=== PATIENT | female | born 1970 | race Caucasian/White ===

== ENCOUNTER 2021-01-07 03:21 | Emergency (ER) | payer SELFPAY ==
[2021-01-07 03:22] VITALS: BP 131/61; PULSE 97; RESP 18; TEMP 36.6; O2SAT 100; BMI 30.5
[2021-01-07 03:24] VITALS: BP 131/61; PULSE 97; RESP 18; TEMP 36.6; O2SAT 100
--- NOTE | 2021-01-07 03:44 | ED.VIS.DENTA ---
HPI History of Present Illness Chief Complaint: Dental Narrative Narrative: Patient presenting secondary to dental pain and facial swelling. Patient states for multiple months she has been dealing with pain in her right lower molars. She states that it mainly causes her pain when she is chewing or when she is leaning forward. Patient states however the course the last couple of days she has been having increasing pain and she woke up tonight she noted that she had right-sided facial swelling. She denies any fevers. Pain is moderate it was refractory to NSAIDs at home. Patient denies any difficulty swallowing or difficulty with phonation. She is not immunosuppressed. View of systems otherwise negative. PFSH PFSH Home Medications hydrocodone-acetaminophen 1 tab PO Q6H PRN PRN 2 Days #8 tablet 01/07/21 [Rx Last Taken Unknown] naproxen 500 mg PO BID PRN #20 tab 01/07/21 [Rx Last Taken Unknown] penicillin V potassium 500 mg PO 4X/DAY #40 tab 01/07/21 [Rx Last Taken Unknown] Allergy/AdvReac Type Severity Reaction Status Date / Time No Known Allergies Allergy Verified 03/04/17 07:24 Social History Smoking Status: Never smoker ROS ROS ED Constitutional Constitutional ED: Denies fever(s) ENT ENT ED: Reports other Details: Dental pain Respiratory/Chest Respiratory/Chest: Denies dyspnea Gastrointestinal Gastrointestinal: Denies nausea or vomiting Musculoskeletal Musculoskeletal: Denies myalgias Integumentary Denies abscess or rash Hematologic/Lymphatic Hematologic/Lymphatic: Denies easy bleeding or easy bruising EXAM Physical Exam Const Vital Signs: 01/07/21 03:22 01/07/21 03:24 Temperature 97.8 F 97.8 F Temperature Source Temporal Temporal Pulse Rate 97 97 Respiratory Rate 18 18 Blood Pressure 131/61 H 131/61 H Blood Pressure Mean 84 84 Pulse Ox 100 100 Oxygen Delivery Method Room Air Room Air Positive well nourished and well developed General Appearance ED: well developed HEENT HEENT Narrative: Facial and oral exam shows the patient to have some swelling of her right lower jaw that is visible externally. Oral exam shows very poor dentition, was not able to localize a focal abscess there is no trismus oropharynx is clear and patent. Sublingual space is soft. Normal phonation. Destruction of gums is noted over the patient's midline mandible but this is not the location of the patient's pain or swelling currently. Eyes EOMs intact bilaterally Neck no lymphadenopathy and supple Resp normal respiratory effort Cardio regular rate Extremity normal to inspection Neuro oriented x3 Sensorium / Orientation: alert Psych mental status grossly normal Skin no rashes or lesions noted MDM MDM MDM Narrative Medical decision making narrative: Patient presented secondary to dental pain. She does not have evidence of sublingual edema or Joshua angina, no evidence of airway compromise. Likewise there is no evidence of focal abscess that could be drained. Patient be treated with a course of penicillin, Naprosyn, and a short course of Freeman. Patient's prescription reporting record was clean. Patient was recommended to follow-up with a dentist as soon as possible. Patient was given first doses in the ED. Discharge Plan Triage Chief Complaint: Dental ED Provider: Michael Andres Dx/Rx/DC Orders Clinical Impression: Dental infection Instructions: ED Dental Abscess Prescriptions: New penicillin V potassium 500 mg tablet 500 mg PO 4X/DAY Qty: 40 RF: 0 naproxen 500 mg tablet 500 mg PO BID PRN Qty: 20 RF: 0 hydrocodone-acetaminophen 5-325 mg tablet 1 tab PO Q6H PRN PRN (Reason: Pain) 2 Days Qty: 8 RF: 0 Primary Care Provider: Care Physician,No Primary Referrals: Care Physician,No Primary [Primary Care Provider] - Activity Restrictions/Additional Instructions: Follow-up with a dentist as soon as possible Disposition Disposition: Home, Self Care
[2021-01-07] MEDS: HYDROcodone Bitartrate/Apap 5/325 Tablet PO (03:57)
[2021-01-07] MEDS: Penicillin Vk 250 MG Tablet 500 MG PO (03:57)
== END 2021-01-07 04:01 | disposition home or self-care (01) ==
PROVIDERS: Emergency Provider Emergency Medicine
DX: K04.7 Periapical abscess without sinus (principal)
CPT/HCPCS: 99282

== ENCOUNTER 2021-07-02 17:58 | Emergency (ER) | payer SELFPAY ==
[2021-07-02 17:59] VITALS: BP 117/68; PULSE 99; RESP 16; TEMP 36.4; O2SAT 97; BMI 29.5
--- NOTE | 2021-07-02 18:15 | EDS_ITS ---
HPI History of Present Illness Chief Complaint: Upper Extremity Injury Informant: patient Narrative Narrative: [id number] female presents valuation paresthesias bilateral hands right greater than left. States started 2 years ago and more frequent since she started a new job a month ago working both hands and lifting. Would wake up with middle finger being numb and slight weakness to the right hand. States his pain up her arm. No trauma. Has not had this evaluated. States with extension symptoms seem to help. Denies history of gastric ulcers or kidney failure. Prior similar symptoms: Yes PFSH PFSH Home Medications hydrocodone-acetaminophen 1 tab PO Q6H PRN PRN 2 Days #8 tablet 01/07/21 [Rx Last Taken Unknown] naproxen 500 mg PO BID PRN #20 tab 01/07/21 [Rx Last Taken Unknown] penicillin V potassium 500 mg PO 4X/DAY #40 tab 01/07/21 [Rx Last Taken Unknown] ibuprofen 600 mg PO 4X/DAY PRN #20 tab 07/02/21 [Rx Last Taken Unknown] Allergy/AdvReac Type Severity Reaction Status Date / Time No Known Allergies Allergy Verified 07/02/21 17:59 Social History Smoking Status: Never smoker ROS ROS ED Constitutional Constitutional ED: Denies chills, fever(s) or sweats Eyes Eyes: Denies change in vision ENT ENT ED: Denies dysphagia or sore throat Cardiovascular Cardiovascular: Denies chest pain, leg edema, palpitations or racing heartbeat Respiratory/Chest Respiratory/Chest: Denies cough, dyspnea or dyspnea on exertion Gastrointestinal Gastrointestinal: Denies abdominal pain, diarrhea, nausea or vomiting Genitourinary Genitourinary ED: Denies dysuria, hematuria or urinary frequency Musculoskeletal Musculoskeletal: Denies back pain, extremity pain or neck pain Integumentary Denies rash or wounds Neurologic Neurologic: Reports paresthesias; Denies headache(s) or weakness EXAM Physical Exam Const Vital Signs: 07/02/21 17:59 Temperature 97.5 F L Temperature Source Temporal Pulse Rate 99 Respiratory Rate 16 Blood Pressure 117/68 Blood Pressure Mean 84 Pulse Ox 97 Oxygen Delivery Method Room Air Positive well nourished and well developed General Appearance ED: well developed and NAD HEENT Reports moist mucous membranes normocephalic and atraumatic Eyes PERRL, EOMs intact bilaterally and conjunctivae normal General Eye ED: Yes normal appearance of both eyes Neck no lymphadenopathy and supple General: Negative for tenderness Chest Wall Chest: Negative for tenderness Resp normal respiratory effort and normal air movement Effort and Inspection: symmetric chest movement; Negative for respiratory distress Cardio regular rate, regular rhythm and no murmurs Peripheral Pulses: pulses 2+ throughout GI normal to inspection, nondistended, normoactive bowel sounds and non-tender Palpation: Negative for guarding or rebound tenderness present Back/Spine no CVA tenderness and no thoracic nor lumbar tenderness Extremity normal to inspection Extremity Narrative: Positive Phalen's test bilaterally right greater than left, 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 Positive Tinel's of the right wrist. General Extremety ED: Negative for edema or tenderness General Extremity: Negative for edema Neuro oriented x3 and no sensory deficits noted Sensorium / Orientation: awake and alert Skin no rashes or lesions noted and no wounds MDM MDM MDM Narrative Medical decision making narrative: Patient history exam consistent with carpal tunnel syndrome. Bilateral wrist splints provided. She started on NSAIDs. She is given follow-up with orthopedics as an outpatient. Discharge Plan Triage Chief Complaint: Upper Extremity Injury ED Provider: Ashish Addison Dx/Rx/DC Orders Clinical Impression: Bilateral carpal tunnel syndrome Instructions: Carpal Tunnel Syndrome, Carpal Tunnel Syndrome Prevent Prescriptions: New ibuprofen 600 MG tablet 600 mg PO 4X/DAY PRN (Reason: Pain Or Fever) Qty: 20 RF: 0 No Action penicillin V potassium 500 mg tablet 500 mg PO 4X/DAY Qty: 40 RF: 0 naproxen 500 mg tablet 500 mg PO BID PRN Qty: 20 RF: 0 hydrocodone-acetaminophen 5-325 mg tablet 1 tab PO Q6H PRN PRN (Reason: Pain) 2 Days Qty: 8 RF: 0 Primary Care Provider: Care Physician,No Primary Referrals: Michael Liu DO [STAFF PHYSICIAN] - 1-2 Weeks Care Physician,No Primary [Primary Care Provider] - Disposition Disposition: Home, Self Care
[2021-07-02] MEDS: Ibuprofen 600 MG Tablet PO (18:28)
== END 2021-07-02 18:31 | disposition home or self-care (01) ==
PROVIDERS: Emergency Provider Emergency Medicine; Visit Provider Emergency Medicine
DX: G56.03 Carpal tunnel syndrome, bilateral upper limbs (principal)
CPT/HCPCS: 99283

== ENCOUNTER 2021-08-30 21:17 | Emergency (ER) | payer SELFPAY ==
[2021-08-30 21:18] VITALS: BP 135/70; PULSE 86; RESP 15; TEMP 37.3; O2SAT 99; BMI 28.3
--- NOTE | 2021-08-30 23:09 | EX.ED.DYSGE1 ---
HPI History of Present Illness Chief Complaint: Complaint Informant: patient Narrative Narrative: 51-year-old female arriving to the emergency department with chief complaint of bladder prolapse. Patient states that several days ago when she got home from work she did get in the shower and she noticed something seem to be protruding from her vagina. She took a photo of it. She states she has been very anxious about what this may be is afraid that she is dying. 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 She notes frequent urination which is not abnormal for her. PFSH PFS Medical History Kidney stones Home Medications hydrocodone-acetaminophen 1 tab PO Q6H PRN PRN 2 Days #8 tablet 01/07/21 [Rx Last Taken Unknown] naproxen 500 mg PO BID PRN #20 tab 01/07/21 [Rx Last Taken Unknown] penicillin V potassium 500 mg PO 4X/DAY #40 tab 01/07/21 [Rx Last Taken Unknown] ibuprofen 600 mg PO 4X/DAY PRN #20 tab 07/02/21 [Rx Last Taken Unknown] Allergy/AdvReac Type Severity Reaction Status Date / Time No Known Allergies Allergy Verified 08/30/21 21:20 Surgical History History of arthroplasty of right knee History of tubal ligation Social History Smoking Status: Never smoker ROS ROS ED Constitutional Constitutional ED: Denies chills or weight loss Eyes Eyes: Denies change in vision or diplopia ENT ENT ED: Denies ear pain, rhinorrhea or sore throat Cardiovascular Cardiovascular: Denies chest pain, orthopnea, palpitations or racing heartbeat Respiratory/Chest Respiratory/Chest: Denies cough, dyspnea or orthopnea Gastrointestinal Gastrointestinal: Denies abdominal pain, diarrhea, nausea or vomiting Genitourinary Genitourinary ED: Reports urinary frequency; Denies dysuria or hematuria Musculoskeletal Musculoskeletal: Denies arthralgias or myalgias Integumentary Denies abscess or rash Neurologic Neurologic: Denies headache(s) or weakness Psychiatric Psychiatric: Denies anxiety, depression, suicidal ideation or suicidal thoughts Endocrine Endocrinology: Denies polydipsia, polyphagia or polyuria Allergic/Immunologic Allergic/Immunologic ED: Denies mouth swelling, tongue swelling or urticaria EXAM Physical Exam Narrative Exam Narrative: Pelvic exam was performed in the presence of female nursing Const Vital Signs: 08/30/21 21:18 Temperature 99.1 F Temperature Source Temporal Pulse Rate 86 Respiratory Rate 15 Blood Pressure 135/70 H Blood Pressure Mean 91 Pulse Ox 99 Oxygen Delivery Method Room Air Positive well nourished and well developed General Appearance ED: well developed HEENT Reports normocephalic, head/scalp atraumatic, TM's clear and moist mucous membranes Negative for trauma Tympanic Membrane ED: Yes TM's clear Eyes PERRL and EOMs intact bilaterally Neck no lymphadenopathy, supple and no JVD Resp normal respiratory effort and clear to auscultation bilaterally Cardio regular rate, regular rhythm and no murmurs GI normal to inspection, nondistended, normoactive bowel sounds and non-tender Palpation: soft Narrative: I am not seeing or palpating any obvious bladder prolapse. I do not see any uterine prolapse. Back/Spine no CVA tenderness and normal ROM Extremity normal to inspection General Extremety ED: Negative for edema General Extremity: Negative for edema Neuro oriented x3 and CN's II-XII intact bilaterally Sensorium / Orientation: alert Motor Exam: strength 5/5 throughout Psych mental status grossly normal Mood & Affect: Negative for depressed or tearful Skin no rashes or lesions noted and no wounds MDM MDM MDM Narrative Medical decision making narrative: Based on the picture the patient shows me this looks more like a incomplete uterine prolapse but I do not see evidence of it on physical exam at this time. I am advising her to follow-up with [facility]. Discharge Plan Triage Chief Complaint: Complaint ED Provider: Quoc Martínez Dx/Rx/DC Orders Clinical Impression: Anxiety about health, Incomplete uterine prolapse Instructions: Pelvic Organ Prolapse Prescriptions: No Action penicillin V potassium 500 mg tablet 500 mg PO 4X/DAY Qty: 40 RF: 0 naproxen 500 mg tablet 500 mg PO BID PRN Qty: 20 RF: 0 hydrocodone-acetaminophen 5-325 mg tablet 1 tab PO Q6H PRN PRN (Reason: Pain) 2 Days Qty: 8 RF: 0 ibuprofen 600 MG tablet 600 mg PO 4X/DAY PRN (Reason: Pain Or Fever) Qty: 20 RF: 0 Primary Care Provider: Care Physician,No Primary Referrals: Maddi Brasher MD [STAFF PHYSICIAN] - As soon as possible Care Physician,No Primary [Primary Care Provider] - Disposition Disposition: Home, Self Care
[2021-08-30 23:24] VITALS: PULSE 84; RESP 15; O2SAT 99
== END 2021-08-30 23:25 | disposition home or self-care (01) ==
PROVIDERS: Emergency Provider Emergency Medicine; Visit Provider Emergency Medicine
DX: N81.2 Incomplete uterovaginal prolapse (principal); R35.0 Frequency of micturition; Z79.1 Long term (current) use of non-steroidal anti-inflammatories (NSAID); Z79.899 Other long term (current) drug therapy
CPT/HCPCS: 99282

== ENCOUNTER 2021-10-11 00:37 | Emergency (ER) | payer SELFPAY ==
[2021-10-11 00:39] VITALS: BP 139/87; PULSE 123; RESP 20; TEMP 37.6; O2SAT 98; BMI 29.5
[2021-10-11 00:43] VITALS: BP 139/87; PULSE 119; RESP 20; TEMP 37.6; O2SAT 100
--- NOTE | 2021-10-11 01:10 | EDS_ITS ---
HPI History of Present Illness Chief Complaint: General Illness Informant: patient Narrative Narrative: Only started yesterday. Reported work noted sore throat with mild illness. States with home became fatigued, waking in the evening with a fever and myalgias. Took ibuprofen last evening. Today noted headache mild cough. No vomiting or diarrhea. No urinary symptoms. Persistent fevers last ibuprofen 5 PM. There were people sick at work however there is no close contact with her. No flu or COVID vaccination. No COVID in the past. Denies any loss of taste or smell. Reported had a temp of 101 prior to arrival. Denies any dyspnea. [facility] Medical History Kidney stones Home Medications naproxen 500 mg PO BID PRN #20 tab 01/07/21 [Rx Last Taken Unknown] ibuprofen 600 mg PO 4X/DAY PRN #20 tab 07/02/21 [Rx Last Taken Unknown] Allergy/AdvReac Type Severity Reaction Status Date / Time No Known Allergies Allergy Verified 08/30/21 21:20 Surgical History History of arthroplasty of right knee History of tubal ligation Social History Smoking Status: Never smoker ROS ROS ED Constitutional Constitutional ED: Reports fever(s); Denies chills or sweats Eyes Eyes: Denies change in vision ENT ENT ED: Denies dysphagia or sore throat Cardiovascular Cardiovascular: Denies chest pain, leg edema, palpitations or racing heartbeat Respiratory/Chest Respiratory/Chest: Reports cough; Denies dyspnea or dyspnea on exertion Gastrointestinal Gastrointestinal: Denies abdominal pain, diarrhea, nausea or vomiting Genitourinary Genitourinary ED: Denies dysuria, hematuria or urinary frequency Musculoskeletal Musculoskeletal: Reports myalgias; Denies back pain, extremity pain or neck pain Integumentary Denies rash or wounds Neurologic Neurologic: Reports headache(s); Denies paresthesias or weakness EXAM Physical Exam Const Vital Signs: 10/11/21 00:39 10/11/21 00:43 Temperature 99.7 F H 99.7 F H Temperature Source Oral Oral Pulse Rate 123 H 119 H Respiratory Rate 20 H 20 H Blood Pressure 139/87 H 139/87 H Blood Pressure Mean 104 104 Pulse Ox 98 100 Oxygen Delivery Method Room Air Room Air Positive well nourished and well developed Constitutional Narrative: Nontoxic General Appearance ED: well developed and NAD HEENT Reports dry mucous membranes HEENT Narrative: Mild dry mucosal membranes. normocephalic and atraumatic Mouth ED: Yes dry mucous membranes Mouth: dry mucous membranes Eyes PERRL, EOMs intact bilaterally and conjunctivae normal General Eye ED: Yes normal appearance of both eyes Neck no lymphadenopathy and supple Neck Narrative: No meningismus. General: Negative for tenderness Chest Wall Chest: Negative for tenderness Resp normal respiratory effort and normal air movement Effort and Inspection: symmetric chest movement; Negative for respiratory distress Cardio regular rhythm and no murmurs Rate: tachycardic Peripheral Pulses: pulses 2+ throughout GI normal to inspection, nondistended, normoactive bowel sounds and non-tender Palpation: Negative for guarding or rebound tenderness present Back/Spine no CVA tenderness and no thoracic nor lumbar tenderness Extremity normal to inspection General Extremety ED: Negative for edema or tenderness General Extremity: Negative for edema Neuro oriented x3, CN's II-XII intact bilaterally and no sensory deficits noted Sensorium / Orientation: awake and alert Skin no rashes or lesions noted and no wounds MDM MDM MDM Narrative Medical decision making narrative: Patient tachycardic on arrival elevated temperature. Dry mucosal membranes. IV established fluids given. Chest x-ray 1 view reviewed by myself and read by radiology shows no acute process. Labs White count 16 creatinine 0.83. She has no urine symptoms. With fluids heart rate down in the 100s. COVID and influenza was negative. Discussed possibility of false negatives especially with her headaches and myalgias. She is not hypoxic. She has no dyspnea or lower suspicion for PE concerns. Discussed viral process with the patient. Discussed adjunct therapies and continue fluid hydration at home. Return precautions. Otherwise follow-up given as an outpatient. Work note given. All questions were answered. Lab Data Attestation: I reviewed the patient's lab results. Labs: Laboratory Results - last 24 hr 10/11/21 10/11/21 01:25 01:25 WBC 16.4 H RBC 4.31 Hgb 11.4 L Hct 36.4 L MCV 84.5 MCH 26.5 L MCHC 31.3 L RDW Std Deviation 48.7 H RDW Coeff of Julian 15.7 H Plt Count 182 MPV 10.8 Immature Gran % (Auto) 0.500 Neut % (Auto) 86.1 H Lymph % (Auto) 7.6 L [place] % (Auto) 5.1 Eos % (Auto) 0.5 Baso % (Auto) 0.2 Absolute Neuts (auto) 14.1 H Absolute Lymphs (auto) 1.25 Nucleated RBC % 0 Sodium 136 Potassium 3.9 Chloride 107 Carbon Dioxide 27.0 Anion Gap 2 L BUN 14 Creatinine 0.83 Estim Creat Clear Calc 64.85 Est GFR (MDRD) Af Amer 94 Est GFR (MDRD) Non-Af 78 BUN/Creatinine Ratio 16.9 Glucose 115 H Calcium 10.5 H Radiography Chest X-Ray - ED: 1 View, Read by ED Physician and Read by Radiologist Diagnostic Testing: Clinical Impression(s) from Imaging Studies Chest X-Ray 10/11/21 01:40 IMPRESSION: No radiographic evidence of acute cardiopulmonary disease. Electronically Signed: Debra Husain MD at 2:39 EDT , Discharge Plan Triage Chief Complaint: General Illness ED Provider: Ashish Addison Dx/Rx/DC Orders Clinical Impression: Viral upper respiratory illness, Cough, Headache, Myalgia Instructions: ED Myalgias, ED URI, Viral, No Abx (Adult) Prescriptions: No Action naproxen 500 mg tablet 500 mg PO BID PRN Qty: 20 RF: 0 ibuprofen 600 MG tablet 600 mg PO 4X/DAY PRN (Reason: Pain Or Fever) Qty: 20 RF: 0 Primary Care Provider: Care Physician,No Primary Referrals: Kayli Tavares [NON-STAFF] - 1 Week if not improving Care Physician,No Primary [Primary Care Provider] - Activity Restrictions/Additional Instructions: Chest x-ray is negative. Flu and COVID-negative. Continue oral fluids for hydration. Tylenol Motrin as needed for fevers. Disposition Disposition: Home, Self Care
[2021-10-11] MEDS: 0.9% Normal Saline 1,000 ML 1000 ML IV (01:24)
[2021-10-11] MEDS: Acetaminophen 500 MG Tablet 1000 MG PO (01:24)
[2021-10-11 01:35] LABS: Absolute Lymphocyte Count 1.25 X10^3/uL (0.83-4.51); Absolute Neutrophil Count 14.1 X10^3/uL (2.0-7.7); Basophil# 0.03 X10^3/uL; Basophil% 0.2 % (0-1); Eosinophil# 0.08 X10^3/uL; Eosinophils% 0.5 % (0-5); Hematocrit 36.4 % (37-47); Hemoglobin 11.4 g/dL (12.0-15.0); Lymphocyte # 1.25 X10^3/ul (0.83-4.51); Lymphocyte % 7.6 % (19-41); Mean Corp Hgb Conc 31.3 g/dL (32-36); Mean Corpuscular Hgb 26.5 pg (27.0-32.0); Mean Corpuscular Volume 84.5 fL (81-99); Mean Platelet Vol. 10.8 fl (6.2-12.0); Monocyte# 0.84 X10^3/uL; Monocyte% 5.1 % (0-10); NRBC Flagged by Analyzer 0 % (0-5); Neutrophil # 14.08 X10^3/uL (2.7-7.7); Neutrophil % 86.1 % (47-70); Platelet Count 182 K/mm3 (150-450); RBC Distribution Width CV 15.7 % (11.6-14.6); RBC Distribution Width SD 48.7 fl (35.1-43.9); Red Blood Count 4.31 M/mm3 (4.2-5.4); White Blood Count 16.4 K/mm3 (4.4-11.0)
--- NOTE | 2021-10-11 01:40 | RAD_ITS ---
EXAM: XR CHEST, 1 VIEW CLINICAL INDICATION: cough TECHNIQUE: Frontal view of the chest. This report was created using [employer] report generation technology. COMPARISON: None. FINDINGS: LUNGS AND PLEURAL SPACES: Unremarkable. No consolidation or edema. No pneumothorax. No effusion. HEART: Unremarkable. Cardiac silhouette not enlarged. MEDIASTINUM: Central airways and mediastinal contour are unremarkable. BONES/JOINTS: Unremarkable. SOFT TISSUES: Unremarkable. RAD/Chest 1 View (Portable) IMPRESSION: No radiographic evidence of acute cardiopulmonary disease. Electronically Signed: Debra Husain MD at 2:39 EDT ,
[2021-10-11 01:48] LABS: Anion Gap 2 (5-15); BUN 14 mg/dL (7-18); BUN/Creat Ratio 16.9 RATIO (10-20); Calcium,Total 10.5 mg/dL (8.5-10.1); Chloride 107 mmol/L (98-107); Creatinine, Serum 0.83 mg/dL (0.55-1.02); EST Glomerular Filtration Rate 78 mL/min (>60); Est Glom Filt Rate - Afr Amer 94 mL/min (>60); Estimated Creatinine Clearance 64.85 ml/min; Glucose 115 mg/dL (74-106); Potassium 3.9 mmol/L (3.5-5.1); Sodium Level 136 mmol/L (136-145)
[2021-10-11 02:58] VITALS: BP 133/73; PULSE 107; RESP 15; TEMP 36.9; O2SAT 97
== END 2021-10-11 03:02 | disposition home or self-care (01) ==
PROVIDERS: Emergency Provider Emergency Medicine; Visit Provider Emergency Medicine
DX: J06.9 Acute upper respiratory infection, unspecified (principal); Z20.822 Contact with and (suspected) exposure to COVID-19; M79.10 Myalgia, unspecified site; Z79.1 Long term (current) use of non-steroidal anti-inflammatories (NSAID)
CPT/HCPCS: 71045; 80048; 85025; 87428; 96360; 99284; J7030; A4216

== ENCOUNTER 2021-12-17 22:20 | Emergency (ER) | payer SELFPAY ==
[2021-12-17 22:21] VITALS: BP 169/81; PULSE 114; RESP 15; TEMP 37.4; O2SAT 98; BMI 27.4
--- NOTE | 2021-12-17 22:40 | ED.VIS.BACK ---
HPI History of Present Illness Chief Complaint: Flank Pain Narrative Narrative: 51-year-old female presenting with lower back pain. She states its mostly on the left lumbar paraspinal region. Its achy. At times it radiates to the right side. She states that when she wakes up in the morning she has trouble standing initially but when she stretches out she is able to get up and ambulate around. She states when she works she is able to [employer] and move without too much difficulty. She states that she does have a distant history of kidney stones associated with UTI and had to have procedures done to remove the kidney stones. She believes the urologist was Dr. Neville. She states that since she has been having symptoms the last 3 weeks she has not seen Dr. Neville. She states that there is been a couple episodes where she had a susan colored urine but has not had sara hematuria and she is not having any dysuria. He does not have any abdominal pain. None of the pain radiates into the anterior abdomen. It does not feel like her previous acute kidney stones. She has not had any nausea or difficulty finding position of comfort [facility] Medical History Kidney stones Non-smoker Home Medications naproxen 500 mg tablet 500 mg PO BID PRN #20 tabs 01/07/21 [Rx Last Taken Unknown] ibuprofen 600 mg tablet 600 mg PO 4X/DAY PRN Pain Or Fever #20 tabs 07/02/21 [Rx Last Taken Unknown] ciprofloxacin HCl 500 mg tablet (Cipro) 500 mg PO BID #14 tabs 12/18/21 [Rx Last Taken Unknown] hydrocodone-acetaminophen 5-325mg 5mg-325mg 1 tab PO Q6H PRN pain 3 days #12 tabs 12/18/21 [Rx Last Taken Unknown] ondansetron 4 mg disintegrating tablet 4 mg PO Q8H PRN nausea and vomiting #14 tabs 12/18/21 [Rx Last Taken Unknown] Allergy/AdvReac Type Severity Reaction Status Date / Time No Known Allergies Allergy Verified 12/17/21 22:21 Surgical History History of arthroplasty of right knee History of tubal ligation Social History Smoking Status: Never smoker ROS ROS ED Constitutional Constitutional ED: Denies chills or fever(s) Eyes Eyes: Denies change in vision or diplopia ENT ENT ED: Denies rhinorrhea or sore throat Cardiovascular Cardiovascular: Denies chest pain or palpitations Respiratory/Chest Respiratory/Chest: Denies dyspnea or dyspnea on exertion Gastrointestinal Gastrointestinal: Denies abdominal pain, nausea or vomiting Genitourinary Genitourinary ED: Reports hematuria; Denies urinary frequency Musculoskeletal Musculoskeletal: Reports back pain; Denies arthralgias Integumentary Denies abscess or Abrasions Neurologic Neurologic: Denies headache(s) Psychiatric Psychiatric: Denies anxiety or depression EXAM Physical Exam Const Vital Signs: 12/17/21 22:21 Temperature 99.3 F H Temperature Source Temporal Pulse Rate 114 H Respiratory Rate 15 Blood Pressure 169/81 H Blood Pressure Mean 110 Pulse Ox 98 Oxygen Delivery Method Room Air Positive well nourished General Appearance ED: NAD; Negative for pallor HEENT Reports moist mucous membranes Eyes PERRL and EOMs intact bilaterally Resp normal respiratory effort Auscultation: Negative for rales, rhonchi or wheezes Cardio regular rate Rate: bradycardia GI normal to inspection, nondistended, normoactive bowel sounds Back/Spine Negative for normal to inspection Back/Spine Narrative: Left lumbar paraspinal musculature tenderness adjacent to L4-L5. No midline spinal deformity or tenderness. No CVA tenderness noted. Extremity normal to inspection General Extremety ED: Negative for edema General Extremity: Negative for edema Neuro oriented x3 Sensorium / Orientation: alert Motor Exam: strength 5/5 throughout Psych mental status grossly normal Skin General Skin Exam: Negative for jaundice or pallor MDM MDM MDM Narrative Medical decision making narrative: Patient presenting with history of kidney stones in the past. She is having some back pain which really sounds kind of musculoskeletal. She is having it from the left side rating to the right. She states it is worse when she wakes up in the morning gets better throughout the day. She does not really have any CVA tenderness and she is tender to palpation in the left lumbar paraspinal musculature. Because of her history I checked a urinalysis and there is 250 occult blood, 500 leukocyte esterase, 25-50 RBCs, greater than 100 white blood cells with 4+ bacteria. There is some contamination however with the patient's symptoms and history I did obtain blood work. Her CBC shows no leukocytosis. Hemoglobin hematocrit are stable. Creatinine slightly bumped to 1.30 from October of this year. Electrolytes within normal limits. CT of the abdomen pelvis does show a more proximal right-sided obstructing ureteral stone in the distal left ureteral stone. There are both 8 mm. There is bilateral hydronephrosis and hydroureter which was monitor show air as interpreted by the radiologist. Patient did not require any analgesia here. She is not nauseous. After I discussed her findings with her she states that earlier today she did experience some sharper pain and felt rundown for a while but now feels okay. I discussed the case with Dr. Neville and specifically discussed her history of septic kidney stones as well as needing lithotripsy distantly. He did not feel the patient needed to be admitted at this point. He recommended outpatient follow-up and have her call the office and we will try to get her in. Patient to be started on Cipro, Zofran, [place]. I did certified alcohol counselor her at length if she has any worsening symptoms or develops a fever she should return to the ER for repeat evaluation. She acknowledged understanding of this. She request a work note for yesterday and today because she had to leave work yesterday. Impression: 1. Bilateral hydronephrosis 2. Bilateral hydroureter 3. Pyelonephritis 4. Right 8 mm obstructing ureteral stone 5. Left 8 mm obstructing ureteral stone Lab Data Attestation: I reviewed the patient's lab results. Labs: Laboratory Results - last 24 hr 12/17/21 12/17/21 12/17/21 22:45 23:19 23:19 WBC 9.6 RBC 3.92 L Hgb 10.7 L Hct 33.6 L MCV 85.7 MCH 27.3 MCHC 31.8 L RDW Std Deviation 49.2 H RDW Coeff of Julian 15.6 H Plt Count 230 MPV 10.6 Immature Gran % (Auto) 1.700 H Neut % (Auto) 67.3 Lymph % (Auto) 18.7 L Hinds % (Auto) 7.3 Eos % (Auto) 4.7 Baso % (Auto) 0.3 Absolute Neuts (auto) 6.4 Absolute Lymphs (auto) 1.79 Nucleated RBC % 0 Sodium 141 Potassium 3.8 Chloride 109 H Carbon Dioxide 26.0 Anion Gap 6 BUN 19 H Creatinine 1.30 H Estim Creat Clear Calc 41.40 Est GFR (MDRD) Af Amer 56 L Est GFR (MDRD) Non-Af 46 L BUN/Creatinine Ratio 14.6 Glucose 106 Calcium 10.9 H Urine Color Yellow Urine Clarity Sl. Cloudy Urine pH 6.0 Ur Specific [place] 1.015 Urine Protein 30 H Urine Glucose (UA) Normal Urine Ketones Negative Urine Occult Blood 250 H Urine Nitrite Negative Urine Bilirubin Negative Urine Urobilinogen Normal Ur Leukocyte Esterase 500 H Urine RBC 25-50 SEEN Urine WBC >100 SEEN Ur Squamous Epith Cells 10-25 SEEN Urine Bacteria 4+ Urine Mucus 0 SEEN Urine Test Negative Radiography Diagnostic Testing: Clinical Impression(s) from Imaging Studies Abdomen/Pelvis CT 12/17/21 23:11 IMPRESSION: Moderate to severe bilateral hydronephrosis and hydroureter with stones in the ureters as details above. Additional right-sided nephrolithiasis. Remainder is unremarkable Electronically Signed: Reji Mansfield DO at 23:49 EDT Reading Location ID and State: [facility] / [place] Tel , Service support , Discharge Plan Triage Chief Complaint: Flank Pain ED Provider: Jean Marie Remy Dx/Rx/DC Orders Instructions: ED Pyelonephritis, Female (Adult), ED Kidney Stone w/ Colic Prescriptions: New ciprofloxacin HCl [Cipro] 500 mg tablet 500 mg PO BID Qty: 14 0RF hydrocodone-acetaminophen 5-325 mg tablet 1 tab PO Q6H PRN (Reason: pain) 3 Days Qty: 12 0RF ondansetron 4 mg tablet,disintegrating 4 mg PO Q8H PRN (Reason: nausea and vomiting) Qty: 14 0RF No Action naproxen 500 mg tablet 500 mg PO BID PRN Qty: 20 0RF ibuprofen 600 MG tablet 600 mg PO 4X/DAY PRN (Reason: Pain Or Fever) Qty: 20 0RF Stand Alone Forms: ED Work / School Excuse Primary Care Provider: Care Physician,No Primary Referrals: Peng Neville MD [Med Staff - Active Staff] - 1 Day Care Physician,No Primary [Primary Care Provider] - Disposition Disposition: Home, Self Care
[2021-12-17 22:49] LABS: Mucous, Urine 0 SEEN /hpf (<or=2+)
[2021-12-17 22:53] LABS: Color, Urine Yellow (Yellow); Glucose, Dipstick Normal (Normal); Ketone-Dipstick Negative (Negative); Leukocyte Esterase-Dipstick 500 /ul (Negative); Nitrite-Dipstick Negative (Negative); Occult Blood-Urine 250 /ul (Negative); Protein-Dipstick 30 mg/dl (Negative); Specific Gravity, Urine 1.015 (1.002-1.030); Urine Bilirubin Dipstick Negative (Negative); Urine Clarity Sl. Cloudy (Clear); Urine Urobilinogen Normal (Normal)
[2021-12-17 23:10] LABS: Bacteria 4+ /hpf (None Seen); Red Blood Cells-Urine 25-50 SEEN /hpf (0-5); Squamous Epithelial Cells - UA 10-25 SEEN /hpf (5-10); White Blood Cells >100 SEEN /hpf (0-5)
--- NOTE | 2021-12-17 23:11 | CT_ITS ---
STUDY: CT ABDOMEN AND PELVIS WITHOUT CONTRAST REASON FOR EXAM: Female, 51 years old. flank pain RADIATION DOSAGE (If Supplied By Facility): CTDIvol = ( 9.03 ) mGy, DLP = ( 417.54 ) mGycm TECHNIQUE: Transaxial images were obtained from the dome of the diaphragm to the symphysis pubis without oral contrast, and without intravenous contrast. Sagittal and coronal images were reconstructed. Individualized dose optimization techniques were used for this CT. COMPARISON: None. FINDINGS: The visualized lung bases are unremarkable. The visualized portions of the heart are within normal limits. Normal liver. Normal gallbladder and extrahepatic biliary system. Normal spleen. Normal pancreas. Normal bilateral adrenal glands. Moderate to severe bilateral hydronephrosis and hydroureter. There is a 8 mm stone in the mid right ureter as well as a 8 mm stone in the distal left ureter. Additional right-sided nephroliths. No additional left-sided nephrolithiasis. Normal visualized stomach. Normal small intestine. Normal colon. The appendix is visualized and appears normal. Normal abdominal aorta. Normal inferior vena cava. Normal retroperitoneum. Normal urinary bladder. Normal visualized uterus. Normal abdominal wall. Normal osseous structures. CT/Abdomen/Pelvis without Cont IMPRESSION: Moderate to severe bilateral hydronephrosis and hydroureter with stones in the ureters as details above. Additional right-sided nephrolithiasis. Remainder is unremarkable Electronically Signed: Reji Mansfield DO at 23:49 EDT ,
[2021-12-17 23:12] LABS: Internal QC Validated? YES +Cl - CLEAR BKGD; Pregnancy, Urine Negative Negative
[2021-12-17 23:33] LABS: Absolute Lymphocyte Count 1.79 X10^3/uL (0.83-4.51); Absolute Neutrophil Count 6.4 X10^3/uL (2.0-7.7); Basophil# 0.03 X10^3/uL; Basophil% 0.3 % (0-1); Eosinophil# 0.45 X10^3/uL; Eosinophils% 4.7 % (0-5); Hematocrit 33.6 % (37-47); Hemoglobin 10.7 g/dL (12.0-15.0); Lymphocyte # 1.79 X10^3/ul (0.83-4.51); Lymphocyte % 18.7 % (19-41); Mean Corp Hgb Conc 31.8 g/dL (32-36); Mean Corpuscular Hgb 27.3 pg (27.0-32.0); Mean Corpuscular Volume 85.7 fL (81-99); Mean Platelet Vol. 10.6 fl (6.2-12.0); Monocyte% 7.3 % (0-10); NRBC Flagged by Analyzer 0 % (0-5); Neutrophil # 6.44 X10^3/uL (2.7-7.7); Neutrophil % 67.3 % (47-70); Platelet Count 230 K/mm3 (150-450); RBC Distribution Width CV 15.6 % (11.6-14.6); RBC Distribution Width SD 49.2 fl (35.1-43.9); Red Blood Count 3.92 M/mm3 (4.2-5.4); White Blood Count 9.6 K/mm3 (4.4-11.0)
[2021-12-17 23:38] LABS: Anion Gap 6 (5-15); BUN 19 mg/dL (7-18); BUN/Creat Ratio 14.6 RATIO (10-20); Calcium,Total 10.9 mg/dL (8.5-10.1); Chloride 109 mmol/L (98-107); EST Glomerular Filtration Rate 46 mL/min (>60); Est Glom Filt Rate - Afr Amer 56 mL/min (>60); Glucose 106 mg/dL (74-106); Potassium 3.8 mmol/L (3.5-5.1); Sodium Level 141 mmol/L (136-145)
[2021-12-18] MEDS: Ciprofloxacin 500 MG Tablet PO (00:18)
[2021-12-18 00:27] VITALS: BP 144/89; PULSE 98; RESP 16; RESP 18; O2SAT 98
== END 2021-12-18 00:28 | disposition home or self-care (01) ==
PROVIDERS: Emergency Provider Student in an Organized Health Care Education/Training Program; Visit Provider Student in an Organized Health Care Education/Training Program
DX: N13.6 Pyonephrosis (principal); R31.9 Hematuria, unspecified; Z79.1 Long term (current) use of non-steroidal anti-inflammatories (NSAID); Z79.899 Other long term (current) drug therapy; Z87.442 Personal history of urinary calculi
CPT/HCPCS: 74176; 80048; 81001; 81025; 85025; 87086; 87088; 99283; A4216

== ENCOUNTER 2024-10-15 22:20 | Observation (INO) | payer MEDICAID, SELFPAY ==
--- NOTE | 2024-10-15 00:10 | CT_ITS ---
PROCEDURE: ABDOMEN/PELVIS WITHOUT CONT 10/16/2024 REASON FOR EXAM: PAIN TECHNIQUE: ABDOMEN/PELVIS WITHOUT CONT Noncontrast technique limits evaluation of the abdominal and pelvic viscera. Coronal and Sagittal reconstruction series were provided. One or more dose reduction techniques were used (e.g., Automated exposure control, adjustment of the mA and/or kV according to patient size, use of iterative reconstruction technique). ORAL CONTRAST TYPE: None. AMOUNT: mL COMPARISON: 12-17-2021 FINDINGS: Few about three right lower ureteric calculi, the largest 11 mm with consequent marked proximal right hydroureteronephrosis. Left lower ureteric 10 mm calculus with adjacent 1 mm calculus inducing moderate to marked proximal right hydroureteronephrosis. Right renal lower calyceal 13 mm non obstructing calculus with lower calyceal dependent/layering faintly dense small calculi. Small sized left kidney showing undulant outline. Average sized right kidney showing smooth outline with preserved parenchymal thickness. Average sized liver showing homogenous parenchymal attenuation. No dilated intra or extra-hepatic biliary tracts. Gall bladder showing no radiodense calculi. No abnormal mural thickening. Clear surrounding fat planes with no sizeable collections. Normal unenhanced appearance of the pancreas with clear surrounding fat planes. The unenhanced spleen, adrenal glands, aorta and IVC are unremarkable. Distension of the urinary bladder showing minimal uniform mural thickening with no obvious masses. Bulky anteverted uterus. Advise sonography correlation. Metallic clips of tubal ligation are noted. The appendix appears unremarkable. No right iliac inflammatory changes. Colonic fecal loading. The small bowel loops are unremarkable. The stomach is unremarkable. No ascites or free air. No obvious pathologically enlarged lymph nodes. Scanned osseous structures show no osseous destruction. Thoracolumbar spondylosis. Scanned lung bases show basal atelectatic changes. CT/Abdomen/Pelvis without Cont IMPRESSION: Few about three right lower ureteric calculi, the largest 11 mm with consequent marked proximal right hydroureteronephrosis. Left lower ureteric 10 mm calculus with adjacent 1 mm calculus inducing moderat e to marked proximal right hydroureteronephrosis. Right renal lower calyceal 13 mm non obstructing calculus with lower calyceal d ependent/layering faintly dense small calculi. Reading Location: [place] [id number]
[2024-10-15 22:21] VITALS: BP 145/78; PULSE 104; RESP 22; TEMP 36.5; O2SAT 98; BMI 27.8
[2024-10-15 22:23] VITALS: BP 145/74; PULSE 104; RESP 22; TEMP 36.5; O2SAT 100
--- OUTSIDE RECORDS SUMMARY | 2024-10-15 23:00 | XMS RPT_ITS | CCD ---
Author Organization [facility] Inform ion Partnership [facility] Care Team Providers Care Director Statistical Programming Name Role Phone Care Physician, No Primary Primary Care Provider Unavailable Care Physician, No Primary Referring Provider Un available RANDA Garza Attending Provider [phone] Medications Current Medications Medication Drug Class(es) Dates Sig (Normalized) Sig (Original) acetaminophen 325 mg / HYDROcodone bitartrate 5 mg oral tablet (2 sources) Opioid Agonist Start: 12-18-2021 take 1 tablet by mouth every six hours Hydrocodone-Aceta minophen Active 1 TABLET PO EVERY 6 HOURS 12 December 18, 2021 Start: 01-07-2021 take 1 tablet by basim th every six hours as needed Hydrocodone-Acetaminophen Active 1 TABLE T PO EVERY 6 HOURS NEEDED 8 January 07, 2021 3:45am ciprofloxacin 500 mg oral tablet (1 source) Quinolone Antimicrobial Start: 12-18-2021 take 1 tablet by mouth twice daily Ciprofloxacin Hcl (Cipro) 500 mg tablet Active 500 MG PO TWICE A DAY December 18, 2021 12:00am ibuprofen 600 mg oral tablet (3 sources) Nonsteroidal Anti-inflammatory Drug Start: 07-02-2021 take 600 mg by mouth four times daily Ibuprofen Active 600 MG PO 4 TIMES DAILY July 02, 2021 7:13pm naproxen 500 mg oral tablet (3 sources) Nonsteroidal Anti-inflammatory Drug Start: 01-07-2021 take 500 mg by mouth twice daily as needed Naproxen Active 500 MG PO TWICE DAILY NEEDED January 07, 2021 3:45am ondansetron 4 mg disintegrating oral tablet (1 source) Serotonin-3 Receptor Antagonist Start: 12-18-2021 take 4 mg by mouth every eight hours Ondansetron Active 4 MG PO Q8H December 18, 2021 12:00am penicillin v potassium 500 mg oral tablet (1 source) Start: 01-07-2021 take 500 mg by mouth four times daily Penicillin V Potassium Active 500 MG PO 4 TIMES DAILY 40 January 07, 2021 3:45am Problems Problem Classification Problem Date Documented Da te Episodic/Chronic Anxiety disorders (3 sources) Anxiety about body function or health; Translations: [Other specified anxiety disorders] Chronic Calculus of urinary tract (2 sources) Renal colic; Translations: [Unspecified renal colic] Episodic Disorders of teeth and jaw (3 sources) Infection of tooth; Translations: [Periapical abscess without sinus] Episodic Headache; including migraine (2 sources) Headache; Translations: [Headache] Episodic Other connective tissue disease (2 sources) Muscle pain; Translations: [Myalgia, unspecified site] Episodic Other lower respiratory disease (2 sources) Cough; Translations: [Cough] Episodic Other nervous system disorders (3 sources) Carpal tunnel syndrome; Translations: [Carpal tunnel syndrome, bilateral upper limbs] Chronic Other upper respiratory infections (2 sources) Viral upper respiratory tract infection; Translations: [Acute upper respiratory infection, unspecified] Episodic Prolapse of female genital organs (3 sources) Incomplete uterine prolapse; Translations: [Incomplete uterovaginal prolapse] Chronic Results Test Name Value Interpretation Reference Range Facility Urine Cultureon 12-19-2021 URC Below infection level. Mixed Gram Pos Gram Neg Org [place] Count 1000-10,000 [facility] Mixed contaminants. Submit a new specimen if indicated. Normal [facility] Comment on above: Performed By: #### M 100.2200 #### [facility] [address] [place], [place], [address] Abdomen/Pelvis without Conto n 12-18-2021 Abdomen/Pelvis without Cont [facility] Imaging Services [address] [place] [address] Abdomen/Pelvis without Cont MR#: [id number] Acct: [id number] Name: YOHANNES LANDRY Rep #: [id number] : 1970 F 51 From: Reji Mansfield DO PCP: Care Physician,No Primary Status: REG ER Study: Abdomen/Pelvis without Cont Date of Exam: 12/01 11/21 Exam# [id number] Ordering Dr: Jean Marie Remy DO STUDY: CT ABDOMEN AND PELVIS WITHOUT CONTRAST REASON FOR EXAM: Female, 51 years old. flank pain RADIATION DOSAGE (If Supplied By Facility): CTDIvol = ( 9.03 ) mGy, DLP = ( 417.54 ) mGycm TECHNIQUE: Transaxial images were obtained from the dome of the diaphragm to the symphysis pubis without oral contrast, and without intravenous contrast. Sagittal and coronal images were reconstructed. Individualized dose optimization techniques were used for this CT. COMPARISON: None. FINDINGS: The visualized lung bases are unremarkable. The visualized portions of the heart are within normal limits. Normal liver. Normal gallbladder and extrahepatic biliary system. Normal spleen. Normal pancreas. Normal bilateral adrenal glands. Moderate to severe bilateral hydronephrosis and hydroureter. There is a 8 mm stone in the mid right ureter as well as a 8 mm stone in the distal left ureter. Additional right-sided nephroliths. No additional left-sided nephrolithiasis. Normal visualized stomach. Normal small intestine. Normal colon. The appendix is visualized and appears normal. Normal abdominal aorta. Normal inferior vena cava. Normal retroperitoneum. Normal urinary bladder. Normal visualized uterus. Normal abdominal wall. Normal osseous structures. CT/Abdomen/Pelvis without Cont IMPRESSION: Moderate to severe bilateral hydronephrosis and hydroureter with stones in the ureters as details above. Additional right-sided nephrolithiasis. Remainder is unremarkable Electronically Signed: Reji Mansfield DO at 23:49 EDT , CC: Dr. Jean Marie Remy DO; No Primary Care Physician Bullion Weigher: Signed Normal [facility] Basic Metabolic Profile (BMP )on 12-18-2021 BUN/CRE 14.6 RATIO Normal 10-20 [facility] Comment on above: Performed By: #### L 500.2500, L100.0100 ####[facility] [address] [place], [address] CA,Total 10.9 mg/dL High 8.5-10.1 [facility] Comment on above: Performed By: #### L 500.2500, L100.0100 ####[facility] [address] [place], [address] Chloride [Moles/Vol] 109 mmol/L High 98-107 [facility] Comment on above: Performed By: #### L 500.2500, L100.0100 ####[facility] [address] [place], [address] CO2 [Moles/Vol] 26.0 mmol/L Normal 21.0-32.0 [facility] Comment on above: Performed By: #### L 500.2500, L100.0100 ####[facility] [address] [place], [address] Creatinine [Mass/Vol] 1.30 mg/dL High 0.55-1.02 [facility] Comment on above: Result Comment: The validity of the calculated GFR GFRAA in patients over 70 years has not been determined. Clinical correlation is essential. Performed By: #### L 500.2500, L100.0100 ####[facility] [address] [place], [address] ECRCL 41.40 ml/min Normal [facility] Comment on above: Performed By: #### L 500.2500, L100.0100 ####[facility] [address] [place], [address] EST GFR - AA 56 mL/min Low >60 [facility] Comment on above: Result Comment: Afri can Qatari GFR Calc Performed By: #### L 500.2500, L100.0100 ####[facility] [address] [place], [address] GAP 6 Normal 5-15 [facility] Comment on above: Performed By: #### L 500.2500, L100.0100 ####[facility] [address] [place], [address] GFR/1.73 sq M.predicted among non-blacks MDRD (S/P/Bld) [Vol rate/Area] 46 mL/min/{1.73_m2} Low >60 [facility] Comment on above: Result Comment: Non- GFR Calc Performed By: #### L 500.2500, L100.0100 ####[facility] [address] [place], [address] Glucose [Mass/Vol] 106 mg/dL Normal 74-106 [facility] Comment on above: Result Comment: Fast ing Glucose result from 100 to 125 mg/dL suggests IMPAIRED HOMEOSTASIS per A.D.A. criteria. Performed By: #### L 500.2500, L100.0100 ####[facility] [address] [place], [address] Potassium [Moles/Vol] 3.8 mmol/L Normal 3.5-5.1 [facility] Comment on above: Performed By: #### L 500.2500, L100.0100 ####[facility] [address] [place], [address] Sodium [Moles/Vol] 141 mmol/L Normal 136-145 [facility] Comment on above: Performed By: #### L 500.2500, L100.0100 ####[facility] [address] [place], [address] Urea nitrogen [Mass/Vol] 19 mg/dL High 7-18 [facility] Comment on above: Performed By: #### L 500.2500, L100.0100 ####[facility] [address] [place], [address] CBC W/Diff, Automatedon 12-01 Absolute Lymph 1.79 X10 3/uL Normal 0.83-4.51 [facility] Comment on above: Performed By: #### L 500.2500, L100.0100 ####[facility] [address] [place], [address] Absolute Neut 6.4 X10 3/uL Normal 2.0-7.7 [facility] Comment on above: Performed By: #### L 500.2500, L100.0100 ####[facility] [address] [place], [address] Basophils/100 WBC (Bld) 0.3 % Normal 0-1 [facility] Comment on above: Performed By: #### L 500.2500, L100.0100 ####[facility] [address] [place], [address] Eosinophils/100 WBC (Bld) 4.7 % Normal 0-5 [facility] Comment on above: Performed By: #### L 500.2500, L100.0100 ####[facility] [address] [place], [address] Erythrocyte distribution width (RBC) [Ratio] 15.6 % High 11.6-14.6 [facility] Comment on above: Performed By: #### L 500.2500, L100.0100 ####[facility] [address] [place], [address] Hematocrit (Bld) [Volume fraction] 33.6 % Low 37-47 [facility] Comment on above: Performed By: #### L 500.2500, L100.0100 ####[facility] [address] [place], [address] Hemoglobin (Bld) [Mass/Vol] 10.7 g/dL Low 12.0-15.0 [facility] Comment on above: Performed By: #### L 500.2500, L100.0100 ####[facility] [address] [place], [address] IG% 1.700 High 0.0-0.9 [facility] Comment on above: Result Comment: IG% - Immature Granulocytes (promyelocytes, myelocytes and metamyelocytes) > 1% indicates that a LEFT SHIFT is Present. Performed By: #### L 500.2500, L100.0100 ####[facility] [address] [place], [address] Lymphocytes/100 WBC (Bld) 18.7 % Low 19-41 [facility] Comment on above: Performed By: #### L 500.2500, L100.0100 ####[facility] [address] [place], [address] MCH (RBC) [Entitic mass] 27.3 pg Normal 27.0-32.0 [facility] Comment on above: Performed By: #### L 500.2500, L100.0100 ####[facility] [address] [place], [address] MCHC (RBC) [Mass/Vol] 31.8 g/dL Low 32-36 [facility] Comment on above: Performed By: #### L 500.2500, L100.0100 ####[facility] [address] [place], [address] MCV (RBC) [Entitic vol] 85.7 fL Normal 81-99 [facility] Comment on above: Performed By: #### L 500.2500, L100.0100 ####[facility] [address] [place], [address] Monocytes/100 WBC (Bld) 7.3 % Normal 0-10 [facility] Comment on above: Performed By: #### L 500.2500, L100.0100 ####[facility] [address] [place], [address] Neutrophils/100 WBC (Bld) 67.3 % Normal 47-70 [facility] Comment on above: Performed By: #### L 500.2500, L100.0100 ####[facility] [address] [place], [address] Nucleated RBC (Bld) [#/Vol] 0 10*3/uL Normal 0-5 [facility] Comment on above: Performed By: #### L 500.2500, L100.0100 ####[facility] [address] [place], [address] Platelet mean volume (Bld) [Entitic vol] 10.6 fL Normal 6.2-12.0 [facility] Comment on above: Performed By: #### L 500.2500, L100.0100 ####[facility] [address] [place], [address] Platelets (Bld) [#/Vol] 230 10*3/uL Normal 150-450 [facility] Comment on above: Performed By: #### L 500.2500, L100.0100 ####[facility] [address] [place], [address] RBC (Bld) [#/Vol] 3.92 10*6/uL Low 4.2-5.4 [facility] Comment on above: Performed By: #### L 500.2500, L100.0100 ####[facility] [address] [place], [address] RDW SD 49.2 fl High 35.1-43.9 [facility] Comment on above: Performed By: #### L 500.2500, L100.0100 ####[facility] [address] [place], [address] WBC (Bld) [#/Vol] 9.6 10*3/uL Normal 4.4-11.0 [facility] Comment on above: Performed By: #### L 500.2500, L100.0100 ####[facility] [address] [place], [address] Emergency Department Summary on 12-18-2021 Emergency Department Summary [facility] Medical Records Department [address] [place] [address] Emergency Department Summary 12/17/21 MR#: [id number] Acct: [id number] Name: YOHANNES LANDRY Rep #: [id number] : 1970 51 From: Jean Marie Remy DO PCP: Care Physician,No Primary Status:REG ER Location: ED HPI History of Present Illness Chief Complaint: Flank Pain Narrative Narrative: 51-year-old female presenting with lower back pain. She states its mostly on the left lumbar paraspinal region. Its achy. At times it radiates to the right side. She states that when she wakes up in the morning she has trouble standing initially but when she stretches out she is able to get up and ambulate around. 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 She states that she does have a distant history of kidney stones associated with UTI and had to have procedures done to remove the kidney stones. She believes the urologist was Dr. Neville. She states that since she has been having symptoms the last 3 weeks she has not seen Dr. Neville. She states that there is been a couple episodes where she had a susan colored urine but has not had sara hematuria and she is not having any dysuria. He does not have any abdominal pain. None of the pain radiates into the anterior abdomen. It does not feel like her previous acute kidney stones. She has not had any nausea or difficulty finding position of comfort [facility] Medical History Kidney stones Non-smoker Home Medications naproxen 500 mg tablet 500 mg PO BID PRN #20 tabs 01/07/21 [Rx Last Taken Unknown] ibuprofen 600 mg tablet 600 mg PO 4X/DAY PRN Pain Or Fever #20 tabs 07/02/21 [Rx Last Taken Unknown] ciprofloxacin HCl 500 mg tablet (Cipro) 500 mg PO BID #14 tabs 12/18/21 [Rx Last Taken Unknown] hydrocodone-acetamino phen 5-325mg 5mg-325mg 1 tab PO Q6H PRN pain 3 days #12 tabs 12/18/21 [Rx Last Taken Unknown] ondansetron 4 mg disintegrating tablet 4 mg PO Q8H PRN nausea and vomiting #14 tabs 12/18/21 [Rx Last Taken Unknown] Allergy/AdvReac Type Severity Reaction Status Date / Time No Known Allergies Allergy Verified 12/17/21 22:21 Surgical History History of arthroplasty of right knee History of tubal ligation Social History Smoking Status: Never smoker ROS ROS ED Constitutional Constitutional ED: Denies chills or fever(s) Eyes Eyes: Denies change in vision or diplopia ENT ENT ED: Denies rhinorrhea or sore throat Cardiovascular Cardiovascular: Denies chest pain or palpitations Respiratory/Chest Respiratory/Chest: Denies dyspnea or dyspnea on exertion Gastrointestinal Gastrointestinal: Denies abdominal pain, nausea or vomiting Genitourinary Genitourinary ED: Reports hematuria; Denies urinary frequency Musculoskeletal Musculoskeletal: Reports back pain; Denies arthralgias Integumentary Denies abscess or Abrasions Neurologic Neurologic: Denies headache(s) Psychiatric Psychiatric: Denies anxiety or depression EXAM Physical Exam Const Vital Signs: 12/17/21 22:21 Temperature 99.3 F H Temperature Source Temporal Pulse Rate 114 H Respiratory Rate 15 Blood Pressure 169/81 H Blood Pressure Mean 110 Pulse Ox 98 Oxygen Delivery Method Room Air Positive well nourished General Appearance ED: NAD; Negative for pallor HEENT Reports moist mucous membranes Eyes PERRL and EOMs intact bilaterally Resp normal respiratory effort Auscultation: Negative for rales, rhonchi or wheezes Cardio regular rate Rate: bradycardia GI normal to inspection, nondistended, normoactive bowel sounds Back/Spine Negative for normal to inspection Back/Spine Narrative: Left lumbar paraspinal musculature tenderness adjacent to L4-L5. No midline spinal deformity or tenderness. No CVA tenderness noted. Extremity normal to inspection General Extremety ED: Negative for edema General Extremity: Negative for edema Neuro oriented x3 Sensorium / Orientation: alert Motor Exam: strength 5/5 throughout Psych mental status grossly normal Skin General Skin Exam: Negative for jaundice or pallor MDM MDM MDM Narrative Medical decision making narrative: Patient presenting with history of kidney stones in the past. She is having some back pain which really sounds kind of musculoskeletal. She is having it from the left side rating to the right. She states it is worse when she wakes up in the morning gets better throughout the day. She does not really have any CVA tenderness and she is tender to palpation in the left lumbar paraspinal musculature. Because of her history I checked a urinalysis and there is 250 occult blood, 500 leukocyte esterase, 25 (more content not included)... Normal [facility] ,Urineon 12-18-2021 Beta HCG ( test) Ql (U) Negative Normal [facility] Comment on above: Order Comment: 810 CLEAN CATCH Result Comment: Very dilute urine specimens, as indicated by a low specific gravity, may not contain electronics parts sales representative levels of hCG. If is still suspected, a first morning urine specimen should be collected 48 hours later and tested. Performed By: #### L 400.7600, L400.0001 #### [facility] [address] [place], [address] Urinalysis, Completeon 12-18 BACTERIA 4+ /hpf Normal None Seen [facility] Comment on above: Order Comment: 810 CLEAN CATCH Performed By: #### L 400.7600, L400.0001 #### [facility] [address] [place], [address] EPI,SQUAMOUS 10-25 SEEN Normal 5-10 [facility] Comment on above: Order Comment: 810 CLEAN CATCH Performed By: #### L 400.7600, L400.0001 #### [facility] [address] [place], [address] RBC 25-50 SEEN Normal 0-5 [facility] Comment on above: Order Comment: 810 CLEAN CATCH Performed By: #### L 400.7600, L400.0001 #### [facility] [address] [place], [address] WBC >100 SEEN Normal 0-5 [facility] Comment on above: Order Comment: 810 CLEAN CATCH Performed By: #### L 400.7600, L400.0001 #### [facility] [address] [place], [address] Mucus Ql (Urine sed) 0 SEEN Normal [facility] Comment on above: Order Comment: 810 CLEAN CATCH Performed By: #### L 400.7600, L400.0001 #### [facility] [address] [place], [address] Absolute lymphocyte counton 12-17-2021 Lymphocytes Auto (Unsp spec) [#/Vol] 1.79 10*3/uL 0.83-4.51 [facility] Work Phone: Basophil percentageon 2021 Basophils/100 WBC (Bld) 0.3 % 0-1 [facility] Work Phone: Chloride [Moles/Vol] 109 mmol/L 98-107 [facility] Work Phone: Eosinophils/100 WBC (Bld) 4.7 % 0-5 [facility] Work Phone: Glucose [Mass/Vol] 106 mg/dL 74-106 [facility] Work Phone: Comment on above: Fasting Glucose resu lt from 100 to 125 mg/dL suggests IMPAIRED HOMEOSTASIS per A.D.A. criteria. Neutrophils (Bld) [#/Vol] 6.4 10*3/uL 2.0-7.7 [facility] Work Phone: Neutrophils/100 WBC (Bld) 67.3 % 47-70 [facility] Work Phone: Potassium [Moles/Vol] 3.8 mmol/L 3.5-5.1 [facility] Work Phone: Sodium [Moles/Vol] 141 mmol/L 136-145 [facility] Work Phone: WBC (Bld) [#/Vol] 9.6 10*3/uL 4.4-11.0 [facility] Work Phone: Basophil percentage >100 SEEN /hpf 0-5 [facility] Work Phone: Bilirubin Test strip Ql (U)o n 12-17-2021 Bilirubin Ql (U) Negative Negative [facility] Work Phone: Blood erythrocytes count (nu mber/volume)on 12-17-2021 RBC (Bld) [#/Vol] 3.92 10*6/uL 4.2-5.4 [facility] Work Phone: Blood hemoglobin measurement (mass/volume)on 12-17-2021 Hemoglobin (Bld) [Mass/Vol] 10.7 g/dL 12.0-15.0 [facility] Work Phone: Blood lymphocytes/100 leukoc yteson 12-17-2021 Lymphocytes/100 WBC (Bld) 18.7 % 19-41 [facility] Work Phone: Blood monocytes/100 leukocyt eson 12-17-2021 Monocytes/100 WBC (Bld) 7.3 % 0-10 [facility] Work Phone: Blood platelet mean volumeon 12-17-2021 Platelet mean volume (Bld) [Entitic vol] 10.6 fL 6.2-12.0 [facility] Work Phone: Determination of erythrocyte mean corpuscular volume (MCV)on 12-17-2021 MCV (RBC) [Entitic vol] 85.7 fL 81-99 [facility] Work Phone: Hematocrit Auto (Bld) [Volum e fraction]on 12-17-2021 Hematocrit (Bld) [Volume fraction] 33.6 % 37-47 [facility] Work Phone: Ketones Test strip Ql (U)on 12-17-2021 Ketones Ql (U) Negative Negative [facility] Work Phone: Laboratory - Chemistry and C hemistry - challengeon 12-17-2021 CO2 [Moles/Vol] 26.0 mmol/L 21.0-32.0 [facility] Work Phone: Urea nitrogen/Creatinine [Mass ratio] 14.6 mg/mg 10-20 [facility] Work Phone: HCG ( test) Ql (U) Negative [facility] Work Phone: Comment on above: Very dilute urine sp ecimens, as indicated by a low specificgravity, may not contain electronics parts sales representative levels of hCG. If is still suspected, a first morning urinespecimen should be collected 48 hours later and tested. Laboratory - Hematology and Cell countson 12-17-2021 Erythrocyte distribution width (RBC) [Entitic vol] 49.2 fL 35.1-43.9 [facility] Work Phone: Erythrocyte distribution width (RBC) [Ratio] 15.6 % 11.6-14.6 [facility] Work Phone: Immature granulocytes/100 WBC (Bld) 1.700 % 0.0-0.9 [facility] Work Phone: Comment on above: IG% - Immature Granu locytes (promyelocytes, myelocytes and metamyelocytes) > 1% indicates that a LEFT SHIFT is Present. MCH (RBC) [Entitic mass] 27.3 pg 27.0-32.0 [facility] Work Phone: Nucleated RBC/100 WBC (Bld) [Ratio] 0 % 0-5 [facility] Work Phone: MCHC Auto (RBC) [Mass/Vol]on 12-17-2021 MCHC (RBC) [Mass/Vol] 31.8 g/dL 32-36 [facility] Work Phone: Mucus LM Ql (Urine sed)on Mucus Ql (Urine sed) 0 SEEN /hpf [facility] Work Phone: Nitrite Test strip Ql (U)on 12-17-2021 Nitrite Ql (U) Negative Negative [facility] Work Phone: No Panel Informationon 12-17 Estimated Creatinine Clearance Calc 41.40 ml/min [facility] Work Phone: Estimated GFR (MDRD) Amer 56 mL/min >60 [facility] Work Phone: Comment on above: GFR Calc Estimated GFR (MDRD) Non-Af Amer 46 mL/min >60 [facility] Work Phone: Comment on above: Non- GFR Calc Platelets bldon 12-17-2021 Platelets (Bld) [#/Vol] 230 10*3/uL 150-450 [facility] [facility] Work Phone: Protein Test strip Ql (U)on 12-17-2021 Protein Ql (U) 30 mg/dl Negative [facility] Work Phone: Serum or plasma calcium brennan urement (mass/volume)on 12-17-2021 Calcium [Mass/Vol] 10.9 mg/dL 8.5-10.1 [facility] Work Phone: Serum or plasma creatinine m easurement (mass/volume)on 12-17-2021 Creatinine [Mass/Vol] 1.30 mg/dL 0.55-1.02 [facility] Work Phone: Comment on above: The validity of the calculated GFR & GFRAA in patients over 70 years has not been determined. Clinical correlation is essential. Serum or plasma urea nitroge n measurement (mass/volume)on 12-17-2021 Urea nitrogen [Mass/Vol] 19 mg/dL 7-18 [facility] Work Phone: Squamous epithelial cells de tection in urine sediment by light microscopyon 12-17-2021 Epithelial cells.squamous LM Ql (Urine sed) 10-25 SEEN /hpf 5-10 [facility] Work Phone: Thin prep Papanicolaou smear with manual screeningon 12-17-2021 Thin prep Papanicolaou smear with manual screening 6 5-15 [facility] Work Phone: Urine blood detectionon 12-01 RBC Ql (U) 250 /ul Negative [facility] Work Phone: RBC Ql (U) 25-50 SEEN /hpf 0-5 [facility] Work Phone: Urine clarityon 12-17-2021 Clarity (U) Sl. Cloudy Clear [facility] Work Phone: Urine color determinationon 12-17-2021 Color (U) Yellow Yellow [facility] Work Phone: Urine glucose detectionon Glucose Ql (U) Normal mg/dl Normal [facility] Work Phone: Urine leukocyte esterase det ection by dipstickon 12-17-2021 Leukocyte esterase Test strip Ql (U) 500 /ul Negative [facility] Work Phone: Urine pHon 12-17-2021 pH (U) 6.0 [pH] 5.0 - 8.0 [facility] Work Phone: Urine sediment bacteria coun t by microscopy (number/high power field)on 12-17-2021 Bacteria LM.HPF (Urine sed) [#/Area] 4 /[HPF] None Seen [facility] Work Phone: Urine specific gravity measu rementon 12-17-2021 Specific gravity (U) [Rel density] 1.015 1.002-1.030 [facility] Work Phone: Urobilinogen Auto test strip Ql (U)on 12-17-2021 Urobilinogen Ql (U) Normal mg/dl Normal [facility] Work Phone: Absolute lymphocyte counton 10-11-2021 Lymphocytes Auto (Unsp spec) [#/Vol] 1.25 10*3/uL 0.83-4.51 [facility] Work Phone: Basic Metabolic Profile (BMP )on 10-11-2021 BUN/CRE 16.9 RATIO Normal 10-20 [facility] Comment on above: Performed By: #### L 100.0100, L500.2500 #### [facility] [place], [address] CA,Total 10.5 mg/dL High 8.5-10.1 [facility] Comment on above: Performed By: #### L 100.0100, L500.2500 #### [facility] [address] [place], [address] Chloride [Moles/Vol] 107 mmol/L Normal 98-107 [facility] Comment on above: Performed By: #### L 100.0100, L500.2500 #### [facility] [address] [place], [address] CO2 [Moles/Vol] 27.0 mmol/L Normal 21.0-32.0 [facility] Comment on above: Performed By: #### L 100.0100, L500.2500 #### [facility] [address] [place], [address] Creatinine [Mass/Vol] 0.83 mg/dL Normal 0.55-1.02 [facility] Comment on above: Result Comment: The validity of the calculated GFR GFRAA in patients over 70 years has not been determined. Clinical correlation is essential. Performed By: #### L 100.0100, L500.2500 #### [facility] [address] [place], [address] ECRCL 64.85 ml/min Normal [facility] Comment on above: Performed By: #### L 100.0100, L500.2500 #### [facility] [address] [place], [address] EST GFR - AA 94 mL/min Normal >60 [facility] Comment on above: Result Comment: Afri can Qatari GFR Calc Performed By: #### L 100.0100, L500.2500 #### [facility] [address] [place], [address] GAP 2 Low 5-15 [facility] Comment on above: Performed By: #### L 100.0100, L500.2500 #### [facility] [address] [place], [address] GFR/1.73 sq M.predicted among non-blacks MDRD (S/P/Bld) [Vol rate/Area] 78 mL/min/{1.73_m2} Normal >60 [facility] Comment on above: Result Comment: Non- GFR Calc Performed By: #### L 100.0100, L500.2500 #### [facility] [address] [place], [address] Glucose [Mass/Vol] 115 mg/dL High 74-106 [facility] Comment on above: Result Comment: Fast ing Glucose result from 100 to 125 mg/dL suggests IMPAIRED HOMEOSTASIS per A.D.A. criteria. Performed By: #### L 100.0100, L500.2500 #### [facility] [address] [place], [address] Potassium [Moles/Vol] 3.9 mmol/L Normal 3.5-5.1 [facility] Comment on above: Performed By: #### L 100.0100, L500.2500 #### [facility] [address] [place], [address] Sodium [Moles/Vol] 136 mmol/L Normal 136-145 [facility] Comment on above: Performed By: #### L 100.0100, L500.2500 #### [facility] [address] [place], [address] Urea nitrogen [Mass/Vol] 14 mg/dL Normal 7-18 [facility] Comment on above: Performed By: #### L 100.0100, L500.2500 #### [facility] [address] [place], [address] Basophil percentageon 2021 Basophils/100 WBC (Bld) 0.2 % 0-1 [facility] Work Phone: Chloride [Moles/Vol] 107 mmol/L 98-107 [facility] Work Phone: Eosinophils/100 WBC (Bld) 0.5 % 0-5 [facility] Work Phone: Glucose [Mass/Vol] 115 mg/dL 74-106 [facility] Work Phone: Comment on above: Fasting Glucose resu lt from 100 to 125 mg/dL suggests IMPAIRED HOMEOSTASIS per A.D.A. criteria. Neutrophils (Bld) [#/Vol] 14.1 10*3/uL 2.0-7.7 [facility] Work Phone: Neutrophils/100 WBC (Bld) 86.1 % 47-70 [facility] Work Phone: Potassium [Moles/Vol] 3.9 mmol/L 3.5-5.1 [facility] Work Phone: Sodium [Moles/Vol] 136 mmol/L 136-145 [facility] Work Phone: WBC (Bld) [#/Vol] 16.4 10*3/uL 4.4-11.0 [facility] Work Phone: Blood erythrocytes count (nu mber/volume)on 10-11-2021 RBC (Bld) [#/Vol] 4.31 10*6/uL 4.2-5.4 [facility] Work Phone: Blood hemoglobin measurement (mass/volume)on 10-11-2021 Hemoglobin (Bld) [Mass/Vol] 11.4 g/dL 12.0-15.0 [facility] Work Phone: Blood lymphocytes/100 leukoc yteson 10-11-2021 Lymphocytes/100 WBC (Bld) 7.6 % 19-41 [facility] Work Phone: Blood monocytes/100 leukocyt eson 10-11-2021 Monocytes/100 WBC (Bld) 5.1 % 0-10 [facility] Work Phone: Blood platelet mean volumeon 10-11-2021 Platelet mean volume (Bld) [Entitic vol] 10.8 fL 6.2-12.0 [facility] Work Phone: CBC W/Diff, Automatedon 06- Absolute Lymph 1.25 X10 3/uL Normal 0.83-4.51 [facility] Comment on above: Performed By: #### L 100.0100, L500.2500 #### [facility] [address] [place], [address] Absolute Neut 14.1 X10 3/uL High 2.0-7.7 [facility] Comment on above: Performed By: #### L 100.0100, L500.2500 #### [facility] [address] [place], [address] Basophils/100 WBC (Bld) 0.2 % Normal 0-1 [facility] Comment on above: Performed By: #### L 100.0100, L500.2500 #### [facility] [address] [place], [address] Eosinophils/100 WBC (Bld) 0.5 % Normal 0-5 [facility] Comment on above: Performed By: #### L 100.0100, L500.2500 #### [facility] [address] [place], [address] Erythrocyte distribution width (RBC) [Ratio] 15.7 % High 11.6-14.6 [facility] Comment on above: Performed By: #### L 100.0100, L500.2500 #### [facility] [address] [place], [address] Hematocrit (Bld) [Volume fraction] 36.4 % Low 37-47 [facility] Comment on above: Performed By: #### L 100.0100, L500.2500 #### [facility] [address] [place], [address] Hemoglobin (Bld) [Mass/Vol] 11.4 g/dL Low 12.0-15.0 [facility] Comment on above: Performed By: #### L 100.0100, L500.2500 #### [facility] [address] [place], [address] IG% 0.500 Normal 0.0-0.9 [facility] Comment on above: Result Comment: IG% - Immature Granulocytes (promyelocytes, myelocytes and metamyelocytes) > 1% indicates that a LEFT SHIFT is Present. Performed By: #### L 100.0100, L500.2500 #### [facility] [address] [place], [address] Lymphocytes/100 WBC (Bld) 7.6 % Low 19-41 [facility] Comment on above: Performed By: #### L 100.0100, L500.2500 #### [facility] [address] [place], [address] MCH (RBC) [Entitic mass] 26.5 pg Low 27.0-32.0 [facility] Comment on above: Performed By: #### L 100.0100, L500.2500 #### [facility] [address] [place], [address] MCHC (RBC) [Mass/Vol] 31.3 g/dL Low 32-36 [facility] Comment on above: Performed By: #### L 100.0100, L500.2500 #### [facility] [address] [place], [address] MCV (RBC) [Entitic vol] 84.5 fL Normal 81-99 [facility] Comment on above: Performed By: #### L 100.0100, L500.2500 #### [facility] [address] [place], [address] Monocytes/100 WBC (Bld) 5.1 % Normal 0-10 [facility] Comment on above: Performed By: #### L 100.0100, L500.2500 #### [facility] [address] [place], [address] Neutrophils/100 WBC (Bld) 86.1 % High 47-70 [facility] Comment on above: Performed By: #### L 100.0100, L500.2500 #### [facility] [address] [place], [address] Nucleated RBC (Bld) [#/Vol] 0 10*3/uL Normal 0-5 [facility] Comment on above: Performed By: #### L 100.0100, L500.2500 #### [facility] [address] [place], [address] Platelet mean volume (Bld) [Entitic vol] 10.8 fL Normal 6.2-12.0 [facility] Comment on above: Performed By: #### L 100.0100, L500.2500 #### [facility] [address] [place], [address] Platelets (Bld) [#/Vol] 182 10*3/uL Normal 150-450 [facility] Comment on above: Performed By: #### L 100.0100, L500.2500 #### [facility] [address] [place], [address] RBC (Bld) [#/Vol] 4.31 10*6/uL Normal 4.2-5.4 [facility] Comment on above: Performed By: #### L 100.0100, L500.2500 #### [facility] [address] [place], [address] RDW SD 48.7 fl High 35.1-43.9 [facility] Comment on above: Performed By: #### L 100.0100, L500.2500 #### [facility] [address] [place], [address] WBC (Bld) [#/Vol] 16.4 10*3/uL High 4.4-11.0 [facility] Comment on above: Performed By: #### L 100.0100, L500.2500 #### [facility] [address] [place], [address] Chest 1 View (Portable)on Chest 1 View (Portable) [facility] Imaging Services [address] [place] [address] Chest 1 View (Portable) MR#: [id number] Acct: [id number] Name: YOHANNES LANDRY Rep #: [id number] : 1970 F 51 From: Debra Husain MD PCP: Care Physician,No Primary Status: [facility] ER Study: Chest 1 View (Portable) Date of Exam: 10/11/21 Exam# [id number] Ordering Dr: Ashish Addison DO EXAM: XR CHEST, 1 VIEW CLINICAL INDICATION: cough TECHNIQUE: Frontal view of the chest. This report was created using [employer] report generation technology. COMPARISON: None. FINDINGS: LUNGS AND PLEURAL SPACES: Unremarkable. No consolidation or edema. No pneumothorax. No effusion. HEART: Unremarkable. Cardiac silhouette not enlarged. MEDIASTINUM: Central airways and mediastinal contour are unremarkable. BONES/JOINTS: Unremarkable. SOFT TISSUES: Unremarkable. RAD/Chest 1 View (Portable) IMPRESSION: No radiographic evidence of acute cardiopulmonary disease. Electronically Signed: Debra Husain MD at 2:39 EDT , CC: Dr. Ashish Addison DO; No Primary Care Physician Bullion Weigher: Signed Normal [facility] Determination of erythrocyte mean corpuscular volume (MCV)on 10-11-2021 MCV (RBC) [Entitic vol] 84.5 fL 81-99 [facility] Work Phone: Emergency Department Summary on 10-11-2021 Emergency Department Summary [facility] Medical Records Department [address] [place] [address] Emergency Department Summary 10/11/21 MR#: [id number] Acct: [id number] Name: YOHANNES LANDRY Rep #: [id number] : 1970 51 From: Ashish Harvey PCP: Care Physician,No Primary Status:DEP ER Location: ED HPI History of Present Illness Chief Complaint: General Illness Informant: patient Narrative Narrative: Only started yesterday. Reported work noted sore throat with mild illness. States with home became fatigued, waking in the evening with a fever and myalgias. Took ibuprofen last evening. Today noted headache mild cough. No vomiting or diarrhea. No urinary symptoms. Persistent fevers last ibuprofen 5 PM. There were people sick at work however there is no close contact with her. No flu or COVID vaccination. No COVID in the past. Denies any loss of taste or smell. Reported had a temp of 101 prior to arrival. Denies any dyspnea. PFSH PFS Medical History Kidney stones Home Medications naproxen 500 mg PO BID PRN #20 tab 01/07/21 [Rx Last Taken Unknown] ibuprofen 600 mg PO 4X/DAY PRN #20 tab 07/02/21 [Rx Last Taken Unknown] Allergy/AdvReac Type Severity Reaction Status Date / Time No Known Allergies Allergy Verified 08/30/21 21:20 Surgical History History of arthroplasty of right knee History of tubal ligation Social History Smoking Status: Never smoker ROS ROS ED Constitutional Constitutional ED: Reports fever(s); Denies chills or sweats Eyes Eyes: Denies change in vision ENT ENT ED: Denies dysphagia or sore throat Cardiovascular Cardiovascular: Denies chest pain, leg edema, palpitations or racing heartbeat Respiratory/Chest Respiratory/Chest: Reports cough; Denies dyspnea or dyspnea on exertion Gastrointestinal Gastrointestinal: Denies abdominal pain, diarrhea, nausea or vomiting Genitourinary Genitourinary ED: Denies dysuria, hematuria or urinary frequency Musculoskeletal Musculoskeletal: Reports myalgias; Denies back pain, extremity pain or neck pain Integumentary Denies rash or wounds Neurologic Neurologic: Reports headache(s); Denies paresthesias or weakness EXAM Physical Exam Const Vital Signs: 10/11/21 00:39 10/11/21 00:43 Temperature 99.7 F H 99.7 F H Temperature Source Oral Oral Pulse Rate 123 H 119 H Respiratory Rate 20 H 20 H Blood Pressure 139/87 H 139/87 H Blood Pressure Mean 104 104 Pulse Ox 98 100 Oxygen Delivery Method Room Air Room Air Positive well nourished and well developed Constitutional Narrative: Nontoxic General Appearance ED: well developed and NAD HEENT Reports dry mucous membranes HEENT Narrative: Mild dry mucosal membranes. normocephalic and atraumatic Mouth ED: Yes dry mucous membranes Mouth: dry mucous membranes Eyes PERRL, EOMs intact bilaterally and conjunctivae normal General Eye ED: Yes normal appearance of both eyes Neck no lymphadenopathy and supple Neck Narrative: No meningismus. General: Negative for tenderness Chest Wall Chest: Negative for tenderness Resp normal respiratory effort and normal air movement Effort and Inspection: symmetric chest movement; Negative for respiratory distress Cardio regular rhythm and no murmurs Rate: tachycardic Peripheral Pulses: pulses 2+ throughout GI normal to inspection, nondistended, normoactive bowel sounds and non-tender Palpation: Negative for guarding or rebound tenderness present Back/Spine no CVA tenderness and no thoracic nor lumbar tenderness Extremity normal to inspection General Extremety ED: Negative for edema or tenderness General Extremity: Negative for edema Neuro oriented x3, CN's II-XII intact bilaterally and no sensory deficits noted Sensorium / Orientation: awake and alert Skin no rashes or lesions noted and no wounds MDM MDM MDM Narrative Medical decision making narrative: Patient tachycardic on arrival elevated temperature. Dry mucosal membranes. IV established fluids given. Chest x-ray 1 view reviewed by myself and read by radiology shows no acute process. Labs White count 16 creatinine 0.83. She has no urine symptoms. With fluids heart rate down in the 100s. COVID and influenza was negative. Discussed possibility of false negatives especially with her headaches and myalgias. She is not hypoxic. She has no dyspnea or lower suspicion for PE concerns. Discussed viral process with the patient. Discussed adjunct therapies and continue fluid hydration at home. Return precautions. Otherwise follow-up given as an outpatient. Work note given. All questions were answered. Lab Data Attestation: I reviewed the patient's lab results. Labs: Laboratory Resu (more content not included)... Normal [facility] Hematocrit Auto (Bld) [Volum e fraction]on 10-11-2021 Hematocrit (Bld) [Volume fraction] 36.4 % 37-47 [facility] Work Phone: Laboratory - Chemistry and C hemistry - challengeon 10-11-2021 CO2 [Moles/Vol] 27.0 mmol/L 21.0-32.0 [facility] Work Phone: Urea nitrogen/Creatinine [Mass ratio] 16.9 mg/mg 10-20 [facility] Work Phone: Laboratory - Hematology and Cell countson 10-11-2021 Erythrocyte distribution width (RBC) [Entitic vol] 48.7 fL 35.1-43.9 [facility] Work Phone: Erythrocyte distribution width (RBC) [Ratio] 15.7 % 11.6-14.6 [facility] Work Phone: Immature granulocytes/100 WBC (Bld) 0.500 % 0.0-0.9 [facility] Work Phone: Comment on above: IG% - Immature Granu locytes (promyelocytes, myelocytes and metamyelocytes) > 1% indicates that a LEFT SHIFT is Present. MCH (RBC) [Entitic mass] 26.5 pg 27.0-32.0 [facility] Work Phone: Nucleated RBC/100 WBC (Bld) [Ratio] 0 % 0-5 [facility] Work Phone: [id number] 10-11-2021 M101.0111 *Negative results from patients with symptom onset beyond five days should be treated as presumptive and confirmed by a molecular assay if clinically necessary. Negative results should not be used as the sole basis for treatment or for patient management. FLUABV+SARS-CoV2 Ag Pnl Up resp IA.rapid *Positive results do not differentiate between SARS-CoV and SARS-CoV-2. FLUABV+SARS-CoV2 Ag Pnl Up resp IA.rapid Negative Influenza results should be confirmed with FLU PANEL MOLECULAR if indicated. FLUABV+SARS-CoV2 Ag Pnl Up resp IA.rapid * This test has not been FDA cleared or approved; the test has been authorized by FDA under an Emergency Use Authorization (EAU) for use by laboratories certified under CLIA that meet the requirements to perform moderate, high, or waived complexity tests. FLUABV+SARS-CoV2 Ag Pnl Up resp IA.rapid Normal Reference Range: Negative [place], [place] method SARS-CoV-2 (COVID 19) Negative Influenza Ag, Direct Presumptive NEGATIVE for Influenza A/B Antigen (See Note) Normal [facility] Comment on above: Performed By: #### M 101.0111 #### [facility] [address] [place], [place], [id number] MCHC Auto (RBC) [Mass/Vol]on 10-11-2021 MCHC (RBC) [Mass/Vol] 31.3 g/dL 32-36 [facility] Work Phone: No Panel Informationon 10-11 Estimated Creatinine Clearance Calc 64.85 ml/min [facility] Work Phone: Estimated GFR (MDRD) Amer 94 mL/min >60 [facility] Work Phone: Comment on above: GFR Calc Estimated GFR (MDRD) Non-Af Amer 78 mL/min >60 [facility] Work Phone: Comment on above: Non- GFR Calc SARS-CoV-2 & FLU Antigen (Rapid) [facility] Work Phone: Platelets bldon 10-11-2021 Platelets (Bld) [#/Vol] 182 10*3/uL 150-450 [facility] Work Phone: Serum or plasma calcium brennan urement (mass/volume)on 10-11-2021 Calcium [Mass/Vol] 10.5 mg/dL 8.5-10.1 [facility] Work Phone: Serum or plasma creatinine m easurement (mass/volume)on 10-11-2021 Creatinine [Mass/Vol] 0.83 mg/dL 0.55-1.02 [facility] Work Phone: Comment on above: The validity of the calculated GFR & GFRAA in patients over 70 years has not been determined. Clinical correlation is essential. Serum or plasma urea nitroge n measurement (mass/volume)on 10-11-2021 Urea nitrogen [Mass/Vol] 14 mg/dL 7-18 [facility] Work Phone: Thin prep Papanicolaou smear with manual screeningon 10-11-2021 Thin prep Papanicolaou smear with manual screening 2 5-15 [facility] Work Phone: Emergency Department Summary on 08-31-[address] [facility] Medical Records Department [address] [place] [address] Emergency Department Summary 08/30/21 MR#: [id number] Acct: [id number] Name: YOHANNES LANDRY Rep #: [id number] : 1970 51 From: Quoc Martínez DO PCP: Care Physician,No Primary Status:DEP ER Location: ED HPI History of Present Illness Chief Complaint: Complaint Informant: patient Narrative Narrative: 51-year-old female arriving to the emergency department with chief complaint of bladder prolapse. Patient states that several days ago when she got home from work she did get in the shower and she noticed something seem to be protruding from her vagina. She took a photo of it. She states she has been very anxious about what this may be is afraid that she is dying. She does not have a waistband setter lockstitch. She notes frequent urination which is not abnormal for her. [facility] Medical History Kidney stones Home Medications hydrocodone-acetamino phen 1 tab PO Q6H PRN PRN 2 Days #8 tablet 01/07/21 [Rx Last Taken Unknown] naproxen 500 mg PO BID PRN #20 tab 01/07/21 [Rx Last Taken Unknown] penicillin V potassium 500 mg PO 4X/DAY #40 tab 01/07/21 [Rx Last Taken Unknown] ibuprofen 600 mg PO 4X/DAY PRN #20 tab 07/02/21 [Rx Last Taken Unknown] Allergy/AdvReac Type Severity Reaction Status Date / Time No Known Allergies Allergy Verified 08/30/21 21:20 Surgical History History of arthroplasty of right knee History of tubal ligation Social History Smoking Status: Never smoker ROS ROS ED Constitutional Constitutional ED: Denies chills or weight loss Eyes Eyes: Denies change in vision or diplopia ENT ENT ED: Denies ear pain, rhinorrhea or sore throat Cardiovascular Cardiovascular: Denies chest pain, orthopnea, palpitations or racing heartbeat Respiratory/Chest Respiratory/Chest: Denies cough, dyspnea or orthopnea Gastrointestinal Gastrointestinal: Denies abdominal pain, diarrhea, nausea or vomiting Genitourinary Genitourinary ED: Reports urinary frequency; Denies dysuria or hematuria Musculoskeletal Musculoskeletal: Denies arthralgias or myalgias Integumentary Denies abscess or rash Neurologic Neurologic: Denies headache(s) or weakness Psychiatric Psychiatric: Denies anxiety, depression, suicidal ideation or suicidal thoughts Endocrine Endocrinology: Denies polydipsia, polyphagia or polyuria Allergic/Immunologic Allergic/Immunologic ED: Denies mouth swelling, tongue swelling or urticaria EXAM Physical Exam Narrative Exam Narrative: Pelvic exam was performed in the presence of female nursing Const Vital Signs: 08/30/21 21:18 Temperature 99.1 F Temperature Source Temporal Pulse Rate 86 Respiratory Rate 15 Blood Pressure 135/70 H Blood Pressure Mean 91 Pulse Ox 99 Oxygen Delivery Method Room Air Positive well nourished and well developed General Appearance ED: well developed HEENT Reports normocephalic, head/scalp atraumatic, TM's clear and moist mucous membranes Negative for trauma Tympanic Membrane ED: Yes TM's clear Eyes PERRL and EOMs intact bilaterally Neck no lymphadenopathy, supple and no JVD Resp normal respiratory effort and clear to auscultation bilaterally Cardio regular rate, regular rhythm and no murmurs GI normal to inspection, nondistended, normoactive bowel sounds and non-tender Palpation: soft Narrative: I am not seeing or palpating any obvious bladder prolapse. I do not see any uterine prolapse. Back/Spine no CVA tenderness and normal ROM Extremity normal to inspection General Extremety ED: Negative for edema General Extremity: Negative for edema Neuro oriented x3 and CN's II-XII intact bilaterally Sensorium / Orientation: alert Motor Exam: strength 5/5 throughout Psych mental status grossly normal Mood Affect: Negative for depressed or tearful Skin no rashes or lesions noted and no wounds MDM MDM MDM Narrative Medical decision making narrative: Based on the picture the patient shows me this looks more like a incomplete uterine prolapse but I do not see evidence of it on physical exam at this time. I am advising her to follow-up with [facility] [employer]. Discharge Plan Triage Chief Complaint: Complaint ED Provider: Quoc Martínez Dx/Rx/DC Orders Clinical Impression: Anxiety about health, Incomplete uterine prolapse Instructions: Pelvic Organ Prolapse Prescriptions: No Action penicillin V potassium 500 mg tablet 500 mg PO 4X/DAY Qty: 40 RF: 0 naproxen 500 mg tablet 500 mg PO BID PRN Qty: 20 RF: 0 hydrocodone-acetamino phen 5-325 mg tablet 1 tab PO Q6H PRN PRN (Reason: Pain) 2 Days Qty: 8 RF: 0 (more content not included)... Normal [facility] Emergency Department Summary on 07-02-[address] [facility] Medical Records Department [address] [place] [address] Emergency Department Summary 07/02/21 MR#: [id number] Acct: [id number] Name: YOHANNES LANDRY Rep #: [id number] : 1970 50 From: Ashish Harvey PCP: Care Physician,No Primary Status:DEP ER Location: ED HPI History of Present Illness Chief Complaint: Upper Extremity Injury Informant: patient Narrative Narrative: Ildak-zlpa-xxrewowj female presents valuation paresthesias bilateral hands right greater than left. States started 2 years ago and more frequent since she started a new job a month ago working both hands and lifting. Would wake up with middle finger being numb and slight weakness to the right hand. States his pain up her arm. No trauma. Has not had this evaluated. States with extension symptoms seem to help. Denies history of gastric ulcers or kidney failure. Prior similar symptoms: Yes PFSH PFSH Home Medications hydrocodone-acetamino phen 1 tab PO Q6H PRN PRN 2 Days #8 tablet 01/07/21 [Rx Last Taken Unknown] naproxen 500 mg PO BID PRN #20 tab 01/07/21 [Rx Last Taken Unknown] penicillin V potassium 500 mg PO 4X/DAY #40 tab 01/07/21 [Rx Last Taken Unknown] ibuprofen 600 mg PO 4X/DAY PRN #20 tab 07/02/21 [Rx Last Taken Unknown] Allergy/AdvReac Type Severity Reaction Status Date / Time No Known Allergies Allergy Verified 07/02/21 17:59 Social History Smoking Status: Never smoker ROS ROS ED Constitutional Constitutional ED: Denies chills, fever(s) or sweats Eyes Eyes: Denies change in vision ENT ENT ED: Denies dysphagia or sore throat Cardiovascular Cardiovascular: Denies chest pain, leg edema, palpitations or racing heartbeat Respiratory/Chest Respiratory/Chest: Denies cough, dyspnea or dyspnea on exertion Gastrointestinal Gastrointestinal: Denies abdominal pain, diarrhea, nausea or vomiting Genitourinary Genitourinary ED: Denies dysuria, hematuria or urinary frequency Musculoskeletal Musculoskeletal: Denies back pain, extremity pain or neck pain Integumentary Denies rash or wounds Neurologic Neurologic: Reports paresthesias; Denies headache(s) or weakness EXAM Physical Exam Const Vital Signs: 07/02/21 17:59 Temperature 97.5 F L Temperature Source Temporal Pulse Rate 99 Respiratory Rate 16 Blood Pressure 117/68 Blood Pressure Mean 84 Pulse Ox 97 Oxygen Delivery Method Room Air Positive well nourished and well developed General Appearance ED: well developed and NAD HEENT Reports moist mucous membranes normocephalic and atraumatic Eyes PERRL, EOMs intact bilaterally and conjunctivae normal General Eye ED: Yes normal appearance of both eyes Neck no lymphadenopathy and supple General: Negative for tenderness Chest Wall Chest: Negative for tenderness Resp normal respiratory effort and normal air movement Effort and Inspection: symmetric chest movement; Negative for respiratory distress Cardio regular rate, regular rhythm and no murmurs Peripheral Pulses: pulses 2+ throughout GI normal to inspection, nondistended, normoactive bowel sounds and non-tender Palpation: Negative for guarding or rebound tenderness present Back/Spine no CVA tenderness and no thoracic nor lumbar tenderness Extremity normal to inspection Extremity Narrative: Positive Phalen's test bilaterally right greater than left, 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 Positive Tinel's of the right wrist. General Extremety ED: Negative for edema or tenderness General Extremity: Negative for edema Neuro oriented x3 and no sensory deficits noted Sensorium / Orientation: awake and alert Skin no rashes or lesions noted and no wounds MDM MDM MDM Narrative Medical decision making narrative: Patient history exam consistent with carpal tunnel syndrome. Bilateral wrist splints provided. She started on NSAIDs. She is given follow-up with orthopedics as an outpatient. Discharge Plan Triage Chief Complaint: Upper Extremity Injury ED Provider: Ashish Addison Dx/Rx/DC Orders Clinical Impression: Bilateral carpal tunnel syndrome Instructions: Carpal Tunnel Syndrome, Carpal Tunnel Syndrome Prevent Prescriptions: New ibuprofen 600 MG tablet 600 mg PO 4X/DAY PRN (Reason: Pain Or Fever) Qty: 20 RF: 0 No Action penicillin V potassium 500 mg tablet 500 mg PO 4X/DAY Qty: 40 RF: 0 naproxen 500 mg tablet 500 mg PO BID PRN Qty: 20 RF: 0 hydrocodone-acetamino phen 5-325 mg tablet 1 tab PO Q6H PRN PRN (Reason: Pain) 2 Days Qty: 8 RF: 0 Primary Care Provider: Care Physician,No Primary Referrals: Michael Liu DO [STAFF PHYSICIAN] - 1-2 Weeks Care Physician,No Primary [Primary Care Provider] - Disposition Disposition: Home, Self Care What to do if you h (more content not included)... Normal [facility] Emergency Department Summary on 01-07-[address] [facility] Medical Records Department [address] [place] [address] Emergency Department Summary 01/07/21 MR#: [id number] Acct: [id number] Name: YOHANNES LANDRY Rep #: [id number] : 1970 50 From: Michael Andres MD PCP: Care Physician,No Primary Status:REG ER Location: ED HPI History of Present Illness Chief Complaint: Dental Narrative Narrative: Patient presenting secondary to dental pain and facial swelling. Patient states for multiple months she has been dealing with pain in her right lower molars. She states that it mainly causes her pain when she is chewing or when she is leaning forward. Patient states however the course the last couple of days she has been having increasing pain and she woke up tonight she noted that she had right-sided facial swelling. She denies any fevers. Pain is moderate it was refractory to NSAIDs at home. Patient denies any difficulty swallowing or difficulty with phonation. She is not immunosuppressed. View of systems otherwise negative. PFSH PFSH Home Medications hydrocodone-acetamino phen 1 tab PO Q6H PRN PRN 2 Days #8 tablet 01/07/21 [Rx Last Taken Unknown] naproxen 500 mg PO BID PRN #20 tab 01/07/21 [Rx Last Taken Unknown] penicillin V potassium 500 mg PO 4X/DAY #40 tab 01/07/21 [Rx Last Taken Unknown] Allergy/AdvReac Type Severity Reaction Status Date / Time No Known Allergies Allergy Verified 03/04/17 07:24 Social History Smoking Status: Never smoker ROS ROS ED Constitutional Constitutional ED: Denies fever(s) ENT ENT ED: Reports other Details: Dental pain Respiratory/Chest Respiratory/Chest: Denies dyspnea Gastrointestinal Gastrointestinal: Denies nausea or vomiting Musculoskeletal Musculoskeletal: Denies myalgias Integumentary Denies abscess or rash Hematologic/Lymphatic Hematologic/Lymphatic : Denies easy bleeding or easy bruising EXAM Physical Exam Const Vital Signs: 01/07/21 03:22 01/07/21 03:24 Temperature 97.8 F 97.8 F Temperature Source Temporal Temporal Pulse Rate 97 97 Respiratory Rate 18 18 Blood Pressure 131/61 H 131/61 H Blood Pressure Mean 84 84 Pulse Ox 100 100 Oxygen Delivery Method Room Air Room Air Positive well nourished and well developed General Appearance ED: well developed HEENT HEENT Narrative: Facial and oral exam shows the patient to have some swelling of her right lower jaw that is visible externally. Oral exam shows very poor dentition, was not able to localize a focal abscess there is no trismus oropharynx is clear and patent. Sublingual space is soft. Normal phonation. Destruction of gums is noted over the patient's midline mandible but this is not the location of the patient's pain or swelling currently. Eyes EOMs intact bilaterally Neck no lymphadenopathy and supple Resp normal respiratory effort Cardio regular rate Extremity normal to inspection Neuro oriented x3 Sensorium / Orientation: alert Psych mental status grossly normal Skin no rashes or lesions noted MDM MDM MDM Narrative Medical decision making narrative: Patient presented secondary to dental pain. She does not have evidence of sublingual edema or Joshua angina, no evidence of airway compromise. Likewise there is no evidence of focal abscess that could be drained. Patient be treated with a course of penicillin, Naprosyn, and a short course of [place]. Patient's prescription reporting record was clean. Patient was recommended to follow-up with a dentist as soon as possible. Patient was given first doses in the ED. Discharge Plan Triage Chief Complaint: Dental ED Provider: Michael Andres Dx/Rx/DC Orders Clinical Impression: Dental infection Instructions: ED Dental Abscess Prescriptions: New penicillin V potassium 500 mg tablet 500 mg PO 4X/DAY Qty: 40 RF: 0 naproxen 500 mg tablet 500 mg PO BID PRN Qty: 20 RF: 0 hydrocodone-acetamino phen 5-325 mg tablet 1 tab PO Q6H PRN PRN (Reason: Pain) 2 Days Qty: 8 RF: 0 Primary Care Provider: Care Physician,No Primary Referrals: Care Physician,No Primary [Primary Care Provider] - Activity Restrictions/Addition al Instructions: Follow-up with a dentist as soon as possible Disposition Disposition: Home, Self Care What to do if you have Problems For any increased pain, shortness of breath, bleeding, nausea or vomiting, chest pain, or any unexpected problems, contact your Primary Care Provider. Call [facility] ([phone]) or report to the closest Emergency Room. Call 911 if necessary. 01/07/21 0352 Cosigner Signature (if applicable): CC: No Primary Care Physician Signed Normal [facility] CNOVon 08-23-2019 CNOV Office Visit ([facility] ) YOHANNES LANDRY ([id number]) 1970 F Date Time Provider Department 08/23/19 5:30 PM MISSY CABRAL (CEMENT CONTRACTOR) [facility] During your visit today, we recorded the following information about you: Temperature Pulse Respiration Blood pressure 98 degrees 97/minute 16/minute 116/72 Weight 72.6 kg Missy Cabral MAINTENANCE MECHANIC.CEMENT CONTRACTOR 08/23/2019 5:56 PM Signed Subjective HPI Nontoxic appearing female presents urgent care with a chief complaint of rash. Duration of symptoms 2 days. Associated symptoms rash on face. Patient states history over the years of having a similar rash. Patient states last occurrence of rash was in April of last year. Associated symptoms today's chief complaint redness and scabbing of face. Patient states use of givi-fwk-euikqlu itch medication and cream with slight symptom management. Patient states she is highly sensitive skin and has been wearing a surgical mass recently and this may have caused her recent outbreak. Patient denies any pain currently. Patient states there is slight itching. Patient denies any fevers, recent medication changes, recent antibiotic to use, travel, pain, or change in bowel or bladder habits. patient denies past medical history prescription medication use or drug abuse. No chance . .Patient presents with: Rash: on face x 2 days PAST MEDICAL HISTORY Diagnosis Date - Ocasio's palsy PAST SURGICAL HISTORY Procedure Laterality Date - LIGATE FALLOPIAN TUBE Tubal ligation ALLERGIES Patient has no known allergies. MEDICATIONS triamcinolone acetonide (KENALOG) 0.1 % cream Apply 1 application to affected area three times daily. Apply sparingly to area for rash/itching. cetirizine (ZYRTEC) 10 mg tablet Take 1 tablet by mouth once daily. acetaminophen-codeine (TYLENOL-CODEINE #3) 300-30 mg ORAL Tab Take one(1) tablet every four(4) to six(6) hours as needed for pain. NAPROSYN 500 MG TAB Take one(1) tablet two(2) times daily. FAMILY HISTORY Problem Relation Age of Onset - Cancer Maternal Grandmother LUNG - Cancer Maternal Aunt lung - Prostate Cancer Paternal Uncle Social History Tobacco Use - Smoking status: Never Smoker - Smokeless tobacco: Never Used Substance Use Topics - Alcohol use: Yes Comment: occasional - Drug use: No BP 116/72 Pulse 97 Temp 36.7 ?C (98 ?F) (Left Tympanic) Resp 16 Wt 72.6 kg (160 lb) LMP 09/26/2006 Review of Systems Constitutional: Negative for chills, fever and malaise/fatigue. HENT: Negative for congestion, ear discharge, ear pain, sinus pain and sore throat. Eyes: Negative for blurred vision and double vision. Respiratory: Negative for cough, sputum production, shortness of breath and wheezing. Cardiovascular: Negative for chest pain. Gastrointestinal: Negative for abdominal pain, nausea and vomiting. Musculoskeletal: Negative for myalgias. Skin: Positive for itching and rash. Neurological: Negative for dizziness and headaches. Objective Physical Exam Constitutional: She is oriented to person, place, and time and well-developed, well-nourished, and in no distress. No distress. HENT: Head: Normocephalic and atraumatic. Right Ear: Hearing, external ear and ear canal normal. No drainage, swelling or tenderness. Tympanic membrane is not perforated, not erythematous and not bulging. No decreased hearing is noted. Left Ear: Hearing, tympanic membrane, external ear and ear canal normal. No drainage, swelling or tenderness. Tympanic membrane is not perforated, not erythematous and not bulging. No decreased hearing is noted. Mouth/Throat: Uvula is midline. No trismus in the jaw. No uvula swelling. No oropharyngeal exudate, posterior oropharyngeal edema, posterior oropharyngeal erythema or tonsillar abscesses. Eyes: Pupils are equal, round, and reactive to light. Conjunctivae are normal. Right eye exhibits no discharge. Left eye exhibits no discharge. Neck: Normal range of motion. Neck supple. Cardiovascular: Normal rate, regular rhythm and normal heart sounds. Pulmonary/Chest: Breath sounds normal. No accessory muscle usage. No tachypnea. No respiratory distress. She has no wheezes. She has no rales. She exhibits no tenderness. Abdominal: Soft. There is no abdominal tenderness. Musculoskeletal: Normal range of motion. General: No tenderness. Lymphadenopathy: Head (right side): No submental, no submandibular, no tonsillar, no preauricular, no posterior auricular and no occipital adenopathy present. Head (left side): No submental, no submandibular, no tonsillar, no preauricular, no posterior auricular and no occipital adenopathy present. She has no cervical adenopathy. Right cervical: No superficial cervical and no posterior cervical adenopathy present. Left cervical: No superficial cervical and no posterior cervical adenopathy present. Neurological: She is alert and oriented to person, place, and time. Skin: Skin is warm and dry. Lesion and rash noted. No ecchymosis and no petechiae noted. Rash is maculopapular and vesicular. She is not diaphoretic. There is erythema. Erythematous base lesion with with scattered macular papular vesicles noted. Some scabbing noted. No evidence of bacterial infection currently. Lesions were mainly present on patient's forehead and jaw line. Scarring noted on patient's arms and legs from previous exacerbations. Nursing note and vitals reviewed. ASSESSMENT/PLAN: 1. Rash - ICD9: 782.1, ICD10: R21 Mupirocin ointment prescribed. Keflex antibiotic prescribed. Patient will make follow-up appointment with dermatology. Patient was educated on supportive therapies. Patient will follow up with primary care provider as needed. Patient was instructed to immediately proceed to emergency room for any new, worsening, or symptoms lasting longer than anticipated. The patient's clinical presentation is otherwise unremarkable at this time. Based on exam and clinical finding, the patient is stable for discharge. Plan of care was discussed with patient. Patient verbalizes understanding and agrees to plan of care. This note was generated using [employer] software. It may contain errors in wording, punctuation, or spelling. Missy Cabral APRN.PRASANTH Cabral APRN.PRASANTH 08/23/2019 5:43 PM Signed [facility] [address] [place] [address] Emergency Department Diagnosis: Assessment CELLULITIS: Your exam shows you have an infection of the skin called cellulitis. This infection usually develops after an injury, cut, bite, or sting, but may occur without any known cause. Usually there is a localized area of redness, swelling, and pain which gets constantly bigger unless treatment is started. If cellulitis is severe or does not respond to initial treatment, hospital care with antibiotic injections may be needed. Treatment of cellulitis includes antibiotics along with resting and elevating the affected area until the infection improves. You should apply moist, warm compresses to the area for 30 minutes 4 times daily also. Please see your doctor if the pain and swelling from your infection are not better after two days of treatment. Call your doctor or go to the emergency department right away if you develop fever, chills, or other serious problems. You may require a tetanus booster if you are not current with your inmunizations. Referring Provider: SELF [[id number]] Allergies As of Date: 08/23/2019 (No Known Allergies) Date Reviewed: 08/23/2019 Reviewed by: Simi Hobson Ma - Fully Assessed Reason for Visit: Rash [1087] Cmt: on face x 2 days Primary Visit Diagnosis:Rash [R21] Order(s):mupirocin (BACTROBAN) 2 % ointmentApply to affected area twice daily for 5 days.Disp: 30 gRfl: 0 cephALEXin (KEFLEX) 500 mg capsuleTake 1 capsule by mouth three times daily for 7 days.Disp: 21 capsuleRfl: 0 Prescriptions as of 08/23/2019 Sig: MUPIROCIN 2 % TOPICAL OINTMENT Apply to affected area twice * CEPHALEXIN 500 MG CAPSULE Take 1 capsule by mouth three* TRIAMCINOLONE ACETONIDE 0.1 %* Apply 1 application to affect* Patient not taking: Reported on 08/23/2019 CETIRIZINE 10 MG TABLET Take 1 tablet by mouth once d* Patient not taking: Reported on 08/23/2019 TYLENOL-CODEINE #3 300 MG-30 * Take one(1) tablet every four* NAPROSYN 500 MG TABLET Take one(1) tablet two(2) trinh* Patient not taking: Problem List As Of Date 08/23/2019 Noted Resolved INT DERANGEMENT KNEE NOS [M23.90] 12/09/2005 Other instructions from your clinician: [facility] [address] [place] [address] Emergency Department Diagnosis: Assessment CELLULITIS: Your exam shows you have an infection of the skin called cellulitis. This infection usually develops after an injury, cut, bite, or sting, but may occur without any known cause. Usually there is a localized area of redness, swelling, and pain which gets constantly bigger unless treatment is started. If cellulitis is severe or does not respond to initial treatment, hospital care with antibiotic injections may be needed. Treatment of cellulitis includes antibiotics along with resting and elevating the affected area until the infection improves. You should apply moist, warm compresses to the area for 30 minutes 4 times daily also. Please see your doctor if the pain and swelling from your infection are not better after two days of treatment. Call your doctor or go to the emergency department right away if you develop fever, chills, or other serious problems. You may require a tetanus booster if you are not current with your inmunizations. Prescriptions ordered this encounter Disp Refills Start End MUPIROCIN 2 % TOPICAL OINTMENT 30 g 0 08/23/2019 08/28/2019 Route: TOPICAL Sig: Apply to affected area twice daily for 5 days. CEPHALEXIN 500 MG CAPSULE 21 c* 0 08/23/2019 08/30/2019 Route: ORAL Sig: Take 1 capsule by mouth three times daily for 7 days. Letter Text Encounter Status:Closed by MARIANNA ARNDT.MISSY RADER on 08/23/19 Normal [facility] PROGRESSon 08-23-2019 PROGRESS HNO ID: [id number] Author: Missy (Prasanth) Marianna Service: ? Author Type: Nurse Practitioner Type: Progress Notes Filed: 08/23/2019 5:56 PM Note Text: Subjective HPI Nontoxic appearing female presents urgent care with a chief complaint of rash. Duration of symptoms 2 days. Associated symptoms rash on face. Patient states history over the years of having a similar rash. Patient states last occurrence of rash was in April of last year. Associated symptoms today's chief complaint redness and scabbing of face. Patient states use of mzao-sew-ocfypab itch medication and cream with slight symptom management. Patient states she is highly sensitive skin and has been wearing a surgical mass recently and this may have caused her recent outbreak. Patient denies any pain currently. Patient states there is slight itching. Patient denies any fevers, recent medication changes, recent antibiotic to use, travel, pain, or change in bowel or bladder habits. patient denies past medical history prescription medication use or drug abuse. No chance . .Patient presents with: Rash: on face x 2 days PAST MEDICAL HISTORY Diagnosis Date - Ocasio's palsy PAST SURGICAL HISTORY Procedure Laterality Date - LIGATE FALLOPIAN TUBE Tubal ligation ALLERGIES Patient has no known allergies. MEDICATIONS triamcinolone acetonide (KENALOG) 0.1 % cream Apply 1 application to affected area three times daily. Apply sparingly to area for rash/itching. cetirizine (ZYRTEC) 10 mg tablet Take 1 tablet by mouth once daily. acetaminophen-codeine (TYLENOL-CODEINE #3) 300-30 mg ORAL Tab Take one(1) tablet every four(4) to six(6) hours as needed for pain. NAPROSYN 500 MG TAB Take one(1) tablet two(2) times daily. FAMILY HISTORY Problem Relation Age of Onset - Cancer Maternal Grandmother LUNG - Cancer Maternal Aunt lung - Prostate Cancer Paternal Uncle Social History Tobacco Use - Smoking status: Never Smoker - Smokeless tobacco: Never Used Substance Use Topics - Alcohol use: Yes Comment: occasional - Drug use: No BP 116/72 Pulse 97 Temp 36.7 ?C (98 ?F) (Left Tympanic) Resp 16 Wt 72.6 kg (160 lb) LMP 09/26/2006 Review of Systems Constitutional: Negative for chills, fever and malaise/fatigue. HENT: Negative for congestion, ear discharge, ear pain, sinus pain and sore throat. Eyes: Negative for blurred vision and double vision. Respiratory: Negative for cough, sputum production, shortness of breath and wheezing. Cardiovascular: Negative for chest pain. Gastrointestinal: Negative for abdominal pain, nausea and vomiting. Musculoskeletal: Negative for myalgias. Skin: Positive for itching and rash. Neurological: Negative for dizziness and headaches. Objective Physical Exam Constitutional: She is oriented to person, place, and time and well-developed, well-nourished, and in no distress. No distress. HENT: Head: Normocephalic and atraumatic. Right Ear: Hearing, external ear and ear canal normal. No drainage, swelling or tenderness. Tympanic membrane is not perforated, not erythematous and not bulging. No decreased hearing is noted. Left Ear: Hearing, tympanic membrane, external ear and ear canal normal. No drainage, swelling or tenderness. Tympanic membrane is not perforated, not erythematous and not bulging. No decreased hearing is noted. Mouth/Throat: Uvula is midline. No trismus in the jaw. No uvula swelling. No oropharyngeal exudate, posterior oropharyngeal edema, posterior oropharyngeal erythema or tonsillar abscesses. Eyes: Pupils are equal, round, and reactive to light. Conjunctivae are normal. Right eye exhibits no discharge. Left eye exhibits no discharge. Neck: Normal range of motion. Neck supple. Cardiovascular: Normal rate, regular rhythm and normal heart sounds. Pulmonary/Chest: Breath sounds normal. No accessory muscle usage. No tachypnea. No respiratory distress. She has no wheezes. She has no rales. She exhibits no tenderness. Abdominal: Soft. There is no abdominal tenderness. Musculoskeletal: Normal range of motion. General: No tenderness. Lymphadenopathy: Head (right side): No submental, no submandibular, no tonsillar, no preauricular, no posterior auricular and no occipital adenopathy present. Head (left side): No submental, no submandibular, no tonsillar, no preauricular, no posterior auricular and no occipital adenopathy present. She has no cervical adenopathy. Right cervical: No superficial cervical and no posterior cervical adenopathy present. Left cervical: No superficial cervical and no posterior cervical adenopathy present. Neurological: She is alert and oriented to person, place, and time. Skin: Skin is warm and dry. Lesion and rash noted. No ecchymosis and no petechiae noted. Rash is maculopapular and vesicular. She is not diaphoretic. There is erythema. Erythematous base lesion with with scattered macular papular vesicles noted. Some scabbing noted. No evidence of bacterial infection currently. Lesions were mainly present on patient's forehead and jaw line. Scarring noted on patient's arms and legs from previous exacerbations. Nursing note and vitals reviewed. ASSESSMENT/PLAN: 1. Rash - ICD9: 782.1, ICD10: R21 Mupirocin ointment prescribed. Keflex antibiotic prescribed. Patient will make follow-up appointment with dermatology. Patient was educated on supportive therapies. Patient will follow up with primary care provider as needed. Patient was instructed to immediately proceed to emergency room for any new, worsening, or symptoms lasting longer than anticipated. The patient's clinical presentation is otherwise unremarkable at this time. Based on exam and clinical finding, the patient is stable for discharge. Plan of care was discussed with patient. Patient verbalizes understanding and agrees to plan of care. This note was generated using [employer] software. It may contain errors in wording, punctuation, or spelling. Missy Cabral APRN.[facility] Normal [facility] CNOVon 02-28-2019 CNOV Office Visit (UCWSTR ) YOHANNES LANDRY ([id number]) 1970 F Date Time Provider Department 02/28/19 8:00 PM [facility] During your visit today, we recorded the following information about you: Temperature Pulse Respiration Blood pressure 97.5 degrees 86/minute 18/minute 128/80 Weight 83.5 kg Ashly Granda APRN.CNP 02/28/2019 8:08 PM Signed Subjective The history is provided by the patient. No language and literature division chair was used. HPI Yohannes Landry is a 48 year old female who presents today for CC of itchy rash that is on face, started as vesicles, she has itched them and now has multiple scabs. She has used multiple otc anti-itch creams and topical antibiotics with slight relief. She states she has high anxiety and stress and not sure if related. She denies any drug abuse. BP 128/80 Pulse 86 Temp 36.4 ?C (97.5 ?F) (Tympanic) Resp 18 Wt 83.5 kg (184 lb) Social History Socioeconomic History Marital status: Single Spouse name: Not on file Number of children: Not on file Years of education: Not on file Highest education level: Not on file Occupational History Not on file Social Needs Financial resource strain: Not on file Food insecurity: Worry: Not on file Inability: Not on file Transportation needs: Medical: Not on file Non-medical: Not on file Tobacco Use Smoking status: Never Smoker Smokeless tobacco: Never Used Substance and Sexual Activity Alcohol use: Yes Comment: occasional Drug use: No Sexual activity: Yes Partners: Male control/protection: Condom Lifestyle Physical activity: Days per week: Not on file Minutes per session: Not on file Stress: Not on file Relationships Social connections: Talks on phone: Not on file Gets together: Not on file Attends oriental orthodox service: Not on file Active member of club or organization: Not on file Attends meetings of clubs or organizations: Not on file Relationship status: Not on file Intimate partner violence: Fear of current or ex partner: Not on file Emotionally abused: Not on file Physically abused: Not on file Forced sexual activity: Not on file Other Topics Concerns: Not on file Social History Narrative Not on file PAST MEDICAL HISTORY Diagnosis Date - Ocasio's palsy I have confirmed and edited as necessary, the [facility] Review of Systems Constitutional: Negative for chills and fever. Musculoskeletal: Negative for myalgias. Skin: Positive for itching and rash. All other systems reviewed and are negative. Objective Physical Exam Constitutional: She is oriented to person, place, and time and well-developed, well-nourished, and in no distress. Pulmonary/Chest: Effort normal and breath sounds normal. Neurological: She is alert and oriented to person, place, and time. Skin: Skin is warm and dry. Lesion and rash noted. Rash is macular and maculopapular. There is erythema. Psychiatric: Affect normal. Nursing note and vitals reviewed. ASSESSMENT/PLAN: 1. Rash - ICD9: 782.1, ICD10: R21 Use triamcinolone cream as needed for itching, do not use on face Keflex 500 mg twice a day for 10 days Zyrtec 10 mg By mouth daily at bedtime daily for itching Follow up with PCP as needed for recheck, if no improvement need to see derm. Diagnosis and treatment plan were discussed and questions were answered to the patient's satisfaction. Pt acknowledged understanding of concepts and follow up plan. Specific signs and symptoms that would indicate the need for higher level of care were discussed in detail warranting prompt ER evaluation. Ashly Granda APRN.PRASANTH Granda APRN.PRASANTH 02/28/2019 8:07 PM Signed ASSESSMENT/PLAN: 1. Rash - ICD9: 782.1, ICD10: R21 Use triamcinolone cream as needed for itching, do not use on face Keflex 500 mg twice a day for 10 days Zyrtec 10 mg By mouth daily at bedtime daily for itching Follow up with PCP as needed for recheck, if no improvement need to see derm. Referring Provider: SELF [[id number]] Allergies As of Date: 02/28/2019 (No Known Allergies) Date Reviewed: 02/28/2019 Reviewed by: Ashly Granda - Fully Assessed Reason for Visit: Rash [1087] Cmt: x 2 weeks, face, arms and lower legs-startes as a blister Primary Visit Diagnosis:Rash [R21] Order(s):cephALEXin (KEFLEX) 500 mg capsuleTake 1 capsule by mouth twice daily for 10 days.Disp: 20 capsuleRfl: 0 triamcinolone acetonide (KENALOG) 0.1 % creamApply 1 application to affected area three times daily. Apply sparingly to area for rash/itching.Disp: 30 gRfl: 0 cetirizine (ZYRTEC) 10 mg tabletTake 1 tablet by mouth once daily.Disp: 30 tabletRfl: 0 Prescriptions as of 02/28/2019 Sig: CEPHALEXIN 500 MG CAPSULE Take 1 capsule by mouth twice* TRIAMCINOLONE ACETONIDE 0.1 %* Apply 1 application to affect* CETIRIZINE 10 MG TABLET Take 1 tablet by mouth once d* TYLENOL-CODEINE #3 300 MG-30 * Take one(1) tablet every four* NAPROSYN 500 MG TABLET Take one(1) tablet two(2) trinh* Patient not taking: Problem List As Of Date 02/28/2019 Noted Resolved INT DERANGEMENT KNEE NOS [M23.90] INVALID FOR* Other instructions from your clinician: ASSESSMENT/PLAN: 1. Rash - ICD9: 782.1, ICD10: R21 Use triamcinolone cream as needed for itching, do not use on face Keflex 500 mg twice a day for 10 days Zyrtec 10 mg By mouth daily at bedtime daily for itching Follow up with PCP as needed for recheck, if no improvement need to see derm. Prescriptions ordered this encounter Disp Refills Start End CEPHALEXIN 500 MG CAPSULE 20 c* 0 02/28/2019 03/10/2019 Route: ORAL Sig: Take 1 capsule by mouth twice daily for 10 days. TRIAMCINOLONE ACETONIDE 0.1 % TOPICA* 30 g 0 02/28/2019 Route: TOPICAL Sig: Apply 1 application to affected area three times daily. Apply sparingly to area for rash/itching. CETIRIZINE 10 MG TABLET 30 t* 0 02/28/2019 Route: ORAL Sig: Take 1 tablet by mouth once daily. Encounter Status:Closed by ASHLY GRANDA CNP on 02/28/19 [facility] PROGRESSon 02-28-2019 PROGRESS HNO ID: [id number] Author: Ashly Granda Service: ? Author Type: Nurse Practitioner Type: Progress Notes Filed: 02/28/2019 8:08 PM Note Text: Subjective The history is provided by the patient. No language and literature division chair was used. HPI Yohannes Landry is a 48 year old female who presents today for CC of itchy rash that is on face, started as vesicles, she has itched them and now has multiple scabs. She has used multiple otc anti-itch creams and topical antibiotics with slight relief. She states she has high anxiety and stress and not sure if related. She denies any drug abuse. BP 128/80 Pulse 86 Temp 36.4 ?C (97.5 ?F) (Tympanic) Resp 18 Wt 83.5 kg (184 lb) Social History Socioeconomic History Marital status: Single Spouse name: Not on file Number of children: Not on file Years of education: Not on file Highest education level: Not on file Occupational History Not on file Social Needs Financial resource strain: Not on file Food insecurity: Worry: Not on file Inability: Not on file Transportation needs: Medical: Not on file Non-medical: Not on file Tobacco Use Smoking status: Never Smoker Smokeless tobacco: Never Used Substance and Sexual Activity Alcohol use: Yes Comment: occasional Drug use: No Sexual activity: Yes Partners: Male control/protection: Condom Lifestyle Physical activity: Days per week: Not on file Minutes per session: Not on file Stress: Not on file Relationships Social connections: Talks on phone: Not on file Gets together: Not on file Attends oriental orthodox service: Not on file Active member of club or organization: Not on file Attends meetings of clubs or organizations: Not on file Relationship status: Not on file Intimate partner violence: Fear of current or ex partner: Not on file Emotionally abused: Not on file Physically abused: Not on file Forced sexual activity: Not on file Other Topics Concerns: Not on file Social History Narrative Not on file PAST MEDICAL HISTORY Diagnosis Date - Ocasio's palsy I have confirmed and edited as necessary, the [facility] Review of Systems Constitutional: Negative for chills and fever. Musculoskeletal: Negative for myalgias. Skin: Positive for itching and rash. All other systems reviewed and are negative. Objective Physical Exam Constitutional: She is oriented to person, place, and time and well-developed, well-nourished, and in no distress. Pulmonary/Chest: Effort normal and breath sounds normal. Neurological: She is alert and oriented to person, place, and time. Skin: Skin is warm and dry. Lesion and rash noted. Rash is macular and maculopapular. There is erythema. Psychiatric: Affect normal. Nursing note and vitals reviewed. ASSESSMENT/PLAN: 1. Rash - ICD9: 782.1, ICD10: R21 Use triamcinolone cream as needed for itching, do not use on face Keflex 500 mg twice a day for 10 days Zyrtec 10 mg By mouth daily at bedtime daily for itching Follow up with PCP as needed for recheck, if no improvement need to see derm. Diagnosis and treatment plan were discussed and questions were answered to the patient's satisfaction. Pt acknowledged understanding of concepts and follow up plan. Specific signs and symptoms that would indicate the need for higher level of care were discussed in detail warranting prompt ER evaluation. Ashly Granda APRN.[employer] Normal [facility] No Panel Information SARS-CoV-2 & FLU Antigen (Rapid) [facility] Work Phone: Vital Signs Date Time Vital Sign Value Performing Clinician Faci lity 12-18-2021 00:27-0400 Diastolic blood pressure 89 mm[Hg] [facility] Work Phone: 12-18-2021 00:27-0400 Heart rate 98 /min [facility] Work Phone: 12-18-2021 00:27-0400 Respiratory rate 16 /min [facility] Work Phone: 12-18-2021 00:27-0400 SaO2% (BldA) [Mass fraction] 98 % [facility] Work Phone: 12-18-2021 00:27-0400 Systolic blood pressure 144 mm[Hg] [facility] Work Phone: 12-17-2021 22:21-0400 Body height 157.48 cm [facility] Work Phone: 12-17-2021 22:21-0400 Body mass index (BMI) [Ratio] 27.4 kg/m2 [facility] Work Phone: 12-17-2021 22:21-0400 Body temperature 99.3 [degF] [facility] Work Phone: 12-17-2021 22:21-0400 Body weight 68.03 kg [facility] Work Phone: 10-11-2021 02:58-0400 Body temperature 98.4 [degF] No Primary Care Physician [facility] Work Phone: 10-11-2021 02:58-0400 Diastolic blood pressure 73 mm[Hg] No Primary Care Physician [facility] Work Phone: 10-11-2021 02:58-0400 Heart rate 107 /min No Primary Care Physician [facility] Work Phone: 10-11-2021 02:58-0400 Respiratory rate 15 /min No Primary Care Physician [facility] Work Phone: 10-11-2021 02:58-0400 SaO2% (BldA) [Mass fraction] 97 % No Primary Care Physician [facility] Work Phone: 10-11-2021 02:58-0400 Systolic blood pressure 133 mm[Hg] No Primary Care Physician [facility] Work Phone: 10-11-2021 00:39-0400 Body height 157.48 cm No Primary Care Physician [facility] Work Phone: 10-11-2021 00:39-0400 Body mass index (BMI) [Ratio] 29.5 kg/m2 No Primary Care Physician [facility] Work Phone: 10-11-2021 00:39-0400 Body weight 73.1 kg No Primary Care Physician [facility] Work Phone: 08-30-2021 23:24-0400 Heart rate 84 /min No Primary Care Physician [facility] Work Phone: 08-30-2021 23:24-0400 Respiratory rate 15 /min No Primary Care Physician [facility] Work Phone: 08-30-2021 23:24-0400 SaO2% (BldA) [Mass fraction] 99 % No Primary Care Physician [facility] Work Phone: 08-30-2021 21:18-0400 Body height 157.48 cm No Primary Care Physician [facility] Work Phone: 08-30-2021 21:18-0400 Body mass index (BMI) [Ratio] 28.3 kg/m2 No Primary Care Physician [facility] Work Phone: 08-30-2021 21:18-0400 Body temperature 99.1 [degF] No Primary Care Physician [facility] Work Phone: 08-30-2021 21:18-0400 Body weight 70.3 kg No Primary Care Physician [facility] Work Phone: 08-30-2021 21:18-0400 Diastolic blood pressure 70 mm[Hg] No Primary Care Physician [facility] Work Phone: 08-30-2021 21:18-0400 Systolic blood pressure 135 mm[Hg] No Primary Care Physician [facility] Work Phone: 07-02-2021 16:59-0500 Body mass index (BMI) [Ratio] 29.5 kg/m2 No Primary Care Physician [facility] Work Phone: 07-02-2021 16:59-0500 Body temperature 97.5 [degF] No Primary Care Physician [facility] Work Phone: 07-02-2021 16:59-0500 Body weight 73.1 kg No Primary Care Physician [facility] Work Phone: 07-02-2021 16:59-0500 Diastolic blood pressure 68 mm[Hg] No Primary Care Physician [facility] Work Phone: 07-02-2021 16:59-0500 Heart rate 99 /min No Primary Care Physician [facility] Work Phone: 07-02-2021 16:59-0500 Respiratory rate 16 /min No Primary Care Physician [facility] Work Phone: 07-02-2021 16:59-0500 SaO2% (BldA) [Mass fraction] 97 % No Primary Care Physician [facility] Work Phone: 07-02-2021 16:59-0500 Systolic blood pressure 117 mm[Hg] No Primary Care Physician [facility] Work Phone: Encounters Encounter Date Encounter Type Care Provider Facility Start: 12-17-2021 End: 12-18-[facility]21 [facility] Start: 10-11-2021 End: 10-11-2021 [facility] department [facility] Start: 08-30-2021 End: 08-30-2021 [facility] Start: 08-12-2021 End: 08-12-2021 Patient encounter procedure No Primary Care Physician [facility] Start: 07-02-2021 End: 07-02-2021 [facility] department [facility] Procedures Date Procedure Procedure Detail Performing Clinician Start: 12-17-2021 CT of abdomen and pe lvis without contrast Start: 10-11-2021 SARS-CoV-2 & FLU Ant igen (Rapid) No Primary Care Physician Start: 10-11-2021 Plain chest X-ray No Pr imary Care Physician SARS-CoV-2 & FLU Ant igen (Rapid) Plan of Treatment Date Care Activity Detail Author Start: 12-18-2021 [facility] Work Phone: Start: 10-11-2021 [facility] Work Phone: Bacteria identified in Urine by Culture Urine Culture [facility] Work Phone: Patient Education [facility] Work Phone: Patient referral [facility] Work Phone: Payers Date Payer Category Payer Policy ID Medicaid SELF PAY INSURANCE 0 [id number] Private Health Insurance SELF PAY INSURAN [id number] Self-pay SELF PAY INSURANCE [id number] Social History Date Type Detail Facility [facility] Work Phone: Start: 08-30-2021 End: 12-17-2021 Tobacco smoking status NHIS Unknown if ever smoked [facility] Work Phone: Start: 1970 Sex Assigned At Female [facility] Work Phone: Evaluation note Note Date & Type Note Facility Evaluation note No assessment information availa ble [facility] Work Phone: Summary Purpose Family History No Family History Records FoundNo Family History Records Found Advance Directives No Advanced Directives Records Found Advance Directive Response Recorded Date/ Time Advance Directives No August 12 12:19pm Living Will No August 30, 2021 9:36pm Power of Revenue Research Analyst No August 30 9:36pm Advance Directive Response Recorded Date/ Time Advance Directives No August 12 12:19pm Living Will No October 11, 2021 12:42am Power of Revenue Research Analyst No October 11 12:42am Advance Directive Response Recorded Date/ Time Advance Directives No August 12 12:19pm Living Will No December 17 10:33pm Power of Revenue Research Analyst No December 17 10:33pm Chief Complaint and Reason for Visit Chief Complaint upper extremity PE DRUG SCREEN/GOJO URINARY COMPLAINTS Chief Complaint upper extremity PE DRUG SCREEN/GOJO URINARY COMPLAINTS General illness Chief Complaint URINARY COMPLAINTS General illness FLANK PAIN Additional Source Comments INFORMATION SOURCE (unrecogn ized section and content) DATE CREATED AUTHOR 08/23/2019 [facility] DATE CREATED AUTHOR AUTHOR'S ORGANIZ ATION 12/24/2021 [facility] Goals (unrecognized section and content) Goals may be documented in a n alternate sectionGoals may be documented in an alternate sectionGoals may be documented in an alternate section FOR RECORDS PERTAINING TO PATIENTS WHO ARE OR HAVE BEEN ENROLLED IN A CHEMICAL DEPENDENCY/SUBSTANCEABUSE PROGRAM, SOME INFORMATION MAY BE OMITTED. This clinical summary was aggregated from multiple sources. Caution should be exercised in using it in the provision of clinical care. This summary normalizes information from multiple sources, and as a consequence, information in this document may materially change the coding, format and clinical context of patient data. In addition, data may be omitted in some cases. CLINICAL DECISIONS SHOULD BE BASED ON THE PRIMARY CLINICAL RECORDS. [facility] [employer] [facility]. provides no warranty or guarantee of the accuracy or completeness of information in this document.
--- NOTE | 2024-10-15 23:41 | EDS_ITS ---
HPI HPI - GI History of Present Illness Chief Complaint: Flank Pain Informant: patient Abdominal Pain/Flank Pain Onset: Days Context: Gradual Onset Timing: Continuous Location: Right Flank and Left Flank (3-day history of bilateral flank pain.) Current Severity: Moderate Maximum Severity: Moderate Worsened by: Nothing Relieved by: Nothing Nausea/Vomiting/Emesis GI Symptom: Positive for Nausea Severity: Mild Diarrhea/Melena/Hematochezia GI Symptom: Negative for Diarrhea, Melena or Hematochezia Associated Symptoms Associated Symptoms: Negative for Dysuria, Frequency, Hematuria or Urgency Narrative Narrative: 54-year-old female history of prior kidney stones where she needed surgery and stent. Prior tubal ligation. Complaining of bilateral flank pain for the last 3 days and started on Wednesday night. Associated nausea no vomiting or diarrhea. No fever. No dysuria. Nothing particular makes the pain better or worse. Prior similar symptoms: Yes Recent Illness/Hospitalization: No PFSH PFSH Medical History Non-smoker Kidney stones Home Medications ?Medication ?Instructions ?Recorded ?Last Taken ?Type naproxen 500 mg tablet 500 mg PO BID PRN #20 tabs 0 01/07/21 Unknown Rx ibuprofen 600 mg tablet 600 mg PO 4X/DAY PRN Pain Or Fever 07/02/21 Unknown Rx #20 tabs ciprofloxacin HCl 500 mg tablet 500 mg PO BID #14 tabs 12/18/21 Unknown Rx (Cipro) hydrocodone-acetaminophen 5-325mg 1 tab PO Q6H PRN raine n 3 days #12 12/18/21 Unknown Rx 5mg-325mg tabs ondansetron 4 mg disintegrating 4 mg PO Q8H PRN nausea and 12/18/21 Unknown Rx tablet vomiting #14 tabs Allergy/AdvReac Type Severity Reaction Status Date / Time No Known Allergies Allergy Verified 10/15/24 22:21 Surgical History History of arthroplasty of right knee History of tubal ligation Social History Smoking Status: Never smoker ROS ROS ED ROS Narrative Nausea. Bilateral flank pain. Constitutional Constitutional ED: Denies chills or fever(s) ENT ENT ED: Denies ear pain Cardiovascular Cardiovascular: Denies chest pain Respiratory/Chest Respiratory/Chest: Denies cough or dyspnea Gastrointestinal Gastrointestinal: Reports abdominal pain and nausea; Denies diarrhea or vomiting Genitourinary Genitourinary ED: Denies dysuria, hematuria or urinary frequency Musculoskeletal Musculoskeletal: Denies arthralgias Integumentary Denies abscess Neurologic Neurologic: Denies headache(s) Psychiatric Psychiatric: Denies anxiety Endocrine Endocrinology: Denies polydipsia Hematologic/Lymphatic Hematologic/Lymphatic: Denies easy bleeding Allergic/Immunologic Allergic/Immunologic ED: Denies mouth swelling, tongue swelling or urticaria EXAM Physical Exam Narrative Exam Narrative: 54-year-old female vital signs are stable and afebrile. Does not look septic toxic or in distress. H EENT exam pupils round react light. Dry mucous membranes. Neck nontender no JVD. Lungs clear to auscultation bilateral. Heart regular rhythm no murmur. Rate about 100. Abdomen soft, nontender, nondistended, normal bowel sounds without peritoneal signs. No reproducible pain. Right upper right lower quadrant unremarkable. No hernia or mass. No obstruction. Moving all 4 extremities. Nontender no edema. Back nontender. Neurologically she is awake alert. Answer questions following commands. Const Vital Signs: 10/15/24 22:21 10/15/24 22:23 10/16/24 00:00 Temperature 97.7 F L 97.7 F L 97.8 F Temperature Source Oral Oral Oral Pulse Rate 104 H 104 H 90 Respiratory Rate 22 H 22 H 14 Blood Pressure 145/78 H 145/74 H 125/83 H Blood Pressure Mean 100 97 97 Pulse Ox 98 100 100 Oxygen Delivery Method Room Air Room Air 10/16/24 01:00 10/16/24 02:03 Temperature 98.0 F 98.0 F Temperature Source Oral Oral Pulse Rate 86 86 Respiratory Rate 16 16 Blood Pressure 121/69 H 125/75 H Blood Pressure Mean 86 91 Pulse Ox 100 100 Oxygen Delivery Method Room Air Room Air Positive well nourished and well developed; Negative for cachectic, contractures or unkempt General Appearance ED: well developed and NAD; Negative for unkempt, cachectic, contractures or pallor Nutritional Appearance: Negative for cachectic HEENT Reports dry mucous membranes normocephalic and atraumatic Mouth ED: Yes dry mucous membranes Mouth: dry mucous membranes Eyes PERRL and EOMs intact bilaterally General Eye ED: Negative for pale conjunctiva or scleral icterus Neck no lymphadenopathy, supple and no JVD Resp normal respiratory effort and clear to auscultation bilaterally Cardio regular rate, regular rhythm, S1 normal heart sound, S2 normal heart sound and no murmurs GI non-tender, non-distended and no masses Auscultation: normoactive bowel sounds Palpation: soft; Negative for tender, guarding, mass, pulsatile mass or rebound tenderness present Back/Spine no CVA tenderness General Back: Negative for CVA tenderness Cervical Spine: Negative for cervical spine tenderness Thoracic Spine / Upper Back: Negative for thoracic spinal tenderness Lumbar Spine / Lower Back: Negative for lumbar spinal tenderness Extremity full ROM General Extremety ED: Negative for edema or tenderness General Extremity: Negative for edema Neuro CN's II-XII intact bilaterally and moves all extremities Sensorium / Orientation: alert, oriented to person, oriented to place and oriented to time; Negative for confused, lethargic or stuporous Motor Exam: strength 5/5 throughout Psych mental status grossly normal and thought process normal Appearance: Negative for unkempt Attitude: No agitated Mood & Affect: Negative for depressed, anxious or tearful Skin no wounds General Skin Exam: Negative for jaundice or pallor Lesions: no lesions Rashes: no rashes Trauma: Negative for abrasion Nails: Negative for discolored MDM MDM MDM Narrative Medical decision making narrative: 54-year-old female bilateral flank pain with a history of prior bilateral kidney stones. CAT scan of the labs will be obtained. She will be treated with morphine, Zofran and Toradol for pain. Repeat exam patient is resting more comfortably at 2:15 AM. We went over her test results including her CAT scans. Given the size of her stones and her discomfort I have the urologist on page Dr. Mesfin Neville. He cared for the patient around 2012 for similar presentation. I will start on IV Rocephin. Send a urine culture. History & Record Review Discussion w/independent historian: Patient and Family Additional record(s) reviewed:: Prior inpatient record, Prior outpatient record, Prior ED visit and Prior labs Lab Data Attestation: I reviewed the patient's lab results. Lab results narrative: CBC shows a white count 13.9. H&H 11.3 and 36. Platelets 270. Electrolytes show sodium 140. Gap 11. BUN and creatinine 21 and 1.63. Glucose 98. Serum test negative. UA shows no red cells. Greater than 100 white cells. 5 epithelial cells. 4+ bacteria. No nitrites. Labs: Laboratory Results - last 24 hr 10/15/24 22:38 WBC 13.9 H RBC 4.18 L Hgb 11.3 L Hct 36.4 L MCV 87.1 MCH 27.0 MCHC 31.0 L RDW Std Deviation 48.9 H RDW Coeff of Julian 15.4 H Plt Count 270 MPV 11.4 Immature Gran % (Auto) 0.600 Neut % (Auto) 73.5 H Lymph % (Auto) 17.2 L [place] % (Auto) 5.2 Eos % (Auto) 3.1 Baso % (Auto) 0.4 Absolute Neuts (auto) 10.2 H Absolute Lymphs (auto) 2.40 Nucleated RBC % 0 Sodium 140 Potassium 3.7 Chloride 103 Carbon Dioxide 26.4 Anion Gap 11 BUN 21 H Creatinine 1.63 H Estim Creat Clear Calc 36.72 L Est GFR (MDRD) Non-Af 38 L BUN/Creatinine Ratio 12.7 Glucose 98 Calcium 11.4 H Serum , Qual NEGATIVE Urine Color Yellow Urine Clarity Cloudy Urine pH 6.5 Ur Specific [place] 1.015 Urine Protein 100 H Urine Glucose (UA) Normal Urine Ketones Negative Urine Occult Blood 25 H Urine Nitrite Negative Urine Bilirubin Negative Urine Urobilinogen Normal Ur Leukocyte Esterase 500 H Urine RBC 0 SEEN Urine WBC >100 SEEN Ur Squamous Epith Cells 5-10 SEEN Urine Bacteria 4+ Urine Mucus 0 SEEN Radiography Diagnostic Testing: Clinical Impression(s) from Imaging Studies Abdomen/Pelvis CT 10/15/24 00:10 IMPRESSION: Few about three right lower ureteric calculi, the largest 11 mm with consequent marked proximal right hydroureteronephrosis. Left lower ureteric 10 mm calculus with adjacent 1 mm calculus inducing moderate to marked proximal right hydroureteronephrosis. Right renal lower calyceal 13 mm non obstructing calculus with lower calyceal dependent/layering faintly dense small calculi. Reading Location: [place] [id number] Discharge Plan Triage Chief Complaint: Flank Pain ED Provider: Ian Brown Dx/Rx/DC Orders Clinical Impression: Bilateral flank pain, Kidney stones, Hydronephrosis, UTI (urinary tract infection) Prescriptions: No Action naproxen 500 mg tablet 500 mg PO BID PRN Qty: 20 0RF ibuprofen 600 MG tablet 600 mg PO 4X/DAY PRN (Reason: Pain Or Fever) Qty: 20 0RF ciprofloxacin HCl [Cipro] 500 mg tablet 500 mg PO BID Qty: 14 0RF hydrocodone-acetaminophen 5-325 mg tablet 1 tab PO Q6H PRN (Reason: pain) 3 Days Qty: 12 0RF ondansetron 4 mg tablet,disintegrating 4 mg PO Q8H PRN (Reason: nausea and vomiting) Qty: 14 0RF Primary Care Provider: Care Physician,No Primary Referrals: Care Physician,No Primary [Primary Care Provider] - Print Language: Green[place]ic Disposition Disposition: Acute Care Hospital [facility]
[2024-10-15 23:54] LABS: Mucous, Urine 0 SEEN /hpf (<or=2+); Red Blood Cells-Urine 0 SEEN /hpf (0-5)
[2024-10-15 23:57] LABS: Color, Urine Yellow (Yellow); Glucose, Dipstick Normal (Normal); Ketone-Dipstick Negative (Negative); Leukocyte Esterase-Dipstick 500 /ul (Negative); Nitrite-Dipstick Negative (Negative); Occult Blood-Urine 25 /ul (Negative); Protein-Dipstick 100 mg/dl (Negative); Specific Gravity, Urine 1.015 (1.002-1.030); Urine Bilirubin Dipstick Negative (Negative); Urine Clarity Cloudy (Clear); Urine Urobilinogen Normal (Normal); Urine pH 6.5 (5.0 - 8.0)
[2024-10-15] MEDS: Ketorolac 30 MG/ML Syringe IV (23:57)
[2024-10-15] MEDS: 0.9% Normal Saline (1000mL) 1,000 ML 999 ML IV (23:57)
[2024-10-15] MEDS: Ondansetron 4 MG/2 ML Vial IV (23:58)
[2024-10-15] MEDS: Morphine 4 MG/ML Syringe IV (23:58)
[2024-10-16] VITALS (14 sets, daily range): BP systolic 121–148; BP diastolic 69–89; PULSE 78–104; RESP 14–17; TEMP 36.2–37.4; O2SAT 94–100; BMI 27.8
[2024-10-16 00:08] LABS: Internal QC Validated? YES +Cl - CLEAR BKGD; Pregnancy, Serum, hCG Quali. NEGATIVE Negative
[2024-10-16 00:12] LABS: Bacteria 4+ /hpf (None Seen); Squamous Epithelial Cells - UA 5-10 SEEN /hpf (5-10); White Blood Cells >100 SEEN /hpf (0-5)
[2024-10-16 00:15] LABS: Anion Gap 11 (5-15); BUN 21 mg/dL (4-19); BUN/Creat Ratio 12.7 RATIO (10-20); Calcium,Total 11.4 mg/dL (7.6-11.0); Carbon Dioxide 26.4 mmol/L (21.0-32.0); Chloride 103 mmol/L (98-108); Creatinine, Serum 1.63 mg/dL (0.70-1.20); EST Glomerular Filtration Rate 38 (>60); Estimated Creatinine Clearance 36.72 ml/min (50-250); Glucose 98 mg/dL (70-99); Potassium 3.7 mmol/L (3.3-5.1); Sodium Level 140 mmol/L (133-145)
[2024-10-16 00:18] LABS: Absolute Neutrophil Count 10.2 X10^3/uL (2.0-7.7); Basophil# 0.05 X10^3/uL; Basophil% 0.4 % (0-1); Eosinophil# 0.43 X10^3/uL; Eosinophils% 3.1 % (0-5); Hematocrit 36.4 % (37-47); Hemoglobin 11.3 g/dL (12.0-15.0); Lymphocyte % 17.2 % (19-41); Mean Corpuscular Volume 87.1 fL (81-99); Mean Platelet Vol. 11.4 fl (6.2-12.0); Monocyte# 0.72 X10^3/uL; Monocyte% 5.2 % (0-10); NRBC Flagged by Analyzer 0 % (0-5); Neutrophil # 10.24 X10^3/uL (2.7-7.7); Neutrophil % 73.5 % (47-70); Platelet Count 270 K/mm3 (150-450); RBC Distribution Width CV 15.4 % (11.6-14.6); RBC Distribution Width SD 48.9 fl (35.1-43.9); Red Blood Count 4.18 M/mm3 (4.2-5.4); White Blood Count 13.9 K/mm3 (4.4-11.0)
--- OUTSIDE RECORDS SUMMARY | 2024-10-16 02:40 | XMS RPT_ITS | CCD ---
Author Organization [facility] Inform ion Partnership [facility] Care Team Providers Care Quality Assurance Project Manager Name Role Phone Care Physician, No Primary Primary Care Provider Unavailable Care Physician, No Primary Referring Provider Un available RANDA Garza Attending Provider Medications Current Medications Medication Drug Class(es) Dates [...] level. Mixed Gram Pos Gram Neg Org [place] Count 1000-10,000 MIXC Mixed contaminants. Submit a new specimen if indicated. Normal [facility] Comment on above: Performed By: #### M 100.2200 #### [facility] [address] [place], [place], [address] Abdomen/Pelvis without Conto n 12-18-2021 Abdomen/Pelvis without Cont [facility] Imaging Services [address] [place] [address] Abdomen/Pelvis without Cont MR#: [id number] Acct: [id number] Name: YOHANNES LANDRY Rep #: [id number] : 1970 F 51 From: Reji Mansfield DO PCP: Care Physician,No Primary Status: REG ER Study: Abdomen/Pelvis without Cont Date of Exam: 12/01 11/21 Exam# [id number] Ordering Dr: Jean Marie Remy DO STUDY: [...] Marie Remy DO; No Primary Care Physician [employer]: Signed Normal [facility] Basic Metabolic Profile (BMP )on 12-18-2021 BUN/CRE 14.6 RATIO Normal 10-20 [facility] Comment on above: Performed By: #### L 500.2500, L100.0100 ####[facility] [address] [place], [address] CA,Total 10.9 mg/dL High 8.5-10.1 [facility] Comment on above: Performed By: #### L 500.2500, L100.0100 ####[facility] [address] [place], [address] Chloride [Moles/Vol] 109 mmol/L High 98-107 [facility] Comment on above: Performed By: #### L 500.2500, L100.0100 ####[facility] [address] [place], [address] CO2 [Moles/Vol] 26.0 mmol/L Normal 21.0-32.0 [facility] Comment on above: Performed By: #### L 500.2500, L100.0100 ####[facility] [address] [place], [address] Creatinine [Mass/Vol] 1.30 mg/dL High 0.55-1.02 [facility] Comment on above: Result Comment: The validity of the calculated GFR GFRAA in patients over 70 years has not been determined. Clinical correlation is essential. Performed By: #### L 500.2500, L100.0100 ####[facility] [address] [place], [address] ECRCL 41.40 ml/min Normal [facility] Comment on above: Performed By: #### L 500.2500, L100.0100 ####[facility] [address] [place], [address] EST GFR - AA 56 mL/min Low >60 [facility] Comment on above: Result Comment: Afri can [place] GFR Calc Performed By: #### L 500.2500, L100.0100 ####[facility] [address] [place], [address] GAP 6 Normal 5-15 [facility] Comment on above: Performed By: #### L 500.2500, L100.0100 ####[facility] [address] [place], [address] GFR/1.73 sq M.predicted among non-blacks MDRD (S/P/Bld) [Vol rate/Area] 46 mL/min/{1.73_m2} Low >60 [facility] Comment on above: Result Comment: Non- GFR Calc Performed By: #### L 500.2500, L100.0100 ####[facility] [address] [place], [address] Glucose [Mass/Vol] 106 mg/dL Normal 74-106 [facility] Comment on above: Result Comment: Fast ing Glucose result from 100 to 125 mg/dL suggests IMPAIRED HOMEOSTASIS per A.D.A. criteria. Performed By: #### L 500.2500, L100.0100 ####[facility] [address] [place], [address] Potassium [Moles/Vol] 3.8 mmol/L Normal 3.5-5.1 [facility] Comment on above: Performed By: #### L 500.2500, L100.0100 ####[facility] [address] [place], [address] Sodium [Moles/Vol] 141 mmol/L Normal 136-145 [facility] Comment on above: Performed By: #### L 500.2500, L100.0100 ####[facility] [address] [place], [address] Urea nitrogen [Mass/Vol] 19 mg/dL High 7-18 [facility] Comment on above: Performed By: #### L 500.2500, L100.0100 ####[facility] [address] [place], [address] CBC W/Diff, Automatedon 12-01 Absolute Lymph 1.79 X10 3/uL Normal 0.83-4.51 [facility] Comment on above: Performed By: #### L 500.2500, L100.0100 ####[facility] [address] [place], [address] Absolute Neut 6.4 X10 3/uL Normal 2.0-7.7 [facility] Comment on above: Performed By: #### L 500.2500, L100.0100 ####[facility] [address] [place], [address] Basophils/100 WBC (Bld) 0.3 % Normal 0-1 [facility] Comment on above: Performed By: #### L 500.2500, L100.0100 ####[facility] [address] [place], [address] Eosinophils/100 WBC (Bld) 4.7 % Normal 0-5 [facility] Comment on above: Performed By: #### L 500.2500, L100.0100 ####[facility] [address] [place], [address] Erythrocyte distribution width (RBC) [Ratio] 15.6 % High 11.6-14.6 [facility] Comment on above: Performed By: #### L 500.2500, L100.0100 ####[facility] [address] [place], [address] Hematocrit (Bld) [Volume fraction] 33.6 % Low 37-47 [facility] Comment on above: Performed By: #### L 500.2500, L100.0100 ####[facility] [address] [place], [address] Hemoglobin (Bld) [Mass/Vol] 10.7 g/dL Low 12.0-15.0 [facility] Comment on above: Performed By: #### L 500.2500, L100.0100 ####[facility] [address] [place], [address] IG% 1.700 High 0.0-0.9 [facility] Comment on above: Result Comment: IG% - Immature Granulocytes (promyelocytes, myelocytes and metamyelocytes) > 1% indicates that a LEFT SHIFT is Present. Performed By: #### L 500.2500, L100.0100 ####[facility] [address] [place], [address] Lymphocytes/100 WBC (Bld) 18.7 % Low 19-41 [facility] Comment on above: Performed By: #### L 500.2500, L100.0100 ####[facility] [address] [place], [address] MCH (RBC) [Entitic mass] 27.3 pg Normal 27.0-32.0 [facility] Comment on above: Performed By: #### L 500.2500, L100.0100 ####[facility] [address] [place], [address] MCHC (RBC) [Mass/Vol] 31.8 g/dL Low 32-36 [facility] Comment on above: Performed By: #### L 500.2500, L100.0100 ####[facility] [address] [place], [address] MCV (RBC) [Entitic vol] 85.7 fL Normal 81-99 [facility] Comment on above: Performed By: #### L 500.2500, L100.0100 ####[facility] [address] [place], [address] Monocytes/100 WBC (Bld) 7.3 % Normal 0-10 [facility] Comment on above: Performed By: #### L 500.2500, L100.0100 ####[facility] [address] [place], [address] Neutrophils/100 WBC (Bld) 67.3 % Normal 47-70 [facility] Comment on above: Performed By: #### L 500.2500, L100.0100 ####[facility] [address] [place], [address] Nucleated RBC (Bld) [#/Vol] 0 10*3/uL Normal 0-5 [facility] Comment on above: Performed By: #### L 500.2500, L100.0100 ####[facility] [address] [place], [address] Platelet mean volume (Bld) [Entitic vol] 10.6 fL Normal 6.2-12.0 [facility] Comment on above: Performed By: #### L 500.2500, L100.0100 ####[facility] [address] [place], [address] Platelets (Bld) [#/Vol] 230 10*3/uL Normal 150-450 [facility] Comment on above: Performed By: #### L 500.2500, L100.0100 ####[facility] [address] [place], [address] RBC (Bld) [#/Vol] 3.92 10*6/uL Low 4.2-5.4 [facility] Comment on above: Performed By: #### L 500.2500, L100.0100 ####[facility] [address] [place], [address] RDW SD 49.2 fl High 35.1-43.9 [facility] Comment on above: Performed By: #### L 500.2500, L100.0100 ####[facility] [address] [place], [address] WBC (Bld) [#/Vol] 9.6 10*3/uL Normal 4.4-11.0 [facility] Comment on above: Performed By: #### L 500.2500, L100.0100 ####[facility] [address] 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 Normal [facility] ,Urineon 12-18-2021 Beta HCG ( test) Ql (U) Negative Normal [facility] Comment on above: Order Comment: 810 CLEAN CATCH Result Comment: Very dilute urine specimens, as indicated by a low specific gravity, may not contain account executive sales representative levels of hCG. If is still suspected, a first morning urine specimen should be collected 48 hours later and tested. Performed By: #### L 400.7600, L400.0001 #### [facility] [address] [place], [address] Urinalysis, Completeon 12-18 BACTERIA 4+ /hpf Normal None Seen [facility] Comment on above: Order Comment: 810 CLEAN CATCH Performed By: #### L 400.7600, L400.0001 #### [facility] [address] [place], [address] EPI,SQUAMOUS 10-25 SEEN Normal 5-10 [facility] Comment on above: Order Comment: 810 CLEAN CATCH Performed By: #### L 400.7600, L400.0001 #### [facility] [address] [place], [address] RBC 25-50 SEEN Normal 0-5 [facility] Comment on above: Order Comment: 810 CLEAN CATCH Performed By: #### L 400.7600, L400.0001 #### [facility] [address] [place], [address] WBC >100 SEEN Normal 0-5 [facility] Comment on above: Order Comment: 810 CLEAN CATCH Performed By: #### L 400.7600, L400.0001 #### [facility] [address] [place], [address] Mucus Ql (Urine sed) 0 SEEN Normal [facility] Comment on above: Order Comment: 810 CLEAN CATCH Performed By: #### L 400.7600, L400.0001 #### [facility] [address] [place], [address] Absolute lymphocyte counton 12-17-2021 Lymphocytes Auto (Unsp spec) [#/Vol] 1.79 10*3/uL 0.83-4.51 [facility] Work Phone: Basophil percentageon 2021 Basophils/100 WBC (Bld) 0.3 % 0-1 [facility] Work Phone: Chloride [Moles/Vol] 109 mmol/L 98-107 [facility] Work Phone: Eosinophils/100 WBC (Bld) 4.7 % 0-5 [facility] Work Phone: Glucose [Mass/Vol] 106 mg/dL 74-106 [facility] Work Phone: Comment on above: Fasting Glucose resu lt from 100 to 125 mg/dL suggests IMPAIRED HOMEOSTASIS per A.D.A. criteria. Neutrophils (Bld) [#/Vol] 6.4 10*3/uL 2.0-7.7 [facility] Work Phone: Neutrophils/100 WBC (Bld) 67.3 % 47-70 [facility] Work Phone: Potassium [Moles/Vol] 3.8 mmol/L 3.5-5.1 [facility] Work Phone: Sodium [Moles/Vol] 141 mmol/L 136-145 [facility] Work Phone: WBC (Bld) [#/Vol] 9.6 10*3/uL 4.4-11.0 [facility] Work Phone: Basophil percentage >100 SEEN /hpf 0-5 [facility] Work Phone: Bilirubin Test strip Ql (U)o n 12-17-2021 Bilirubin Ql (U) Negative Negative [facility] Work Phone: Blood erythrocytes count (nu mber/volume)on 12-17-2021 RBC (Bld) [#/Vol] 3.92 10*6/uL 4.2-5.4 [facility] Work Phone: Blood hemoglobin measurement (mass/volume)on 12-17-2021 Hemoglobin (Bld) [Mass/Vol] 10.7 g/dL 12.0-15.0 [facility] Work Phone: Blood lymphocytes/100 leukoc yteson 12-17-2021 Lymphocytes/100 WBC (Bld) 18.7 % 19-41 [facility] Work Phone: Blood monocytes/100 leukocyt eson 12-17-2021 Monocytes/100 WBC (Bld) 7.3 % 0-10 [facility] Work Phone: Blood platelet mean volumeon 12-17-2021 Platelet mean volume (Bld) [Entitic vol] 10.6 fL 6.2-12.0 [facility] Work Phone: Determination of erythrocyte mean corpuscular volume (MCV)on 12-17-2021 MCV (RBC) [Entitic vol] 85.7 fL 81-99 [facility] Work Phone: Hematocrit Auto (Bld) [Volum e fraction]on 12-17-2021 Hematocrit (Bld) [Volume fraction] 33.6 % 37-47 [facility] Work Phone: Ketones Test strip Ql (U)on 12-17-2021 Ketones Ql (U) Negative Negative [facility] Work Phone: Laboratory - Chemistry and C hemistry - challengeon 12-17-2021 CO2 [Moles/Vol] 26.0 mmol/L 21.0-32.0 [facility] Work Phone: Urea nitrogen/Creatinine [Mass ratio] 14.6 mg/mg 10-20 [facility] Work Phone: HCG ( test) Ql (U) Negative [facility] Work Phone: Comment on above: Very dilute urine sp ecimens, as indicated by a low specificgravity, may not contain account executive sales representative levels of hCG. If is still suspected, a first morning urinespecimen should be collected 48 hours later and tested. Laboratory - Hematology and Cell countson 12-17-2021 Erythrocyte distribution width (RBC) [Entitic vol] 49.2 fL 35.1-43.9 [facility] Work Phone: Erythrocyte distribution width (RBC) [Ratio] 15.6 % 11.6-14.6 [facility] Work Phone: Immature granulocytes/100 WBC (Bld) 1.700 % 0.0-0.9 [facility] Work Phone: Comment on above: IG% - Immature Granu locytes (promyelocytes, myelocytes and metamyelocytes) > 1% indicates that a LEFT SHIFT is Present. MCH (RBC) [Entitic mass] 27.3 pg 27.0-32.0 [facility] Work Phone: Nucleated RBC/100 WBC (Bld) [Ratio] 0 % 0-5 [facility] Work Phone: MCHC Auto (RBC) [Mass/Vol]on 12-17-2021 MCHC (RBC) [Mass/Vol] 31.8 g/dL 32-36 [facility] Work Phone: Mucus LM Ql (Urine sed)on Mucus Ql (Urine sed) 0 SEEN /hpf [facility] Work Phone: Nitrite Test strip Ql (U)on 12-17-2021 Nitrite Ql (U) Negative Negative [facility] Work Phone: No Panel Informationon 12-17 Estimated Creatinine Clearance Calc 41.40 ml/min [facility] Work Phone: Estimated GFR (MDRD) Amer 56 mL/min >60 [facility] Work Phone: Comment on above: GFR Calc Estimated GFR (MDRD) Non-Af Amer 46 mL/min >60 [facility] Work Phone: Comment on above: Non- GFR Calc Platelets bldon 12-17-2021 Platelets (Bld) [#/Vol] 230 10*3/uL 150-450 [facility] Work Phone: Protein Test strip Ql (U)on 12-17-2021 Protein Ql (U) 30 mg/dl Negative [facility] Work Phone: Serum or plasma calcium brennan urement (mass/volume)on 12-17-2021 Calcium [Mass/Vol] 10.9 mg/dL 8.5-10.1 [facility] Work Phone: Serum or plasma creatinine m easurement (mass/volume)on 12-17-2021 Creatinine [Mass/Vol] 1.30 mg/dL 0.55-1.02 [facility] Work Phone: Comment on above: The validity of the calculated GFR & GFRAA in patients over 70 years has not been determined. Clinical correlation is essential. Serum or plasma urea nitroge n measurement (mass/volume)on 12-17-2021 Urea nitrogen [Mass/Vol] 19 mg/dL 7-18 [facility] Work Phone: Squamous epithelial cells de tection in urine sediment by light microscopyon 12-17-2021 Epithelial cells.squamous LM Ql (Urine sed) 10-25 SEEN /hpf 5-10 [facility] Work Phone: Thin prep Papanicolaou smear with manual screeningon 12-17-2021 Thin prep Papanicolaou smear with manual screening 6 5-15 [facility] Work Phone: Urine blood detectionon 12-01 RBC Ql (U) 250 /ul Negative [facility] Work Phone: RBC Ql (U) 25-50 SEEN /hpf 0-5 [facility] Work Phone: Urine clarityon 12-17-2021 Clarity (U) Sl. Cloudy Clear [facility] Work Phone: Urine color determinationon 12-17-2021 Color (U) Yellow Yellow [facility] Work Phone: Urine glucose detectionon Glucose Ql (U) Normal mg/dl Normal [facility] Work Phone: Urine leukocyte esterase det ection by dipstickon 12-17-2021 Leukocyte esterase Test strip Ql (U) 500 /ul Negative [facility] Work Phone: Urine pHon 12-17-2021 pH (U) 6.0 [pH] 5.0 - 8.0 [facility] Work Phone: Urine sediment bacteria coun t by microscopy (number/high power field)on 12-17-2021 Bacteria LM.HPF (Urine sed) [#/Area] 4 /[HPF] None Seen [facility] Work Phone: Urine specific gravity measu rementon 12-17-2021 Specific gravity (U) [Rel density] 1.015 1.002-1.030 [facility] Work Phone: Urobilinogen Auto test strip Ql (U)on 12-17-2021 Urobilinogen Ql (U) Normal mg/dl Normal [facility] Work Phone: Absolute lymphocyte counton 10-11-2021 Lymphocytes Auto (Unsp spec) [#/Vol] 1.25 10*3/uL 0.83-4.51 [facility] Work Phone: Basic Metabolic Profile (BMP )on 10-11-2021 BUN/CRE 16.9 RATIO Normal 10-20 [facility] Comment on above: Performed By: #### L 100.0100, L500.2500 #### [facility] [place], [address] CA,Total 10.5 mg/dL High 8.5-10.1 [facility] Comment on above: Performed By: #### L 100.0100, L500.2500 #### [facility] [address] [place], [address] Chloride [Moles/Vol] 107 mmol/L Normal 98-107 [facility] Comment on above: Performed By: #### L 100.0100, L500.2500 #### [facility] [address] [place], [address] CO2 [Moles/Vol] 27.0 mmol/L Normal 21.0-32.0 [facility] Comment on above: Performed By: #### L 100.0100, L500.2500 #### [facility] [address] [place], [address] Creatinine [Mass/Vol] 0.83 mg/dL Normal 0.55-1.02 [facility] Comment on above: Result Comment: The validity of the calculated GFR GFRAA in patients over 70 years has not been determined. Clinical correlation is essential. Performed By: #### L 100.0100, L500.2500 #### [facility] [address] [place], [address] ECRCL 64.85 ml/min Normal [facility] Comment on above: Performed By: #### L 100.0100, L500.2500 #### [facility] [address] [place], [address] EST GFR - AA 94 mL/min Normal >60 [facility] Comment on above: Result Comment: Afri can [place] GFR Calc Performed By: #### L 100.0100, L500.2500 #### [facility] [address] [place], [address] GAP 2 Low 5-15 [facility] Comment on above: Performed By: #### L 100.0100, L500.2500 #### [facility] [address] [place], [address] GFR/1.73 sq M.predicted among non-blacks MDRD (S/P/Bld) [Vol rate/Area] 78 mL/min/{1.73_m2} Normal >60 [facility] Comment on above: Result Comment: Non- GFR Calc Performed By: #### L 100.0100, L500.2500 #### [facility] [address] [place], [address] Glucose [Mass/Vol] 115 mg/dL High 74-106 [facility] Comment on above: Result Comment: Fast ing Glucose result from 100 to 125 mg/dL suggests IMPAIRED HOMEOSTASIS per A.D.A. criteria. Performed By: #### L 100.0100, L500.2500 #### [facility] [address] [place], [address] Potassium [Moles/Vol] 3.9 mmol/L Normal 3.5-5.1 [facility] Comment on above: Performed By: #### L 100.0100, L500.2500 #### [facility] [address] [place], [address] Sodium [Moles/Vol] 136 mmol/L Normal 136-145 [facility] Comment on above: Performed By: #### L 100.0100, L500.2500 #### [facility] [address] [place], [address] Urea nitrogen [Mass/Vol] 14 mg/dL Normal 7-18 [facility] Comment on above: Performed By: #### L 100.0100, L500.2500 #### [facility] [address] [place], [address] Basophil percentageon 2021 Basophils/100 WBC (Bld) 0.2 % 0-1 [facility] Work Phone: Chloride [Moles/Vol] 107 mmol/L 98-107 [facility] Work Phone: Eosinophils/100 WBC (Bld) 0.5 % 0-5 [facility] Work Phone: Glucose [Mass/Vol] 115 mg/dL 74-106 [facility] Work Phone: Comment on above: Fasting Glucose resu lt from 100 to 125 mg/dL suggests IMPAIRED HOMEOSTASIS per A.D.A. criteria. Neutrophils (Bld) [#/Vol] 14.1 10*3/uL 2.0-7.7 [facility] Work Phone: Neutrophils/100 WBC (Bld) 86.1 % 47-70 [facility] Work Phone: Potassium [Moles/Vol] 3.9 mmol/L 3.5-5.1 [facility] Work Phone: Sodium [Moles/Vol] 136 mmol/L 136-145 [facility] Work Phone: WBC (Bld) [#/Vol] 16.4 10*3/uL 4.4-11.0 [facility] Work Phone: Blood erythrocytes count (nu mber/volume)on 10-11-2021 RBC (Bld) [#/Vol] 4.31 10*6/uL 4.2-5.4 [facility] Work Phone: Blood hemoglobin measurement (mass/volume)on 10-11-2021 Hemoglobin (Bld) [Mass/Vol] 11.4 g/dL 12.0-15.0 [facility] Work Phone: Blood lymphocytes/100 leukoc yteson 10-11-2021 Lymphocytes/100 WBC (Bld) 7.6 % 19-41 [facility] Work Phone: Blood monocytes/100 leukocyt eson 10-11-2021 Monocytes/100 WBC (Bld) 5.1 % 0-10 [facility] Work Phone: Blood platelet mean volumeon 10-11-2021 Platelet mean volume (Bld) [Entitic vol] 10.8 fL 6.2-12.0 [facility] Work Phone: CBC W/Diff, Automatedon 06- Absolute Lymph 1.25 X10 3/uL Normal 0.83-4.51 [facility] Comment on above: Performed By: #### L 100.0100, L500.2500 #### [facility] [address] [place], [address] Absolute Neut 14.1 X10 3/uL High 2.0-7.7 [facility] Comment on above: Performed By: #### L 100.0100, L500.2500 #### [facility] [address] [place], [address] Basophils/100 WBC (Bld) 0.2 % Normal 0-1 [facility] Comment on above: Performed By: #### L 100.0100, L500.2500 #### [facility] [address] [place], [address] Eosinophils/100 WBC (Bld) 0.5 % Normal 0-5 [facility] Comment on above: Performed By: #### L 100.0100, L500.2500 #### [facility] [address] [place], [address] Erythrocyte distribution width (RBC) [Ratio] 15.7 % High 11.6-14.6 [facility] Comment on above: Performed By: #### L 100.0100, L500.2500 #### [facility] [address] [place], [address] Hematocrit (Bld) [Volume fraction] 36.4 % Low 37-47 [facility] Comment on above: Performed By: #### L 100.0100, L500.2500 #### [facility] [address] [place], [address] Hemoglobin (Bld) [Mass/Vol] 11.4 g/dL Low 12.0-15.0 [facility] Comment on above: Performed By: #### L 100.0100, L500.2500 #### [facility] [address] [place], [address] IG% 0.500 Normal 0.0-0.9 [facility] Comment on above: Result Comment: IG% - Immature Granulocytes (promyelocytes, myelocytes and metamyelocytes) > 1% indicates that a LEFT SHIFT is Present. Performed By: #### L 100.0100, L500.2500 #### [facility] [address] [place], [address] Lymphocytes/100 WBC (Bld) 7.6 % Low 19-41 [facility] Comment on above: Performed By: #### L 100.0100, L500.2500 #### [facility] [address] [place], [address] MCH (RBC) [Entitic mass] 26.5 pg Low 27.0-32.0 [facility] Comment on above: Performed By: #### L 100.0100, L500.2500 #### [facility] [address] [place] [place], [address] MCHC (RBC) [Mass/Vol] 31.3 g/dL Low 32-36 [facility] Comment on above: Performed By: #### L 100.0100, L500.2500 #### [facility] [address] [place], [address] MCV (RBC) [Entitic vol] 84.5 fL Normal 81-99 [facility] Comment on above: Performed By: #### L 100.0100, L500.2500 #### [facility] [address] [place], [address] Monocytes/100 WBC (Bld) 5.1 % Normal 0-10 [facility] Comment on above: Performed By: #### L 100.0100, L500.2500 #### [facility] [address] [place], [address] Neutrophils/100 WBC (Bld) 86.1 % High 47-70 [facility] Comment on above: Performed By: #### L 100.0100, L500.2500 #### [facility] [address] [place], [address] Nucleated RBC (Bld) [#/Vol] 0 10*3/uL Normal 0-5 [facility] Comment on above: Performed By: #### L 100.0100, L500.2500 #### [facility] [address] [place], [address] Platelet mean volume (Bld) [Entitic vol] 10.8 fL Normal 6.2-12.0 [facility] Comment on above: Performed By: #### L 100.0100, L500.2500 #### [facility] [address] [place], [address] Platelets (Bld) [#/Vol] 182 10*3/uL Normal 150-450 [facility] Comment on above: Performed By: #### L 100.0100, L500.2500 #### [facility] [address] [place], [address] RBC (Bld) [#/Vol] 4.31 10*6/uL Normal 4.2-5.4 [facility] Comment on above: Performed By: #### L 100.0100, L500.2500 #### [facility] [address] [place], [address] RDW SD 48.7 fl High 35.1-43.9 [facility] Comment on above: Performed By: #### L 100.0100, L500.2500 #### [facility] [address] [place], [address] WBC (Bld) [#/Vol] 16.4 10*3/uL High 4.4-11.0 [facility] Comment on above: Performed By: #### L 100.0100, L500.2500 #### [facility] [address] [place], [address] Chest 1 View (Portable)on Chest 1 View (Portable) [facility] Imaging Services [address] [place] [address] Chest 1 View (Portable) MR#: [id number] Acct: [id number] Name: YOHANNES LANDRY Rep #: [id number] : 1970 F 51 From: Debra Husain MD PCP: Care Physician,No Primary Status: [facility] ER Study: Chest 1 View (Portable) Date of Exam: 10/11/21 Exam# [id number] Ordering Dr: Ashish Addison DO EXAM: XR CHEST, 1 VIEW CLINICAL INDICATION: cough TECHNIQUE: Frontal view of the chest. This report was created using phorus report generation technology. COMPARISON: None. FINDINGS: LUNGS [...] Ashish Addison DO; No Primary Care Physician [employer]: Signed Normal [facility] Determination of erythrocyte mean corpuscular volume (MCV)on 10-11-2021 MCV (RBC) [Entitic vol] 84.5 fL 81-99 [facility] Work Phone: Emergency Department Summary on 10-11-2021 Emergency Department Summary [facility] Medical Records Department [address] [place] [address] Emergency Department Summary 10/11/21 MR#: [id number] Acct: [id number] Name: YOHANNES LANDRY Rep #: [id number] : 1970 51 From: Ashish Harvey PCP: [...] Laboratory Resu (more content not included)... Normal [facility] Hematocrit Auto (Bld) [Volum e fraction]on 10-11-2021 Hematocrit (Bld) [Volume fraction] 36.4 % 37-47 [facility] Work Phone: Laboratory - Chemistry and C hemistry - challengeon 10-11-2021 CO2 [Moles/Vol] 27.0 mmol/L 21.0-32.0 [facility] Work Phone: Urea nitrogen/Creatinine [Mass ratio] 16.9 mg/mg 10-20 [facility] Work Phone: Laboratory - Hematology and Cell countson 10-11-2021 Erythrocyte distribution width (RBC) [Entitic vol] 48.7 fL 35.1-43.9 [facility] Work Phone: Erythrocyte distribution width (RBC) [Ratio] 15.7 % 11.6-14.6 [facility] Work Phone: Immature granulocytes/100 WBC (Bld) 0.500 % 0.0-0.9 [facility] Work Phone: Comment on above: IG% - Immature Granu locytes (promyelocytes, myelocytes and metamyelocytes) > 1% indicates that a LEFT SHIFT is Present. MCH (RBC) [Entitic mass] 26.5 pg 27.0-32.0 [facility] Work Phone: Nucleated RBC/100 WBC (Bld) [Ratio] 0 % 0-5 [facility] Work Phone: M101.0111on 10-11-2021 M101.0111 *Negative [...] for Influenza A/B Antigen (See Note) Normal [facility] Comment on above: Performed By: #### M 101.0111 #### [facility] [address] [place], [place], [address] MCHC Auto (RBC) [Mass/Vol]on 10-11-2021 MCHC (RBC) [Mass/Vol] 31.3 g/dL 32-36 [facility] Work Phone: No Panel Informationon 10-11 Estimated Creatinine Clearance Calc 64.85 ml/min [facility] Work Phone: Estimated GFR (MDRD) Amer 94 mL/min >60 [facility] Work Phone: Comment on above: GFR Calc Estimated GFR (MDRD) Non-Af Amer 78 mL/min >60 [facility] Work Phone: Comment on above: Non- GFR Calc SARS-CoV-2 & FLU Antigen (Rapid) [facility] Work Phone: Platelets bldon 10-11-2021 Platelets (Bld) [#/Vol] 182 10*3/uL 150-450 [facility] Work Phone: Serum or plasma calcium brennan urement (mass/volume)on 10-11-2021 Calcium [Mass/Vol] 10.5 mg/dL 8.5-10.1 [facility] Work Phone: Serum or plasma creatinine m easurement (mass/volume)on 10-11-2021 Creatinine [Mass/Vol] 0.83 mg/dL 0.55-1.02 [facility] Work Phone: Comment on above: The validity of the calculated GFR & GFRAA in patients over 70 years has not been determined. Clinical correlation is essential. Serum or plasma urea nitroge n measurement (mass/volume)on 10-11-2021 Urea nitrogen [Mass/Vol] 14 mg/dL 7-18 [facility] Work Phone: Thin prep Papanicolaou smear with manual screeningon 10-11-2021 Thin prep Papanicolaou smear with manual screening 2 5-15 [facility] Work Phone: Emergency Department Summary on 08-31-2021 Emergency Department Summary [facility] Medical Records Department [address] [place] [address] Emergency Department Summary 08/30/21 MR#: [id number] Acct: [id number] Name: YOHANNES LANDRY Rep #: [id number] : 1970 51 From: Quoc Martínez DO [...] is dying. 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 She notes frequent urination which is not abnormal for her. [facility] Medical History Kidney stones Home Medications hydrocodone-acetamino [...] I am advising her to follow-up with [facility]. Discharge Plan Triage Chief Complaint: Complaint ED [...] RF: 0 (more content not included)... Normal [facility] Emergency Department Summary on 07-02-2021 Emergency Department Summary [facility] Medical Records Department [address] [place] [address] Emergency Department Summary 07/02/21 MR#: [id number] Acct: [id number] Name: YOHANNES LANDRY Rep #: [id number] : 1970 50 From: Ashish Harvey PCP: Care Physician,No Primary Status:DEP ER Location: ED HPI History of Present Illness Chief Complaint: Upper Extremity Injury Informant: patient Narrative Narrative: Pteiv-iawn-gbsmgisd female presents valuation paresthesias bilateral hands right [...] right greater than left, 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 Positive Tinel's [...] you h (more content not included)... Normal [facility] Emergency Department Summary on 01-07-2021 Emergency Department Summary [facility] Medical Records Department [address] [place] [address] Emergency Department Summary 01/07/21 MR#: [id number] Acct: [id number] Name: YOHANNES LANDRY Rep #: [id number] : 1970 50 From: Michael Andres MD [...] penicillin, Naprosyn, and a short course of Merrill. Patient's prescription reporting record was clean. Patient [...] your Primary Care Provider. Call [facility] ([phone]) or report to the closest Emergency Room. Call 911 if necessary. 01/07/21 0352 Cosigner Signature (if applicable): CC: No Primary Care Physician Signed Normal [facility] CNOVon 08-23-2019 CNOV Office Visit (UCWSTR ) YOHANNES LANDRY ([id number]) 1970 F Date Time Provider Department 08/23/19 5:30 PM MISSY CABRAL (WEIR FISHERMAN) WSTR During your visit today, we recorded the following information about you: Temperature Pulse Respiration Blood pressure 98 degrees 97/minute 16/minute 116/72 Weight 72.6 kg Missy Cabral ASSISTANT PRESS OPERATOR OFFSET.WEIR FISHERMAN 08/23/2019 5:56 PM Signed Subjective HPI Nontoxic [...] scabbing of face. Patient states use of obyb-lfn-eureiff itch medication and cream with slight symptom [...] of care. This note was generated using Tendril software. It may contain errors in wording, punctuation, or spelling. Missy Cabral APRN.PRASANTH Cabral APRN.PRASANTH 08/23/2019 5:43 PM Signed [facility] [address] [place] [address] Emergency Department Diagnosis: Assessment CELLULITIS: Your exam [...] 12/09/2005 Other instructions from your clinician: [facility] [address] [place] [address] Emergency Department Diagnosis: Assessment CELLULITIS: Your exam [...] by MARIANNA ARNDT.MISSY RADER on 08/23/19 Normal [facility] PROGRESSon 08-23-2019 PROGRESS HNO ID: [id number] Author: Missy (Prasanth) Marianna Service: ? Author [...] scabbing of face. Patient states use of exgy-rnw-ulzfnth itch medication and cream with slight symptom [...] of care. This note was generated using Tendril software. It may contain errors in wording, punctuation, or spelling. Missy Cabral APRN.[facility] Normal [facility] CNOVon 02-28-2019 CNOV Office Visit ([facility]WSTR ) YOHANNES LANDRY ([id number]) 1970 F Date Time Provider Department 02/28/19 8:00 PM [facility] During your visit today, we recorded the following information about you: Temperature Pulse Respiration Blood pressure 97.5 degrees 86/minute 18/minute 128/80 Weight 83.5 kg Ashly Granda APRN.CNP 02/28/2019 8:08 PM Signed Subjective The history is provided by the patient. No director speech language was used. HPI Yohannes Landry is a [...] file Gets together: Not on file Attends sikhism service: Not on file Active member of [...] have confirmed and edited as necessary, the [facility] Review of Systems Constitutional: Negative for chills [...] Status:Closed by ASHLY GRANDA CNP on 02/28/19 [facility] PROGRESSon 02-28-2019 PROGRESS HNO ID: [id number] Author: Ashly Granda Service: ? Author Type: Nurse Practitioner Type: Progress Notes Filed: 02/28/2019 8:08 PM Note Text: Subjective The history is provided by the patient. No director speech language was used. HPI Yohannes Landry is a [...] file Gets together: Not on file Attends sikhism service: Not on file Active member of [...] have confirmed and edited as necessary, the [facility] Review of Systems Constitutional: Negative for chills [...] detail warranting prompt ER evaluation. Ashly Granda APRN.WEIR FISHERMAN Normal [facility] No Panel Information SARS-CoV-2 & FLU Antigen (Rapid) [facility] Work Phone: Vital Signs Date Time Vital Sign Value Performing Clinician Faci lity 12-18-2021 00:27-0400 Diastolic blood pressure 89 mm[Hg] [facility] Work Phone: 12-18-2021 00:27-0400 Heart rate 98 /min [facility] Work Phone: 12-18-2021 00:27-0400 Respiratory rate 16 /min [facility] Work Phone: 12-18-2021 00:27-0400 SaO2% (BldA) [Mass fraction] 98 % [facility] Work Phone: 12-18-2021 00:27-0400 Systolic blood pressure 144 mm[Hg] [facility] Work Phone: 12-17-2021 22:21-0400 Body height 157.48 cm [facility] Work Phone: 12-17-2021 22:21-0400 Body mass index (BMI) [Ratio] 27.4 kg/m2 [facility] Work Phone: 12-17-2021 22:21-0400 Body temperature 99.3 [degF] [facility] Work Phone: 12-17-2021 22:21-0400 Body weight 68.03 kg [facility] Work Phone: 10-11-2021 02:58-0400 Body temperature 98.4 [degF] No Primary Care Physician [facility] Work Phone: 10-11-2021 02:58-0400 Diastolic blood pressure 73 mm[Hg] No Primary Care Physician [facility] Work Phone: 10-11-2021 02:58-0400 Heart rate 107 /min No Primary Care Physician [facility] Work Phone: 10-11-2021 02:58-0400 Respiratory rate 15 /min No Primary Care Physician [facility] Work Phone: 10-11-2021 02:58-0400 SaO2% (BldA) [Mass fraction] 97 % No Primary Care Physician [facility] Work Phone: 10-11-2021 02:58-0400 Systolic blood pressure 133 mm[Hg] No Primary Care Physician [facility] Work Phone: 10-11-2021 00:39-0400 Body height 157.48 cm No Primary Care Physician [facility] Work Phone: 10-11-2021 00:39-0400 Body mass index (BMI) [Ratio] 29.5 kg/m2 No Primary Care Physician [facility] Work Phone: 10-11-2021 00:39-0400 Body weight 73.1 kg No Primary Care Physician [facility] Work Phone: 08-30-2021 23:24-0400 Heart rate 84 /min No Primary Care Physician [facility] Work Phone: 08-30-2021 23:24-0400 Respiratory rate 15 /min No Primary Care Physician [facility] Work Phone: 08-30-2021 23:24-0400 SaO2% (BldA) [Mass fraction] 99 % No Primary Care Physician [facility] Work Phone: 08-30-2021 21:18-0400 Body height 157.48 cm No Primary Care Physician [facility] Work Phone: 08-30-2021 21:18-0400 Body mass index (BMI) [Ratio] 28.3 kg/m2 No Primary Care Physician [facility] Work Phone: 08-30-2021 21:18-0400 Body temperature 99.1 [degF] No Primary Care Physician [facility] Work Phone: 08-30-2021 21:18-0400 Body weight 70.3 kg No Primary Care Physician [facility] Work Phone: 08-30-2021 21:18-0400 Diastolic blood pressure 70 mm[Hg] No Primary Care Physician [facility] Work Phone: 08-30-2021 21:18-0400 Systolic blood pressure 135 mm[Hg] No Primary Care Physician [facility] Work Phone: 07-02-2021 16:59-0500 Body mass index (BMI) [Ratio] 29.5 kg/m2 No Primary Care Physician [facility] Work Phone: 07-02-2021 16:59-0500 Body temperature 97.5 [degF] No Primary Care Physician [facility] Work Phone: 07-02-2021 16:59-0500 Body weight 73.1 kg No Primary Care Physician [facility] Work Phone: 07-02-2021 16:59-0500 Diastolic blood pressure 68 mm[Hg] No Primary Care Physician [facility] Work Phone: 07-02-2021 16:59-0500 Heart rate 99 /min No Primary Care Physician [facility] Work Phone: 07-02-2021 16:59-0500 Respiratory rate 16 /min No Primary Care Physician [facility] Work Phone: 07-02-2021 16:59-0500 SaO2% (BldA) [Mass fraction] 97 % No Primary Care Physician [facility] Work Phone: 07-02-2021 16:59-0500 Systolic blood pressure 117 mm[Hg] No Primary Care Physician [facility] Work Phone: Encounters Encounter Date Encounter Type Care Provider Facility Start: 12-17-2021 End: 12-18-2021 [facility] Start: 10-11-2021 End: 10-11-2021 Emergency department [facility] Start: 08-30-2021 End: 08-30-2021 Emergency department [facility] Start: 08-12-2021 End: 08-12-2021 Patient encounter procedure No Primary Care Physician [facility] Start: 07-02-2021 End: 07-02-2021 Emergency department patient visit [facility] Procedures Date Procedure Procedure Detail Performing Clinician Start: 12-17-2021 CT of abdomen and pe lvis without contrast Start: 10-11-2021 SARS-CoV-2 & FLU Ant igen (Rapid) No Primary Care Physician Start: 10-11-2021 Plain chest X-ray No Pr imary Care Physician SARS-CoV-2 & FLU Ant igen (Rapid) Plan of Treatment Date Care Activity Detail Author Start: 12-18-[address] [facility] Work Phone: Start: 10-11-[address] [facility] Work Phone: Bacteria identified in Urine by Culture Urine Culture [facility] Work Phone: Patient Education [facility] Work Phone: Patient referral [facility] Work Phone: Payers Date Payer Category Payer Policy ID Medicaid SELF PAY INSURANCE 0 [id number] Private Health Insurance SELF PAY INSURAN [id number] Self-pay SELF PAY INSURANCE [id number] Social History Date Type Detail Facility [facility] Work Phone: Start: 08-30-2021 End: 12-17-2021 Tobacco smoking status NHIS Unknown if ever smoked [facility] Work Phone: Start: 1970 Sex Assigned At Female [facility] Work Phone: Evaluation note Note Date & Type Note Facility Evaluation note No assessment information availa ble [facility] Work Phone: Summary Purpose Family History No Family History Records FoundNo Family History Records Found Advance Directives No Advanced Directives Records Found Advance Directive Response Recorded Date/ Time Advance Directives No August 12 12:19pm Living Will No August 30, 2021 9:36pm Power of Reduction Furnace Operator No August 30 9:36pm Advance Directive Response Recorded Date/ Time Advance Directives No August 12 12:19pm Living Will No October 11, 2021 12:42am Power of Reduction Furnace Operator No October 11 12:42am Advance Directive Response Recorded Date/ Time Advance Directives No August 12 12:19pm Living Will No December 17 10:33pm Power of Reduction Furnace Operator No December 17 10:33pm Chief Complaint and Reason for Visit Chief Complaint upper extremity PE DRUG SCREEN/GOJO URINARY COMPLAINTS Chief Complaint upper extremity PE DRUG SCREEN/GOJO URINARY COMPLAINTS General illness Chief Complaint URINARY COMPLAINTS General illness FLANK PAIN Additional Source Comments INFORMATION SOURCE (unrecogn ized section and content) DATE CREATED AUTHOR 08/23/2019 [facility] DATE CREATED AUTHOR AUTHOR'S ORGANIZ ATION 12/24/2021 [facility] Goals (unrecognized section and content) Goals may [...] BE BASED ON THE PRIMARY CLINICAL RECORDS. [facility]. provides no warranty or guarantee of the accuracy or completeness of information in this document.
[2024-10-16] MEDS: Ceftriaxone 1 GM/50 ML BAG IV (02:44)
--- OUTSIDE RECORDS SUMMARY | 2024-10-16 04:54 | XMS RPT_ITS | CCD ---
Author Organization [facility] Care Team Providers Care Field Staff Manager Name Role Phone Care Physician, No Primary Primary Care Provider Unavailable Care Physician, No Primary Referring Provider Un available RANDA Garza Attending Provider [phone] Care Physician, No Primary Primary Care Provider Unavailable Kevin VITALE, Dr. Sosa Emergency Provider Kelin VITALE, Dr. Peng Tuore Admit Provider Kelin VITALE, Dr. Peng Toure Attending Provider [phone] Medications Current Medications Medication Drug Class(es) Dates Sig (Normalized) Sig (Original) [place] (Nk) (1 source) Start: 10-16-2024 [place] (Nk) Active October 16, 2024 12:00am penicillin v potassium 500 mg oral tablet (1 source) Start: 01-07-2021 take 500 mg by mouth four times daily Penicillin V Potassium Active 500 MG PO 4 TIMES DAILY 40 January 07, 2021 3:45am Completed/Discontinued Medications Medication Drug Class(es) Dates Sig (Normalized) Sig (Original) acetaminophen 325 mg / HYDROcodone bitartrate 5 mg oral tablet (3 sources) Opioid Agonist Start: 12-18-2021 End: 10-16-2024 Hydrocodone-Acetami nophen 5-325 mg tablet Discontinued 1 {tbl} PO EVERY 6 HOURS as needed for pain 12 December 18, 2021 October 16, 2024 2:44am Start: 12-18-2021 take 1 tablet by basim th every six hours Hydrocodone-Acetaminophen Active 1 TABLE T PO EVERY 6 HOURS 12 December 18, 2021 Start: 01-07-2021 take 1 tablet by basim th every six hours as needed Hydrocodone-Acetaminophen Active 1 TABLE T PO EVERY 6 HOURS NEEDED 8 2 January 07, 2021 3:45am ciprofloxacin 500 mg oral tablet (2 sources) Quinolone Antimicrobial Start: 12-18-2021 End: 10-16-2024 take 1 tablet by mouth twice daily Ciprofloxacin Hcl (Cipro) 500 mg tablet Discontinued 500 mg PO TWICE A DAY December 18, 2021 12:00am October 16, 2024 2:44am ibuprofen 600 mg oral tablet (4 sources) Nonsteroidal Anti-inflammatory Drug Start: 07-02-2021 End: 10-16-2024 take 1 tablet by mouth four times daily as needed for pain Ibuprofen 600 MG tablet Discontinued 600 mg PO 4 TIMES DAILY as needed for Pain Or Fever July 02, 2021 1:00am October 16, 2024 2:44am naproxen 500 mg oral tablet (4 sources) Nonsteroidal Anti-inflammatory Drug Start: 01-07-2021 End: 10-16-2024 take 1 tablet by mouth twice daily as needed Naproxen 500 mg tablet Discontinued 500 mg PO TWICE DAILY NEEDED January 07, 2021 12:00am October 16, 2024 2:44am ondansetron 4 mg disintegrating oral tablet (2 sources) Serotonin-3 Receptor Antagonist Start: 12-18-2021 End: 10-16-2024 take 1 tablet by mouth every eight hours as needed for nausea and vomiting Ondansetron 4 mg tablet,disintegrat ing Discontinued 4 mg PO Q8H as needed for nausea and vomiting December 18, 2021 12:00am October 16, 2024 2:44am Problems Problem Classification Problem Date Documented Da te Episodic/Chronic Abdominal pain (1 source) Flank pain; Translations: [Unspecified abdominal pain] 10-16-2024 Episodic Anxiety disorders (3 sources) Anxiety about body function or health; Translations: [Other specified anxiety disorders] Chronic Calculus of urinary tract (4 sources) Renal colic; Translations: [Unspecified renal colic] 12-18-2021 Episodic Disorders of teeth and jaw (4 sources) Infection of tooth; Translations: [Periapical abscess without sinus] 01-07-2021 Episodic Headache; including migraine (3 sources) Headache; Translations: [Headache] 10-19-2021 Episodic Miscellaneous mental health disorders (1 source) Anxiety about body function or health; Translations: [Other symptoms and signs involving emotional state] 09-07-2021 Episodic Other connective tissue disease (3 sources) Muscle pain; Translations: [Myalgia, unspecified site] 10-19-2021 Episodic Other diseases of kidney and ureters (1 source) Hydronephrosis; Translations: [Unspecified hydronephrosis] 10-16-2024 Episodic Other lower respiratory disease (3 sources) Cough; Translations: [Cough] 10-19-2021 Episodic Other nervous system disorders (4 sources) Carpal tunnel syndrome; Translations: [Carpal tunnel syndrome, bilateral upper limbs] 07-10-2021 Chronic Other upper respiratory infections (3 sources) Viral upper respiratory tract infection; Translations: [Acute upper respiratory infection, unspecified] 10-19-2021 Episodic Prolapse of female genital organs (4 sources) Incomplete uterine prolapse; Translations: [Incomplete uterovaginal prolapse] 09-07-2021 Chronic Urinary tract infections (1 source) Urinary tract infectious disease; Translations: [Urinary tract infection, site not specified] 10-16-2024 Episodic Results Test Name Value Interpretation Reference Range Facility Absolute lymphocyte countOrd ered By: Ian Brown on 10-15-2024 Lymphocytes Auto (Unsp spec) [#/Vol] 2.40 10*3/uL 0.83-4.51 [facility] Absolute neutrophil countOrd ered By: Ian Borwn on 10-15-2024 Neutrophils (Bld) [#/Vol] 10.2 10*3/uL High 2.0-7.7 [facility] Anion gap in Serum or Plasma Ordered By: Ian Brown on 10-15-2024 Anion gap [Moles/Vol] 11 mmol/L 5-15 [facility] Automated lymphocyte count a s percentage of total leukocytesOrdered By: Ian Brown on 10-15-2024 Lymphocytes/100 WBC Auto (Unsp spec) 17.2 % Low 19-41 [facility] BUN/creatinine ratioOrdered By: Ian Brown on 10-15-2024 Urea nitrogen/Creatinine [Mass ratio] 12.7 mg/mg 10-20 [facility] Basophil percentageOrdered B y: Ian Brown on 10-15-2024 Basophils/100 WBC (Bld) 0.4 % 0-1 [facility] Bilirubin Test strip Ql (U)O rdered By: Ian Brown on 10-15-2024 Bilirubin Ql (U) Negative Negative [facility] Carbon dioxide, total [Moles /volume] in Central venous bloodOrdered By: Ian Brown on 10-15-2024 CO2 [Moles/Vol] 26.4 mmol/L 21.0-32.0 [facility] Chloride assayOrdered By: Edward Brown on 10-15-2024 Chloride [Moles/Vol] 103 mmol/L 98-108 [facility] Eosinophil percentageOrdered By: Ian Brown on 10-15-2024 Eosinophils/100 WBC (Bld) 3.1 % 0-5 [facility] Erythrocyte distribution wid th ratioOrdered By: Ian Brown on 10-15-2024 Erythrocyte distribution width (RBC) [Ratio] 15.4 % High 11.6-14.6 [facility] Erythrocyte distribution wid th standard deviationOrdered By: Ian Brown on 10-15-2024 Erythrocyte distribution width (RBC) [Ratio] 48.9 fl High 35.1-43.9 [facility] Glomerular filtration rate ( GFR) estimation/1.73 sq m using serum, plasma, or whole bOrdered By: Ian Brown on 10-15-2024 GFR/1.73 sq M.predicted among non-blacks MDRD (S/P/Bld) [Vol rate/Area] 38 mL/min/{1.73_m2} Low >60 [facility] Comment on above: mL/min/1.73m2 CKD-EP I Creatinine Equation (2020) Hematocrit Auto (Bld) [Volum e fraction]Ordered By: Ian Brown on 10-15-2024 Hematocrit (Bld) [Volume fraction] 36.4 % Low 37-47 [facility] Hemoglobin measurementOrdere d By: Ian Brown on 10-15-2024 Hemoglobin (Bld) [Mass/Vol] 11.3 g/dL Low 12.0-15.0 [facility] Immature granulocytes/100 WB C Auto (Bld)Ordered By: Ian Brown on 10-15-2024 Immature granulocytes/100 WBC (Bld) 0.600 % 0.0-0.9 [facility] Comment on above: IG% - Immature Granu locytes (promyelocytes, myelocytes and metamyelocytes) > 1% indicates that a LEFT SHIFT is Present. Ketones Test strip Ql (U)Ord ered By: Ian Brown on 10-15-2024 Ketones Ql (U) Negative Negative [facility] MCV (mean corpuscular volume ) determinationOrdered By: Ian Brown on 10-15-2024 MCV (RBC) [Entitic vol] 87.1 fL 81-99 [facility] Mean corpuscular hemoglobin (MCH) determinationOrdered By: Ian Brown on 10-15-2024 MCH (RBC) [Entitic mass] 27.0 pg 27.0-32.0 [facility] Mean corpuscular hemoglobin concentration (MCHC) determinationOrdered By: Ian Brown on 10-15-2024 MCHC (RBC) [Mass/Vol] 31.0 g/dL Low 32-36 [facility] Mean platelet volume determi nationOrdered By: Ian Brown on 10-15-2024 Platelet mean volume (Bld) [Entitic vol] 11.4 fL 6.2-12.0 [facility] Microscopic analysis of urin e for red blood cells (RBC)Ordered By: Ian Brown on 10-15-2024 Microscopic analysis of urine for red blood cells (RBC) 0 SEEN /hpf 0-5 [facility] Monocyte percentageOrdered B y: Ian Brown on 10-15-2024 Monocytes/100 WBC (Bld) 5.2 % 0-10 [facility] Mucus LM Ql (Urine sed)Order ed By: Ian Brown on 10-15-2024 Mucus Ql (Urine sed) 0 SEEN /hpf [facility] Neutrophil percentageOrdered By: Ian Brown on 10-15-2024 Neutrophils/100 WBC (Bld) 73.5 % High 47-70 [facility] Nitrite Test strip Ql (U)Ord ered By: Ian Brown on 10-15-2024 Nitrite Ql (U) Negative Negative [facility] Nucleated red blood cell per centageOrdered By: Ian Brown on 10-15-2024 Nucleated RBC/100 WBC (Bld) [Ratio] 0 % 0-5 [facility] Platelet countOrdered By: Edward Brown on 10-15-2024 Platelets (Bld) [#/Vol] 270 10*3/uL 150-450 [facility] Potassium measurement (mass/ volume)Ordered By: Ian Brown on 10-15-2024 Potassium (Unsp spec) [Mass/Vol] 3.7 mmol/L 3.3-5.1 [facility] Protein Test strip Ql (U)Ord ered By: Ian Brown on 10-15-2024 Protein Ql (U) 100 mg/dl High Negative [facility] RBC Auto (Bld) [#/Vol]Ordere d By: Ian Brown on 10-15-2024 RBC (Bld) [#/Vol] 4.18 10*6/uL Low 4.2-5.4 [facility] Serum beta-hCG test, qualita tiveOrdered By: Ian Brown on 10-15-2024 Beta HCG ( test) Ql Negative [facility] Serum creatinine measurement (mass/volume)Ordered By: Ian Brown on 10-15-2024 Creatinine [Mass/Vol] 1.63 mg/dL High 0.70-1.20 [facility] Serum glucose measurement (m ass/volume)Ordered By: Ian Brown on 10-15-2024 Glucose [Mass/Vol] 98 mg/dL 70-99 [facility] Serum or plasma calcium brennan urement (mass/volume)Ordered By: Ian Brown on 10-15-2024 Calcium [Mass/Vol] 11.4 mg/dL High 7.6-11.0 [facility] Serum or plasma urea nitroge n measurement (mass/volume)Ordered By: Ian Brown on 10-15-2024 Urea nitrogen [Mass/Vol] 21 mg/dL High 4-19 [facility] Sodium levelOrdered By: Ian Brown on 10-15-2024 Sodium [Moles/Vol] 140 mmol/L 133-145 [facility] Squamous epithelial cells de tection in urine sediment by light microscopyOrdered By: Ian Brown on 10-15-2024 Epithelial cells.squamous LM Ql (Urine sed) 5-10 SEEN /hpf 5-10 [facility] Urine clarityOrdered By: Peter Brown on 10-15-2024 Clarity (U) Cloudy Clear [facility] Urine color determinationOrd ered By: Ian Brown on 10-15-2024 Color (U) Yellow Yellow [facility] Urine glucose detectionOrder ed By: Ian Brown on 10-15-2024 Glucose Ql (U) Normal mg/dl Normal [facility] Urine leukocyte esterase det ection by dipstickOrdered By: Ian Brown on 10-15-2024 Leukocyte esterase Test strip Ql (U) 500 /ul High Negative [facility] Urine pHOrdered By: Ian Chadwick ght on 10-15-2024 pH (U) 6.5 [pH] 5.0 - 8.0 [facility] Urine sediment bacteria coun t by microscopy (number/high power field)Ordered By: Ian Brown on 10-15-2024 Bacteria LM.HPF (Urine sed) [#/Area] 4 /[HPF] None Seen [facility] Urine specific gravity measu rementOrdered By: Ian Brown on 10-15-2024 Specific gravity (U) [Rel density] 1.015 1.002-1.030 [facility] Urine urobilinogen measureme ntOrdered By: Ian Brown on 10-15-2024 Urobilinogen Ql (U) Normal mg/dl Normal [facility] White blood cell (WBC) count Ordered By: Ian Brown on 10-15-2024 WBC (Bld) [#/Vol] 13.9 10*3/uL High 4.4-11.0 [facility] White blood cell countOrdere d By: Ian Brown on 10-15-2024 White blood cell count >100 SEEN /hpf 0-5 [facility] Urine Cultureon 12-19-2021 URC Below infection level. Mixed Gram Pos Gram Neg Org [place] Count 1000-10,000 MIXC Mixed contaminants. Submit a new specimen if indicated. Normal [facility] Comment on above: Performed By: #### M 100.2200 #### [facility] [address] [place], [place], [address] Abdomen/Pelvis without Conto n 12-18-2021 Abdomen/Pelvis without Cont [facility] [address] [place] [address] Abdomen/Pelvis without Cont MR#: [id number] Acct: [id number] Name: YOHANNES LANDRY Rep #: [id number] : 1970 F 51 From: Reji Mansfield DO PCP: Care Physician,No Primary Status: REG ER Study: Abdomen/Pelvis without Cont Date of Exam: 12/01 11/21 Exam# [id number] Ordering Dr: Jean Marie Remy DO STUDY: [...] Marie Remy DO; No Primary Care Physician Licensing Specialist: Signed Normal [facility] Basic Metabolic Profile (BMP )on 12-18-2021 BUN/CRE 14.6 RATIO Normal 10-20 [facility] Comment on above: Performed By: #### L 500.2500, L100.0100 ####[facility] [address] [place], [address] CA,Total 10.9 mg/dL High 8.5-10.1 [facility] Comment on above: Performed By: #### L 500.2500, L100.0100 ####[facility] [address] [place], [address] Chloride [Moles/Vol] 109 mmol/L High 98-107 [facility] Comment on above: Performed By: #### L 500.2500, L100.0100 ####[facility] [address] [place], [address] CO2 [Moles/Vol] 26.0 mmol/L Normal 21.0-32.0 [facility] Comment on above: Performed By: #### L 500.2500, L100.0100 ####[facility] [address] [place], [address] Creatinine [Mass/Vol] 1.30 mg/dL High 0.55-1.02 [facility] Comment on above: Result Comment: The validity of the calculated GFR GFRAA in patients over 70 years has not been determined. Clinical correlation is essential. Performed By: #### L 500.2500, L100.0100 ####[facility] [address] [place], [address] ECRCL 41.40 ml/min Normal [facility] Comment on above: Performed By: #### L 500.2500, L100.0100 ####[facility] [address] [place], [address] EST GFR - AA 56 mL/min Low >60 [facility] Comment on above: Result Comment: Afri can [place] GFR Calc Performed By: #### L 500.2500, L100.0100 ####[facility] [address] [place], [address] GAP 6 Normal 5-15 [facility] Comment on above: Performed By: #### L 500.2500, L100.0100 ####[facility] [address] [place], [address] GFR/1.73 sq M.predicted among non-blacks MDRD (S/P/Bld) [Vol rate/Area] 46 mL/min/{1.73_m2} Low >60 [facility] Comment on above: Result Comment: Non- GFR Calc Performed By: #### L 500.2500, L100.0100 ####[facility] [address] [place], [address] Glucose [Mass/Vol] 106 mg/dL Normal 74-106 [facility] Comment on above: Result Comment: Fast ing Glucose result from 100 to 125 mg/dL suggests IMPAIRED HOMEOSTASIS per A.D.A. criteria. Performed By: #### L 500.2500, L100.0100 ####[facility] [address] [place], [address] Potassium [Moles/Vol] 3.8 mmol/L Normal 3.5-5.1 [facility] Comment on above: Performed By: #### L 500.2500, L100.0100 ####[facility] [address] [place], [address] Sodium [Moles/Vol] 141 mmol/L Normal 136-145 [facility] Comment on above: Performed By: #### L 500.2500, L100.0100 ####[facility] [address] [place], [address] Urea nitrogen [Mass/Vol] 19 mg/dL High 7-18 [facility] Comment on above: Performed By: #### L 500.2500, L100.0100 ####[facility] [address] [place], [address] CBC W/Diff, Automatedon 08- 8-2022 Absolute Lymph 1.79 X10 3/uL Normal 0.83-4.51 [facility] Comment on above: Performed By: #### L 500.2500, L100.0100 ####[facility] [address] [place], [address] Absolute Neut 6.4 X10 3/uL Normal 2.0-7.7 [facility] Comment on above: Performed By: #### L 500.2500, L100.0100 ####[facility] [address] [place], [address] Basophils/100 WBC (Bld) 0.3 % Normal 0-1 [facility] Comment on above: Performed By: #### L 500.2500, L100.0100 ####[facility] [address] [place], [address] Eosinophils/100 WBC (Bld) 4.7 % Normal 0-5 [facility] Comment on above: Performed By: #### L 500.2500, L100.0100 ####[facility] [address] [place], [address] Erythrocyte distribution width (RBC) [Ratio] 15.6 % High 11.6-14.6 [facility] Comment on above: Performed By: #### L 500.2500, L100.0100 ####[facility] [address] [place], [address] Hematocrit (Bld) [Volume fraction] 33.6 % Low 37-47 [facility] Comment on above: Performed By: #### L 500.2500, L100.0100 ####[facility] [address] [place], [address] Hemoglobin (Bld) [Mass/Vol] 10.7 g/dL Low 12.0-15.0 [facility] Comment on above: Performed By: #### L 500.2500, L100.0100 ####[facility] [address] [place], [address] IG% 1.700 High 0.0-0.9 [facility] Comment on above: Result Comment: IG% - Immature Granulocytes (promyelocytes, myelocytes and metamyelocytes) > 1% indicates that a LEFT SHIFT is Present. Performed By: #### L 500.2500, L100.0100 ####[facility] [address] [place], [address] Lymphocytes/100 WBC (Bld) 18.7 % Low 19-41 [facility] Comment on above: Performed By: #### L 500.2500, L100.0100 ####[facility] [address] [place], [address] MCH (RBC) [Entitic mass] 27.3 pg Normal 27.0-32.0 [facility] Comment on above: Performed By: #### L 500.2500, L100.0100 ####[facility] [address] [place], [address] MCHC (RBC) [Mass/Vol] 31.8 g/dL Low 32-36 [facility] Comment on above: Performed By: #### L 500.2500, L100.0100 ####[facility] [address] [place], [address] MCV (RBC) [Entitic vol] 85.7 fL Normal 81-99 [facility] Comment on above: Performed By: #### L 500.2500, L100.0100 ####[facility] [address] [place], [address] Monocytes/100 WBC (Bld) 7.3 % Normal 0-10 [facility] Comment on above: Performed By: #### L 500.2500, L100.0100 ####[facility] [address] [place], [address] Neutrophils/100 WBC (Bld) 67.3 % Normal 47-70 [facility] Comment on above: Performed By: #### L 500.2500, L100.0100 ####[facility] [address] [place], [address] Nucleated RBC (Bld) [#/Vol] 0 10*3/uL Normal 0-5 [facility] Comment on above: Performed By: #### L 500.2500, L100.0100 ####[facility] [address] [place], [address] Platelet mean volume (Bld) [Entitic vol] 10.6 fL Normal 6.2-12.0 [facility] Comment on above: Performed By: #### L 500.2500, L100.0100 ####[facility] [address] [place], [address] Platelets (Bld) [#/Vol] 230 10*3/uL Normal 150-450 [facility] Comment on above: Performed By: #### L 500.2500, L100.0100 ####[facility] [address] [place], [address] RBC (Bld) [#/Vol] 3.92 10*6/uL Low 4.2-5.4 [facility] Comment on above: Performed By: #### L 500.2500, L100.0100 ####[facility] [address] [place], [address] RDW SD 49.2 fl High 35.1-43.9 [facility] Comment on above: Performed By: #### L 500.2500, L100.0100 ####[facility] [address] [place], [address] WBC (Bld) [#/Vol] 9.6 10*3/uL Normal 4.4-11.0 [facility] Comment on above: Performed By: #### L 500.2500, L100.0100 ####[facility] [address] [place], [address] Emergency Department Summary on 12-18-[address] 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 Normal [facility] ,Urineon 12-18-2021 Beta HCG ( test) Ql (U) Negative Normal [facility] Comment on above: Order Comment: 810 CLEAN CATCH Result Comment: Very dilute urine specimens, as indicated by a low specific gravity, may not contain outreach representative levels of hCG. If is still suspected, a first morning urine specimen should be collected 48 hours later and tested. Performed By: #### L 400.7600, L400.0001 #### [facility] [address] [place], [address] Urinalysis, Completeon 12-18 BACTERIA 4+ /hpf Normal None Seen [facility] Comment on above: Order Comment: 810 CLEAN CATCH Performed By: #### L 400.7600, L400.0001 #### [facility] [address] [place], [address] EPI,SQUAMOUS 10-25 SEEN Normal 5-10 [facility] Comment on above: Order Comment: 810 CLEAN CATCH Performed By: #### L 400.7600, L400.0001 #### [facility] [address] [place], [address] RBC 25-50 SEEN Normal 0-5 [facility] Comment on above: Order Comment: 810 CLEAN CATCH Performed By: #### L 400.7600, L400.0001 #### [facility] [address] [place], [address] WBC >100 SEEN Normal 0-5 [facility] Comment on above: Order Comment: 810 CLEAN CATCH Performed By: #### L 400.7600, L400.0001 #### [facility] [address] [place], [address] Mucus Ql (Urine sed) 0 SEEN Normal [facility] Comment on above: Order Comment: 810 CLEAN CATCH Performed By: #### L 400.7600, L400.0001 #### [facility] [address] [place], [address] Absolute lymphocyte counton 12-17-2021 Lymphocytes Auto (Unsp spec) [#/Vol] 1.79 10*3/uL 0.83-4.51 [facility] Work Phone: [phone] Basophil percentageon 2021 Basophils/100 WBC (Bld) 0.3 % 0-1 [facility] Work Phone: [phone] Chloride [Moles/Vol] 109 mmol/L 98-107 [facility] Work Phone: [phone] Eosinophils/100 WBC (Bld) 4.7 % 0-5 [facility] Work Phone: [phone] Glucose [Mass/Vol] 106 mg/dL 74-106 [facility] Work Phone: Comment on above: Fasting Glucose resu lt from 100 to 125 mg/dL suggests IMPAIRED HOMEOSTASIS per A.D.A. criteria. Neutrophils (Bld) [#/Vol] 6.4 10*3/uL 2.0-7.7 [facility] Work Phone: Neutrophils/100 WBC (Bld) 67.3 % 47-70 [facility] Work Phone: Potassium [Moles/Vol] 3.8 mmol/L 3.5-5.1 [facility] Work Phone: [phone] Sodium [Moles/Vol] 141 mmol/L 136-145 [facility] Work Phone: WBC (Bld) [#/Vol] 9.6 10*3/uL 4.4-11.0 [facility] Work Phone: Basophil percentage >100 SEEN /hpf 0-5 [facility] Work Phone: Bilirubin Test strip Ql (U)o n 12-17-2021 Bilirubin Ql (U) Negative Negative [facility] Work Phone: Blood erythrocytes count (nu mber/volume)on 12-17-2021 RBC (Bld) [#/Vol] 3.92 10*6/uL 4.2-5.4 [facility]: Blood hemoglobin measurement (mass/volume)on 12-17-2021 Hemoglobin (Bld) [Mass/Vol] 10.7 g/dL 12.0-15.0 [facility] Work Phone: Blood lymphocytes/100 leukoc yteson 12-17-2021 Lymphocytes/100 WBC (Bld) 18.7 % 19-41 [facility] Work Phone: Blood monocytes/100 leukocyt eson 12-17-2021 Monocytes/100 WBC (Bld) 7.3 % 0-10 [facility] Work Phone: Blood platelet mean volumeon 12-17-2021 Platelet mean volume (Bld) [Entitic vol] 10.6 fL 6.2-12.0 [facility] Work Phone: Determination of erythrocyte mean corpuscular volume (MCV)on 12-17-2021 MCV (RBC) [Entitic vol] 85.7 fL 81-99 [facility] Work Phone: Hematocrit Auto (Bld) [Volum e fraction]on 12-17-2021 Hematocrit (Bld) [Volume fraction] 33.6 % 37-47 [facility] Work Phone: Ketones Test strip Ql (U)on 12-17-2021 Ketones Ql (U) Negative Negative [facility] Work Phone: Laboratory - Chemistry and C hemistry - challengeon 12-17-2021 CO2 [Moles/Vol] 26.0 mmol/L 21.0-32.0 [facility] Work Phone: Urea nitrogen/Creatinine [Mass ratio] 14.6 mg/mg 10-20 [facility] Work Phone: HCG ( test) Ql (U) Negative [facility] Work Phone: Comment on above: Very dilute urine sp ecimens, as indicated by a low specificgravity, may not contain outreach representative levels of hCG. If is still suspected, a first morning urinespecimen should be collected 48 hours later and tested. Laboratory - Hematology and Cell countson 12-17-2021 Erythrocyte distribution width (RBC) [Entitic vol] 49.2 fL 35.1-43.9 [facility] Work Phone: Erythrocyte distribution width (RBC) [Ratio] 15.6 % 11.6-14.6 [facility] Work Phone: Immature granulocytes/100 WBC (Bld) 1.700 % 0.0-0.9 [facility] Work Phone: Comment on above: IG% - Immature Granu locytes (promyelocytes, myelocytes and metamyelocytes) > 1% indicates that a LEFT SHIFT is Present. MCH (RBC) [Entitic mass] 27.3 pg 27.0-32.0 [facility] Work Phone: Nucleated RBC/100 WBC (Bld) [Ratio] 0 % 0-5 [facility] Work Phone: MCHC Auto (RBC) [Mass/Vol]on 12-17-2021 MCHC (RBC) [Mass/Vol] 31.8 g/dL 32-36 [facility] Work Phone: Mucus LM Ql (Urine sed)on Mucus Ql (Urine sed) 0 SEEN /hpf [facility] Work Phone: Nitrite Test strip Ql (U)on 12-17-2021 Nitrite Ql (U) Negative Negative [facility] Work Phone: No Panel Informationon 12-17 Estimated Creatinine Clearance Calc 41.40 ml/min [facility] Work Phone: Estimated GFR (MDRD) Amer 56 mL/min >60 [facility] Work Phone: Comment on above: GFR Calc Estimated GFR (MDRD) Non-Af Amer 46 mL/min >60 [facility] Work Phone: Comment on above: Non- GFR Calc Platelets bldon 12-17-2021 Platelets (Bld) [#/Vol] 230 10*3/uL 150-450 [facility] Work Phone: Protein Test strip Ql (U)on 12-17-2021 Protein Ql (U) 30 mg/dl Negative [facility] Work Phone: Serum or plasma calcium brennan urement (mass/volume)on 12-17-2021 Calcium [Mass/Vol] 10.9 mg/dL 8.5-10.1 [facility] Work Phone: Serum or plasma creatinine m easurement (mass/volume)on 12-17-2021 Creatinine [Mass/Vol] 1.30 mg/dL 0.55-1.02 [facility] Work Phone: Comment on above: The validity of the calculated GFR & GFRAA in patients over 70 years has not been determined. Clinical correlation is essential. Serum or plasma urea nitroge n measurement (mass/volume)on 12-17-2021 Urea nitrogen [Mass/Vol] 19 mg/dL 7-18 [facility] Work Phone: Squamous epithelial cells de tection in urine sediment by light microscopyon 12-17-2021 Epithelial cells.squamous LM Ql (Urine sed) 10-25 SEEN /hpf 5-10 [facility] Work Phone: Thin prep Papanicolaou smear with manual screeningon 12-17-2021 Thin prep Papanicolaou smear with manual screening 6 5-15 [facility] Work Phone: Urine blood detectionon 12-01 RBC Ql (U) 250 /ul Negative [facility] Work Phone: RBC Ql (U) 25-50 SEEN /hpf 0-5 [facility] Work Phone: Urine clarityon 12-17-2021 Clarity (U) Sl. Cloudy Clear [facility] Work Phone: Urine color determinationon 12-17-2021 Color (U) Yellow Yellow [facility] Work Phone: Urine glucose detectionon Glucose Ql (U) Normal mg/dl Normal [facility] Work Phone: Urine leukocyte esterase det ection by dipstickon 12-17-2021 Leukocyte esterase Test strip Ql (U) 500 /ul Negative [facility] Work Phone: Urine pHon 12-17-2021 pH (U) 6.0 [pH] 5.0 - 8.0 [facility] Work Phone: Urine sediment bacteria coun t by microscopy (number/high power field)on 12-17-2021 Bacteria LM.HPF (Urine sed) [#/Area] 4 /[HPF] None Seen [facility] Work Phone: Urine specific gravity measu rementon 12-17-2021 Specific gravity (U) [Rel density] 1.015 1.002-1.030 [facility] Work Phone: Urobilinogen Auto test strip Ql (U)on 12-17-2021 Urobilinogen Ql (U) Normal mg/dl Normal [facility] Work Phone: Absolute lymphocyte counton 10-11-2021 Lymphocytes Auto (Unsp spec) [#/Vol] 1.25 10*3/uL 0.83-4.51 [facility] Work Phone: Basic Metabolic Profile (BMP )on 10-11-2021 BUN/CRE 16.9 RATIO Normal 10-20 [facility] Comment on above: Performed By: #### L 100.0100, L500.2500 #### [facility] [address] [place], [address] CA,Total 10.5 mg/dL High 8.5-10.1 [facility] Comment on above: Performed By: #### L 100.0100, L500.2500 #### [facility] [address] [place], [address] Chloride [Moles/Vol] 107 mmol/L Normal 98-107 [facility] Comment on above: Performed By: #### L 100.0100, L500.2500 #### [facility] [address] [place], [address] CO2 [Moles/Vol] 27.0 mmol/L Normal 21.0-32.0 [facility] Comment on above: Performed By: #### L 100.0100, L500.2500 #### [facility] [address] [place], [address] Creatinine [Mass/Vol] 0.83 mg/dL Normal 0.55-1.02 [facility] Comment on above: Result Comment: The validity of the calculated GFR GFRAA in patients over 70 years has not been determined. Clinical correlation is essential. Performed By: #### L 100.0100, L500.2500 #### [facility] [address] [place], [address] ECRCL 64.85 ml/min Normal [facility] Comment on above: Performed By: #### L 100.0100, L500.2500 #### [facility] [address] [place], [address] EST GFR - AA 94 mL/min Normal >60 [facility] Comment on above: Result Comment: Afri can Tajik GFR Calc Performed By: #### L 100.0100, L500.2500 #### [facility] [address] [place], [address] GAP 2 Low 5-15 [facility] Comment on above: Performed By: #### L 100.0100, L500.2500 #### [facility] [address] [place], [address] GFR/1.73 sq M.predicted among non-blacks MDRD (S/P/Bld) [Vol rate/Area] 78 mL/min/{1.73_m2} Normal >60 [facility] Comment on above: Result Comment: Non- GFR Calc Performed By: #### L 100.0100, L500.2500 #### [facility] [address] [place], [address] Glucose [Mass/Vol] 115 mg/dL High 74-106 [facility] Comment on above: Result Comment: Fast ing Glucose result from 100 to 125 mg/dL suggests IMPAIRED HOMEOSTASIS per A.D.A. criteria. Performed By: #### L 100.0100, L500.2500 #### [facility] [address] [place], [address] Potassium [Moles/Vol] 3.9 mmol/L Normal 3.5-5.1 [facility] Comment on above: Performed By: #### L 100.0100, L500.2500 #### [facility] [address] [place], [address] Sodium [Moles/Vol] 136 mmol/L Normal 136-145 [facility] Comment on above: Performed By: #### L 100.0100, L500.2500 #### [facility] [address] [place], [address] Urea nitrogen [Mass/Vol] 14 mg/dL Normal 7-18 [facility] Comment on above: Performed By: #### L 100.0100, L500.2500 #### [facility] [address] [place], [address] Basophil percentageon 2021 Basophils/100 WBC (Bld) 0.2 % 0-1 [facility] Work Phone: [phone] Chloride [Moles/Vol] 107 mmol/L 98-107 [facility] Work [facility]: [phone] Eosinophils/100 WBC (Bld) 0.5 % 0-5 [facility] Work Phone: Glucose [Mass/Vol] 115 mg/dL 74-106 [facility] Work Phone: [phone] Comment on above: Fasting Glucose resu lt from 100 to 125 mg/dL suggests IMPAIRED HOMEOSTASIS per A.D.A. criteria. Neutrophils (Bld) [#/Vol] 14.1 10*3/uL 2.0-7.7 [facility] Work Phone: Neutrophils/100 WBC (Bld) 86.1 % 47-70 [facility] Work Phone: Potassium [Moles/Vol] 3.9 mmol/L 3.5-5.1 [facility] Work Phone: [phone] Sodium [Moles/Vol] 136 mmol/L 136-145 [facility] Work Phone: WBC (Bld) [#/Vol] 16.4 10*3/uL 4.4-11.0 [facility] Work Phone: Blood erythrocytes count (nu mber/volume)on 10-11-2021 RBC (Bld) [#/Vol] 4.31 10*6/uL 4.2-5.4 [facility] Work Phone: Blood hemoglobin measurement (mass/volume)on 10-11-2021 Hemoglobin (Bld) [Mass/Vol] 11.4 g/dL 12.0-15.0 [facility] Work Phone: [phone] Blood lymphocytes/100 leukoc yteson 10-11-2021 Lymphocytes/100 WBC (Bld) 7.6 % 19-41 [facility] Work Phone: Blood monocytes/100 leukocyt eson 10-11-2021 Monocytes/100 WBC (Bld) 5.1 % 0-10 [facility] Work Phone: Blood platelet mean volumeon 10-11-2021 Platelet mean volume (Bld) [Entitic vol] 10.8 fL 6.2-12.0 [facility] Work Phone: CBC W/Diff, Automatedon 10-01 Absolute Lymph 1.25 X10 3/uL Normal 0.83-4.51 [facility] Comment on above: Performed By: #### L 100.0100, L500.2500 #### [facility] [address] [place], [address] Absolute Neut 14.1 X10 3/uL High 2.0-7.7 [facility] Comment on above: Performed By: #### L 100.0100, L500.2500 #### [facility] [address] [place], [address] Basophils/100 WBC (Bld) 0.2 % Normal 0-1 [facility] Comment on above: Performed By: #### L 100.0100, L500.2500 #### [facility] [address] [place], [address] Eosinophils/100 WBC (Bld) 0.5 % Normal 0-5 [facility] Comment on above: Performed By: #### L 100.0100, L500.2500 #### [facility] [address] [place], [address] Erythrocyte distribution width (RBC) [Ratio] 15.7 % High 11.6-14.6 [facility] Comment on above: Performed By: #### L 100.0100, L500.2500 #### [facility] [address] [place], [address] Hematocrit (Bld) [Volume fraction] 36.4 % Low 37-47 [facility] Comment on above: Performed By: #### L 100.0100, L500.2500 #### [facility] [address] [place], [address] Hemoglobin (Bld) [Mass/Vol] 11.4 g/dL Low 12.0-15.0 [facility] Comment on above: Performed By: #### L 100.0100, L500.2500 #### [facility] [address] [place], [address] IG% 0.500 Normal 0.0-0.9 [facility] Comment on above: Result Comment: IG% - Immature Granulocytes (promyelocytes, myelocytes and metamyelocytes) > 1% indicates that a LEFT SHIFT is Present. Performed By: #### L 100.0100, L500.2500 #### [facility] [address] [place], [address] Lymphocytes/100 WBC (Bld) 7.6 % Low 19-41 [facility] Comment on above: Performed By: #### L 100.0100, L500.2500 #### [facility] [address] [place], [address] MCH (RBC) [Entitic mass] 26.5 pg Low 27.0-32.0 [facility] Comment on above: Performed By: #### L 100.0100, L500.2500 #### [facility] [address] [place], [address] MCHC (RBC) [Mass/Vol] 31.3 g/dL Low 32-36 [facility] Comment on above: Performed By: #### L 100.0100, L500.2500 #### [facility] [address] [place], [address] MCV (RBC) [Entitic vol] 84.5 fL Normal 81-99 [facility] Comment on above: Performed By: #### L 100.0100, L500.2500 #### [facility] [address] [place], [address] Monocytes/100 WBC (Bld) 5.1 % Normal 0-10 [facility] Comment on above: Performed By: #### L 100.0100, L500.2500 #### [facility] [address] [place], [address] Neutrophils/100 WBC (Bld) 86.1 % High 47-70 [facility] Comment on above: Performed By: #### L 100.0100, L500.2500 #### [facility] [address] [place], [address] Nucleated RBC (Bld) [#/Vol] 0 10*3/uL Normal 0-5 [facility] Comment on above: Performed By: #### L 100.0100, L500.2500 #### [facility] [address] [place], [address] Platelet mean volume (Bld) [Entitic vol] 10.8 fL Normal 6.2-12.0 [facility] Comment on above: Performed By: #### L 100.0100, L500.2500 #### [facility] [address] [place], [address] Platelets (Bld) [#/Vol] 182 10*3/uL Normal 150-450 [facility] Comment on above: Performed By: #### L 100.0100, L500.2500 #### [facility] [address] [place], [address] RBC (Bld) [#/Vol] 4.31 10*6/uL Normal 4.2-5.4 [facility] Comment on above: Performed By: #### L 100.0100, L500.2500 #### [facility] [address] [place], [address] RDW SD 48.7 fl High 35.1-43.9 [facility] Comment on above: Performed By: #### L 100.0100, L500.2500 #### [facility] [address] [place], [address] WBC (Bld) [#/Vol] 16.4 10*3/uL High 4.4-11.0 [facility] Comment on above: Performed By: #### L 100.0100, L500.2500 #### [facility] [address] [place], [address] Chest 1 View (Portable)on Chest 1 View (Portable) [place] [address] [place] [address] Chest 1 View (Portable) MR#: [id number] Acct: [id number] Name: YOHANNES LANDRY Rep #: [id number] : 1970 F 51 From: Debra Husain MD PCP: Care Physician,No Primary Status: REG ER Study: Chest 1 View (Portable) Date of Exam: 10/11/21 Exam# [id number] Ordering Dr: Ashish Addison DO EXAM: XR CHEST, 1 VIEW CLINICAL INDICATION: cough TECHNIQUE: Frontal view of the chest. This report was created using [employer] report generation technology. COMPARISON: None. FINDINGS: LUNGS [...] Ashish Addison DO; No Primary Care Physician Licensing Specialist: Signed Normal [facility] Determination of erythrocyte mean corpuscular volume (MCV)on 10-11-2021 MCV (RBC) [Entitic vol] 84.5 fL 81-99 [facility] Work Phone: Emergency Department Summary on 10-11-2021 Emergency Department Summary [facility] Medical Records Department [address] [place] [address] Emergency Department Summary 10/11/21 MR#: [id number] Acct: [id number] Name: YOHANNES LANDRY Rep #: [id number] : 1970 51 From: Ashish Harvey PCP: [...] 101 prior to arrival. Denies any dyspnea. [facility] Medical History Kidney stones Home Medications naproxen [...] Resu (more content not included)... Normal [facility] Hematocrit Auto (Bld) [Volum e fraction]on 10-11-2021 Hematocrit (Bld) [Volume fraction] 36.4 % 37-47 [facility] Work Phone: Laboratory - Chemistry and C hemistry - challengeon 10-11-2021 CO2 [Moles/Vol] 27.0 mmol/L 21.0-32.0 [facility] Work Phone: Urea nitrogen/Creatinine [Mass ratio] 16.9 mg/mg 10-20 [facility] Work Phone: Laboratory - Hematology and Cell countson 10-11-2021 Erythrocyte distribution width (RBC) [Entitic vol] 48.7 fL 35.1-43.9 [facility] Work Phone: Erythrocyte distribution width (RBC) [Ratio] 15.7 % 11.6-14.6 [facility] Work Phone: Immature granulocytes/100 WBC (Bld) 0.500 % 0.0-0.9 [facility] Work Phone: Comment on above: IG% - Immature Granu locytes (promyelocytes, myelocytes and metamyelocytes) > 1% indicates that a LEFT SHIFT is Present. MCH (RBC) [Entitic mass] 26.5 pg 27.0-32.0 [facility] Work Phone: [phone] Nucleated RBC/100 WBC (Bld) [Ratio] 0 % 0-5 [facility] Work Phone: [id number] 10-11-2021 M101.0111 *Negative [...] Influenza A/B Antigen (See Note) Normal [facility] Comment on above: Performed By: #### M 101.0111 #### [facility] [address] [place], [place], [address] MCHC Auto (RBC) [Mass/Vol]on 10-11-2021 MCHC (RBC) [Mass/Vol] 31.3 g/dL 32-36 [facility] Work Phone: No Panel Informationon 10-11 Estimated Creatinine Clearance Calc 64.85 ml/min [facility] Work Phone: Estimated GFR (MDRD) Amer 94 mL/min >60 [facility] Work Phone: Comment on above: GFR Calc Estimated GFR (MDRD) Non-Af Amer 78 mL/min >60 [facility] Work Phone: Comment on above: Non- GFR Calc SARS-CoV-2 & FLU Antigen (Rapid) [facility] Work Phone: Platelets bldon 10-11-2021 Platelets (Bld) [#/Vol] 182 10*3/uL 150-450 [facility] Work Phone: Serum or plasma calcium brennan urement (mass/volume)on 10-11-2021 Calcium [Mass/Vol] 10.5 mg/dL 8.5-10.1 [facility] Work Phone: Serum or plasma creatinine m easurement (mass/volume)on 10-11-2021 Creatinine [Mass/Vol] 0.83 mg/dL 0.55-1.02 [facility] Work Phone: Comment on above: The validity of the calculated GFR & GFRAA in patients over 70 years has not been determined. Clinical correlation is essential. Serum or plasma urea nitroge n measurement (mass/volume)on 10-11-2021 Urea nitrogen [Mass/Vol] 14 mg/dL 7-18 [facility] Work Phone: Thin prep Papanicolaou smear with manual screeningon 10-11-2021 Thin prep Papanicolaou smear with manual screening 2 5-15 [facility] Work Phone: Emergency Department Summary on 08-31-[address] [facility] Medical Records Department [address] [place] [address] Emergency Department Summary 08/30/21 MR#: [id number] Acct: [id number] Name: YOHANNES LANDRY Rep #: [id number] : 1970 51 From: Quoc Martínez DO [...] is dying. She does not have a impregnating helper. She notes frequent urination which is not abnormal for her. 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 Discharge Plan Triage Chief Complaint: Complaint ED Provider: Quoc Martínez Dx/Rx/DC Orders Clinical Impression: Anxiety about health, Incomplete uterine prolapse Instructions: Pelvic Organ Prolapse Prescriptions: No Action penicillin V potassium 500 mg tablet 500 mg PO 4X/DAY Qty: 40 RF: 0 naproxen 500 mg tablet 500 mg PO BID PRN Qty: 20 RF: 0 hydrocodone-acetami nophen 5-325 mg tablet 1 tab PO Q6H PRN PRN (Reason: Pain) 2 Days Qty: 8 RF: 0 (more content not included)... Normal [facility] Emergency Department Summary on 07-02-2021 Emergency Department Summary [facility] Medical Records Department [address] [place] [address] Emergency Department Summary 07/02/21 MR#: [id number] Acct: [id number] Name: YOHANNES LANDRY Corey Rep #: [id number] : 1970 50 From: Ashish Harvey PCP: Care Physician,No Primary Status:DEP ER Location: ED HPI History of Present Illness Chief Complaint: Upper Extremity Injury Informant: patient Narrative Narrative: Jdgza-gxyg-vdysbefl female presents valuation paresthesias bilateral hands right [...] similar symptoms: Yes PFSH PFSH Home Medications hydrocodone-acetami nophen 1 tab PO Q6H PRN PRN 2 [...] right greater than left, 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 Positive Tinel's [...] PO BID PRN Qty: 20 RF: 0 hydrocodone-acetami nophen 5-325 mg tablet 1 tab PO Q6H PRN PRN (Reason: Pain) 2 Days Qty: 8 RF: 0 Primary Care Provider: Care Physician,No Primary Referrals: Michael Liu DO [STAFF PHYSICIAN] - 1-2 Weeks Care Physician,No Primary [Primary Care Provider] - Disposition Disposition: Home, Self Care What to do if you h (more content not included)... Normal [facility] Emergency Department Summary on 01-07-2021 Emergency Department Summary [facility] Medical Records Department [address] [place] [address] Emergency Department Summary 01/07/21 MR#: [id number] Acct: [id number] Name: YOHANNES LANDRY Rep #: [id number] : 1970 50 From: Michael Andres MD [...] systems otherwise negative. PFSH PFSH Home Medications hydrocodone-acetami nophen 1 tab PO Q6H PRN PRN 2 [...] Denies myalgias Integumentary Denies abscess or rash Hematologic/Lymphat ic Hematologic/Lymphat ic: Denies easy bleeding or easy bruising EXAM [...] penicillin, Naprosyn, and a short course of Munger. Patient's prescription reporting record was clean. Patient [...] PO BID PRN Qty: 20 RF: 0 hydrocodone-acetami nophen 5-325 mg tablet 1 tab PO Q6H PRN PRN (Reason: Pain) 2 Days Qty: 8 RF: 0 Primary Care Provider: Care Physician,No Primary Referrals: Care Physician,No Primary [Primary Care Provider] - Activity Restrictions/Additi onal Instructions: Follow-up with a dentist as soon as possible Disposition Disposition: Home, Self Care What to do if you have Problems For any increased pain, shortness of breath, bleeding, nausea or vomiting, chest pain, or any unexpected problems, contact your Primary Care Provider. Call [facility] ([phone]) or report to the closest Emergency Room. Call 911 if necessary. 01/07/21 2622 Cosigner Signature (if applicable): CC: No Primary Care Physician Signed Normal [facility] CNOVon 08-23-2019 CNOV Office Visit ([facility]) ---- YOHANNES LANDRY ([id number]) 1970 F Date Time Provider Department 08/23/19 5:30 PM MISSY CABRAL (CODE AND TEST CLERK) [facility] During your visit today, we recorded the following information about you: Temperature Pulse Respiration Blood pressure 98 degrees 97/minute 16/minute 116/72 Weight 72.6 kg Missy Cabral APRN.PRASANTH 08/23/2019 5:56 PM Signed Subjective HPI Nontoxic [...] scabbing of face. Patient states use of [id number] itch medication and cream with slight symptom [...] Take 1 tablet by mouth once daily. acetaminophen-codei ne (TYLENOL-CODEINE #3) 300-30 mg ORAL Tab Take [...] of care. This note was generated using [employer] software. It may contain errors in wording, punctuation, or spelling. Missy Cabral APRN.PRASANTH Cabral APRN.CNP 08/23/2019 5:43 PM Signed [facility] [address] [place], [place] [address] Emergency Department Diagnosis: Assessment CELLULITIS: Your exam [...] 12/09/2005 Other instructions from your clinician: [facility] [address] [place], [place] [address] Emergency Department Diagnosis: Assessment CELLULITIS: Your exam [...] Status:Closed by MARIANNA ARNDT.MISSY RADER on 08/23/19 [facility] PROGRESSon 08-23-2019 PROGRESS HNO ID: [id number] Author: Missy Mora) Marianna Service: ? Author Type: Nurse Practitioner [...] scabbing of face. Patient states use of [id number] itch medication and cream with slight symptom [...] Take 1 tablet by mouth once daily. acetaminophen-codei ne (TYLENOL-CODEINE #3) 300-30 mg ORAL Tab Take [...] of care. This note was generated using [employer] software. It may contain errors in wording, punctuation, or spelling. Missy Cabral APRN.PRASANTH [facility] CNOVon 02-28-2019 CNOV Office Visit (UCWSTR) ---- YOHANNES LANDRY ([id number]) 1970 F Date Time Provider Department 02/28/19 8:00 PM [facility] During your visit today, we recorded the following information about you: Temperature Pulse Respiration Blood pressure 97.5 degrees 86/minute 18/minute 128/80 Weight 83.5 kg Ashly Granda APRN.PRASANTH 02/28/2019 8:08 PM Signed Subjective The history is provided by the patient. No english language learner teacher was used. HPI Yohannes Landry is a [...] file Gets together: Not on file Attends anglican service: Not on file Active member of [...] have confirmed and edited as necessary, the [facility] Review of Systems Constitutional: Negative for chills [...] prompt ER evaluation. Ashly Granda APRN.PRASANTH Granda APRN.CNP 02/28/2019 8:07 PM Signed ASSESSMENT/PLAN: 1. Rash [...] Status:Closed by ASHLY GRANDA CNP on 02/28/19 [facility] PROGRESSon 02-28-2019 PROGRESS HNO ID: [id number] Author: Ashly Granda Service: ? Author Type: Nurse Practitioner Type: Progress Notes Filed: 02/28/2019 8:08 PM Note Text: Subjective The history is provided by the patient. No english language learner teacher was used. HPI Yohannes Landry is a [...] file Gets together: Not on file Attends anglican service: Not on file Active member of [...] have confirmed and edited as necessary, the [facility] Review of Systems Constitutional: Negative for chills [...] detail warranting prompt ER evaluation. Ashly Granda APRN.CODE AND TEST CLERK [facility] No Panel Information SARS-CoV-2 & FLU Antigen (Rapid) [facility] Work Phone: Vital Signs Date Time Vital Sign Value Performing Clinician Mitesh sun 10-16-2024 02:45-0400 Body temperature 97.1 [degF] No Primary Care Physician [facility] 10-16-2024 02:45-0400 Diastolic blood pressure 69 mm[Hg] No Primary Care Physician [facility] 10-16-2024 02:45-0400 Heart rate 78 /min No Primary Care Physician [facility] 10-16-2024 02:45-0400 Respiratory rate 16 /min No Primary Care Physician [facility] 10-16-2024 02:45-0400 SaO2% (BldA) [Mass fraction] 99 % No Primary Care Physician [facility] 10-16-2024 02:45-0400 Systolic blood pressure 124 mm[Hg] No Primary Care Physician [facility] 10-15-2024 22:21-0400 Body height 157.48 cm No Primary Care Physician [facility] 10-15-2024 22:21-0400 Body mass index (BMI) [Ratio] 27.8 kg/m2 No Primary Care Physician [facility] 10-15-2024 22:21-0400 Body weight 68.9 kg No Primary Care Physician [facility] 12-18-2021 00:27-0400 Diastolic blood pressure 89 mm[Hg] [facility] Work Phone: 12-18-2021 00:27-0400 Heart rate 98 /min [facility] Work Phone: 12-18-2021 00:27-0400 Respiratory rate 16 /min [facility] Work Phone: 12-18-2021 00:27-0400 SaO2% (BldA) [Mass fraction] 98 % [facility] Work Phone: 12-18-2021 00:27-0400 Systolic blood pressure 144 mm[Hg] [facility] Work Phone: 12-17-2021 22:21-0400 Body height 157.48 cm [facility] Work Phone: 12-17-2021 22:21-0400 Body mass index (BMI) [Ratio] 27.4 kg/m2 [facility] Work Phone: 12-17-2021 22:21-0400 Body temperature 99.3 [degF] [facility] Work Phone: 12-17-2021 22:21-0400 Body weight 68.03 kg [facility] Work Phone: 10-11-2021 02:58-0400 Body temperature 98.4 [degF] No Primary Care Physician [facility] Work Phone: 10-11-2021 02:58-0400 Diastolic blood pressure 73 mm[Hg] No Primary Care Physician [facility] Work Phone: 10-11-2021 02:58-0400 Heart rate 107 /min No Primary Care Physician [facility] Work Phone: 10-11-2021 02:58-0400 Respiratory rate 15 /min No Primary Care Physician [facility] Work Phone: 10-11-2021 02:58-0400 SaO2% (BldA) [Mass fraction] 97 % No Primary Care Physician [facility] Work Phone: 10-11-2021 02:58-0400 Systolic blood pressure 133 mm[Hg] No Primary Care Physician [facility] Work Phone: 10-11-2021 00:39-0400 Body height 157.48 cm No Primary Care Physician [facility] Work Phone: 10-11-2021 00:39-0400 Body mass index (BMI) [Ratio] 29.5 kg/m2 No Primary Care Physician [facility] Work Phone: 10-11-2021 00:39-0400 Body weight 73.1 kg No Primary Care Physician [facility] Work Phone: 08-30-2021 23:24-0400 Heart rate 84 /min No Primary Care Physician [facility] Work Phone: 08-30-2021 23:24-0400 Respiratory rate 15 /min No Primary Care Physician [facility] Work Phone: 08-30-2021 23:24-0400 SaO2% (BldA) [Mass fraction] 99 % No Primary Care Physician [facility] Work Phone: 08-30-2021 21:18-0400 Body height 157.48 cm No Primary Care Physician [facility] Work Phone: 08-30-2021 21:18-0400 Body mass index (BMI) [Ratio] 28.3 kg/m2 No Primary Care Physician [facility] Work Phone: 08-30-2021 21:18-0400 Body temperature 99.1 [degF] No Primary Care Physician [facility] Work Phone: 08-30-2021 21:18-0400 Body weight 70.3 kg No Primary Care Physician [facility] Work Phone: 08-30-2021 21:18-0400 Diastolic blood pressure 70 mm[Hg] No Primary Care Physician [facility] Work Phone: 08-30-2021 21:18-0400 Systolic blood pressure 135 mm[Hg] No Primary Care Physician [facility] Work Phone: 07-02-2021 16:59-0500 Body mass index (BMI) [Ratio] 29.5 kg/m2 No Primary Care Physician [facility] Work Phone: 07-02-2021 16:59-0500 Body temperature 97.5 [degF] No Primary Care Physician [facility] Work Phone: 07-02-2021 16:59-0500 Body weight 73.1 kg No Primary Care Physician [facility] Work Phone: 07-02-2021 16:59-0500 Diastolic blood pressure 68 mm[Hg] No Primary Care Physician [facility] Work Phone: 07-02-2021 16:59-0500 Heart rate 99 /min No Primary Care Physician [facility] Work Phone: 07-02-2021 16:59-0500 Respiratory rate 16 /min No Primary Care Physician [facility] Work Phone: 07-02-2021 16:59-0500 SaO2% (BldA) [Mass fraction] 97 % No Primary Care Physician [facility] Work Phone: 07-02-2021 16:59-0500 Systolic blood pressure 117 mm[Hg] No Primary Care Physician [facility] Work Phone: Encounters Encounter Date Encounter Type Care Provider Facility Start: 10-16-2024 Evaluation and management of inpatient Dr. Peng Neville MD -Progressive Care Unit Work Phone: Start: 12-17-2021 End: 12-18-2021 [facility] Start: 10-11-2021 End: 10-11-2021 Emergency department patient visit No Primary Care Physician [facility] Start: 08-30-2021 End: 08-30-2021 Emergency department [facility] Start: 08-12-2021 End: 08-12-2021 Patient encounter procedure No Primary Care Physician [facility] Start: 07-02-2021 End: 07-02-2021 Emergency department patient visit [facility] Procedures Date Procedure Procedure Detail Performing Clinician Start: 10-15-2024 Estimated creatinine clearance No Primary Care Physician Start: 10-15-2024 Urnls dip stick/tabl et reagent auto microscopy No Primary Care Physician Start: 10-15-2024 CT of abdomen and pe lvis without contrast No Primary Care Physician Start: 12-17-2021 CT of abdomen and pe lvis without contrast Start: 10-11-2021 SARS-CoV-2 & FLU Ant igen (Rapid) No Primary Care Physician Start: 10-11-2021 Plain chest X-ray No Pr imary Care Physician SARS-CoV-2 & FLU Ant igen (Rapid) Plan of Treatment Date Care Activity Detail Author Start: 10-16-2024 [facility] Start: 10-16-2024 Hospital admission, emergency, from emergency room, medical nature [facility] Start: 12-18-2021 [facility] Work Phone: Start: 10-11-2021 [facility] Work Phone: Bacteria identified in Urine by Culture Urine Culture [facility] Work Phone: Patient Education [facility] Work Phone: Patient referral [facility] Work Phone: Urine culture [facility] Payers Date Payer Category Payer Policy ID Medicaid [id number] Private Health Insurance [id number] Private Health Insurance TOÑO LAMB [id number] Self-pay SELF PAY INSURANCE [id number] Social History Date Type Detail Facility [facility] Work Phone: Start: 08-30-2021 End: 12-17-2021 Tobacco smoking status NHIS Unknown if ever smoked [facility] Work Phone: Start: 1970 Sex Assigned At Female [facility] Start: 10-15-2024 Tobacco smoking stat us NHIS Never smoked tobacco (finding) [facility] Discharge summary 10-16-2024 Note Date & Type Note Facility 10-16-2024 Discharge summary [facility] Radiology Diagnostic study note 10-16-2024 Note Date & Type Note Facility 10-16-2024 Radiology Diagnostic study note [facility] Imaging Services [address] [place], [place] [address] Abdomen/Pelvis without Cont MR#: [id number] Acct: [id number] Name: YOHANNES LANDRY Rep #: [id number] : 1970 F 54 From: Paulina Arias MD PCP: Care Physician,No Primary Status: REG ER Study:Abdomen/Pelvis without Cont Date of Exa m: 10/15/24 Exam# [id number] Ordering Dr: Annemarie Brown MD PROCEDURE: ABDOMEN/PELVIS WITHOUT CONT 10/16/2024 REASON FOR EXAM: PAIN TECHNIQUE: ABDOMEN/PELVIS WITHOUT CONT Noncontrast technique limits evaluation of the abdominal and pelvic viscera. Coronal and Sagittal reconstruction series were provided. One or more dose reduction techniques were used (e.g., Automated exposure control, adjustment of the mA and/or kV according to patient size, use of iterative reconstruction technique). ORAL CONTRAST TYPE: None. AMOUNT: mL COMPARISON: 12-17-2021 FINDINGS: Few about three right lower ureteric calculi, the largest 11 mm with consequent marked proximal right hydroureteronephrosis. Left lower ureteric 10 mm calculus with adjacent 1 mm calculus inducing moderateto marked proximal right hydroureteronephrosis. Right renal lower calyceal 13 mm non obstructing calculus with lower calyceal dependent/layering faintly dense small calculi. Small sized left kidney showing undulant outline. Average sized right kidney showing smooth outline with preserved parenchymal thickness. Average sized liver showing homogenous parenchymal attenuation. No dilated intraor extra-hepatic biliary tracts. Gall bladder showing no radiodense calculi. No abnormal mural thickening. Clear surrounding fat planes with no sizeable collections. Normal unenhanced appearance of the pancreas with clear surrounding fat planes. The unenhanced spleen, adrenal glands, aorta and IVC are unremarkable. Distension of the urinary bladder showing minimal uniform mural thickening with no obvious masses. Bulky anteverted uterus. Advise sonography correlation. Metallic clips of tubal ligation are noted. The appendix appears unremarkable. No right iliac inflammatory changes. Colonic fecal loading. The small bowel loops are unremarkable. The stomach is unremarkable. No ascites or free air. No obvious pathologically enlarged lymph nodes. Scanned osseous structures show no osseous destruction. Thoracolumbar spondylosis. Scanned lung bases show basal atelectatic changes. CT/Abdomen/Pelvis without Cont IMPRESSION: Few about three right lower ureteric calculi, the largest 11 mm with consequent marked proximal right hydroureteronephrosis. Left lower ureteric 10 mm calculus with adjacent 1 mm calculus inducing moderateto marked proximal right hydroureteronephrosis. Right renal lower calyceal 13 mm non obstructing calculus with lower calyceal dependent/layering faintly dense small calculi. [facility] CC: Dr. Ian Brown MD; No Primary Care Physician ~ Licensing Specialist: Signed [facility] Discharge summary 10-15-2024 Note Date & Type Note Facility 10-15-2024 Discharge summary Note Date/Time October 16, 2024 2:21am [facility] Medical Records Department [address] [place] [address] Emergency Department Summary 10/15/24 MR#: [id number] Acct: [id number] Name: YOHANNES LANDRY Rep #:[id number] : 1970 54 From: Ian Brown MD PCP: Care Physician,No Primary Status :REG ER Location: ED HPI HPI - GI History of Present Illness Chief Complaint: Flank Pain Informant: patient Abdominal Pain/Flank Pain Onset: Days Context: Gradual Onset Timing: Continuous Location: Right Flank and Left Flank (3-day history of bilateral flank pain.) Current Severity: Moderate Maximum Severity: Moderate Worsened by: Nothing Relieved by: Nothing Nausea/Vomiting/Emesis GI Symptom: Positive for Nausea Severity: Mild Diarrhea/Melena/Hematochezia GI Symptom: Negative for Diarrhea, Melena or Hematochezia Associated Symptoms Associated Symptoms: Negative for Dysuria, Frequency, Hematuria or Urgency Narrative Narrative: 54-year-old female history of prior kidney stones where she needed surgery and stent. Prior tubal ligation. Complaining of bilateral flank pain for the last 3 days and started on Wednesday night. Associated nausea no vomiting or diarrhea. No fever. No dysuria. Nothing particular makes the pain better or worse. Prior similar symptoms: Yes Recent Illness/Hospitalization: No PFSH PFSH Medical History Non-smoker Kidney stones Home Medications ?Medication ?Instructions ?Recorded ?Last Taken ?Type naproxen 500 mg tablet 500 mg PO BID PRN #20 tabs 0 01/07/21 Unknown Rx ibuprofen 600 mg tablet 600 mg PO 4X/DAY PRN Pain Or Fever 07/02/21 Unknown Rx #20 tabs ciprofloxacin HCl 500 mg tablet 500 mg PO BID #14 tabs 12/18/21 Unknown Rx (Cipro) hydrocodone-acetaminophen 5-325mg 1 tab PO Q6H PRN raine n 3 days #12 12/18/21 Unknown Rx 5mg-325mg tabs ondansetron 4 mg disintegrating 4 mg PO Q8H PRN nausea and 12/18/21 Unknown Rx tablet vomiting #14 tabs Allergy/AdvReac Type Severity Reaction Status Date / Time No Known Allergies Allergy Verified 10/15/24 22:21 Surgical History History of arthroplasty of right knee History of tubal ligation Social History Smoking Status: Never smoker ROS ROS ED ROS Narrative Nausea. Bilateral flank pain. Constitutional Constitutional ED: Denies chills or fever(s) ENT ENT ED: Denies ear pain Cardiovascular Cardiovascular: Denies chest pain Respiratory/Chest Respiratory/Chest: Denies cough or dyspnea Gastrointestinal Gastrointestinal: Reports abdominal pain and nausea; Denies diarrhea or vomiting Genitourinary Genitourinary ED: Denies dysuria, hematuria or urinary frequency Musculoskeletal Musculoskeletal: Denies arthralgias Integumentary Denies abscess Neurologic Neurologic: Denies headache(s) Psychiatric Psychiatric: Denies anxiety Endocrine Endocrinology: Denies polydipsia Hematologic/Lymphatic Hematologic/Lymphatic: Denies easy bleeding Allergic/Immunologic Allergic/Immunologic ED: Denies mouth swelling, tongue swelling or urticaria EXAM Physical Exam Narrative Exam Narrative: 54-year-old female vital signs are stable and afebrile. Does not look septic toxic or in distress. H EENT exam pupils round react light. Dry mucous membranes. Neck nontender no JVD. Lungs clear to auscultation bilateral. Heart regular rhythm no murmur. Rate about 100. Abdomen soft, nontender, nondistended, normal bowel sounds without peritoneal signs. No reproducible pain. Right upper right lower quadrant unremarkable. No hernia or mass. No obstruction. Moving all 4 extremities. Nontender no edema. Back nontender. Neurologically she is awake alert. Answer questions following commands. Const Vital Signs: 10/15/24 22:21 10/15/24 22:23 10/16/24 00:00 Temperature 97.7 F L 97.7 F L 97.8 F Temperature Source Oral Oral Oral Pulse Rate 104 H 104 H 90 Respiratory Rate 22 H 22 H 14 Blood Pressure 145/78 H 145/74 H 125/83 H Blood Pressure Mean 100 97 97 Pulse Ox 98 100 100 Oxygen Delivery Method Room Air Room Air 10/16/24 01:00 10/16/24 02:03 Temperature 98.0 F 98.0 F Temperature Source Oral Oral Pulse Rate 86 86 Respiratory Rate 16 16 Blood Pressure 121/69 H 125/75 H Blood Pressure Mean 86 91 Pulse Ox 100 100 Oxygen Delivery Method Room Air Room Air Positive well nourished and well developed; Negative for cachectic, contracturesor unkempt General Appearance ED: well developed and NAD; Negative for unkempt, cachectic, contractures or pallor Nutritional Appearance: Negative for cachectic HEENT Reports dry mucous membranes normocephalic and atraumatic Mouth ED: Yes dry mucous membranes Mouth: dry mucous membranes Eyes PERRL and EOMs intact bilaterally General Eye ED: Negative for pale conjunctiva or scleral icterus Neck no lymphadenopathy, supple and no JVD Resp normal respiratory effort and clear to auscultation bilaterally Cardio regular rate, regular rhythm, S1 normal heart sound, S2 normal heart sound and no murmurs GI non-tender, non-distended and no masses Auscultation: normoactive bowel sounds Palpation: soft; Negative for tender, guarding, mass, pulsatile mass or rebound tenderness present Back/Spine no CVA tenderness General Back: Negative for CVA tenderness Cervical Spine: Negative for cervical spine tenderness Thoracic Spine / Upper Back: Negative for thoracic spinal tenderness Lumbar Spine / Lower Back: Negative for lumbar spinal tenderness Extremity full ROM General Extremety ED: Negative for edema or tenderness General Extremity: Negative for edema Neuro CN's II-XII intact bilaterally and moves all extremities Sensorium / Orientation: alert, oriented to person, oriented to place and oriented to time; Negative for confused, lethargic or stuporous Motor Exam: strength 5/5 throughout Psych mental status grossly normal and thought process normal Appearance: Negative for unkempt Attitude: No agitated Mood & Affect: Negative for depressed, anxious or tearful Skin no wounds General Skin Exam: Negative for jaundice or pallor Lesions: no lesions Rashes: no rashes Trauma: Negative for abrasion Nails: Negative for discolored MDM MDM MDM Narrative Medical decision making narrative: 54-year-old female bilateral flank pain with a history of prior bilateral kidneystones. CAT scan of the labs will be obtained. She will be treated with morphine, Zofran and Toradol for pain. Repeat exam patient is resting more comfortably at 2:15 AM. We went over her test results including her CAT scans. Given the size of her stones and her discomfort I have the urologist on page Dr. Mesfin Neville. He cared for the patient around 2012 for similar presentation. I will start on IV Rocephin. Send a urine culture. History & Record Review Discussion w/independent historian: Patient and Family Additional record(s) reviewed:: Prior inpatient record, Prior outpatient record,Prior ED visit and Prior labs Lab Data Attestation: I reviewed the patient's lab results. Lab results narrative: CBC shows a white count 13.9. H&H 11.3 and 36. Platelets 270. Electrolytes show sodium 140. Gap 11. BUN and creatinine 21 and 1.63. [id number]. Serum test negative. UA shows no red cells. Greater than 100 white cells. 5 epithelial cells. 4+ bacteria. No nitrites. Labs: Laboratory Results - last 24 hr 10/15/24 22:38 WBC 13.9 H RBC 4.18 L Hgb 11.3 L Hct 36.4 L MCV 87.1 MCH 27.0 MCHC 31.0 L RDW Std Deviation 48.9 H RDW Coeff of Julian 15.4 H Plt Count 270 MPV 11.4 Immature Gran % (Auto) 0.600 Neut % (Auto) 73.5 H Lymph % (Auto) 17.2 L [place] % (Auto) 5.2 Eos % (Auto) 3.1 Baso % (Auto) 0.4 Absolute Neuts (auto) 10.2 H Absolute Lymphs (auto) 2.40 Nucleated RBC % 0 Sodium 140 Potassium 3.7 Chloride 103 Carbon Dioxide 26.4 Anion Gap 11 BUN 21 H Creatinine 1.63 H Estim Creat Clear Calc 36.72 L Est GFR (MDRD) Non-Af 38 L BUN/Creatinine Ratio 12.7 Glucose 98 Calcium 11.4 H Serum , Qual NEGATIVE Urine Color Yellow Urine Clarity Cloudy Urine pH 6.5 Ur Specific [place] 1.015 Urine Protein 100 H Urine Glucose (UA) Normal Urine Ketones Negative Urine Occult Blood 25 H Urine Nitrite Negative Urine Bilirubin Negative Urine Urobilinogen Normal Ur Leukocyte Esterase 500 H Urine RBC 0 SEEN Urine WBC >100 SEEN Ur Squamous Epith Cells 5-10 SEEN Urine Bacteria 4+ Urine Mucus 0 SEEN Radiography Diagnostic Testing: Clinical Impression(s) from Imaging Studies Abdomen/Pelvis CT 10/15/24 00:10 IMPRESSION: Few about three right lower ureteric calculi, the largest 11 mm with consequent marked proximal right hydroureteronephrosis. Left lower ureteric 10 mm calculus with adjacent 1 mm calculus inducing moderateto marked proximal right hydroureteronephrosis. Right renal lower calyceal 13 mm non obstructing calculus with lower calyceal dependent/layering faintly dense small calculi. Reading Location: [place] [address] Discharge Plan Triage Chief Complaint: Flank Pain ED Provider: Brown,Ian Dx/Rx/DC Orders Clinical Impression: Bilateral flank pain, Kidney stones, Hydronephrosis, UTI (urinary tract infection) Prescriptions: No Action naproxen 500 mg tablet 500 mg PO BID PRN Qty: 20 0RF ibuprofen 600 MG tablet 600 mg PO 4X/DAY PRN (Reason: Pain Or Fever) Qty: 20 0RF ciprofloxacin HCl [Cipro] 500 mg tablet 500 mg PO BID Qty: 14 0RF hydrocodone-acetaminophen 5-325 mg tablet 1 tab PO Q6H PRN (Reason: pain) 3 Days Qty: 12 0RF ondansetron 4 mg tablet,disintegrating 4 mg PO Q8H PRN (Reason: nausea and vomiting) Qty: 14 0RF Primary Care Provider: Care Physician,No Primary Referrals: Care Physician,No Primary [Primary Care Provider] - Print Language: Tamazight Disposition Disposition: Acute [facility] What to do if you have Problems For any increased pain, shortness of breath, bleeding, nausea or vomiting, chestpain, or any unexpected problems, contact your Primary Care Provider. Call [facility] ([phone]) or report to the closest Emergency Room. Call 911 if necessary. 10/16/24220 <Electronically signed by Ian Brown MD> Cosigner Signature (if applicable): CC: No Primary Care Physician ~ Signed [facility] Work Phone: Evaluation note Note Date & Type Note Facility Evaluation note No assessment information availa ble [facility] Work Phone: Reason for referral (narrative) Note Date & Type Note Facility Reason for referral (narrative) No reason for referral information available [facility] Work Phone: Summary Purpose Family History No Family History Records FoundNo Family History Records Found Advance Directives Advance Directive Response Recorded Date/ Time Advance Directives No August 12 12:19pm Living Will No August 30, 2021 9:36pm Power of Clinical Psychiatrist No August 30 9:36pm Advance Directive Response Recorded Date/ Time Advance Directives No August 12 12:19pm Living Will No October 11, 2021 12:42am Power of Clinical Psychiatrist No October 11 12:42am Advance Directive Response Recorded Date/ Time Advance Directives No August 12 12:19pm Living Will No December 17 10:33pm Power of Clinical Psychiatrist No December 17 10:33pm Advance Directive Response Recorded Date/ Time Do you have a Healthcare Power of Clinical Psychiatrist? No October 15, 2024 10:30pm Advance Directives No August 12 12:19pm Chief Complaint and Reason for Visit Chief Complaint upper extremity PE DRUG SCREEN/GOJO URINARY COMPLAINTS Chief Complaint upper extremity PE DRUG SCREEN/GOJO URINARY COMPLAINTS General illness Chief Complaint URINARY COMPLAINTS General illness FLANK PAIN Chief Complaint Admit Date FLANK PAIN October 16, 2024 2:37 am Additional Source Comments INFORMATION SOURCE (unrecogn ized section and content) DATE CREATED AUTHOR 08/23/2019 [facility] DATE CREATED AUTHOR AUTHOR'S ORACIOIZ ATPATRICK 12/24/2021 [facility] Goals (unrecognized section and content) Goals may be documented in a n alternate sectionGoals may be documented in an alternate sectionGoals may be documented in an alternate sectionGoals may be documented in an alternate section Care Teams (unrecognized sec tion and content) Team Status: Active Member Role Status Dates No Primary Care Physician Primary Care Provider Active Team Status: Active Member Role Status Dates No Primary Care Physician Primary Care Provider Active Start: October 16, 2024 Dr. Ian Brown MD Emergency Provider Active S tart: October 16, 2024 Dr. Peng Neville MD Admit Provider Active Start: October 16, 2024 Dr. Peng Neville MD Attending Provider Active Start: October 16, 2024 FOR RECORDS PERTAINING TO PATIENTS WHO ARE [...] BE BASED ON THE PRIMARY CLINICAL RECORDS. [facility]. provides no warranty or guarantee of the accuracy or completeness of information in this document.
--- OUTSIDE RECORDS SUMMARY | 2024-10-16 04:57 | XMS RPT_ITS | CCD ---
Author Organization [facility] Care Team Providers Care Medical Laboratory Technicians Name Role Phone Care Physician, No Primary Primary Care Provider Unavailable Care Physician, No Primary Referring Provider Un available RANDA Garza Attending Provider Care Physician, No Primary Primary Care Provider Unavailable Kevin VITALE, Dr. Sosa Emergency Provider Kelin VITALE, Dr. Peng Toure Admit Provider Kelin VITALE, Dr. Peng Toure Attending Provider [phone] Medications Current Medications Medication Drug Class(es) Dates Sig (Normalized) Sig (Original) [place] (Nk) (1 source) Start: 10-16-2024 [place] (Nk) Active October 16, 2024 12:00am penicillin [...] Auto (Unsp spec) [#/Vol] 2.40 10*3/uL 0.83-4.51 [facility] Absolute neutrophil countOrd ered By: Ian Brown on 10-15-2024 Neutrophils (Bld) [#/Vol] 10.2 10*3/uL High 2.0-7.7 [facility] Anion gap in Serum or Plasma Ordered By: Ian Brown on 10-15-2024 Anion gap [Moles/Vol] 11 mmol/L 5-15 [facility] Automated lymphocyte count a s percentage of total leukocytesOrdered By: Ian Brown on 10-15-2024 Lymphocytes/100 WBC Auto (Unsp spec) 17.2 % Low 19-41 [facility] BUN/creatinine ratioOrdered By: Ian Brown on 10-15-2024 Urea nitrogen/Creatinine [Mass ratio] 12.7 mg/mg 10-20 [facility] Basophil percentageOrdered B y: Ian Brown on 10-15-2024 Basophils/100 WBC (Bld) 0.4 % 0-1 [facility] Bilirubin Test strip Ql (U)O rdered By: Ian Brown on 10-15-2024 Bilirubin Ql (U) Negative Negative [facility] Carbon dioxide, total [Moles /volume] in Central venous bloodOrdered By: Ian Brown on 10-15-2024 CO2 [Moles/Vol] 26.4 mmol/L 21.0-32.0 [facility] Chloride assayOrdered By: Edward Brown on 10-15-2024 Chloride [Moles/Vol] 103 mmol/L 98-108 [facility] Eosinophil percentageOrdered By: Ian Brown on 10-15-2024 Eosinophils/100 WBC (Bld) 3.1 % 0-5 [facility] Erythrocyte distribution wid th ratioOrdered By: Ian Brown on 10-15-2024 Erythrocyte distribution width (RBC) [Ratio] 15.4 % High 11.6-14.6 [facility] Erythrocyte distribution wid th standard deviationOrdered By: Ian Brown on 10-15-2024 Erythrocyte distribution width (RBC) [Ratio] 48.9 fl High 35.1-43.9 [facility] Glomerular filtration rate ( GFR) estimation/1.73 sq m using serum, plasma, or whole bOrdered By: Ian Brown on 10-15-2024 GFR/1.73 sq M.predicted among non-blacks MDRD (S/P/Bld) [Vol rate/Area] 38 mL/min/{1.73_m2} Low >60 [facility] Comment on above: mL/min/1.73m2 CKD-EP I Creatinine Equation (2020) Hematocrit Auto (Bld) [Volum e fraction]Ordered By: Ian Brown on 10-15-2024 Hematocrit (Bld) [Volume fraction] 36.4 % Low 37-47 [facility] Hemoglobin measurementOrdere d By: Ian Brown on 10-15-2024 Hemoglobin (Bld) [Mass/Vol] 11.3 g/dL Low 12.0-15.0 [facility] Immature granulocytes/100 WB C Auto (Bld)Ordered By: Ian Brown on 10-15-2024 Immature granulocytes/100 WBC (Bld) 0.600 % 0.0-0.9 [facility] Comment on above: IG% - Immature Granu locytes (promyelocytes, myelocytes and metamyelocytes) > 1% indicates that a LEFT SHIFT is Present. Ketones Test strip Ql (U)Ord ered By: Ian Brown on 10-15-2024 Ketones Ql (U) Negative Negative [facility] MCV (mean corpuscular volume ) determinationOrdered By: Ian Brown on 10-15-2024 MCV (RBC) [Entitic vol] 87.1 fL 81-99 [facility] Mean corpuscular hemoglobin (MCH) determinationOrdered By: aIn Brown on 10-15-2024 MCH (RBC) [Entitic mass] 27.0 pg 27.0-32.0 [facility] Mean corpuscular hemoglobin concentration (MCHC) determinationOrdered By: Ian Brown on 10-15-2024 MCHC (RBC) [Mass/Vol] 31.0 g/dL Low 32-36 [facility] Mean platelet volume determi nationOrdered By: Ian Brown on 10-15-2024 Platelet mean volume (Bld) [Entitic vol] 11.4 fL 6.2-12.0 [facility] Microscopic analysis of urin e for red blood cells (RBC)Ordered By: Ian Brown on 10-15-2024 Microscopic analysis of urine for red blood cells (RBC) 0 SEEN /hpf 0-5 [facility] Monocyte percentageOrdered B y: Ian Brown on 10-15-2024 Monocytes/100 WBC (Bld) 5.2 % 0-10 [facility] Mucus LM Ql (Urine sed)Order ed By: Ian Brown on 10-15-2024 Mucus Ql (Urine sed) 0 SEEN /hpf [facility] Neutrophil percentageOrdered By: Ian Brown on 10-15-2024 Neutrophils/100 WBC (Bld) 73.5 % High 47-70 [facility] Nitrite Test strip Ql (U)Ord ered By: Ian Brown on 10-15-2024 Nitrite Ql (U) Negative Negative [facility] Nucleated red blood cell per centageOrdered By: Ian Brown on 10-15-2024 Nucleated RBC/100 WBC (Bld) [Ratio] 0 % 0-5 [facility] Platelet countOrdered By: Edward Brown on 10-15-2024 Platelets (Bld) [#/Vol] 270 10*3/uL 150-450 [facility] Potassium measurement (mass/ volume)Ordered By: Ian Brown on 10-15-2024 Potassium (Unsp spec) [Mass/Vol] 3.7 mmol/L 3.3-5.1 [facility] Protein Test strip Ql (U)Ord ered By: Ian Brown on 10-15-2024 Protein Ql (U) 100 mg/dl High Negative [facility] RBC Auto (Bld) [#/Vol]Ordere d By: Ian Brown on 10-15-2024 RBC (Bld) [#/Vol] 4.18 10*6/uL Low 4.2-5.4 [facility] Serum beta-hCG test, qualita tiveOrdered By: Ian Brown on 10-15-2024 Beta HCG ( test) Ql Negative [facility] Serum creatinine measurement (mass/volume)Ordered By: Ian Brown on 10-15-2024 Creatinine [Mass/Vol] 1.63 mg/dL High 0.70-1.20 [facility] Serum glucose measurement (m ass/volume)Ordered By: Ian Brown on 10-15-2024 Glucose [Mass/Vol] 98 mg/dL 70-99 [facility] Serum or plasma calcium brennan urement (mass/volume)Ordered By: Ian Brown on 10-15-2024 Calcium [Mass/Vol] 11.4 mg/dL High 7.6-11.0 [facility] Serum or plasma urea nitroge n measurement (mass/volume)Ordered By: Ian Brown on 10-15-2024 Urea nitrogen [Mass/Vol] 21 mg/dL High 4-19 [facility] Sodium levelOrdered By: Ian Brown on 10-15-2024 Sodium [Moles/Vol] 140 mmol/L 133-145 [facility] Squamous epithelial cells de tection in urine sediment by light microscopyOrdered By: Ian Brown on 10-15-2024 Epithelial cells.squamous LM Ql (Urine sed) 5-10 SEEN /hpf 5-10 [facility] Urine clarityOrdered By: Peter Brown on 10-15-2024 Clarity (U) Cloudy Clear [facility] Urine color determinationOrd ered By: Ian Brown on 10-15-2024 Color (U) Yellow Yellow [facility] Urine glucose detectionOrder ed By: Ian Brown on 10-15-2024 Glucose Ql (U) Normal mg/dl Normal [facility] Urine leukocyte esterase det ection by dipstickOrdered By: Ian Brown on 10-15-2024 Leukocyte esterase Test strip Ql (U) 500 /ul High Negative [facility] Urine pHOrdered By: Ian Chadwick ght on 10-15-2024 pH (U) 6.5 [pH] 5.0 - 8.0 [facility] Urine sediment bacteria coun t by microscopy (number/high power field)Ordered By: Ian Brown on 10-15-2024 Bacteria LM.HPF (Urine sed) [#/Area] 4 /[HPF] None Seen [facility] Urine specific gravity measu rementOrdered By: Ian Brown on 10-15-2024 Specific gravity (U) [Rel density] 1.015 1.002-1.030 [facility] Urine urobilinogen measureme ntOrdered By: Ian Brown on 10-15-2024 Urobilinogen Ql (U) Normal mg/dl Normal [facility] White blood cell (WBC) count Ordered By: Ian Brown on 10-15-2024 WBC (Bld) [#/Vol] 13.9 10*3/uL High 4.4-11.0 [facility] White blood cell countOrdere d By: Ian Brown on 10-15-2024 White blood cell count >100 SEEN /hpf 0-5 [facility] Urine Cultureon 12-19-2021 URC Below infection level. Mixed Gram Pos Gram Neg Org [place] Count 1000-10,000 MIXC Mixed contaminants. Submit a new specimen if indicated. Normal [facility] Comment on above: Performed By: #### M 100.2200 #### [facility] [address]. [place], [place], [address] Abdomen/Pelvis without Conto n 12-18-2021 Abdomen/Pelvis without Cont [facility] [address] [place] [address] Abdomen/Pelvis without Cont MR#: [id number] Acct: [id number] Name: YOHANNES LANDRY Rep #: [id number] : 1970 F 51 From: Reji Mansfield DO PCP: Care Physician,No Primary Status: REG ER Study: Abdomen/Pelvis without Cont Date of Exam: 12/01 11/21 Exam# [id number] Ordering Dr: Jean Marie Remy DO STUDY: [...] Marie Remy DO; No Primary Care Physician Senior Radiation Protection Technician: Signed Normal [facility] Basic Metabolic Profile (BMP )on 12-18-2021 BUN/CRE 14.6 RATIO Normal 10-20 [facility] Comment on above: Performed By: #### L 500.2500, L100.0100 ####[facility] [address] [place], [address] CA,Total 10.9 mg/dL High 8.5-10.1 [facility] Comment on above: Performed By: #### L 500.2500, L100.0100 ####[facility] [address] [place], [address] Chloride [Moles/Vol] 109 mmol/L High 98-107 [facility] Comment on above: Performed By: #### L 500.2500, L100.0100 ####[facility] [address] [place], [address] CO2 [Moles/Vol] 26.0 mmol/L Normal 21.0-32.0 [facility] Comment on above: Performed By: #### L 500.2500, L100.0100 ####[facility] [address] [place], [address] Creatinine [Mass/Vol] 1.30 mg/dL High 0.55-1.02 [facility] Comment on above: Result Comment: The validity of the calculated GFR GFRAA in patients over 70 years has not been determined. Clinical correlation is essential. Performed By: #### L 500.2500, L100.0100 ####[facility] [address] [place], [address] ECRCL 41.40 ml/min Normal [facility] Comment on above: Performed By: #### L 500.2500, L100.0100 ####[facility] [address] [place], [address] EST GFR - AA 56 mL/min Low >60 [facility] Comment on above: Result Comment: Afri can [place] GFR Calc Performed By: #### L 500.2500, L100.0100 ####[facility] [address] [place], [address] GAP 6 Normal 5-15 [facility] Comment on above: Performed By: #### L 500.2500, L100.0100 ####[facility] [address] [place], [address] GFR/1.73 sq M.predicted among non-blacks MDRD (S/P/Bld) [Vol rate/Area] 46 mL/min/{1.73_m2} Low >60 [facility] Comment on above: Result Comment: Non- GFR Calc Performed By: #### L 500.2500, L100.0100 ####[facility] [address] [place], [address] Glucose [Mass/Vol] 106 mg/dL Normal 74-106 [facility] Comment on above: Result Comment: Fast ing Glucose result from 100 to 125 mg/dL suggests IMPAIRED HOMEOSTASIS per A.D.A. criteria. Performed By: #### L 500.2500, L100.0100 ####[facility] [address] [place], [address] Potassium [Moles/Vol] 3.8 mmol/L Normal 3.5-5.1 [facility] Comment on above: Performed By: #### L 500.2500, L100.0100 ####[facility] [address] [place], [address] Sodium [Moles/Vol] 141 mmol/L Normal 136-145 [facility] Comment on above: Performed By: #### L 500.2500, L100.0100 ####[facility] [address] [place], [address] Urea nitrogen [Mass/Vol] 19 mg/dL High 7-18 [facility] Comment on above: Performed By: #### L 500.2500, L100.0100 ####[facility] [address] [place], [address] CBC W/Diff, Automatedon 08- 8-2022 Absolute Lymph 1.79 X10 3/uL Normal 0.83-4.51 [facility] Comment on above: Performed By: #### L 500.2500, L100.0100 ####[facility] [address] [place], [address] Absolute Neut 6.4 X10 3/uL Normal 2.0-7.7 [facility] Comment on above: Performed By: #### L 500.2500, L100.0100 ####[facility] [address] [place], [address] Basophils/100 WBC (Bld) 0.3 % Normal 0-1 [facility] Comment on above: Performed By: #### L 500.2500, L100.0100 ####[facility] [address] [place], [address] Eosinophils/100 WBC (Bld) 4.7 % Normal 0-5 [facility] Comment on above: Performed By: #### L 500.2500, L100.0100 ####[facility] [address] [place], [address] Erythrocyte distribution width (RBC) [Ratio] 15.6 % High 11.6-14.6 [facility] Comment on above: Performed By: #### L 500.2500, L100.0100 ####[facility] [address] [place], [address] Hematocrit (Bld) [Volume fraction] 33.6 % Low 37-47 [facility] Comment on above: Performed By: #### L 500.2500, L100.0100 ####[facility] [address] [place], [address] Hemoglobin (Bld) [Mass/Vol] 10.7 g/dL Low 12.0-15.0 [facility] Comment on above: Performed By: #### L 500.2500, L100.0100 ####[facility] [address] [place], [address] IG% 1.700 High 0.0-0.9 [facility] Comment on above: Result Comment: IG% - Immature Granulocytes (promyelocytes, myelocytes and metamyelocytes) > 1% indicates that a LEFT SHIFT is Present. Performed By: #### L 500.2500, L100.0100 ####[facility] [address] [place], [address] Lymphocytes/100 WBC (Bld) 18.7 % Low 19-41 [facility] Comment on above: Performed By: #### L 500.2500, L100.0100 ####[facility] [address] [place], [address] MCH (RBC) [Entitic mass] 27.3 pg Normal 27.0-32.0 [facility] Comment on above: Performed By: #### L 500.2500, L100.0100 ####[facility] [address] [place], [address] MCHC (RBC) [Mass/Vol] 31.8 g/dL Low 32-36 [facility] Comment on above: Performed By: #### L 500.2500, L100.0100 ####[facility] [address] [place], [address] MCV (RBC) [Entitic vol] 85.7 fL Normal 81-99 [facility] Comment on above: Performed By: #### L 500.2500, L100.0100 ####[facility] [address] [place], [address] Monocytes/100 WBC (Bld) 7.3 % Normal 0-10 [facility] Comment on above: Performed By: #### L 500.2500, L100.0100 ####[facility] [address] [place], [address] Neutrophils/100 WBC (Bld) 67.3 % Normal 47-70 [facility] Comment on above: Performed By: #### L 500.2500, L100.0100 ####[facility] [address] [place], [address] Nucleated RBC (Bld) [#/Vol] 0 10*3/uL Normal 0-5 [facility] Comment on above: Performed By: #### L 500.2500, L100.0100 ####[facility] [address] [place], [address] Platelet mean volume (Bld) [Entitic vol] 10.6 fL Normal 6.2-12.0 [facility] Comment on above: Performed By: #### L 500.2500, L100.0100 ####[facility] [address] [place], [address] Platelets (Bld) [#/Vol] 230 10*3/uL Normal 150-450 [facility] Comment on above: Performed By: #### L 500.2500, L100.0100 ####[facility] [address] [place], [address] RBC (Bld) [#/Vol] 3.92 10*6/uL Low 4.2-5.4 [facility] Comment on above: Performed By: #### L 500.2500, L100.0100 ####[facility] [address] [place], [address] RDW SD 49.2 fl High 35.1-43.9 [facility] Comment on above: Performed By: #### L 500.2500, L100.0100 ####[facility] [address] [place], [address] WBC (Bld) [#/Vol] 9.6 10*3/uL Normal 4.4-11.0 [facility] Comment on above: Performed By: #### L 500.2500, L100.0100 ####[facility] [address] 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 Normal [facility] ,Urineon 12-18-2021 Beta HCG ( test) Ql (U) Negative Normal [facility] Comment on above: Order Comment: 810 CLEAN CATCH Result Comment: Very dilute urine specimens, as indicated by a low specific gravity, may not contain claim representative levels of hCG. If is still suspected, a first morning urine specimen should be collected 48 hours later and tested. Performed By: #### L 400.7600, L400.0001 #### [facility] [address] [place], [address] Urinalysis, Completeon 12-18 BACTERIA 4+ /hpf Normal None Seen [facility] Comment on above: Order Comment: 810 CLEAN CATCH Performed By: #### L 400.7600, L400.0001 #### [facility] [address] [place], [address] EPI,SQUAMOUS 10-25 SEEN Normal 5-10 [facility] Comment on above: Order Comment: 810 CLEAN CATCH Performed By: #### L 400.7600, L400.0001 #### [facility] [address] [place], [address] RBC 25-50 SEEN Normal 0-5 [facility] Comment on above: Order Comment: 810 CLEAN CATCH Performed By: #### L 400.7600, L400.0001 #### [facility] [address] [place], [address] WBC >100 SEEN Normal 0-5 [facility] Comment on above: Order Comment: 810 CLEAN CATCH Performed By: #### L 400.7600, L400.0001 #### [facility] [address] [place], [address] Mucus Ql (Urine sed) 0 SEEN Normal [facility] Comment on above: Order Comment: 810 CLEAN CATCH Performed By: #### L 400.7600, L400.0001 #### [facility] [address] [place], [address] Absolute lymphocyte counton 12-17-2021 Lymphocytes Auto (Unsp spec) [#/Vol] 1.79 10*3/uL 0.83-4.51 [facility] Work Phone: [phone] Basophil percentageon 2021 Basophils/100 WBC (Bld) 0.3 % 0-1 [facility] Work Phone: [phone] Chloride [Moles/Vol] 109 mmol/L 98-107 [facility] Work Phone: [phone] Eosinophils/100 WBC (Bld) 4.7 % 0-5 [facility] Work Phone: [phone] Glucose [Mass/Vol] 106 mg/dL 74-106 [facility] Work Phone: Comment on above: Fasting Glucose resu lt from 100 to 125 mg/dL suggests IMPAIRED HOMEOSTASIS per A.D.A. criteria. Neutrophils (Bld) [#/Vol] 6.4 10*3/uL 2.0-7.7 [facility] Work Phone: Neutrophils/100 WBC (Bld) 67.3 % 47-70 [facility] Work Phone: Potassium [Moles/Vol] 3.8 mmol/L 3.5-5.1 [facility] Work Phone: [phone] Sodium [Moles/Vol] 141 mmol/L 136-145 [facility] Work Phone: WBC (Bld) [#/Vol] 9.6 10*3/uL 4.4-11.0 [facility] Work Phone: Basophil percentage >100 SEEN /hpf 0-5 [facility] Work Phone: Bilirubin Test strip Ql (U)o n 12-17-2021 Bilirubin Ql (U) Negative Negative [facility] Work Phone: Blood erythrocytes count (nu mber/volume)on 12-17-2021 RBC (Bld) [#/Vol] 3.92 10*6/uL 4.2-5.4 [facility]: Blood hemoglobin measurement (mass/volume)on 12-17-2021 Hemoglobin (Bld) [Mass/Vol] 10.7 g/dL 12.0-15.0 [facility] Work Phone: Blood lymphocytes/100 leukoc yteson 12-17-2021 Lymphocytes/100 WBC (Bld) 18.7 % 19-41 [facility] Work Phone: Blood monocytes/100 leukocyt eson 12-17-2021 Monocytes/100 WBC (Bld) 7.3 % 0-10 [facility] Work Phone: Blood platelet mean volumeon 12-17-2021 Platelet mean volume (Bld) [Entitic vol] 10.6 fL 6.2-12.0 [facility] Work Phone: Determination of erythrocyte mean corpuscular volume (MCV)on 12-17-2021 MCV (RBC) [Entitic vol] 85.7 fL 81-99 [facility] Work Phone: Hematocrit Auto (Bld) [Volum e fraction]on 12-17-2021 Hematocrit (Bld) [Volume fraction] 33.6 % 37-47 [facility] Work Phone: Ketones Test strip Ql (U)on 12-17-2021 Ketones Ql (U) Negative Negative [facility] Work Phone: Laboratory - Chemistry and C hemistry - challengeon 12-17-2021 CO2 [Moles/Vol] 26.0 mmol/L 21.0-32.0 [facility] Work Phone: Urea nitrogen/Creatinine [Mass ratio] 14.6 mg/mg 10-20 [facility] Work Phone: HCG ( test) Ql (U) Negative [facility] Work Phone: Comment on above: Very dilute urine sp ecimens, as indicated by a low specificgravity, may not contain claim representative levels of hCG. If is still suspected, a first morning urinespecimen should be collected 48 hours later and tested. Laboratory - Hematology and Cell countson 12-17-2021 Erythrocyte distribution width (RBC) [Entitic vol] 49.2 fL 35.1-43.9 [facility] Work Phone: Erythrocyte distribution width (RBC) [Ratio] 15.6 % 11.6-14.6 [facility] Work Phone: Immature granulocytes/100 WBC (Bld) 1.700 % 0.0-0.9 [facility] Work Phone: Comment on above: IG% - Immature Granu locytes (promyelocytes, myelocytes and metamyelocytes) > 1% indicates that a LEFT SHIFT is Present. MCH (RBC) [Entitic mass] 27.3 pg 27.0-32.0 [facility] Work Phone: Nucleated RBC/100 WBC (Bld) [Ratio] 0 % 0-5 [facility] Work Phone: MCHC Auto (RBC) [Mass/Vol]on 12-17-2021 MCHC (RBC) [Mass/Vol] 31.8 g/dL 32-36 [facility] Work Phone: Mucus LM Ql (Urine sed)on Mucus Ql (Urine sed) 0 SEEN /hpf [facility] Work Phone: Nitrite Test strip Ql (U)on 12-17-2021 Nitrite Ql (U) Negative Negative [facility] Work Phone: No Panel Informationon 12-17 Estimated Creatinine Clearance Calc 41.40 ml/min [facility] Work Phone: Estimated GFR (MDRD) Amer 56 mL/min >60 [facility] Work Phone: Comment on above: GFR Calc Estimated GFR (MDRD) Non-Af Amer 46 mL/min >60 [facility] Work Phone: Comment on above: Non- GFR Calc Platelets bldon 12-17-2021 Platelets (Bld) [#/Vol] 230 10*3/uL 150-450 [facility] Work Phone: Protein Test strip Ql (U)on 12-17-2021 Protein Ql (U) 30 mg/dl Negative [facility] Work Phone: Serum or plasma calcium brennan urement (mass/volume)on 12-17-2021 Calcium [Mass/Vol] 10.9 mg/dL 8.5-10.1 [facility] Work Phone: Serum or plasma creatinine m easurement (mass/volume)on 12-17-2021 Creatinine [Mass/Vol] 1.30 mg/dL 0.55-1.02 [facility] Work Phone: Comment on above: The validity of the calculated GFR & GFRAA in patients over 70 years has not been determined. Clinical correlation is essential. Serum or plasma urea nitroge n measurement (mass/volume)on 12-17-2021 Urea nitrogen [Mass/Vol] 19 mg/dL 7-18 [facility] Work Phone: Squamous epithelial cells de tection in urine sediment by light microscopyon 12-17-2021 Epithelial cells.squamous LM Ql (Urine sed) 10-25 SEEN /hpf 5-10 [facility] Work Phone: Thin prep Papanicolaou smear with manual screeningon 12-17-2021 Thin prep Papanicolaou smear with manual screening 6 5-15 [facility] Work Phone: Urine blood detectionon 12-01 RBC Ql (U) 250 /ul Negative [facility] Work Phone: RBC Ql (U) 25-50 SEEN /hpf 0-5 [facility] Work Phone: Urine clarityon 12-17-2021 Clarity (U) Sl. Cloudy Clear [facility] Work Phone: Urine color determinationon 12-17-2021 Color (U) Yellow Yellow [facility] Work Phone: Urine glucose detectionon Glucose Ql (U) Normal mg/dl Normal [facility] Work Phone: Urine leukocyte esterase det ection by dipstickon 12-17-2021 Leukocyte esterase Test strip Ql (U) 500 /ul Negative [facility] Work Phone: Urine pHon 12-17-2021 pH (U) 6.0 [pH] 5.0 - 8.0 [facility] Work Phone: Urine sediment bacteria coun t by microscopy (number/high power field)on 12-17-2021 Bacteria LM.HPF (Urine sed) [#/Area] 4 /[HPF] None Seen [facility] Work Phone: Urine specific gravity measu rementon 12-17-2021 Specific gravity (U) [Rel density] 1.015 1.002-1.030 [facility] Work Phone: Urobilinogen Auto test strip Ql (U)on 12-17-2021 Urobilinogen Ql (U) Normal mg/dl Normal [facility] Work Phone: Absolute lymphocyte counton 10-11-2021 Lymphocytes Auto (Unsp spec) [#/Vol] 1.25 10*3/uL 0.83-4.51 [facility] Work Phone: Basic Metabolic Profile (BMP )on 10-11-2021 BUN/CRE 16.9 RATIO Normal 10-20 [facility] Comment on above: Performed By: #### L 100.0100, L500.2500 #### [facility] [address] [place], [address] CA,Total 10.5 mg/dL High 8.5-10.1 [facility] Comment on above: Performed By: #### L 100.0100, L500.2500 #### [facility] [address] [place], [address] Chloride [Moles/Vol] 107 mmol/L Normal 98-107 [facility] Comment on above: Performed By: #### L 100.0100, L500.2500 #### [facility] [address] [place], [address] CO2 [Moles/Vol] 27.0 mmol/L Normal 21.0-32.0 [facility] Comment on above: Performed By: #### L 100.0100, L500.2500 #### [facility] [address] [place], [address] Creatinine [Mass/Vol] 0.83 mg/dL Normal 0.55-1.02 [facility] Comment on above: Result Comment: The validity of the calculated GFR GFRAA in patients over 70 years has not been determined. Clinical correlation is essential. Performed By: #### L 100.0100, L500.2500 #### [facility] [address] [place], [address] ECRCL 64.85 ml/min Normal [facility] Comment on above: Performed By: #### L 100.0100, L500.2500 #### [facility] [address] [place], [address] EST GFR - AA 94 mL/min Normal >60 [facility] Comment on above: Result Comment: Afri can Nicaraguan GFR Calc Performed By: #### L 100.0100, L500.2500 #### [facility] [address] [place], [address] GAP 2 Low 5-15 [facility] Comment on above: Performed By: #### L 100.0100, L500.2500 #### [facility] [address] [place] [place], [address] GFR/1.73 sq M.predicted among non-blacks MDRD (S/P/Bld) [Vol rate/Area] 78 mL/min/{1.73_m2} Normal >60 [facility] Comment on above: Result Comment: Non- GFR Calc Performed By: #### L 100.0100, L500.2500 #### [facility] [address] [place] [place], [address] Glucose [Mass/Vol] 115 mg/dL High 74-106 [facility] Comment on above: Result Comment: Fast ing Glucose result from 100 to 125 mg/dL suggests IMPAIRED HOMEOSTASIS per A.D.A. criteria. Performed By: #### L 100.0100, L500.2500 #### [facility] [address] [place], [address] Potassium [Moles/Vol] 3.9 mmol/L Normal 3.5-5.1 [facility] Comment on above: Performed By: #### L 100.0100, L500.2500 #### [facility] [address] [place], [address] Sodium [Moles/Vol] 136 mmol/L Normal 136-145 [facility] Comment on above: Performed By: #### L 100.0100, L500.2500 #### [facility] [address] [place], [address] Urea nitrogen [Mass/Vol] 14 mg/dL Normal 7-18 [facility] Comment on above: Performed By: #### L 100.0100, L500.2500 #### [facility] [address] [place], [address] Basophil percentageon 2021 Basophils/100 WBC (Bld) 0.2 % 0-1 [facility] Work Phone: [phone] Chloride [Moles/Vol] 107 mmol/L 98-107 [facility]: [phone] Eosinophils/100 WBC (Bld) 0.5 % 0-5 [facility] Work Phone: Glucose [Mass/Vol] 115 mg/dL 74-106 [facility] Work Phone: [phone] Comment on above: Fasting Glucose resu lt from 100 to 125 mg/dL suggests IMPAIRED HOMEOSTASIS per A.D.A. criteria. Neutrophils (Bld) [#/Vol] 14.1 10*3/uL 2.0-7.7 [facility] Work Phone: Neutrophils/100 WBC (Bld) 86.1 % 47-70 [facility] Work Phone: Potassium [Moles/Vol] 3.9 mmol/L 3.5-5.1 [facility]: [phone] Sodium [Moles/Vol] 136 mmol/L 136-145 [facility] Work Phone: WBC (Bld) [#/Vol] 16.4 10*3/uL 4.4-11.0 [facility] Work Phone: Blood erythrocytes count (nu mber/volume)on 10-11-2021 RBC (Bld) [#/Vol] 4.31 10*6/uL 4.2-5.4 [facility] Work Phone: Blood hemoglobin measurement (mass/volume)on 10-11-2021 Hemoglobin (Bld) [Mass/Vol] 11.4 g/dL 12.0-15.0 [facility] Work Phone: [phone] Blood lymphocytes/100 leukoc yteson 10-11-2021 Lymphocytes/100 WBC (Bld) 7.6 % 19-41 [facility] Work Phone: Blood monocytes/100 leukocyt eson 10-11-2021 Monocytes/100 WBC (Bld) 5.1 % 0-10 [facility] Work Phone: Blood platelet mean volumeon 10-11-2021 Platelet mean volume (Bld) [Entitic vol] 10.8 fL 6.2-12.0 [facility] Work Phone: CBC W/Diff, Automatedon 10-01 Absolute Lymph 1.25 X10 3/uL Normal 0.83-4.51 [facility] Comment on above: Performed By: #### L 100.0100, L500.2500 #### [facility] [address] [place], [address] Absolute Neut 14.1 X10 3/uL High 2.0-7.7 [facility] Comment on above: Performed By: #### L 100.0100, L500.2500 #### [facility] [address] [place], [address] Basophils/100 WBC (Bld) 0.2 % Normal 0-1 [facility] Comment on above: Performed By: #### L 100.0100, L500.2500 #### [facility] [address] [place], [address] Eosinophils/100 WBC (Bld) 0.5 % Normal 0-5 [facility] Comment on above: Performed By: #### L 100.0100, L500.2500 #### [facility] [address] [place], [address] Erythrocyte distribution width (RBC) [Ratio] 15.7 % High 11.6-14.6 [facility] Comment on above: Performed By: #### L 100.0100, L500.2500 #### [facility] [address] [place], [address] Hematocrit (Bld) [Volume fraction] 36.4 % Low 37-47 [facility] Comment on above: Performed By: #### L 100.0100, L500.2500 #### [facility] [address] [place] [place], [address] Hemoglobin (Bld) [Mass/Vol] 11.4 g/dL Low 12.0-15.0 [facility] Comment on above: Performed By: #### L 100.0100, L500.2500 #### [facility] [address] [place], [address] IG% 0.500 Normal 0.0-0.9 [facility] Comment on above: Result Comment: IG% - Immature Granulocytes (promyelocytes, myelocytes and metamyelocytes) > 1% indicates that a LEFT SHIFT is Present. Performed By: #### L 100.0100, L500.2500 #### [facility] [address] [place], [address] Lymphocytes/100 WBC (Bld) 7.6 % Low 19-41 [facility] Comment on above: Performed By: #### L 100.0100, L500.2500 #### [facility] [address] [place], [address] MCH (RBC) [Entitic mass] 26.5 pg Low 27.0-32.0 [facility] Comment on above: Performed By: #### L 100.0100, L500.2500 #### [facility] [address] [place], [address] MCHC (RBC) [Mass/Vol] 31.3 g/dL Low 32-36 [facility] Comment on above: Performed By: #### L 100.0100, L500.2500 #### [facility] [address] [place], [address] MCV (RBC) [Entitic vol] 84.5 fL Normal 81-99 [facility] Comment on above: Performed By: #### L 100.0100, L500.2500 #### [facility] [address] [place], [address] Monocytes/100 WBC (Bld) 5.1 % Normal 0-10 [facility] Comment on above: Performed By: #### L 100.0100, L500.2500 #### [facility] [address] [place], [address] Neutrophils/100 WBC (Bld) 86.1 % High 47-70 [facility] Comment on above: Performed By: #### L 100.0100, L500.2500 #### [facility] [address] [place], [address] Nucleated RBC (Bld) [#/Vol] 0 10*3/uL Normal 0-5 [facility] Comment on above: Performed By: #### L 100.0100, L500.2500 #### [facility] [address] [place], [address] Platelet mean volume (Bld) [Entitic vol] 10.8 fL Normal 6.2-12.0 [facility] Comment on above: Performed By: #### L 100.0100, L500.2500 #### [facility] [address] [place], [address] Platelets (Bld) [#/Vol] 182 10*3/uL Normal 150-450 [facility] Comment on above: Performed By: #### L 100.0100, L500.2500 #### [facility] [address] [place], [address] RBC (Bld) [#/Vol] 4.31 10*6/uL Normal 4.2-5.4 [facility] Comment on above: Performed By: #### L 100.0100, L500.2500 #### [facility] [address] [place], [address] RDW SD 48.7 fl High 35.1-43.9 [facility] Comment on above: Performed By: #### L 100.0100, L500.2500 #### [facility] [address] [place], [address] WBC (Bld) [#/Vol] 16.4 10*3/uL High 4.4-11.0 [facility] Comment on above: Performed By: #### L 100.0100, L500.2500 #### [facility] [address] [place], [address] Chest 1 View (Portable)on Chest 1 View (Portable) [facility] Services [address] [facility] [place] [address] Chest 1 View (Portable) MR#: [id number] Acct: [id number] Name: YOHANNES LANDRY Rep #: [id number] : 1970 F 51 From: Debra Husain MD PCP: Care Physician,No Primary Status: REG ER Study: Chest 1 View (Portable) Date of Exam: 10/11/21 Exam# [id number] Ordering Dr: Ashish Addison DO EXAM: XR CHEST, 1 VIEW CLINICAL INDICATION: cough TECHNIQUE: Frontal view of the chest. This report was created using [employer] report generation technology. COMPARISON: None. FINDINGS: LUNGS [...] Ashish Addison DO; No Primary Care Physician Senior Radiation Protection Technician: Signed Normal [facility] Determination of erythrocyte mean corpuscular volume (MCV)on 10-11-2021 MCV (RBC) [Entitic vol] 84.5 fL 81-99 [facility] Work Phone: Emergency Department Summary on 10-11-2021 Emergency Department Summary [facility] Medical Records Department [address] [place] [address] Emergency Department Summary 10/11/21 MR#: [id number] Acct: [id number] Name: YOHANNES LANDRY Rep #: [id number] : 1970 51 From: Ashish Harvey PCP: [...] 101 prior to arrival. Denies any dyspnea. [facility] Medical History Kidney stones Home Medications naproxen [...] Laboratory Resu (more content not included)... Normal [facility] Hematocrit Auto (Bld) [Volum e fraction]on 10-11-2021 Hematocrit (Bld) [Volume fraction] 36.4 % 37-47 [facility] Work Phone: Laboratory - Chemistry and C hemistry - challengeon 10-11-2021 CO2 [Moles/Vol] 27.0 mmol/L 21.0-32.0 [facility] Work Phone: Urea nitrogen/Creatinine [Mass ratio] 16.9 mg/mg 10-20 [facility] Work Phone: Laboratory - Hematology and Cell countson 10-11-2021 Erythrocyte distribution width (RBC) [Entitic vol] 48.7 fL 35.1-43.9 [facility] Work Phone: Erythrocyte distribution width (RBC) [Ratio] 15.7 % 11.6-14.6 [facility] Work Phone: Immature granulocytes/100 WBC (Bld) 0.500 % 0.0-0.9 [facility] Work Phone: Comment on above: IG% - Immature Granu locytes (promyelocytes, myelocytes and metamyelocytes) > 1% indicates that a LEFT SHIFT is Present. MCH (RBC) [Entitic mass] 26.5 pg 27.0-32.0 [facility] Work Phone: [phone] Nucleated RBC/100 WBC (Bld) [Ratio] 0 % 0-5 [facility] Work Phone: M101.0111on 10-11-2021 M101.0111 *Negative [...] for Influenza A/B Antigen (See Note) Normal [facility] Comment on above: Performed By: #### M 101.0111 #### [facility] [address] [place], [place], [address] MCHC Auto (RBC) [Mass/Vol]on 10-11-2021 MCHC (RBC) [Mass/Vol] 31.3 g/dL 32-36 [facility] Work Phone: No Panel Informationon 10-11 Estimated Creatinine Clearance Calc 64.85 ml/min [facility] Work Phone: Estimated GFR (MDRD) Amer 94 mL/min >60 [facility] Work Phone: Comment on above: GFR Calc Estimated GFR (MDRD) Non-Af Amer 78 mL/min >60 [facility] Work Phone: Comment on above: Non- GFR Calc SARS-CoV-2 & FLU Antigen (Rapid) [facility] Work Phone: Platelets bldon 10-11-2021 Platelets (Bld) [#/Vol] 182 10*3/uL 150-450 [facility] Work Phone: Serum or plasma calcium brennan urement (mass/volume)on 10-11-2021 Calcium [Mass/Vol] 10.5 mg/dL 8.5-10.1 [facility] Work Phone: Serum or plasma creatinine m easurement (mass/volume)on 10-11-2021 Creatinine [Mass/Vol] 0.83 mg/dL 0.55-1.02 Wyatt ster [facility] Work Phone: Comment on above: The validity of the calculated GFR & GFRAA in patients over 70 years has not been determined. Clinical correlation is essential. Serum or plasma urea nitroge n measurement (mass/volume)on 10-11-2021 Urea nitrogen [Mass/Vol] 14 mg/dL 7-18 [facility] Work Phone: Thin prep Papanicolaou smear with manual screeningon 10-11-2021 Thin prep Papanicolaou smear with manual screening 2 5-15 [facility] Work Phone: Emergency Department Summary on 08-31-2021 Emergency Department Summary [facility] Medical Records Department [address] [place] [address] Emergency Department Summary 08/30/21 MR#: [id number] Acct: [id number] Name: YOHANNES LANDRY Rep #: [id number] : 1970 51 From: Quoc Martínez DO [...] is dying. She does not have a machine container washer. She notes frequent urination which is not abnormal for her. [facility] Medical History Kidney stones Home Medications hydrocodone-acetami [...] I am advising her to follow-up with TELE MARKETING EXECUTIVE. Discharge Plan Triage Chief Complaint: Complaint ED [...] RF: 0 (more content not included)... Normal [facility] Emergency Department Summary on 07-02-2021 Emergency Department Summary [facility] Medical Records Department [address] [place] [address] Emergency Department Summary 07/02/21 MR#: [id number] Acct: [id number] Name: YOHANNES LANDRY Corey Rep #: [id number] : 1970 50 From: Ashish Harvey PCP: Care Physician,No Primary Status:DEP ER Location: ED HPI History of Present Illness Chief Complaint: Upper Extremity Injury Informant: patient Narrative Narrative: Kjlot-lmsa-gwpdyhlr female presents valuation paresthesias bilateral hands right [...] right greater than left, slight weakness in superintendent institution strength on the right side. Positive Tinel's [...] you h (more content not included)... Normal [facility] Emergency Department Summary on 01-07-2021 Emergency Department Summary [facility] Medical Records Department [address] [place] [address] Emergency Department Summary 01/07/21 MR#: [id number] Acct: [id number] Name: YOHANNES LANDRY Rep #: [id number] : 1970 50 From: Michael Andres MD [...] penicillin, Naprosyn, and a short course of [place]. Patient's prescription reporting record was clean. Patient [...] your Primary Care Provider. Call [facility] ([phone]) or report to the closest Emergency Room. Call 911 if necessary. 01/07/21 5234 Cosigner Signature (if applicable): CC: No Primary Care Physician Signed Normal [facility] CNOVon 08-23-2019 CNOV Office Visit ([facility]) ---- YOHANNES LANDRY ([id number]) 1970 F Date Time Provider Department 08/23/19 5:30 PM MISSY CABRAL (DANCE ARTIST) [facility] During your visit today, we recorded [...] scabbing of face. Patient states use of uosd-cbm-zwwmwik itch medication and cream with slight symptom [...] of care. This note was generated using orangutrans software. It may contain errors in wording, punctuation, or spelling. Missy Cabral APRN.PRASANTH Cabral APRN.CNP 08/23/2019 5:43 PM Signed [facility] [address] [place], [place] [address] Emergency Department Diagnosis: Assessment CELLULITIS: Your exam [...] 12/09/2005 Other instructions from your clinician: [facility] [address] [place], [place] [address] Emergency Department Diagnosis: Assessment CELLULITIS: Your exam [...] Status:Closed by MARIANNA ARNDT.MISSY RADER on 08/23/19 [facility] PROGRESSon 08-23-2019 PROGRESS HNO ID: [id number] Author: Missy Mora) Marianna Service: ? Author [...] scabbing of face. Patient states use of zmrg-yqx-nihjtcr itch medication and cream with slight symptom [...] of care. This note was generated using orangutrans software. It may contain errors in wording, punctuation, or spelling. Missy Cabral APRN.PRASANTH Normal [facility] CNOVon 02-28-2019 CNOV Office Visit ([facility]) ---- YOHANNES LANDRY ([id number]) 1970 F Date Time Provider Department 02/28/19 8:00 PM [facility] During your visit today, we recorded the following information about you: Temperature Pulse Respiration Blood pressure 97.5 degrees 86/minute 18/minute 128/80 Weight 83.5 kg Ashly Granda APRN.PRASANTH 02/28/2019 8:08 PM Signed Subjective The history is provided by the patient. No cigarette maker was used. HPI Yohannes Landry is a [...] file Gets together: Not on file Attends uatsdin service: Not on file Active member of [...] have confirmed and edited as necessary, the [facility] Review of Systems Constitutional: Negative for chills [...] Status:Closed by ASHLY GRANDA CNP on 02/28/19 [facility] PROGRESSon 02-28-2019 PROGRESS HNO ID: [id number] Author: Ashly Granda Service: ? Author Type: Nurse Practitioner Type: Progress Notes Filed: 02/28/2019 8:08 PM Note Text: Subjective The history is provided by the patient. No cigarette maker was used. HPI Yohannes Landry is a [...] file Gets together: Not on file Attends uatsdin service: Not on file Active member of [...] have confirmed and edited as necessary, the [facility] Review of Systems Constitutional: Negative for chills [...] detail warranting prompt ER evaluation. Ashly Granda APRN.DANCE ARTIST Normal [facility] No Panel Information SARS-CoV-2 & FLU Antigen (Rapid) [facility] Work Phone: Vital Signs Date Time Vital Sign Value Performing Clinician Mitesh sun 10-16-2024 02:45-0400 Body temperature 97.1 [degF] No Primary Care Physician [facility] 10-16-2024 02:45-0400 Diastolic blood pressure 69 mm[Hg] No Primary Care Physician [facility] 10-16-2024 02:45-0400 Heart rate 78 /min No Primary Care Physician [facility] 10-16-2024 02:45-0400 Respiratory rate 16 /min No Primary Care Physician [facility] 10-16-2024 02:45-0400 SaO2% (BldA) [Mass fraction] 99 % No Primary Care Physician [facility] 10-16-2024 02:45-0400 Systolic blood pressure 124 mm[Hg] No Primary Care Physician [facility] 10-15-2024 22:21-0400 Body height 157.48 cm No Primary Care Physician [facility] 10-15-2024 22:21-0400 Body mass index (BMI) [Ratio] 27.8 kg/m2 No Primary Care Physician [facility] 10-15-2024 22:21-0400 Body weight 68.9 kg No Primary Care Physician [facility] 12-18-2021 00:27-0400 Diastolic blood pressure 89 mm[Hg] [facility] Work Phone: 12-18-2021 00:27-0400 Heart rate 98 /min [facility] Work Phone: 12-18-2021 00:27-0400 Respiratory rate 16 /min [facility] Work Phone: 12-18-2021 00:27-0400 SaO2% (BldA) [Mass fraction] 98 % [facility] Work Phone: 12-18-2021 00:27-0400 Systolic blood pressure 144 mm[Hg] [facility] Work Phone: 12-17-2021 22:21-0400 Body height 157.48 cm [facility] Work Phone: 12-17-2021 22:21-0400 Body mass index (BMI) [Ratio] 27.4 kg/m2 [facility] Work Phone: 12-17-2021 22:21-0400 Body temperature 99.3 [degF] [facility] Work Phone: 12-17-2021 22:21-0400 Body weight 68.03 kg [facility] Work Phone: 10-11-2021 02:58-0400 Body temperature 98.4 [degF] No Primary Care Physician [facility] Work Phone: 10-11-2021 02:58-0400 Diastolic blood pressure 73 mm[Hg] No Primary Care Physician [facility] Work Phone: 10-11-2021 02:58-0400 Heart rate 107 /min No Primary Care Physician [facility] Work Phone: 10-11-2021 02:58-0400 Respiratory rate 15 /min No Primary Care Physician [facility] Work Phone: 10-11-2021 02:58-0400 SaO2% (BldA) [Mass fraction] 97 % No Primary Care Physician [facility] Work Phone: 10-11-2021 02:58-0400 Systolic blood pressure 133 mm[Hg] No Primary Care Physician [facility] Work Phone: 10-11-2021 00:39-0400 Body height 157.48 cm No Primary Care Physician [facility] Work Phone: 10-11-2021 00:39-0400 Body mass index (BMI) [Ratio] 29.5 kg/m2 No Primary Care Physician [facility] Work Phone: 10-11-2021 00:39-0400 Body weight 73.1 kg No Primary Care Physician [facility] Work Phone: 08-30-2021 23:24-0400 Heart rate 84 /min No Primary Care Physician [facility] Work Phone: 08-30-2021 23:24-0400 Respiratory rate 15 /min No Primary Care Physician [facility] Work Phone: 08-30-2021 23:24-0400 SaO2% (BldA) [Mass fraction] 99 % No Primary Care Physician [facility] Work Phone: 08-30-2021 21:18-0400 Body height 157.48 cm No Primary Care Physician [facility] Work Phone: 08-30-2021 21:18-0400 Body mass index (BMI) [Ratio] 28.3 kg/m2 No Primary Care Physician [facility] Work Phone: 08-30-2021 21:18-0400 Body temperature 99.1 [degF] No Primary Care Physician [facility] Work Phone: 08-30-2021 21:18-0400 Body weight 70.3 kg No Primary Care Physician [facility] Work Phone: 08-30-2021 21:18-0400 Diastolic blood pressure 70 mm[Hg] No Primary Care Physician [facility] Work Phone: 08-30-2021 21:18-0400 Systolic blood pressure 135 mm[Hg] No Primary Care Physician [facility] Work Phone: 07-02-2021 16:59-0500 Body mass index (BMI) [Ratio] 29.5 kg/m2 No Primary Care Physician [facility] Work Phone: 07-02-2021 16:59-0500 Body temperature 97.5 [degF] No Primary Care Physician [facility] Work Phone: 07-02-2021 16:59-0500 Body weight 73.1 kg No Primary Care Physician [facility] Work Phone: 07-02-2021 16:59-0500 Diastolic blood pressure 68 mm[Hg] No Primary Care Physician [facility] Work Phone: 07-02-2021 16:59-0500 Heart rate 99 /min No Primary Care Physician [facility] Work Phone: 07-02-2021 16:59-0500 Respiratory rate 16 /min No Primary Care Physician [facility] Work Phone: 07-02-2021 16:59-0500 SaO2% (BldA) [Mass fraction] 97 % No Primary Care Physician [facility] Work Phone: 07-02-2021 16:59-0500 Systolic blood pressure 117 mm[Hg] No Primary Care Physician [facility] Work Phone: Encounters Encounter Date Encounter Type Care Provider Facility Start: 10-16-2024 Evaluation and management of inpatient Dr. Peng Neville MD -Progressive Care Unit Work Phone: Start: 12-17-2021 End: 12-18-2021 Emergency department [facility] [facility] Start: 10-11-2021 End: 10-11-2021 Emergency department patient visit No Primary Care Physician [facility] Start: 08-30-2021 End: 08-30-2021 Emergency department patient visit No [facility] Start: 08-12-2021 End: 08-12-2021 Patient encounter procedure No Primary Care Physician [facility] Start: 07-02-2021 End: 07-02-2021 Emergency department patient visit No [facility] Procedures Date Procedure Procedure Detail [...] Date Care Activity Detail Author Start: 10-16-2024 [facility] Start: 10-16-2024 Hospital admission, emergency, from emergency room, medical nature [facility] Start: 12-18-2021 [facility] Work Phone: Start: 10-11-2021 [facility] Work Phone: Bacteria identified in Urine by Culture Urine Culture [facility] Work Phone: Patient Education [facility] Work Phone: Patient referral [facility] Work Phone: Urine culture [facility] Payers Date Payer Category Payer Policy ID Medicaid [id number] Private Health Insurance [id number] Private Health Insurance TOÑO LAMB [id number] Self-pay SELF PAY INSURANCE [id number] Social History Date Type Detail Facility [facility] Work Phone: Start: 08-30-2021 End: 12-17-2021 Tobacco smoking status NHIS Unknown if ever smoked [facility] Work Phone: Start: 1970 Sex Assigned At Female [facility] Start: 10-15-2024 Tobacco smoking stat us NHIS Never smoked tobacco (finding) [facility] Discharge summary 10-16-2024 Note Date & Type Note Facility 10-16-2024 Discharge summary [facility] Radiology Diagnostic study note 10-16-2024 Note Date & Type Note Facility 10-16-2024 Radiology Diagnostic study note [facility] Imaging Services [address] [place], [place] [address] Abdomen/Pelvis without Cont MR#: [id number] Acct: [id number] Name: YOHANNES LANDRY Rep #: [id number] : 1970 F 54 From: Paulina Arias MD PCP: Care Physician,No Primary Status: REG ER Study:Abdomen/Pelvis without Cont Date of Exa m: 10/15/24 Exam# [id number] Ordering Dr: Annemarie Brown MD PROCEDURE: ABDOMEN/PELVIS [...] dependent/layering faintly dense small calculi. [facility]: Dr. Ian Brown MD; No Primary Care Physician ~ Senior Radiation Protection Technician: Signed [facility] Discharge summary 10-15-2024 Note Date & Type Note Facility 10-15-2024 Discharge summary Note Date/Time October 16, 2024 2:21am [facility] Medical Records Department [address] [place] [address] Emergency Department Summary 10/15/24 MR#: [id number] Acct: [id number] Name: YOHANNES LNADRY Rep #:[id number] : 1970 54 From: [...] 11. BUN and creatinine 21 and 1.63. Emikdek18. Serum test negative. UA shows no red [...] 73.5 H Lymph % (Auto) 17.2 L [place] % (Auto) 5.2 Eos % (Auto) 3.1 [...] Clarity Cloudy Urine pH 6.5 Ur Specific [place] 1.015 Urine Protein 100 H Urine Glucose [...] dependent/layering faintly dense small calculi. Reading Location: [place] [address] Discharge Plan Triage Chief Complaint: Flank Pain [...] Primary [Primary Care Provider] - Print Language: Thai Disposition Disposition: Acute [facility] What to do if you have Problems For any increased pain, shortness of breath, bleeding, nausea or vomiting, chestpain, or any unexpected problems, contact your Primary Care Provider. Call [facility] ([phone]) or report to the closest Emergency Room. Call 911 if necessary. 10/16/24220 <Electronically signed by Ian Brown MD> Cosigner Signature (if applicable): CC: No Primary Care Physician ~ Signed [facility] Work Phone: Evaluation note Note Date & Type Note Facility Evaluation note No assessment information availa ble [facility] Work Phone: Reason for referral (narrative) Note Date & Type Note Facility Reason for referral (narrative) No reason for referral information available [facility] Work Phone: Summary Purpose Family History No Family History Records FoundNo Family History Records Found Advance Directives Advance Directive Response Recorded Date/ Time Advance Directives No August 12 12:19pm Living Will No August 30, 2021 9:36pm Power of Physicist [place] No August 30 9:36pm Advance Directive Response Recorded Date/ Time Advance Directives No August 12 12:19pm Living Will No October 11, 2021 12:42am Power of Physicist [place] No October 11 12:42am Advance Directive Response Recorded Date/ Time Advance Directives No August 12 12:19pm Living Will No December 17 10:33pm Power of Physicist [place] No December 17 10:33pm Advance Directive Response Recorded Date/ Time Do you have a Healthcare Power of Physicist [place]? No October 15, 2024 10:30pm Advance Directives [...] section and content) DATE CREATED AUTHOR 08/23/2019 [facility] DATE CREATED AUTHOR AUTHOR'S ORACIOIZ ATPATRICK 12/24/2021 [facility] Goals (unrecognized section and content) Goals may [...] BE BASED ON THE PRIMARY CLINICAL RECORDS. [facility]. provides no warranty or guarantee of the accuracy or completeness of information in this document.
[2024-10-16] MEDS: 0.9% Normal Saline (1000mL) 1,000 ML 50 ML IV (05:27)
[2024-10-16] MEDS: Morphine 2 MG/ML Syringe IV ×2 (05:27→08:26)
[2024-10-16] MEDS: Ondansetron 4 MG/2 ML Vial IV (05:29)
--- NOTE | 2024-10-16 05:55 | EKG12_ITS ---
Test Reason : MORNING EKG Blood Pressure : */* mmHG Vent. Rate : 100 BPM Atrial Rate : 100 BPM P-R Int : 172 ms QRS Dur : 92 ms QT Int : 324 ms P-R-T Axes : 72 -5 41 degrees QTcB Int : 417 ms Normal sinus rhythm Normal ECG When compared with ECG of 10-Aug-2012 06:29, Vent. rate has increased by 34 bpm Confirmed by ADELE VITALE, HUMERA ([id number]), greeting card editor FRANNY FERREIRA ([id number]) on 10/17/2024 8:25:11 AM Referred By: Confirmed By: HUMERA ANGULO MD
--- NOTE | 2024-10-16 07:21 | PCM.HP.STD ---
HPI - General General Date of Admission: 10/16/24 Date of Service: 10/16/24 Chief Complaint: bilateral ureteral obstruction HPI Narrative YOHANNES ELISE, is a 54 F who presents with acutee renal insufficiency and bilateral obstructing kidney stones plan to take the patient the surgery today for cystoscopy bilateral stent pllacement to unblock her kidneys clear infection. And for pain conttrol. [facility] Medical History Non-smoker Kidney stones Home Medications ?Medication ?Instructions ?Recorded ?Last Taken ?Type NK 10/16/24 Unknown History Allergy/AdvReac Type Severity Reaction Status Date / Time No Known Allergies Allergy Verified 10/15/24 22:21 Surgical History History of arthroplasty of right knee History of tubal ligation Social History Smoking Status: Never smoker ROS Constitutional Constitutional: Denies chills, fever(s) or malaise Eyes Eyes: Denies blurry vision or change in vision ENT HEENT: Reports none Cardiovascular Cardiovascular: Denies chest pain or palpitations Respiratory/Chest Respiratory/Chest: Denies cough or shortness of breath with exertion Gastrointestinal Gastrointestinal: Denies abdominal pain, constipation or diarrhea Musculoskeletal Musculoskeletal: Denies back pain, joint stiffness or joint swelling Integumentary Integumentary: Denies dry skin, jaundice, lesions or rash Neurologic Neurologic: Denies confusion, syncope or weakness Psychiatric Psychiatric: Reports none; Denies anxiety or depression Endocrine Endocrinology: Denies excessive sweating, fatigue or flushing Hematologic/Lymphatic Hematologic/Lymphatic: Denies anemia, easy bleeding or easy bruising Vital Signs Vital Signs Vital Signs: 10/15/24 22:21 10/15/24 22:23 10/16/24 00:00 Temperature 97.7 F L 97.7 F L 97.8 F Temperature Source Oral Oral Oral Pulse Rate 104 H 104 H 90 Respiratory Rate 22 H 22 H 14 Blood Pressure 145/78 H 145/74 H 125/83 H Blood Pressure Mean 100 97 97 Pulse Ox 98 100 100 Oxygen Delivery Method Room Air Room Air 10/16/24 01:00 10/16/24 02:03 10/16/24 02:45 Temperature 98.0 F 98.0 F 97.1 F L Temperature Source Oral Oral Pulse Rate 86 86 78 Respiratory Rate 16 16 16 Blood Pressure 121/69 H 125/75 H 124/69 H Blood Pressure Mean 86 91 87 Pulse Ox 100 100 99 Oxygen Delivery Method Room Air Room Air 10/16/24 03:17 Temperature 97.7 F L Temperature Source Oral Pulse Rate 91 Respiratory Rate 16 Blood Pressure 129/80 H Blood Pressure Mean 96 Pulse Ox 100 Oxygen Delivery Method Room Air Weight Weight: 68.9 kg Body Mass Index (BMI) 27.8 Physical Exam Const alert and oriented x3 General Appearance: cooperative HEENT normocephalic and head/scalp atraumatic Eyes PERRL and EOMs intact bilaterally Neck supple, no JVD and no carotid bruits Resp normal respiratory effort, normal air movement and clear to auscultation bilaterally Cardio regular rate and no murmurs GI normal to inspection, nondistended, normoactive bowel sounds and soft to palpation Extremity normal capillary refill General Extremity: no tenderness to palpation of joints or extremities; Negative for edema Skin no rashes or lesions noted and no wounds General Skin Exam: no breakdown Neuro CN's II-XII intact bilaterally Psych affect normal Appearance: appropriate Results Lab / Micro Data 10/15/24 22:38 10/15/24 22:38 Labs: Laboratory Results - last 24 hr 10/15/24 22:38: WBC 13.9 H, RBC 4.18 L, Hgb 11.3 L, Hct 36.4 L, MCV 87.1, MCH 27.0, MCHC 31.0 L, RDW Std Deviation 48.9 H, RDW Coeff of Julian 15.4 H, Plt Count 270, MPV 11.4, Immature Gran % (Auto) 0.600, Neut % (Auto) 73.5 H, Lymph % (Auto) 17.2 L, [place] % (Auto) 5.2, Eos % (Auto) 3.1, Baso % (Auto) 0.4, Absolute Neuts (auto) 10.2 H, Absolute Lymphs (auto) 2.40, Nucleated RBC % 0, Sodium 140, Potassium 3.7, Chloride 103, Carbon Dioxide 26.4, Anion Gap 11, BUN 21 H, Creatinine 1.63 H, Estim Creat Clear Calc 36.72 L, Est GFR (MDRD) Non-Af 38 L, BUN/Creatinine Ratio 12.7, Glucose 98, Calcium 11.4 H, Serum , Qual NEGATIVE, Urine Color Yellow, Urine Clarity Cloudy, Urine pH 6.5, Ur Specific Andreas 1.015, Urine Protein 100 H, Urine Glucose (UA) Normal, Urine Ketones Negative, Urine Occult Blood 25 H, Urine Nitrite Negative, Urine Bilirubin Negative, Urine Urobilinogen Normal, Ur Leukocyte Esterase 500 H, Urine RBC 0 SEEN, Urine WBC >100 SEEN, Ur Squamous Epith Cells 5-10 SEEN, Urine Bacteria 4+, Urine Mucus 0 SEEN Imaging Radiology Impression Abdomen/Pelvis CT 10/15/24 00:10 IMPRESSION: Few about three right lower ureteric calculi, the largest 11 mm with consequent marked proximal right hydroureteronephrosis. Left lower ureteric 10 mm calculus with adjacent 1 mm calculus inducing moderate to marked proximal right hydroureteronephrosis. Right renal lower calyceal 13 mm non obstructing calculus with lower calyceal dependent/layering faintly dense small calculi. [facility] Assessment & Plan Assessment/Plan (1) UTI (urinary tract infection): (2) Hydronephrosis: PLAN: admit for pain control plan for cystoscopy bilateral stent placement. (3) Bilateral flank pain: (4) Kidney stones:
--- NOTE | 2024-10-16 07:22 | DCINST_ITS ---
Discharge Instructions Diet Discharge Diet: No restrictions DC O2, CPAP, BIPAP needs Home O2 Discharge instructions: No Dressing / Incision Discharge Activity: Return to Normal Activity and May Not Drive (while taking narcotic pain medications.) Dressing / Incision Call your doctor if you observe: Fever of 101 or Higher Follow Up Care Please Follow Up With: Peng Neville MD When: Call [phone] for an appointment Test Results: Test results from this visit will be discussed in further detail at your follow- up appointment, if applicable. Discharge Plan Admission Admit Date/Time: 10/16/24 04:13 Attending Provider: Peng Neville Primary Care Provider: Care Physician,No Primary Discharge Orders/Prescriptions Prescriptions: No Action NK Referrals / Follow Up: Care Physician,No Primary [Primary Care Provider] -
--- NOTE | 2024-10-16 11:40 | PCM.PRE.AN2 ---
ASA Classification* ASA Classification ASA Classification: 2 Assessment & Plan Anesthesia* Anesthesia Assessment Anesthesia Assessment: Discussed sedation and/or anesthesia options, risks, benefits, and alternatives with patient/parents/legal guardian/POA. Questions invited. The patient/parents/legal guardian/POA seems to understand and agrees to proceed with anesthesia plan. Reviewed the physical assessment, medical history, allergy history and patient home medications list prior to surgery/procedure/anesthetic and documented any changes. Performed airway and anesthesia risk assessments. Anesthesia Type Anesthesia Type: MAC History Source History Obtained from:: Patient and Chart Anesthesia Focused Assessment* Temperature: 98.7 F Pulse Rate: 98 Blood Pressure: 123/79 Respiratory Rate: 16 Pulse Ox: 94 Oxygen Delivery Method: Room Air Airway Assessment Mouth opens: >3 cm Mallampati Score: I Teeth Condition: Intact Neck Range of motion (ROM): Full ROM Labs Anesthesia Preop lab: CBC WBC 13.9 K/mm3 (4.4-11.0) H 10/15/24 22:38 10/15/24 RBC 4.18 M/mm3 (4.2-5.4) L 10/15/24 22:38 10/15/24 Hgb 11.3 g/dL (12.0-15.0) L 10/15/24 22:38 10/15/24 Hct 36.4 % (37-47) L 10/15/24 22:38 10/15/24 Plt Count 270 K/mm3 (150-450) 10/15/24 22:38 10/15/24 CHEMISTRY Potassium 3.7 mmol/L (3.3-5.1) 10/15/24 22:38 10/15/24 Sodium 140 mmol/L (133-145) 10/15/24 22:38 10/15/24 BUN 21 mg/dL (4-19) H 10/15/24 22:38 10/15/24 Creatinine 1.63 mg/dL (0.70-1.20) H 10/15/24 22:38 10/15/24 Glucose 98 mg/dL (70-99) 10/15/24 22:38 10/15/24 POC Glucose 121 mg/dL (70-110) H 06/29/13 20:04 06/29/13 COAG Urine Test Negative Negative 12/17/21 22:45 12/17/21 Pre-Assessment Diagnosis/Proposed Procedure Planned Operative Procedure(s): cystoscopy, bilateral stent insertion Anesthesia History Anesthesia History - door cutter: Anesthesia History - door cutter Hx Hospitalization Any Problems With Anesthesia Yes: vomiting coming out of 10/16/24 05:31 anasthesia Cholinesterase deficiency No 10/16/24 05:31 You/Your Family Experience No 10/16/24 05:31 fever (hyperthermia) with Relationship Recent Exposure to Contagious No 10/16/24 05:31 Disease Does patient have nerve No 10/16/24 05:31 stimulator Patient instructed to have device shut off --Does patient have Pacemaker No 10/16/24 05:30 or ICD? When Was Last Pacemaker Check QUESTION #4 FULL TEXT: You/Your Family Experience fever (hyperthermia) with Anesthesia Last Oral Intake Last Oral intake: Last Oral Intake NPO since 21:00 10/16/24 05:30 Meds taken in AM with sips of water? Meds patient instructed to take am of surgery PONV PONV - door cutter: PONV - door cutter Female HX of Motion Sickness HX of N/V After Surgery Non-Smoker Duration of Surgery greater than 60 minutes Number of Risk Factors PONV Score Height & Weight Height & Weight: Anesthesia: Height & Weight Height 5 ft 2 in 10/16/24 05:30 Weight: 68.9 kg 10/16/24 05:30 Body Mass Index (BMI) 27.8 10/16/24 05:30 Respiratory Assessment Respiratory Assessment - door cutter: Respiratory Tract Infection Hx - door cutter Hx Respiratory Tract Infection No 10/16/24 05:31 STOP Sleep Apnea STOP Sleep Apnea - door cutter: STOP Sleep Apnea - door cutter Hx Hypertension No 10/16/24 03:28 Hx Sleep Apnea No 10/16/24 03:28 CPAP BIPAP Do you snore loudly (louder No 10/16/24 03:28 than talking or can be heard Do you often feel tired/ No 10/16/24 03:28 fatigued/ sleepy during daytime? Has anyone observed you stop No 10/16/24 03:28 breathing during sleep? STOP Results Negative 10/16/24 03:28 QUESTION #5 FULL TEXT : Do you snore loudly (louder than talking or can be heard through closed doors)? Tobacco Use History Tobacco Use History - door cutter: Tobacco Use History - door cutter Tobacco Use Smoking Status Never smoker 10/16/24 03:28 Hx Tobacco Use No 10/16/24 03:28 Years Smoking Packs Smoked per Day Smoking Cessation Date was within the last 15 years Hx Smoking Cessation Date Hx Smoking Cessation Counseling Hematologic Medial History Hematologic Hx - door cutter: Hematologic Medical Hx - supervisor electronic testing Hx of Blood Transfusion No 10/16/24 03:28 Hx of Transfusion in last 3 No 10/16/24 03:28 Months Date of Last Transfusion (if within last 3 months) Ever experience any problems No 10/16/24 03:28 with transfusion(s)? Specify any problems Hx of Preganancy in last 3 No 10/16/24 03:28 Months Nurse Filling Out Transfusion EAFFOLTER 10/16/24 03:28 & Questions: Date: 10/16/24 10/16/24 03:28 Time: 03:29 10/16/24 03:28 Patient unable to answer at this time (ie. confused, unrespo /Reproduction History /Reproductive History - door cutter: /Reproductive Hx- door cutter Hx Now No 10/16/24 05:31 Gestational Age (in weeks): EDC: Hx Hx Para Hx Section SAB No 10/16/24 05:31 Active Medications Active Medications: Current Medications Generic Name Dose Route Start Last Admin Trade Name Freq PRN Reason Stop Dose Admin Sodium Chloride 250 mls @ 15 mls/hr 10/16/24 03:13 IV .[id number] PRN Saline Flush Sodium Chloride 250 mls @ 15 mls/hr 10/16/24 03:13 IV .[id number] PRN Additional IVPB Infusion Sodium Chloride 1,000 mls @ 50 mls/hr 10/16/24 04:15 10/16/24 05:27 IV 50 mls/hr .Q20H GINGER Administration Lactated Ringer's 1,000 mls @ 15 mls/hr 10/16/24 11:30 IV .Q48H GINGER Morphine Sulfate 2 mg 10/16/24 04:13 10/16/24 08:26 Morphine 2 Mg/Ml Syringe IV 2 mg Q2H PRN PRN Administration Pain Score 4-10 Ondansetron HCl 4 mg 10/16/24 04:13 10/16/24 05:29 Ondansetron 4 Mg/2 Ml Vial IV 4 mg Q6H PRN PRN Administration NAUSEA/VOMITING Sodium Chloride 10 - 40 ml 10/16/24 03:13 0.9% Saline Lock 10 Ml Syringe IV UD PRN SALINE FLUSH PFSH Medical History Non-smoker Kidney stones Home Medications ?Medication ?Instructions ?Recorded ?Last Taken ?Type NK 10/16/24 Unknown History Allergy/AdvReac Type Severity Reaction Status Date / Time No Known Allergies Allergy Verified 10/15/24 22:21 Surgical History History of arthroplasty of right knee History of tubal ligation Social History Smoking Status: Never smoker Review of Systems (Anesthesia) ROS Narrative System reviewed and no additional complaints, except as documented.
[2024-10-16] MEDS: Cefazolin 2 GM in 0.9% Normal Saline (100mL Bag) 100 ML IV (12:12)
--- NOTE | 2024-10-16 12:12 | OP.PCM_ITS ---
Operative Report (Standard) Operative Information Date of Procedure: 10/16/24 Pre-Operative Diagnosis: Bilateral ureteral obstruction Post-Operative Diagnosis: The same Surgery/Procedure Performed: Cystoscopy bilateral stent placement air brake tester: No Type of Anesthesia: General RN Documented Start/Stop Times: Operation Date: 10/16/24 12:00 Case Time Into Pre-Op 10/16/24 11:02 Anesthesia Start 10/16/24 12:07 Into Room 10/16/24 12:07 Out of Pre-Op 10/16/24 12:07 Procedure Start Time: 12:12 Procedure Stop Time: 12:23 Select all DRAINS/GRAFTS/IMPLANTS that apply: Drains Drain details: 6 x 24 stents bilaterally Estimated Blood Loss: None Specimen collected: No Description of surgery: Patient was taken back to the operating room after induction of general anesthesia, the patient was placed in dorsolithotomy position. The urethra and genitals were prepped and draped in usual sterile fashion. Using a 21 Bolivian rigid cystourethroscope the entire length of the urethra was normal then went into the bladder. Identified the trigone the left and right ureteral orifice. I then cannulated the right ureteral orifice and advanced a wire up into the kidney. I then backloaded a 5 Bolivian open ended catheter over the wire and injected contrast to delineate the anatomy. After the retrograde was performed I then used fluoroscopic images and guidance to advanced a wire up into the kidney and over the 0.038 glidewire I advanced a 6 Bolivian by 26 cm double pigtail stent. I then pulled the 0.038 Glidewire off and the stent coiled in the kidney bladder good position. The same procedure was done on the left side. The bladder was then drained. We confirmed the position of the stent by fluoroscopy. Patient anesthetic was reversed and was taken back to the PACU in good condition. She was told to follow up with a urologist in her network to treat stones in the future Surgical Findings: Stones blocking both ureter stents in place on both sides Complications Complications: No Admit VTE Documentation VTE Present on Admission: No VTE Mechan Device Prophylaxis: SCD's VTE Pharm Prophylaxis ordered?: No
[2024-10-16] MEDS: Lactated Ringers 1,000 ML 15 ML IV (12:15)
--- NOTE | 2024-10-16 12:37 | PCM.POST.ANE ---
Anesthesia: Postop Eval I Current Vital Signs Temperature: 99.3 F Pulse Rate: 102 Blood Pressure: 134/85 Respiratory Rate: 16 Pulse Ox: 100 Oxygen Delivery Method: Room Air Assessment Airway patent: Yes Spontaneous unlabored respirations: Yes Mental status: Awake and Calm nausea: No Vomiting: No Anesthesia Complication: No Fluid Hydration Crystalloid volume administer (ml): 500 Total IV fluid infused: 500 Progress Note Anesthesia document: Postop Eval 1 completed: Yes
--- NOTE | 2024-10-16 14:03 | POSTOPAN2_ITS ---
Anesthesia Postop Eval I Sum Postop Eval Completion status Anesthesia document: Postop Eval 1 completed: Yes Anesthesia Postop Eval I Summary Anesthesia Postop Eval I Summary: Anesthesia Postop Eval I: Assessment Summary Airway patent Yes 10/16/24 12:37 STEAMTABLE WORKER.[email or web address] Spontaneous unlabored Yes 10/16/24 12:37 STEAMTABLE WORKER.DANITA respirations Mental status Awake,Calm 10/16/24 12:37 STEAMTABLE WORKER.SKOBY nausea No 10/16/24 12:37 STEAMTABLE WORKER.SKOBY Vomiting No 10/16/24 12:37 STEAMTABLE WORKER.IRASEMAOBGénesis Anesthesia Postop Eval I: Fluid Summary Crystalloid volume administer 500 10/16/24 12:37 STEAMTABLE WORKER.SKOBY (ml) Colloids volume administered ( ml) Blood Product volume administered (ml) Total IV fluid infused 500 10/16/24 12:37 STEAMTABLE WORKER.IRASEMAOBGénesis Anesthesia Postop Eval I: Summary Notes Anesthesia Complication No 10/16/24 12:37 STEAMTABLE WORKER.DANITA Anesthesia Complication Comment: Post-operative progress note Anesthesia: Postop Eval II Evaluation Mental status: Awake Pain Level: 1 nausea: No Vomiting: No
--- NOTE | 2024-10-16 14:03 | PCM.POSTANE2 ---
Anesthesia Postop Eval I Sum Postop Eval Completion status Anesthesia document: Postop Eval 1 completed: Yes Anesthesia Postop Eval I Summary Anesthesia Postop Eval I Summary: Anesthesia Postop Eval I: Assessment Summary Airway patent Yes 10/16/24 12:37 ACCOUNTING CLERK.[email or web address] Spontaneous unlabored Yes 10/16/24 12:37 ACCOUNTING CLERK.DANITA respirations Mental status Awake,Calm 10/16/24 12:37 ACCOUNTING CLERK.SKOBY nausea No 10/16/24 12:37 ACCOUNTING CLERK.SKOBY Vomiting No 10/16/24 12:37 ACCOUNTING CLERK.IRASEMAOBGénesis Anesthesia Postop Eval I: Fluid Summary Crystalloid volume administer 500 10/16/24 12:37 ACCOUNTING CLERK.SKOBY (ml) Colloids volume administered ( ml) Blood Product volume administered (ml) Total IV fluid infused 500 10/16/24 12:37 ACCOUNTING CLERK.IRASEMAOBGénesis Anesthesia Postop Eval I: Summary Notes Anesthesia Complication No 10/16/24 12:37 ACCOUNTING CLERK.DANITA Anesthesia Complication Comment: Post-operative progress note Anesthesia: Postop Eval II Evaluation Mental status: Awake Pain Level: 1 nausea: No Vomiting: No
--- NOTE | 2024-10-16 14:06 | CASEMGMT ---
Patient has order for discharge. RN CM in to discuss needs at discharge. Patient denies needs or help at discharge. Patient does not have PCP, list provided to patient. Patient had no further questions or concerns.
== END 2024-10-16 12:11 | disposition home or self-care (01) ==
LOC: ED 10-16 02:21 → PCU 10-16 03:47
PROVIDERS: Admitting Provider Urology; Emergency Provider Emergency Medicine; Visit Provider Urology
PROC: (CPT 52332; principal; 2024-10-16 11:50)
DX: N13.6 Pyonephrosis (principal)
CPT/HCPCS: 52332; 00910; C1769; C2617; 74176; 76000; 80048; 81001; 84703; 85025; 93005; 96361; 96365; 96375; 96376; 99221; 99284; A4216; G0378; J2405

== ENCOUNTER 2025-03-16 15:30 | Inpatient (IN) | payer MEDICAID, SELFPAY ==
[2025-03-16 15:30] VITALS: BP 80/62; PULSE 87; RESP 16; TEMP 36.4; O2SAT 98; BMI 25.3
--- NOTE | 2025-03-16 15:51 | EX.ED.SAOD ---
HPI History of Present Illness Chief Complaint: Substance Abuse Narrative Narrative: 54-year-old female past medical history of bilateral kidney stones, presents for admission for detox from heroin. She states that she usually snorts heroin, and has never injected. She been using heroin for the last 20 years and states she has never been through detox or rehab. She last used this morning. She states that she does not have the shakes she had, no diarrhea, no other symptoms. She states that she has an outpatient program and was contacted by 180 to present for admission for detox. [facility] Medical History Non-smoker Kidney stones Home Medications Medication Instructions Recorded Last Taken Type NK 03/16/25 Unknown History Allergy/AdvReac Type Severity Reaction Status Date / Time No Known Allergies Allergy Verified 03/16/25 15:39 Surgical History History of arthroplasty of right knee History of tubal ligation Social History Smoking Status: Never smoker ROS ROS ED ROS Narrative Review of systems positive for desire for detoxification. Denies nausea or vomiting. She does state that she has been tired and fatigued. No diarrhea. No abdominal pain. No shakiness. EXAM Physical Exam Narrative Exam Narrative: Afebrile. Vital signs noted. Nontoxic-appearing. Cardiovascular examination reveals a regular rate and rhythm. Lungs are clear to auscultation bilaterally. Abdomen is soft and nontender with positive bowel sounds. No guarding or rebound. Neurological examination nonfocal, nonlateralizing, moves all extremities. Awake, alert, interactive, appropriate. No active signs of withdrawal. Able to ambulate from restroom back to room independently without difficulty. Const Vital Signs: 03/16/25 15:30 03/16/25 16:30 03/16/25 17:00 Temperature 97.5 F L Temperature Source Temporal Pulse Rate 87 104 H 101 H Respiratory Rate 16 20 H 16 Blood Pressure 80/62 L 99/63 93/52 L Blood Pressure Mean 68 75 65 Pulse Ox 98 99 98 Oxygen Delivery Method Room Air Room Air Room Air MDM MDM MDM Narrative Medical decision making narrative: No feel differential diagnosis is applicable at this time. Patient wants to be admitted for detox from heroin. She denies other substance use. She was told that opiate withdrawal is not life-threatening, but medical clearance labs were obtained and patient will be discussed with the hospitalist. I reviewed her laboratory work and she has normal white count of 7.7 with hemoglobin stable 11.3, platelet count normal at 241. Serum test is negative. Urine for drugs of abuse positive for opiates, fentanyl, and benzodiazepines. Ethyl alcohol negative at less than 10.1. Review of her CMP does show creatinine elevated at 1.79 with a BUN of 23. In review of prior labs, she has chronic kidney injury. At this point in time, I discussed patient with Dr. Gamble for admission to the general medical floor for detox from heroin. Patient is in stable condition. History & Record Review Discussion w/independent historian: Patient Additional record(s) reviewed:: Prior ED visit (No prior admission for detox) and Prior labs (Chronic kidney disease) Lab Data Attestation: I reviewed the patient's lab results. Labs: Laboratory Results - last 24 hr 03/16/25 03/16/25 16:20 16:33 WBC 7.7 RBC 4.74 Hgb 11.3 L Hct 37.9 MCV 80.0 L MCH 23.8 L MCHC 29.8 L RDW Std Deviation 49.0 H RDW Coeff of Julian 17.2 H Plt Count 241 MPV 11.4 Immature Gran % (Auto) 0.400 Neut % (Auto) 65.1 Lymph % (Auto) 25.6 Nelson % (Auto) 7.5 Eos % (Auto) 1.0 Baso % (Auto) 0.4 Absolute Neuts (auto) 5.0 Absolute Lymphs (auto) 1.96 Nucleated RBC % 0 Sodium 137 Potassium 3.9 Chloride 105 Carbon Dioxide 21.0 Anion Gap 11 BUN 23 H Creatinine 1.79 H Estim Creat Clear Calc 32.02 L Est GFR (MDRD) Non-Af 34 L BUN/Creatinine Ratio 12.8 Glucose 124 H Calcium 11.9 H Total Bilirubin 0.26 AST 19 ALT 12 Alkaline Phosphatase 101 Total Protein 7.6 Albumin 3.9 Globulin 3.7 Albumin/Globulin Ratio 1.1 Serum , Qual NEGATIVE Urine Opiates Screen PRESUMPTIVE POSITIVE U Buprenorphine Qual NEGATIVE Ur Oxycodone Screen NEGATIVE Urine Methadone Screen NEGATIVE Urine Fentanyl Screen PRESUMPTIVE POSITIVE Ur Barbiturates Screen NEGATIVE Ur Phencyclidine Scrn NEGATIVE Ur Amphetamines Screen NEGATIVE U Benzodiazepines Scrn PRESUMPTIVE POSITIVE Urine Cocaine Screen NEGATIVE U Cannabinoids Screen NEGATIVE Ethyl Alcohol < 10.1 Management Discussion w/another healthcare provider: Hospitalist (Dr. Gamble) Discharge Plan Dx/Rx/DC Orders Clinical Impression: Heroin addiction, Desire for detoxification, Chronic kidney disease Disposition Disposition: Acute Care Hospital [facility]
[2025-03-16 16:30] VITALS: BP 99/63; PULSE 104; RESP 20; O2SAT 99
[2025-03-16 16:59] LABS: Internal QC Validated? YES +Cl - CLEAR BKGD; Pregnancy, Serum, hCG Quali. NEGATIVE Negative; Record Kit Lot#, Serum Preg. 980607
[2025-03-16 17:00] VITALS: BP 93/52; PULSE 101; RESP 16; O2SAT 98
[2025-03-16 17:03] LABS: Alcohol, Blood (Medical)-Serum < 10.1 mg/dL (<=10.0)
[2025-03-16 17:06] LABS: AST(SGOT) 19 U/L (<=31); Alanine Aminotransfer ALT/SGPT 12 U/L (<=34); Albumin, Serum 3.9 g/dL (3.5-5.0); Alkaline Phosphatase 101 U/L (35-104); Anion Gap 11 (5-15); BUN 23 mg/dL (4-19); BUN/Creat Ratio 12.8 RATIO (10-20); Calcium,Total 11.9 mg/dL (7.6-11.0); Carbon Dioxide 21.0 mmol/L (21.0-32.0); Chloride 105 mmol/L (98-108); Estimated Creatinine Clearance 32.02 ml/min (50-250); Globulin 3.7 g/dL (2.2-4.2); Glucose 124 mg/dL (70-99); Potassium 3.9 mmol/L (3.3-5.1)
[2025-03-16 17:11] LABS: Barbiturate Urine NEGATIVE (< 200 ng/mL); Benzodiazepine Urine PRESUMPTIVE POSITIVE (< 200 ng/mL); PCP Urine NEGATIVE (< 25 ng/mL); THC Urine NEGATIVE (< 50 ng/mL)
[2025-03-16 17:15] LABS: Hematocrit 37.9 % (37-47); Hemoglobin 11.3 g/dL (12.0-15.0); Immature Granulocytes Count 0.030 X10^3/uL (0.0-0.0); Mean Corp Hgb Conc 29.8 g/dL (32-36); Mean Corpuscular Volume 80.0 fL (81-99); Mean Platelet Vol. 11.4 fl (6.2-12.0); NRBC Flagged by Analyzer 0 % (0-5); Platelet Count 241 K/mm3 (150-450); RBC Distribution Width CV 17.2 % (11.6-14.6); RBC Distribution Width SD 49.0 fl (35.1-43.9); Red Blood Count 4.74 M/mm3 (4.2-5.4); White Blood Count 7.7 K/mm3 (4.4-11.0)
[2025-03-16 17:30] VITALS: BP 96/51; PULSE 101; RESP 14; TEMP 36.1; O2SAT 98
--- OUTSIDE RECORDS SUMMARY | 2025-03-16 17:57 | XMS RPT_ITS | CCD ---
Author Organization [facility] Care Team Providers Care Continuous Drier Operator Name Role Phone Care Physician, No Primary Primary Care Provider Unavailable Care Physician, No Primary Referring Provider Un available RANDA Garza Attending Provider Care Physician, No Primary Primary Care Provider Unavailable Kevin VITALE, Dr. Sosa Emergency Provider [phone] Kelin VITALE, Dr. Peng Toure Admit Provider [phone] Kelin VITALE, Dr. Peng Toure Attending Provider Care Physician, No Primary Primary Care Provider Unavailable Kevin VITALE, Dr. Sosa Emergency Provider Kelin VITALE, Dr. Peng Toure Admit Provider Kelin VITALE, Dr. Peng Toure Attending Provider Jett Reina Attending Unavailable Jett Reina Referring Unavailable Care Physician, No Primary Primary Care Unava ilable Care Physician, No Primary Primary Care Unava ilable Peng Neville Admitting Unavailable Peng Neville Attending Unavailable PHYSICIAN, NONE Primary Care Unavailable VICKEY VITALE, CAMELIA Hoover Attending Unavailable PHYSICIAN, NONE Primary Care Physician Unavailab le Medications Current Medications Medication Drug Class(es) Dates Sig (Normalized) Sig (Original) cephalexin 500 mg oral capsule (1 source) Cephalosporin Antibacterial Start: 10-16-2024 take 1 capsule by mouth three times daily Cephalexin 500 mg capsule Active 500 mg PO THREE TIMES A DAY October 16, 2024 12:00am Leona (Nk) (1 source) Start: 10-16-2024 Leona (Nk) Active October 16, 2024 12:00am oxyCODONE hydrochloride 5 mg oral tablet (1 source) Opioid Agonist Start: 10-16-2024 take 1 tablet by mouth every six hours as needed for pain Oxycodone 5 mg tablet Active 5 mg PO EVERY 6 HOURS as needed for pain 20 October 16, 2024 penicillin v potassium 500 mg oral tablet (1 source) Start: 01-07-2021 take 500 mg by mouth four times daily Penicillin V Potassium Active 500 MG PO 4 TIMES DAILY 40 January 07, 2021 3:45am Completed/Discontinued Medications Medication Drug Class(es) Dates Sig (Normalized) Sig (Original) acetaminophen 325 mg / HYDROcodone bitartrate 5 mg oral tablet (4 sources) Opioid Agonist Start: 12-18-2021 End: 10-16-2024 [...] 2021 3:45am ciprofloxacin 500 mg oral tablet (3 sources) Quinolone Antimicrobial Start: 12-18-2021 End: 10-16-2024 take 1 tablet by mouth twice daily Ciprofloxacin Hcl (Cipro) 500 mg tablet Discontinued 500 mg PO TWICE A DAY December 18, 2021 12:00am October 16, 2024 2:44am ibuprofen 600 mg oral tablet (5 sources) Nonsteroidal Anti-inflammatory Drug Start: 07-02-2021 End: 10-16-2024 take 1 tablet by mouth four times daily as needed for pain Ibuprofen 600 MG tablet Discontinued 600 mg PO 4 TIMES DAILY as needed for Pain Or Fever July 02, 2021 1:00am October 16, 2024 2:44am naproxen 500 mg oral tablet (5 sources) Nonsteroidal Anti-inflammatory Drug Start: 01-07-2021 End: 10-16-2024 take 1 tablet by mouth twice daily as needed Naproxen 500 mg tablet Discontinued 500 mg PO TWICE DAILY NEEDED January 07, 2021 12:00am October 16, 2024 2:44am ondansetron 4 mg disintegrating oral tablet (3 sources) Serotonin-3 Receptor Antagonist Start: 12-18-2021 End: 10-16-2024 take 1 tablet by mouth every eight hours as needed for nausea and vomiting Ondansetron 4 mg tablet,disintegrat ing Discontinued 4 mg PO Q8H as needed for nausea and vomiting December 18, 2021 12:00am October 16, 2024 2:44am Problems Problem Classification Problem Date Documented Da te Episodic/Chronic Abdominal pain (4 sources) Flank pain; Translations: [Unspecified abdominal pain] Onset: 10-25-2024 10-16-2024 Episodic Anxiety disorders (3 sources) Anxiety about body function or health; Translations: [Other specified anxiety disorders] Chronic Calculus of urinary tract (7 sources) Renal colic; Translations: [Unspecified renal colic] 12-18-2021 Episodic Disorders of teeth and jaw (5 sources) Infection of tooth; Translations: [Periapical abscess without sinus] 01-07-2021 Episodic Headache; including migraine (4 sources) Headache; Translations: [Headache] 10-19-2021 Episodic Miscellaneous mental health disorders (2 sources) Anxiety about body function or health; Translations: [Other symptoms and signs involving emotional state] 09-07-2021 Episodic Other connective tissue disease (4 sources) Muscle pain; Translations: [Myalgia, unspecified site] 10-19-2021 Episodic Other diseases of kidney and ureters (3 sources) Hydronephrosis; Translations: [Unspecified hydronephrosis] 10-16-2024 Episodic Other lower respiratory disease (4 sources) Cough; Translations: [Cough] 10-19-2021 Episodic Other nervous system disorders (5 sources) Carpal tunnel syndrome; Translations: [Carpal tunnel syndrome, bilateral upper limbs] 07-10-2021 Chronic Other upper respiratory infections (4 sources) Viral upper respiratory tract infection; Translations: [Acute upper respiratory infection, unspecified] 10-19-2021 Episodic Prolapse of female genital organs (5 sources) Incomplete uterine prolapse; Translations: [Incomplete uterovaginal prolapse] 09-07-2021 Chronic Urinary tract infections (3 sources) Urinary tract infectious disease; Translations: [Urinary tract infection, site not specified] 10-16-2024 Episodic Results Test Name Value Interpretation Reference Range Facility 12 Lead EKGon 10-16-2024 12 Lead EKG [facility] Cardiovascular Services [address] [place] [address] 12 Lead EKG 10/16/24 0657 MR#: [id number] Acct: [id number] Name: YOHANNES LANDRY Rep #: [id number] : 1970 54 From: Jett Reina MD Attending Dr: Dr. Peng Neville MD Status: DIS DEBBY Ordering Dr: Peng Neville MD Date: 10/16/24 Location: [facility] Sex: F C Admitted: 10/16/24 Test Reason : MORNING EKG Blood Pressure : */* mmHG Vent. Rate : 100 BPM Atrial Rate : 100 BPM P-R Int : 172 ms QRS Dur : 92 ms QT Int : 324 ms P-R-T Axes : 72 -5 41 degrees QTcB Int : 417 ms Normal sinus rhythm Normal ECG When compared with ECG of 10-Aug-2012 06:29, Vent. rate has increased by 34 bpm Confirmed by ADELE VITALE, JETT ([id number]), avid editor FRANNY FERREIRA ([id number]) on 10/17/2024 8:25:11 AM Referred By: Confirmed By: JETT REINA MD 10/17/24 0825 Date Jett Reina MD CC: Dr. Peng Neville MD; No Primary Care Physician Signed Normal [facility] Basic Metabolic Profile (BMP )on 10-16-2024 BUN/CRE 12.7 RATIO Normal - [facility] Comment on above: Performed By: #### L 700.6800, L500.2500, L100.0100 #### [facility] Laboratory [address] [place], [address] Calcium [Mass/Vol] 11.4 mg/dL High 7.6-11.0 [facility] Comment on above: Performed By: #### L 700.6800, L500.2500, L100.0100 #### [facility] Laboratory [address] [place], [address] Chloride [Moles/Vol] 103 mmol/L Normal 98-108 [facility] Comment on above: Performed By: #### L 700.6800, L500.2500, L100.0100 #### [facility] Laboratory [address] [place], [address] CO2 [Moles/Vol] 26.4 mmol/L Normal 21.0-32.0 [facility] Comment on above: Performed By: #### L 700.6800, L500.2500, L100.0100 #### [facility] Laboratory [address] [place], [address] Creatinine [Mass/Vol] 1.63 mg/dL High 0.70-1.20 [facility] Comment on above: Performed By: #### L 700.6800, L500.2500, L100.0100 #### [facility] Laboratory [address] [place], [address] ECRCL 36.72 ml/min Low 50-250 [facility] Comment on above: Performed By: #### L 700.6800, L500.2500, L100.0100 #### [facility] Laboratory [address] [place], [address] GAP 11 Normal 5-15 [facility] Comment on above: Performed By: #### L 700.6800, L500.2500, L100.0100 #### [facility] Laboratory [address] [place], [address] GFR/1.73 sq M.predicted among non-blacks MDRD (S/P/Bld) [Vol rate/Area] 38 mL/min/{1.73_m2} Low >60 [facility] Comment on above: Result Comment: mL/m in/1.73m2 CKD-EPI Creatinine Equation (2020) Performed By: #### L 700.6800, L500.2500, L100.0100 #### [facility] Laboratory [address] [place], [address] Glucose [Mass/Vol] 98 mg/dL Normal 70-99 [facility] Comment on above: Performed By: #### L 700.6800, L500.2500, L100.0100 #### [facility] Laboratory [address] [place], [address] Potassium [Moles/Vol] 3.7 mmol/L Normal 3.3-5.1 [facility] Comment on above: Performed By: #### L 700.6800, L500.2500, L100.0100 #### [facility] Laboratory [address] [place], [address] Sodium [Moles/Vol] 140 mmol/L Normal 133-145 [facility] Comment on above: Performed By: #### L 700.6800, L500.2500, L100.0100 #### [facility] Laboratory [address] [place], [address] Urea nitrogen [Mass/Vol] 21 mg/dL High 4-19 [facility] Comment on above: Performed By: #### L 700.6800, L500.2500, L100.0100 #### [facility] Laboratory [address] [place], [address] CBC W/Diff, Automatedon 06-1 Absolute Lymph 2.40 X10 3/uL Normal 0.83-4.51 [facility] Comment on above: Performed By: #### L 700.6800, L500.2500, L100.0100 #### [facility] Laboratory [address] [place], [address] Absolute Neut 10.2 X10 3/uL High 2.0-7.7 [facility] Comment on above: Performed By: #### L 700.6800, L500.2500, L100.0100 #### [facility] Laboratory [address] [place], [address] Basophils/100 WBC (Bld) 0.4 % Normal 0-1 [facility] Comment on above: Performed By: #### L 700.6800, L500.2500, L100.0100 #### [facility] Laboratory [address] [place], [address] Eosinophils/100 WBC (Bld) 3.1 % Normal 0-5 [facility] Comment on above: Performed By: #### L 700.6800, L500.2500, L100.0100 #### [facility] Laboratory [address] [place], [address] Erythrocyte distribution width (RBC) [Ratio] 15.4 % High 11.6-14.6 [facility] Comment on above: Performed By: #### L 700.6800, L500.2500, L100.0100 #### [facility] Laboratory [address] [place], [address] Hematocrit (Bld) [Volume fraction] 36.4 % Low 37-47 [facility] Comment on above: Performed By: #### L 700.6800, L500.2500, L100.0100 #### [facility] Laboratory [address] [place], [address] Hemoglobin (Bld) [Mass/Vol] 11.3 g/dL Low 12.0-15.0 [facility] Comment on above: Performed By: #### L 700.6800, L500.2500, L100.0100 #### [facility] Laboratory [address] [place], [address] IG% 0.600 Normal 0.0-0.9 [facility] Comment on above: Result Comment: IG% - Immature Granulocytes (promyelocytes, myelocytes and metamyelocytes) > 1% indicates that a LEFT SHIFT is Present. Performed By: #### L 700.6800, L500.2500, L100.0100 #### [facility] Laboratory [address] [place], [address] Lymphocytes/100 WBC (Bld) 17.2 % Low 19-41 [facility] Comment on above: Performed By: #### L 700.6800, L500.2500, L100.0100 #### [facility] Laboratory [address] [place], [address] MCH (RBC) [Entitic mass] 27.0 pg Normal 27.0-32.0 [facility] Comment on above: Performed By: #### L 700.6800, L500.2500, L100.0100 #### [facility] Laboratory [address] [place], [address] MCHC (RBC) [Mass/Vol] 31.0 g/dL Low 32-36 [facility] Comment on above: Performed By: #### L 700.6800, L500.2500, L100.0100 #### [facility] Laboratory [address] [place], [address] MCV (RBC) [Entitic vol] 87.1 fL Normal 81-99 [facility] Comment on above: Performed By: #### L 700.6800, L500.2500, L100.0100 #### [facility] Laboratory [address] [place], [address] Monocytes/100 WBC (Bld) 5.2 % Normal 0-10 [facility] Comment on above: Performed By: #### L 700.6800, L500.2500, L100.0100 #### [facility] Laboratory [address] [place], [address] Neutrophils/100 WBC (Bld) 73.5 % High 47-70 [facility] Comment on above: Performed By: #### L 700.6800, L500.2500, L100.0100 #### [facility] Laboratory [address] [place], [address] Nucleated RBC (Bld) [#/Vol] 0 10*3/uL Normal 0-5 [facility] Comment on above: Performed By: #### L 700.6800, L500.2500, L100.0100 #### [facility] Laboratory [address] [place], [address] Platelet mean volume (Bld) [Entitic vol] 11.4 fL Normal 6.2-12.0 [facility] Comment on above: Performed By: #### L 700.6800, L500.2500, L100.0100 #### [facility] Laboratory [address] [place], [address] Platelets (Bld) [#/Vol] 270 10*3/uL Normal 150-450 [facility] Comment on above: Performed By: #### L 700.6800, L500.2500, L100.0100 #### [facility] Laboratory [address] [place], [address] RBC (Bld) [#/Vol] 4.18 10*6/uL Low 4.2-5.4 [facility] Comment on above: Performed By: #### L 700.6800, L500.2500, L100.0100 #### [facility] Laboratory [address] [place], [address] RDW SD 48.9 fl High 35.1-43.9 [facility] Comment on above: Performed By: #### L 700.6800, L500.2500, L100.0100 #### [facility] Laboratory [address] [place], [address] WBC (Bld) [#/Vol] 13.9 10*3/uL High 4.4-11.0 [facility] Comment on above: Performed By: #### L 700.6800, L500.2500, L100.0100 #### [facility] Laboratory [address] [place], [address] Discharge Instructionon 10-01 Discharge Instruction [facility] Medical Records Department [address] [place] [address] Instructions for Home/Discharge Instructions 10/16/24 0722 MR#: [id number] Acct: [id number] Name: YOHANNES LANDRY Rep #: [id number] : 1970 54 From: Peng Neville MD PCP: Care Physician,No Primary Status:ADM DEBBY Discharge Instructions Diet Discharge Diet: No restrictions DC O2, CPAP, BIPAP needs Home O2 Discharge instructions: No Dressing / Incision Discharge Activity: Return to Normal Activity and May Not Drive (while taking narcotic pain medications.) Dressing / Incision Call your doctor if you observe: Fever of 101 or Higher Follow Up Care Please Follow Up With: Peng Neville MD When: Call [phone] for an appointment Test Results: Test results from this visit will be discussed in further detail at your follow-up appointment, if applicable. Discharge Plan Admission Admit Date/Time: 10/16/24 04:13 Attending Provider: Peng Neville Primary Care Provider: Care Physician,No Primary Discharge Orders/Prescriptions Prescriptions: No Action NK Referrals / Follow Up: Care Physician,No Primary [Primary Care Provider] - 10/16/24 0722 Peng Neville MD CC: No Primary Care Physician Signed Normal [facility] MR/POSTOP.ANEon 10-16-2024 MR/POSTOP.ANE [facility] Medical Records Department [address] [place] [address] Anesthesia Postop Eval I 10/16/24 1237 MR#: [id number] Acct: [id number] Name: YOHANNES LANDRY Rep #: [id number] : 1970 54 From: Charito Mace CRNA PCP: Care Physician,No Primary Status:ADM DEBBY Y Race: C Location: [place] [address] Anesthesia: Postop Eval I Current Vital Signs Temperature: 99.3 F Pulse Rate: 102 Blood Pressure: 134/85 Respiratory Rate: 16 Pulse Ox: 100 Oxygen Delivery Method: Room Air Assessment Airway patent: Yes Spontaneous unlabored respirations: Yes Mental status: Awake and Calm nausea: No Vomiting: No Anesthesia Complication: No Fluid Hydration Crystalloid volume administer (ml): 500 Total IV fluid infused: 500 Progress Note Anesthesia document: Postop Eval 1 completed: Yes 10/16/24 1237 Date Charito Mace RAILROAD TRACK MECHANIC Cosigner Signature: Date CC: Signed Normal [facility] MR/[id number] 10-16-2024 [facility] Medical Records Department [address] [place] [address] Anesthesia Postop Eval II 10/16/24 1403 MR#: [id number] Acct: [id number] Name: YOHANNES LANDRY Rep #: [id number] : 1970 54 From: Dorothea Rogers RAILROAD TRACK MECHANIC PCP: Care Physician,No Primary Status:ADM DEBBY Y Race: C Location: [place] [address] Anesthesia Postop Eval I Sum Postop Eval Completion status Anesthesia document: Postop Eval 1 completed: Yes Anesthesia Postop Eval I Summary Anesthesia Postop Eval I Summary: Anesthesia Postop Eval I: Assessment Summary Airway patent Yes 10/16/24 12:37 RAILROAD TRACK MECHANIC.[email or web address] Spontaneous unlabored Yes 10/16/24 12:37 RAILROAD TRACK MECHANIC.IRASEMAOBGénesis respirations Mental status Awake,Calm 10/16/24 12:37 RAILROAD TRACK MECHANIC.[email or web address] nausea No 10/16/24 12:37 RAILROAD TRACK MECHANIC.SKOBY Vomiting No 10/16/24 12:37 RAILROAD TRACK MECHANIC.IRASEMAOBY Anesthesia Postop Eval I: Fluid Summary Crystalloid volume administer 500 10/16/24 12:37 RAILROAD TRACK MECHANIC.IRASEMAOBY (ml) Colloids volume administered ( ml) Blood Product volume administered (ml) Total IV fluid infused 500 10/16/24 12:37 RAILROAD TRACK MECHANIC.DANITA Anesthesia Postop Eval I: Summary Notes Anesthesia Complication No 10/16/24 12:37 RAILROAD TRACK MECHANIC.SKOBY Anesthesia Complication Comment: Post-operative progress note Anesthesia: Postop Eval II Evaluation Mental status: Awake Pain Level: 1 nausea: No Vomiting: No 10/16/24 1404 Date Dorothaearlen Rogers RAILROAD TRACK MECHANIC Cosigner Signature: Date CC: Signed Normal [facility] Operative Reporton 5 Operative Report [facility] Medical Records Department [address] [place] [address] Operative Report 10/16/24 1212 MR#: [id number] Acct: [id number] Name: YOHANNES LANDRY Rep #: [id number] : 1970 54 From: Peng Neville MD PCP: Care Physician,No Primary Status:ADM DEBBY Location: [place] [address] Operative Report (Standard) Operative Information Date of Procedure: 10/16/24 Pre-Operative Diagnosis: Bilateral ureteral obstruction Post-Operative Diagnosis: The same Surgery/Procedure Performed: Cystoscopy bilateral stent placement unix systems administrator: No Type of Anesthesia: General RN Documented Start/Stop Times: Operation Date: 10/16/24 12:00 Case Time Into Pre-Op 10/16/24 11:02 Anesthesia Start 10/16/24 12:07 Into Room 10/16/24 12:07 Out of Pre-Op 10/16/24 12:07 Procedure Start Time: 12:12 Procedure Stop Time: 12:23 Select all DRAINS/GRAFTS/IMPLANT S that apply: Drains Drain details: 6 x 24 stents bilaterally Estimated Blood Loss: None Specimen collected: No Description of surgery: Patient was taken back to the operating room after induction of general anesthesia, the patient was placed in dorsolithotomy position. The urethra and genitals were prepped and draped in usual sterile fashion. Using a 21 [place] rigid cystourethroscope the entire length of the urethra was normal then went into the bladder. Identified the trigone the left and right ureteral orifice. I then cannulated the right ureteral orifice and advanced a wire up into the kidney. I then backloaded a 5 [place] open ended catheter over the wire and injected contrast to delineate the anatomy. After the retrograde was performed I then used fluoroscopic images and guidance to advanced a wire up into the kidney and over the 0.038 glidewire I advanced a 6 [place] by 26 cm double pigtail stent. I then pulled the 0.038 Glidewire off and the stent coiled in the kidney bladder good position. The same procedure was done on the left side. The bladder was then drained. We confirmed the position of the stent by fluoroscopy. Patient anesthetic was reversed and was taken back to the PACU in good condition. She was told to follow up with a urologist in her network to treat stones in the future Surgical Findings: Stones blocking both ureter stents in place on both sides Complications Complications: No Admit VTE Documentation VTE Present on Admission: No VTE Mechan Device Prophylaxis: SCD's VTE Pharm Prophylaxis ordered?: No 10/16/24 1223 Cosigner Signature (if applicable): CC: Dr. Peng Neville MD; No Primary Care Physician Signed Normal [facility] ,Serum,hCG Quali.on 10-16-2024 HCG, SERUM QUAL Negative Normal [facility] Comment on above: Performed By: #### L 700.6800, L500.2500, L100.0100 #### [facility] Laboratory [address] [facility] [place], [address] Urinalysis, Completeon 10-16 BACTERIA 4+ /hpf Normal None Seen [facility] Comment on above: Order Comment: CLEAN CATCH Performed By: #### L 400.0001 #### [facility] Laboratory [address] [place], [place], [id number] EPI,SQUAMOUS 5-10 SEEN Normal 5-10 [facility] Comment on above: Order Comment: CLEAN CATCH Performed By: #### L 400.0001 #### [facility] Laboratory [address] [place], [address] WBC >100 SEEN Normal 0-5 [facility] Comment on above: Order Comment: CLEAN CATCH Performed By: #### L 400.0001 #### [facility] Laboratory [address] [place], [address] Abdomen/Pelvis without Conto n 10-15-2024 Abdomen/Pelvis without Cont [facility] Imaging Services [address] [place] [address] Abdomen/Pelvis without Cont MR#: [id number] Acct: [id number] Name: YOHANNES LANDRY Rep #: [id number] : 1970 F 54 From: Itz benjamin MD PCP: Care Physician,No Primary Status: REG ER Study: Abdomen/Pelvis without Cont Date of Exam: 10/01 09/24 Exam# [id number] Ordering Dr: Ian Brown MD PROCEDURE: ABDOMEN/PELVIS WITHOUT CONT 10/16/2024 [...] 11 mm with consequent marked proximal right hydroureteronephrosis . Left lower ureteric 10 mm calculus with adjacent 1 mm calculus inducing moderate to marked proximal right hydroureteronephrosis . Right renal lower calyceal 13 mm non obstructing calculus with lower calyceal dependent/layering faintly dense small calculi. Small sized left kidney showing undulant outline. Average sized right kidney showing smooth outline with preserved parenchymal thickness. Average sized liver showing homogenous parenchymal attenuation. No dilated intra or extra-hepatic biliary tracts. Gall bladder showing no [...] 11 mm with consequent marked proximal right hydroureteronephrosis . Left lower ureteric 10 mm calculus with adjacent 1 mm calculus inducing moderate to marked proximal right hydroureteronephrosis . Right renal lower calyceal 13 mm non obstructing calculus with lower calyceal dependent/layering faintly dense small calculi. Reading Location: [place] [address] CC: Dr. Ian Brown MD; No Primary Care Physician Secondary Art Teacher: Signed Normal [facility] Absolute lymphocyte countOrd ered By: Ian Brown on 10-15-2024 Lymphocytes Auto (Unsp spec) [#/Vol] 2.40 10*3/uL 0.83-4.51 [facility] Absolute neutrophil countOrd ered By: Ian Brown on 10-15-2024 Neutrophils (Bld) [#/Vol] 10.2 10*3/uL High 2.0-7.7 [facility] Anion gap in Serum or Plasma Ordered By: Ian Brown on 10-15-2024 Anion gap [Moles/Vol] 11 mmol/L 5-15 [facility] Automated lymphocyte count a s percentage of total leukocytesOrdered By: Ian Brown on 10-15-2024 Lymphocytes/100 WBC Auto (Unsp spec) 17.2 % Low 19-41 [facility] BUN/creatinine ratioOrdered By: Ian Brown on 10-15-2024 Urea nitrogen/Creatinine [Mass ratio] 12.7 mg/mg 10-20 [facility] Basophil percentageOrdered B y: Ian Brown on 10-15-2024 Basophils/100 WBC (Bld) 0.4 % 0-1 [facility] Bilirubin Test strip Ql (U)O rdered By: Ian Brown on 10-15-2024 Bilirubin Ql (U) Negative Negative [facility] Carbon dioxide, total [Moles /volume] in Central venous bloodOrdered By: Ian Brown on 10-15-2024 CO2 [Moles/Vol] 26.4 mmol/L 21.0-32.0 [facility] Chloride assayOrdered By: Edward Brown on 10-15-2024 Chloride [Moles/Vol] 103 mmol/L 98-108 [facility] Emergency Department Summary on 10-15-2024 Emergency Department Summary [facility] Medical Records Department [address] [place] [address] Emergency Department Summary 10/15/24 MR#: [id number] Acct: [id number] Name: YOHANNES LANDRY Rep #: [id number] : 1970 54 From: Ian Brown MD PCP: Care Physician,No Primary Status:REG ER Location: ED HPI HPI - GI History of Present Illness Chief Complaint: Flank Pain Informant: patient Abdominal Pain/Flank Pain Onset: Days Context: Gradual Onset Timing: Continuous Location: Right Flank and Left Flank (3-day history of bilateral flank pain.) Current Severity: Moderate Maximum Severity: Moderate Worsened by: Nothing Relieved by: Nothing Nausea/Vomiting/Emesi s GI Symptom: Positive for Nausea Severity: Mild Diarrhea/Melena/Hemat ochezia GI Symptom: Negative for Diarrhea, Melena or [...] or worse. Prior similar symptoms: Yes Recent Illness/Hospitalizati on: No PFSH PFSH Medical History Non-smoker Kidney stones Home Medications ???Medication ???Instructions ???Recorded ???Last Taken ???Type naproxen 500 mg tablet 500 mg PO BID PRN #20 tabs 1 Unknown Rx ibuprofen 600 mg tablet 600 mg PO 4X/DAY PRN Pain Or Fever 07/02/21 Unknown Rx #20 tabs ciprofloxacin HCl 500 mg tablet 500 mg PO BID #14 tabs 12/18/21 Un known Rx (Cipro) hydrocodone-acetamino phen 5-325mg 1 tab PO Q6H PRN pain 3 days #12 12/18/21 Unknown Rx 5mg-325mg tabs ondansetron 4 mg disintegrating 4 mg PO Q8H PRN nausea and 2 Unknown Rx tablet vomiting #14 tabs Allergy/AdvReac [...] Denies anxiety Endocrine Endocrinology: Denies polydipsia Hematologic/Lymphatic Hematologic/Lymphatic : Denies easy bleeding Allergic/Immunologic Allergic/Immunologic ED: Denies [...] nourished and well developed; Negative for cachectic, contractures or unkempt General Appearance ED: well developed and NAD; Negative for unkempt, cachectic, contractures or pallor Nutritional Appearance: Negative for cachectic HEENT Reports dry mucous membranes normocephalic and atraumatic M (more content not included)... Normal [facility] Eosinophil percentageOrdered By: Ian Brown on 10-15-2024 Eosinophils/100 WBC (Bld) 3.1 % 0-5 [facility] Erythrocyte distribution wid th ratioOrdered By: Ian Brown on 10-15-2024 Erythrocyte distribution width (RBC) [Ratio] 15.4 % High 11.6-14.6 [facility] Erythrocyte distribution wid th standard deviationOrdered By: Ian Brown on 10-15-2024 Erythrocyte distribution width (RBC) [Ratio] 48.9 fl High 35.1-43.9 [facility] Glomerular filtration rate ( GFR) estimation/1.73 sq m using serum, plasma, or whole bOrdered By: Ian Brown on 10-15-2024 GFR/1.73 sq M.predicted among non-blacks MDRD (S/P/Bld) [Vol rate/Area] 38 mL/min/{1.73_m2} Low >60 [facility] Comment on above: mL/min/1.73m2 CKD-EP I Creatinine Equation (2020) Hematocrit Auto (Bld) [Volum e fraction]Ordered By: Ian Brown on 10-15-2024 Hematocrit (Bld) [Volume fraction] 36.4 % Low 37-47 [facility] Hemoglobin measurementOrdere d By: Ian Brown on 10-15-2024 Hemoglobin (Bld) [Mass/Vol] 11.3 g/dL Low 12.0-15.0 [facility] Immature granulocytes/100 WB C Auto (Bld)Ordered By: Ian Brown on 10-15-2024 Immature granulocytes/100 WBC (Bld) 0.600 % 0.0-0.9 [facility] Comment on above: IG% - Immature Granu locytes (promyelocytes, myelocytes and metamyelocytes) > 1% indicates that a LEFT SHIFT is Present. Ketones Test strip Ql (U)Ord ered By: Ian Brown on 10-15-2024 Ketones Ql (U) Negative Negative [facility] MCV (mean corpuscular volume ) determinationOrdered By: Ian Brown on 10-15-2024 MCV (RBC) [Entitic vol] 87.1 fL 81-99 [facility] Mean corpuscular hemoglobin (MCH) determinationOrdered By: Ian Brown on 10-15-2024 MCH (RBC) [Entitic mass] 27.0 pg 27.0-32.0 [facility] Mean corpuscular hemoglobin concentration (MCHC) determinationOrdered By: Ian Brown on 10-15-2024 MCHC (RBC) [Mass/Vol] 31.0 g/dL Low 32-36 [facility] Mean platelet volume determi nationOrdered By: Ian Brown on 10-15-2024 Platelet mean volume (Bld) [Entitic vol] 11.4 fL 6.2-12.0 [facility] Microscopic analysis of urin e for red blood cells (RBC)Ordered By: Ian Brown on 10-15-2024 Microscopic analysis of urine for red blood cells (RBC) 0 SEEN /hpf 0-5 [facility] Monocyte percentageOrdered B y: Ian Brown on 10-15-2024 Monocytes/100 WBC (Bld) 5.2 % 0-10 [facility] Mucus LM Ql (Urine sed)Order ed By: Ian Brown on 10-15-2024 Mucus Ql (Urine sed) 0 SEEN /hpf [facility] Neutrophil percentageOrdered By: Ian Brown on 10-15-2024 Neutrophils/100 WBC (Bld) 73.5 % High 47-70 [facility] Nitrite Test strip Ql (U)Ord ered By: Ian Brown on 10-15-2024 Nitrite Ql (U) Negative Negative [facility] Nucleated red blood cell per centageOrdered By: Ian Brown on 10-15-2024 Nucleated RBC/100 WBC (Bld) [Ratio] 0 % 0-5 [facility] Platelet countOrdered By: Edward Brown on 10-15-2024 Platelets (Bld) [#/Vol] 270 10*3/uL 150-450 [facility] Potassium measurement (mass/ volume)Ordered By: Ian Brown on 10-15-2024 Potassium (Unsp spec) [Mass/Vol] 3.7 mmol/L 3.3-5.1 [facility] Protein Test strip Ql (U)Ord ered By: Ian Brown on 10-15-2024 Protein Ql (U) 100 mg/dl High Negative [facility] RBC Auto (Bld) [#/Vol]Ordere d By: Ian Brown on 10-15-2024 RBC (Bld) [#/Vol] 4.18 10*6/uL Low 4.2-5.4 [facility] Serum beta-hCG test, qualita tiveOrdered By: Ian Brown on 10-15-2024 Beta HCG ( test) Ql Negative [facility] Serum creatinine measurement (mass/volume)Ordered By: Ian Brown on 10-15-2024 Creatinine [Mass/Vol] 1.63 mg/dL High 0.70-1.20 [facility] Serum glucose measurement (m ass/volume)Ordered By: Ian Brown on 10-15-2024 Glucose [Mass/Vol] 98 mg/dL 70-99 [facility] Serum or plasma calcium brennan urement (mass/volume)Ordered By: Ian Brown on 10-15-2024 Calcium [Mass/Vol] 11.4 mg/dL High 7.6-11.0 [facility] Serum or plasma urea nitroge n measurement (mass/volume)Ordered By: Ian Brown on 10-15-2024 Urea nitrogen [Mass/Vol] 21 mg/dL High 4-19 [facility] Sodium levelOrdered By: Ian Brown on 10-15-2024 Sodium [Moles/Vol] 140 mmol/L 133-145 [facility] Squamous epithelial cells de tection in urine sediment by light microscopyOrdered By: Ian Brown on 10-15-2024 Epithelial cells.squamous LM Ql (Urine sed) 5-10 SEEN /hpf 5-10 [facility] Urinalysis, Completeon 10-15 BILIRUBIN URINE Negative Normal Negative [facility] Comment on above: Order Comment: CLEAN CATCH Performed By: #### L [id number] #### [facility] Laboratory [address] [place], [address] Clarity (U) Cloudy Normal Clear [facility] Comment on above: Order Comment: CLEAN CATCH Performed By: #### L [id number] #### [facility] Laboratory [address] [place], [address] Color (U) Yellow Normal Yellow [facility] Comment on above: Order Comment: CLEAN CATCH Performed By: #### L [id number] #### [facility] Laboratory [address] [place], [address] GLUCOSE, UR Normal Normal Normal [facility] Comment on above: Order Comment: CLEAN CATCH Performed By: #### L [id number] #### [facility] Laboratory [address] [place], [address] KETONE UR Negative Normal Negative [facility] Comment on above: Order Comment: CLEAN CATCH Performed By: #### L [id number] #### [facility] Laboratory [address] [place], [address] LEUK ESTERASE 500 /ul Abnormal Negative [facility] Comment on above: Order Comment: CLEAN CATCH Performed By: #### L [id number] #### [facility] Laboratory [address] [place], [address] Nitrite Ql (U) Negative Normal Negative [facility] Comment on above: Order Comment: CLEAN CATCH Performed By: #### L [id number] #### [facility] [address] [place], [address] OCCULT BLOOD-UR 25 /ul Abnormal Negative [facility] Comment on above: Order Comment: CLEAN CATCH Performed By: #### L [id number] #### [facility] [address] [place], [address] pH UR 6.5 Normal 5.0 - 8.0 [facility] Comment on above: Order Comment: CLEAN CATCH Performed By: #### L [id number] #### [facility] Laboratory [address] [place], [address] PROT DIPSTX 100 mg/dl Abnormal Negative [facility] Comment on above: Order Comment: CLEAN CATCH Performed By: #### L [id number] #### [facility] Laboratory [address] [place], [address] SP.GR. DIPSTX 1.015 Normal 1.002-1.030 [facility] Comment on above: Order Comment: CLEAN CATCH Performed By: #### L [id number] #### [facility] [address] [place], [address] UROBILI Normal Normal Normal [facility] Comment on above: Order Comment: CLEAN CATCH Performed By: #### L [id number] #### [facility] [address] [place], [address] Mucus Ql (Urine sed) 0 SEEN Normal [facility] Comment on above: Order Comment: CLEAN CATCH Performed By: #### L [id number] #### [facility] [address] [place], [address] RBC 0 SEEN Normal 0-5 [facility] Comment on above: Order Comment: CLEAN CATCH Performed By: #### L [id number] #### [facility] [address] [place], [address] Urine clarityOrdered By: Peter Brown on 10-15-2024 Clarity (U) Cloudy Clear [facility] Urine color determinationOrd ered By: Ian Brown on 10-15-2024 Color (U) Yellow Yellow [facility] Urine glucose detectionOrder ed By: Ian Brown on 10-15-2024 Glucose Ql (U) Normal mg/dl Normal [facility] Urine leukocyte esterase det ection by dipstickOrdered By: Ian Brown on 10-15-2024 Leukocyte esterase Test strip Ql (U) 500 /ul High Negative [facility] Urine pHOrdered By: Ian Chadwick ghvibha on 10-15-2024 pH (U) 6.5 [pH] 5.0 - 8.0 [facility] Urine sediment bacteria coun t by microscopy (number/high power field)Ordered By: Ian Brown on 10-15-2024 Bacteria LM.HPF (Urine sed) [#/Area] 4 /[HPF] None Seen [facility] Urine specific gravity measu rementOrdered By: Ian Brown on 10-15-2024 Specific gravity (U) [Rel density] 1.015 1.002-1.030 [facility] Urine urobilinogen measureme ntOrdered By: Ian Brown on 10-15-2024 Urobilinogen Ql (U) Normal mg/dl Normal [facility] White blood cell (WBC) count Ordered By: Ian Brown on 10-15-2024 WBC (Bld) [#/Vol] 13.9 10*3/uL High 4.4-11.0 [facility] White blood cell countOrdere d By: Ian Brown on 10-15-2024 White blood cell count >100 SEEN /hpf 0-5 [facility] Absolute lymphocyte counton 12-17-2021 Lymphocytes Auto (Unsp spec) [#/Vol] 1.79 10*3/uL 0.83-4.51 [facility] Work Phone: Basophil percentageon 2021 Basophils/100 WBC (Bld) 0.3 % 0-1 [facility] Work Phone: Chloride [Moles/Vol] 109 mmol/L 98-107 [facility] Work Phone: Eosinophils/100 WBC (Bld) 4.7 % 0-5 [facility] Work Phone: Glucose [Mass/Vol] 106 mg/dL 74-106 [facility] Work Phone: Comment on above: Fasting Glucose resu lt from 100 to 125 mg/dL suggests IMPAIRED HOMEOSTASIS per A.D.A. criteria. Neutrophils (Bld) [#/Vol] 6.4 10*3/uL 2.0-7.7 [facility] Work Phone: Neutrophils/100 WBC (Bld) 67.3 % 47-70 [facility] Work Phone: Potassium [Moles/Vol] 3.8 mmol/L 3.5-5.1 [facility] Work Phone: Sodium [Moles/Vol] 141 mmol/L 136-145 [facility] Work Phone: WBC (Bld) [#/Vol] 9.6 10*3/uL 4.4-11.0 [facility] Work Phone: Basophil percentage >100 SEEN /hpf 0-5 [facility] Work Phone: Bilirubin Test strip Ql (U)o n 12-17-2021 Bilirubin Ql (U) Negative Negative [facility] Work Phone: Blood erythrocytes count (nu mber/volume)on 12-17-2021 RBC (Bld) [#/Vol] 3.92 10*6/uL 4.2-5.4 [facility] Work Phone: Blood hemoglobin measurement (mass/volume)on 12-17-2021 Hemoglobin (Bld) [Mass/Vol] 10.7 g/dL 12.0-15.0 [facility] Work Phone: Blood lymphocytes/100 leukoc yteson 12-17-2021 Lymphocytes/100 WBC (Bld) 18.7 % 19-41 [facility] Work Phone: Blood monocytes/100 leukocyt eson 12-17-2021 Monocytes/100 WBC (Bld) 7.3 % 0-10 [facility] Work Phone: Blood platelet mean volumeon 12-17-2021 Platelet mean volume (Bld) [Entitic vol] 10.6 fL 6.2-12.0 [facility] Work Phone: [phone] Determination of erythrocyte mean corpuscular volume (MCV)on 12-17-2021 MCV (RBC) [Entitic vol] 85.7 fL 81-99 [facility] Work Phone: [phone] Hematocrit Auto (Bld) [Volum e fraction]on 12-17-2021 Hematocrit (Bld) [Volume fraction] 33.6 % 37-47 [facility] Work Phone: [phone] Ketones Test strip Ql (U)on 12-17-2021 Ketones Ql (U) Negative Negative [facility] Work Phone: [phone] Laboratory - Chemistry and C hemistry - challengeon 12-17-2021 CO2 [Moles/Vol] 26.0 mmol/L 21.0-32.0 [facility] Work Phone: [phone] Urea nitrogen/Creatinine [Mass ratio] 14.6 mg/mg 10-20 [facility] Work Phone: [phone] HCG ( test) Ql (U) Negative [facility] Work Phone: [phone] Comment on above: Very dilute urine sp ecimens, as indicated by a low specificgravity, may not contain in store representative levels of hCG. If is still suspected, a first morning urinespecimen should be collected 48 hours later and tested. Laboratory - Hematology and Cell countson 12-17-2021 Erythrocyte distribution width (RBC) [Entitic vol] 49.2 fL 35.1-43.9 [facility] Work Phone: [phone] Erythrocyte distribution width (RBC) [Ratio] 15.6 % 11.6-14.6 [facility] Work Phone: [phone] Immature granulocytes/100 WBC (Bld) 1.700 % 0.0-0.9 [facility] Work Phone: [phone] Comment on above: IG% - Immature Granu locytes (promyelocytes, myelocytes and metamyelocytes) > 1% indicates that a LEFT SHIFT is Present. MCH (RBC) [Entitic mass] 27.3 pg 27.0-32.0 [facility] Work Phone: Nucleated RBC/100 WBC (Bld) [Ratio] 0 % 0-5 [facility] Work Phone: [phone] MCHC Auto (RBC) [Mass/Vol]on 12-17-2021 MCHC (RBC) [Mass/Vol] 31.8 g/dL 32-36 [facility] Work Phone: Mucus LM Ql (Urine sed)on Mucus Ql (Urine sed) 0 SEEN /hpf [facility] Work Phone: [phone] Nitrite Test strip Ql (U)on 12-17-2021 Nitrite Ql (U) Negative Negative [facility] Work Phone: No Panel Informationon 12-17 Estimated Creatinine Clearance Calc 41.40 ml/min [facility] Work Phone: [phone] Estimated GFR (MDRD) Amer 56 mL/min >60 [facility] Work Phone: Comment on above: GFR Calc Estimated GFR (MDRD) Non-Af Amer 46 mL/min >60 [facility] Work Phone: Comment on above: Non- GFR Calc Platelets bldon 12-17-2021 Platelets (Bld) [#/Vol] 230 10*3/uL 150-450 [facility] Work Phone: [phone] Protein Test strip Ql (U)on 12-17-2021 Protein Ql (U) 30 mg/dl Negative [facility] Work Phone: [phone] Serum or plasma calcium brennan urement (mass/volume)on 12-17-2021 Calcium [Mass/Vol] 10.9 mg/dL 8.5-10.1 [facility] Work Phone: [phone] Serum or plasma creatinine m easurement (mass/volume)on 12-17-2021 Creatinine [Mass/Vol] 1.30 mg/dL 0.55-1.02 [facility] Work Phone: [phone] Comment on above: The validity of the calculated GFR & GFRAA in patients over 70 years has not been determined. Clinical correlation is essential. Serum or plasma urea nitroge n measurement (mass/volume)on 12-17-2021 Urea nitrogen [Mass/Vol] 19 mg/dL 7-18 [facility] Work Phone: [phone] Squamous epithelial cells de tection in urine sediment by light microscopyon 12-17-2021 Epithelial cells.squamous LM Ql (Urine sed) 10-25 SEEN /hpf 5-10 [facility] Work Phone: [phone] Thin prep Papanicolaou smear with manual screeningon 12-17-2021 Thin prep Papanicolaou smear with manual screening 6 5-15 [facility] Work Phone: [phone] Urine blood detectionon 12-01 RBC Ql (U) 250 /ul Negative [facility] Work Phone: [phone] RBC Ql (U) 25-50 SEEN /hpf 0-5 [facility] Work Phone: Urine clarityon 12-17-2021 Clarity (U) Sl. Cloudy Clear [facility] Work Phone: [phone] Urine color determinationon 12-17-2021 Color (U) Yellow Yellow [facility] Work Phone: [phone] Urine glucose detectionon Glucose Ql (U) Normal mg/dl Normal [facility] Work Phone: [phone] Urine leukocyte esterase det ection by dipstickon 12-17-2021 Leukocyte esterase Test strip Ql (U) 500 /ul Negative [facility] Work Phone: [phone] Urine pHon 12-17-2021 pH (U) 6.0 [pH] 5.0 - 8.0 [facility] Work Phone: [phone] Urine sediment bacteria coun t by microscopy (number/high power field)on 12-17-2021 Bacteria LM.HPF (Urine sed) [#/Area] 4 /[HPF] None Seen [facility] Work Phone: Urine specific gravity measu rementon 12-17-2021 Specific gravity (U) [Rel density] 1.015 1.002-1.030 [facility] Work Phone: Urobilinogen Auto test strip Ql (U)on 12-17-2021 Urobilinogen Ql (U) Normal mg/dl Normal [facility] Work Phone: Absolute lymphocyte counton 10-11-2021 Lymphocytes Auto (Unsp spec) [#/Vol] 1.25 10*3/uL 0.83-4.51 [facility] Work Phone: Basophil percentageon 2021 Basophils/100 WBC (Bld) 0.2 % 0-1 [facility] Work Phone: Chloride [Moles/Vol] 107 mmol/L 98-107 [facility] Work Phone: Eosinophils/100 WBC (Bld) 0.5 % 0-5 [facility] Work Phone: Glucose [Mass/Vol] 115 mg/dL 74-106 [facility] Work Phone: Comment on above: Fasting Glucose resu lt from 100 to 125 mg/dL suggests IMPAIRED HOMEOSTASIS per A.D.A. criteria. Neutrophils (Bld) [#/Vol] 14.1 10*3/uL 2.0-7.7 [facility] Work Phone: Neutrophils/100 WBC (Bld) 86.1 % 47-70 [facility] Work Phone: Potassium [Moles/Vol] 3.9 mmol/L 3.5-5.1 [facility] Work Phone: Sodium [Moles/Vol] 136 mmol/L 136-145 [facility] Work Phone: WBC (Bld) [#/Vol] 16.4 10*3/uL 4.4-11.0 [facility] Work Phone: Blood erythrocytes count (nu mber/volume)on 10-11-2021 RBC (Bld) [#/Vol] 4.31 10*6/uL 4.2-5.4 [facility] Work Phone: Blood hemoglobin measurement (mass/volume)on 10-11-2021 Hemoglobin (Bld) [Mass/Vol] 11.4 g/dL 12.0-15.0 [facility] Work Phone: Blood lymphocytes/100 leukoc yteson 10-11-2021 Lymphocytes/100 WBC (Bld) 7.6 % 19-41 [facility] Work Phone: [phone] Blood monocytes/100 leukocyt eson 10-11-2021 Monocytes/100 WBC (Bld) 5.1 % 0-10 [facility] Work Phone: [phone] Blood platelet mean volumeon 10-11-2021 Platelet mean volume (Bld) [Entitic vol] 10.8 fL 6.2-12.0 [facility] Work Phone: [phone] Determination of erythrocyte mean corpuscular volume (MCV)on 10-11-2021 MCV (RBC) [Entitic vol] 84.5 fL 81-99 [facility] [facility] Work Phone: [phone] Hematocrit Auto (Bld) [Volum e fraction]on 10-11-2021 Hematocrit (Bld) [Volume fraction] 36.4 % 37-47 [facility] Work Phone: [phone] Laboratory - Chemistry and C hemistry - challengeon 10-11-2021 CO2 [Moles/Vol] 27.0 mmol/L 21.0-32.0 [facility] Work Phone: [phone] Urea nitrogen/Creatinine [Mass ratio] 16.9 mg/mg 10-20 [facility] Work Phone: [phone] Laboratory - Hematology and Cell countson 10-11-2021 Erythrocyte distribution width (RBC) [Entitic vol] 48.7 fL 35.1-43.9 [facility] Work Phone: [phone] Erythrocyte distribution width (RBC) [Ratio] 15.7 % 11.6-14.6 [facility] Work Phone: [phone] Immature granulocytes/100 WBC (Bld) 0.500 % 0.0-0.9 [facility] Work Phone: Comment on above: IG% - Immature Granu locytes (promyelocytes, myelocytes and metamyelocytes) > 1% indicates that a LEFT SHIFT is Present. MCH (RBC) [Entitic mass] 26.5 pg 27.0-32.0 [facility] Work Phone: Nucleated RBC/100 WBC (Bld) [Ratio] 0 % 0-5 [facility] Work Phone: [phone] MCHC Auto (RBC) [Mass/Vol]on 10-11-2021 MCHC (RBC) [Mass/Vol] 31.3 g/dL 32-36 [facility] Work Phone: No Panel Informationon 10-11 Estimated Creatinine Clearance Calc 64.85 ml/min [facility] Work Phone: Estimated GFR (MDRD) Amer 94 mL/min >60 [facility] Work Phone: Comment on above: GFR Calc Estimated GFR (MDRD) Non-Af Amer 78 mL/min >60 [facility] Work Phone: Comment on above: Non- GFR Calc SARS-CoV-2 & FLU Antigen (Rapid) [facility] Work Phone: Platelets bldon 10-11-2021 Platelets (Bld) [#/Vol] 182 10*3/uL 150-450 [facility] Work Phone: [phone] Serum or plasma calcium brennan urement (mass/volume)on 10-11-2021 Calcium [Mass/Vol] 10.5 mg/dL 8.5-10.1 [facility] Work Phone: [phone] Serum or plasma creatinine m easurement (mass/volume)on 10-11-2021 Creatinine [Mass/Vol] 0.83 mg/dL 0.55-1.02 [facility] Work Phone: Comment on above: The validity of the calculated GFR & GFRAA in patients over 70 years has not been determined. Clinical correlation is essential. Serum or plasma urea nitroge n measurement (mass/volume)on 10-11-2021 Urea nitrogen [Mass/Vol] 14 mg/dL 7-18 [facility] Work Phone: Thin prep Papanicolaou smear with manual screeningon 10-11-2021 Thin prep Papanicolaou smear with manual screening 2 5-15 [facility] Work Phone: CNOVon 08-23-2019 CNOV Office Visit (UCWSTR ) YOHANNES LANDRY ([id number]) 1970 F Date Time Provider Department 08/23/19 5:30 PM MISSY CABRAL ([facility]) [facility] During your visit today, we recorded the following information about you: Temperature Pulse Respiration Blood pressure 98 degrees 97/minute 16/minute 116/72 Weight 72.6 kg Missy Cabral APRN.CNP 08/23/2019 5:56 PM Signed Subjective HPI Nontoxic [...] scabbing of face. Patient states use of nqlb-ljb-uxskhot itch medication and cream with slight symptom [...] of care. This note was generated using [employer] software. It may contain errors in wording, punctuation, or spelling. Missy Cabral APRN.PRASANTH Cabral APRN.PRASANTH 08/23/2019 5:43 PM Signed [facility] [address] [place], [place] [address] Emergency Department Diagnosis: Assessment CELLULITIS: Your exam [...] Other instructions from your clinician: [facility] [address] [place] [address] Emergency Department Diagnosis: Assessment CELLULITIS: Your exam [...] 7 days. Letter Text Encounter Status:Closed by ALEX ARNDT.MISSY RADER on 08/23/19 [facility] PROGRESSon 08-23-2019 PROGRESS HNO ID: [id number] Author: Missy Cabral Service: ? Author Type: Nurse Practitioner Type: [...] scabbing of face. Patient states use of uhem-uht-zeauupm itch medication and cream with slight symptom [...] of care. This note was generated using [employer] software. It may contain errors in wording, punctuation, or spelling. Missy Cabral APRN.PRASANTH [facility] CNOVon 02-28-2019 CNOV Office Visit (WSTR ) YOHANNES LANDRY ([id number]) 1970 F Date Time Provider Department [facility] today, we recorded the following information about you: Temperature Pulse Respiration Blood pressure 97.5 degrees 86/minute 18/minute 128/80 Weight 83.5 kg Ashly Villalobos APRN.PRASANTH 02/28/2019 8:08 PM Signed Subjective The history is provided by the patient. No science interpreter was used. JAMES Valenciaatul Landry is a 48 year old female [...] file Gets together: Not on file Attends rastafarian service: Not on file Active member of [...] have confirmed and edited as necessary, the [facility] Review of Systems Constitutional: Negative [...] discussed in detail warranting prompt ER evaluation. AMANDA Jolly APRN.CNP 02/28/2019 8:07 PM Signed ASSESSMENT/PLAN: 1. [...] Allergies) Date Reviewed: 02/28/2019 Reviewed by: Ashly Villalobos - Fully Assessed Reason for Visit: Rash [...] mouth once daily. Encounter Status:Closed by ASHLY VILLALOBOS CNP on 02/28/19 [facility] PROGRESSon 02-28-2019 PROGRESS HNO ID: [id number] Author: Ashly Villalobos Service: ? Author Type: Nurse Practitioner Type: Progress Notes Filed: 02/28/2019 8:08 PM Note Text: Subjective The history is provided by the patient. No science interpreter was used. HPI Yohannes Landry is a [...] file Gets together: Not on file Attends rastafarian service: Not on file Active member of [...] have confirmed and edited as necessary, the [facility] Review of Systems Constitutional: Negative [...] in detail warranting prompt ER evaluation. Ashly Villalobos, HAIR.HUMAN RESOURCES TRAINING MANAGER [facility] No Panel Information SARS-CoV-2 & FLU Antigen (Rapid) [facility] Work Phone: Vital Signs Date Time Vital Sign Value Performing Clinician Mitesh sun 03-13-2025 17:07-0500 Blood Pressure Location PHILIP MORTENSEN MD [facility] 03-13-2025 17:07-0500 Blood Pressure Method PHILIP MORTENSEN MD [facility] 03-13-2025 17:07-0500 Body temperature 98.6 [degF] PHILIP MORTENSEN MD [facility] 03-13-2025 17:07-0500 Body weight 65 kg PHILIP MORTENSEN MD [facility] 03-13-2025 17:07-0500 Diastolic Blood Pressure Non-Invasive 59 mm[Hg] PHILIP MORTENSEN MD [facility] 03-13-2025 17:07-0500 Heart rate 111 /min PHILIP MORTENSEN MD [facility] 03-13-2025 17:07-0500 Respiratory rate 18 /min PHILIP MORTENSEN MD [facility] 03-13-2025 17:07-0500 Systolic Blood Pressure Non-Invasive 124 mm[Hg] PHILIP MORTENSEN MD [facility] 10-16-2024 14:31-0400 Body temperature 98.2 [degF] No Primary Care Physician [facility] 10-16-2024 14:31-0400 Diastolic blood pressure 82 mm[Hg] No Primary Care Physician [facility] 10-16-2024 14:31-0400 Heart rate 95 /min No Primary Care Physician [facility] 10-16-2024 14:31-0400 Respiratory rate 16 /min No Primary Care Physician [facility] 10-16-2024 14:31-0400 SaO2% (BldA) [Mass fraction] 95 % No Primary Care Physician [facility] 10-16-2024 14:31-0400 Systolic blood pressure 133 mm[Hg] No Primary Care Physician [facility] 10-16-2024 05:30-0400 Body height 157.48 cm No Primary Care Physician [facility] 10-16-2024 05:30-0400 Body mass index (BMI) [Ratio] 27.8 kg/m2 No Primary Care Physician [facility] 10-16-2024 05:30-0400 Body weight 68.9 kg No Primary Care Physician [facility] 10-16-2024 02:45-0400 Body temperature 97.1 [degF] No Primary Care Physician [facility] 10-16-2024 02:45-0400 Diastolic blood pressure 69 mm[Hg] No Primary Care Physician [facility] 10-16-2024 02:45-0400 Heart rate 78 /min No Primary Care Physician [facility] 10-16-2024 02:45-0400 Respiratory rate 16 /min No Primary Care Physician [facility] 10-16-2024 02:45-0400 SaO2% (BldA) [Mass fraction] 99 % No Primary Care Physician [facility] 10-16-2024 02:45-0400 Systolic blood pressure 124 mm[Hg] No Primary Care Physician [facility] 10-15-2024 22:21-0400 Body height 157.48 cm No Primary Care Physician [facility] 10-15-2024 22:21-0400 Body mass index (BMI) [Ratio] 27.8 kg/m2 No Primary Care Physician [facility] 10-15-2024 22:21-0400 Body weight 68.9 kg No Primary Care Physician [facility] 12-18-2021 00:27-0400 Diastolic blood pressure 89 mm[Hg] [facility] Work Phone: 12-18-2021 00:27-0400 Heart rate 98 /min [facility] Work Phone: 12-18-2021 00:27-0400 Respiratory rate 16 /min [facility] Work Phone: 12-18-2021 00:27-0400 SaO2% (BldA) [Mass fraction] 98 % [facility] Work Phone: 12-18-2021 00:27-0400 Systolic blood pressure 144 mm[Hg] [facility] Work Phone: 12-17-2021 22:21-0400 Body height 157.48 cm [facility] Work Phone: 12-17-2021 22:21-0400 Body mass index (BMI) [Ratio] 27.4 kg/m2 [facility] Work Phone: 12-17-2021 22:21-0400 Body temperature 99.3 [degF] [facility] Work Phone: 12-17-2021 22:21-0400 Body weight 68.03 kg [facility] Work Phone: 10-11-2021 02:58-0400 Body temperature 98.4 [degF] No Primary Care Physician [facility] Work Phone: 10-11-2021 02:58-0400 Diastolic blood pressure 73 mm[Hg] No Primary Care Physician [facility] Work Phone: 10-11-2021 02:58-0400 Heart rate 107 /min No Primary Care Physician [facility] Work Phone: 10-11-2021 02:58-0400 Respiratory rate 15 /min No Primary Care Physician [facility] Work Phone: 10-11-2021 02:58-0400 SaO2% (BldA) [Mass fraction] 97 % No Primary Care Physician [facility] Work Phone: 10-11-2021 02:58-0400 Systolic blood pressure 133 mm[Hg] No Primary Care Physician [facility] Work Phone: 10-11-2021 00:39-0400 Body height 157.48 cm No Primary Care Physician [facility] Work Phone: 10-11-2021 00:39-0400 Body mass index (BMI) [Ratio] 29.5 kg/m2 No Primary Care Physician [facility] Work Phone: 10-11-2021 00:39-0400 Body weight 73.1 kg No Primary Care Physician [facility] Work Phone: 08-30-2021 23:24-0400 Heart rate 84 /min No Primary Care Physician [facility] Work Phone: 08-30-2021 23:24-0400 Respiratory rate 15 /min No Primary Care Physician [facility] Work Phone: 08-30-2021 23:24-0400 SaO2% (BldA) [Mass fraction] 99 % No Primary Care Physician [facility] Work Phone: 08-30-2021 21:18-0400 Body height 157.48 cm No Primary Care Physician [facility] Work Phone: 08-30-2021 21:18-0400 Body mass index (BMI) [Ratio] 28.3 kg/m2 No Primary Care Physician [facility] Work Phone: 08-30-2021 21:18-0400 Body temperature 99.1 [degF] No Primary Care Physician [facility] Work Phone: 08-30-2021 21:18-0400 Body weight 70.3 kg No Primary Care Physician [facility] Work Phone: 08-30-2021 21:18-0400 Diastolic blood pressure 70 mm[Hg] No Primary Care Physician [facility] Work Phone: 08-30-2021 21:18-0400 Systolic blood pressure 135 mm[Hg] No Primary Care Physician [facility] Work Phone: 07-02-2021 16:59-0500 Body mass index (BMI) [Ratio] 29.5 kg/m2 No Primary Care Physician [facility] Work Phone: 07-02-2021 16:59-0500 Body temperature 97.5 [degF] No Primary Care Physician [facility] Work Phone: 07-02-2021 16:59-0500 Body weight 73.1 kg No Primary Care Physician [facility] Work Phone: 07-02-2021 16:59-0500 Diastolic blood pressure 68 mm[Hg] No Primary Care Physician [facility] Work Phone: 07-02-2021 16:59-0500 Heart rate 99 /min No Primary Care Physician [facility] Work Phone: 07-02-2021 16:59-0500 Respiratory rate 16 /min No Primary Care Physician [facility] Work Phone: 07-02-2021 16:59-0500 SaO2% (BldA) [Mass fraction] 97 % No Primary Care Physician [facility] Work Phone: 07-02-2021 16:59-0500 Systolic blood pressure 117 mm[Hg] No Primary Care Physician [facility] Work Phone: Encounters Encounter Date Encounter Type Care Provider Facility Start: 03-13-2025 End: 03-13-2025 Emergency department patient visit NONE PHYSICIAN Facility:[facility] Start: 10-16-2024 End: 10-16-2024 ambulatory [facility] Facility:[facility] Start: 10-16-2024 End: 10-16-2024 ambulatory No Primary Care Physician Facility:[facility] Start: 10-16-2024 End: 10-16-2024 Evaluation and management of inpatient Dr. Peng Neville MD [facility] Work Phone: Start: 10-16-2024 End: 10-16-2024 observation encounter No Primary Care Physician [facility] Work Phone: Start: 10-16-2024 Evaluation and management of inpatient Dr. Peng Neville MD [facility] Work Phone: Start: 12-17-2021 End: 12-18-2021 Emergency department patient visit [facility] Start: 10-11-2021 End: 10-11-2021 Emergency department patient visit No Primary Care Physician [facility] Start: 08-30-2021 End: 08-30-2021 Emergency department patient visit No Primary Care Physician [facility] Start: 08-12-2021 End: 08-12-2021 Patient encounter procedure No Primary Care Physician [facility] Start: 07-02-2021 End: 07-02-2021 Emergency department patient visit No Primary Care Physician [facility] Procedures Date Procedure Procedure Detail Performing Clinician Start: 10-16-2024 Fluoroscopic guidance N o Primary Care Physician Start: 10-16-2024 Cystoscopy and retro grade pyelography No Primary Care Physician Start: 10-15-2024 Estimated creatinine clearance No Primary [...] Date Care Activity Detail Author Start: 10-16-2024 Patient discharge [facility] Start: 10-16-2024 Application of inter mittent pneumatic compression device [facility] Start: 10-16-2024 Admission procedure [facility] Start: 10-16-2024 Following clinical p athway protocol [facility] Start: 10-16-[address] [facility] Start: 10-16-2024 Hospital admission, emergency, from emergency room, medical nature [facility] Start: 10-16-2024 Patient referral to dietitian [facility] Start: 12-18-[address] [facility] Work Phone: Start: 10-11-[address] [facility] Work Phone: Bacteria identified in Urine by Culture Urine Culture [facility] Work Phone: Patient Education [facility] Work Phone: Patient referral [facility] Work Phone: Urine culture [facility] Payers Date Payer Category Payer Medicaid [id number] 2024 Private Health Insurance [id number] 2024 Self-pay [id number] 1970 Unknown [id number] Medicaid [id number] Private Health Insurance [id number] Unknown [id number] Unknown [id number] Social History Date Type Detail Facility [facility] Work Phone: Start: 08-30-2021 End: 12-17-2021 Tobacco smoking status NHIS Unknown if ever smoked [facility] Work Phone: Start: 1970 Sex Assigned At Female [facility] Start: 10-15-2024 End: 10-16-2024 Tobacco smoking status NHIS Never smoked tobacco (finding) [facility] Tobacco smoking status [facility] Start: 03-13-2025 Sex Female (finding) [facility] NEGATED: Highlighted row Not [facility] Goals Date Patient Goal Desired Activity /State Functional Status Date Assessment Result Facility 10-16-2024 Functional status Ambulates [facility] Work Phone: 10-16-2024 Functional status Assistive Devices None [facility] Work Phone: Mental Status Date Assessment Result Facility 10-16-2024 Cognitive function Voice/Name [facility] Work Phone: Clinical Notes 10-15-2024 to 10-16-2024 Note Date & Type Note Facility 10-16-2024 Consult note Note Date/Time October 16, 2024 12:37[facility] Medical Records Department [address] [place] [address] Anesthesia Postop Eval I 10/16/24 1237 MR#: [id number] Acct: [id number] Name: YOHANNES LANDRY Rep #:[id number] : 1970 54 From: Charito zhou CRNA PCP: Care Physician,No Primary Status :ADM DEBBY Y Race: C Location: [place] [address]-1 Anesthesia: Postop Eval I Current Vital Signs Temperature: 99.3 F Pulse Rate: 102 Blood Pressure: 134/85 Respiratory Rate: 16 Pulse Ox: 100 Oxygen Delivery Method: Room Air Assessment Airway patent: Yes Spontaneous unlabored respirations: Yes Mental status: Awake and Calm nausea: No Vomiting: No Anesthesia Complication: No Fluid Hydration Crystalloid volume administer (ml): 500 Total IV fluid infused: 500 Progress Note Anesthesia document: Postop Eval 1 completed: Yes 10/16/24 1237 <Electronically signed by Charito crystal CRNA> Date _ Charito Mace CRNA Cosigner Signature: Date CC: ~ Signed [facility] Work Phone: [phone]) 589-370106-16-2025 Discharge summary Author Peng Neville [facility] Note Date/Time October 16, 2024 12:1 1pm [facility] Medical Records Department [address] [place] [address] Instructions for Home/Discharge Instructions 10/16/24 0722 MR#: [id number] Acct: [id number] Name: YOHANNES LANDRY Rep #:[id number] : 1970 54 From: Peng Neville MD PCP: Care Physician,No Primary Status :ADM DEBBY Discharge Instructions Diet Discharge Diet: No restrictions DC O2, CPAP, BIPAP needs Home O2 Discharge instructions: No Dressing / Incision Discharge Activity: Return to Normal Activity and May Not Drive (while taking narcotic pain medications.) Dressing / Incision Call your doctor if you observe: Fever of 101 or Higher Follow Up Care Please Follow Up With: Peng Neville MD When: Call [phone] for an appointment Test Results: Test results from this visit will be discussed in further detail at your follow- up appointment, if applicable. Discharge Plan Admission Admit Date/Time: 10/16/24 04:13 Attending Provider: Peng Neville Primary Care Provider: Care Physician,Cyndie Primary Discharge Orders/Prescriptions Prescriptions: No Action NK Referrals / Follow Up: Care Physician,No Primary [Primary Care Provider] - 10/16/24 0722<Electronically signed by Peng eNville MD>Peng Neville MD CC: No Primary Care Physician ~ Signed [facility] Work Phone: [phone]) 990-923506-16-2025 Consult note [facility] Medical Records Department [address] [place] [address] Anesthesia Postop Eval II 10/16/24 1403 MR#: [id number] Acct: [id number] Name: YOHANNES LANDRY Rep #:[id number] : 1970 54 From: Dorothea Rogers CRNA PCP: Care Physician,No Primary Status :ADM DEBBY Y Race: C Location: [place] [address] 0-1 Anesthesia Postop Eval I Sum Postop Eval Completion status Anesthesia document: Postop Eval 1 completed: Yes Anesthesia Postop Eval I Summary Anesthesia Postop Eval I Summary: Anesthesia Postop Eval I: Assessment Summary Airway patent Yes 10/16/24 12:37 [employer]ILROAD TRACK MECHANIC.SKOBY Spontaneous unlabored Yes 10/16/24 12:37 RAILROAD TRACK MECHANIC.SKOBY respirations Mental status Awake,Calm 10/16/24 12:37 RAILROAD TRACK MECHANIC.SKOBY nausea No 10/16/24 12:37 RAILROAD TRACK MECHANIC.SKOBY Vomiting No 10/16/24 12:37 RAILROAD TRACK MECHANIC.SKOBY Anesthesia Postop Eval I: Fluid Summary Crystalloid volume administer 500 10/16/24 12:37 RAILROAD TRACK MECHANIC.SKOBY (ml) Colloids volume administered ( ml) Blood Product volume administered (ml) Total IV fluid infused 500 10/16/24 12:37 RAILROAD TRACK MECHANIC.DANITA Anesthesia Postop Eval I: Summary Notes Anesthesia Complication No 10/16/24 12:37 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 Anesthesia Complication Comment: Post-operative progress note Anesthesia: Postop Eval II Evaluation Mental status: Awake Pain Level: 1 nausea: No Vomiting: No 10/16/24 1404 a RAILROAD TRACK MECHANIC> Date _ Dorotheaarlen Rogers RAILROAD TRACK MECHANIC Cosigner Signature: Date CC: ~ Signed [facility]06-16-2025 Consult note Author Charito Mace [facility] Note Date/Time October 16, 2024 11:4 3am [facility] Medical Records Department [address] [place] [address] Pre-Anesthesia Evaluation 10/16/24 1140 MR#: [id number] Acct: [id number] Name: YOHANNES LANDRY Rep #:[id number] : 1970 54 From: Charito zhou CRNA PCP: Care Physician,No Primary Status :ADM DEBBY Y Race: C Location: [place] [address] 0-1 ASA Classification* ASA Classification ASA Classification: 2 Assessment & Plan Anesthesia* Anesthesia Assessment Anesthesia Assessment: Discussed sedation and/or anesthesia options, risks, benefits, and alternatives with patient/parents/legal guardian/POA. Questions invited. The patient/parents/legal guardian/POA seems to understand and agrees to proceedwith anesthesia plan. Reviewed the physical assessment, medical history, allergy history and patient home medications list prior to surgery/procedure/anesthetic and documented any changes. Performed airway and anesthesia risk assessments. Anesthesia Type Anesthesia Type: MAC History Source History Obtained from:: Patient and Chart Anesthesia Focused Assessment* Temperature: 98.7 F Pulse Rate: 98 Blood Pressure: 123/79 Respiratory Rate: 16 Pulse Ox: 94 Oxygen Delivery Method: Room Air Airway Assessment Mouth opens: >3 cm Mallampati Score: I Teeth Condition: Intact Neck Range of motion (ROM): Full ROM Labs Anesthesia Preop lab: CBC WBC 13.9 K/mm3 (4.4-11.0) H 10/15/24 22:38 5 RBC 4.18 M/mm3 (4.2-5.4) L 10/15/24 22:38 10/15/24 Hgb 11.3 g/dL (12.0-15.0) L 10/15/24 22:38 5 Hct 36.4 % (37-47) L 10/15/24 22:38 10/15/24 Plt Count 270 K/mm3 (150-450) 10/15/24 22:38 10/15/24 CHEMISTRY Potassium 3.7 mmol/L (3.3-5.1) 10/15/24 22:38 10/15/24 Sodium 140 mmol/L (133-145) 10/15/24 22:38 10/15/24 BUN 21 mg/dL (4-19) H 10/15/24 22:38 10/15/24 Creatinine 1.63 mg/dL (0.70-1.20) H 10/15/24 22:38 Glucose 98 mg/dL (70-99) 10/15/24 22:38 10/15/24 POC Glucose 121 mg/dL (70-110) H 06/29/13 20:04 06/29/13 COAG Urine Test Negative Negative 12/17/21 22:45 12/17/21 Pre-Assessment Diagnosis/Proposed Procedure Planned Operative Procedure(s): cystoscopy, bilateral stent insertion Anesthesia History Anesthesia History - pain coordinator: Anesthesia History - pain coordinator Hx Hospitalization Any Problems With Anesthesia Yes: vomiting coming out of 10/16/24 05:31 anasthesia Cholinesterase deficiency No 10/16/24 05:31 You/Your Family Experience No 10/16/24 05:31 fever (hyperthermia) with Relationship Recent Exposure to Contagious No 10/16/24 05:31 Disease Does patient have nerve No 10/16/24 05:31 stimulator Patient instructed to have device shut off --Does patient have Pacemaker No 10/16/24 05:30 or ICD? When Was Last Pacemaker Check QUESTION #4 FULL TEXT: You/Your Family Experience fever (hyperthermia) with Anesthesia Last Oral Intake Last Oral intake: Last Oral Intake NPO since 21:00 10/16/24 05:30 Meds taken in AM with sips of water? Meds patient instructed to take am of surgery PONV PONV - pain coordinator: PONV - pain coordinator Female HX of Motion Sickness HX of N/V After Surgery Non-Smoker Duration of Surgery greater than 60 minutes Number of Risk Factors PONV Score Height & Weight Height & Weight: Anesthesia: Height & Weight Height 5 ft 2 in 10/16/24 05:30 Weight: 68.9 kg 10/16/24 05:30 Body Mass Index (BMI) 27.8 10/16/24 05:30 Respiratory Assessment Respiratory Assessment - pain coordinator: Respiratory Tract Infection Hx - pain coordinator Hx Respiratory Tract Infection No 10/16/24 05:31 STOP Sleep Apnea STOP Sleep Apnea - pain coordinator: STOP Sleep Apnea - pain coordinator Hx Hypertension No 10/16/24 03:28 Hx Sleep Apnea No 10/16/24 03:28 CPAP BIPAP Do you snore loudly (louder No 10/16/24 03:28 than talking or can be heard Do you often feel tired/ No 10/16/24 03:28 fatigued/ sleepy during daytime? Has anyone observed you stop No 10/16/24 03:28 breathing during sleep? STOP Results Negative 10/16/24 03:28 QUESTION #5 FULL TEXT : Do you snore loudly (louder than talking or can be heard through closed doors)? Tobacco Use History Tobacco Use History - pain coordinator: Tobacco Use History - pain coordinator Tobacco Use Smoking Status Never smoker 10/16/24 03:28 Hx Tobacco Use No 10/16/24 03:28 Years Smoking Packs Smoked per Day Smoking Cessation Date was within the last 15 years Hx Smoking Cessation Date Hx Smoking Cessation Counseling Hematologic Medial History Hematologic Hx - pain coordinator: Hematologic Medical Hx - rod placer Hx of Blood Transfusion No 10/16/24 03:28 Hx of Transfusion in last 3 No 10/16/24 03:28 Months Date of Last Transfusion (if within last 3 months) Ever experience any problems No 10/16/24 03:28 with transfusion(s)? Specify any problems Hx of Preganancy in last 3 No 10/16/24 03:28 Months Nurse Filling Out Transfusion EAFFOLTER 10/16/24 03:28 & Questions: Date: 10/16/24 10/16/24 03:28 Time: 03:29 10/16/24 03:28 Patient unable to answer at this time (ie. confused, unrespo /Reproduction History /Reproductive History - pain coordinator: /Reproductive Hx- pain coordinator Hx Now No 10/16/24 05:31 Gestational Age (in weeks): EDC: Hx Hx Para Hx Section SAB No 10/16/24 05:31 Active Medications Active Medications: Current Medications Generic Name Dose Route Start Last Admin Trade Name Freq PRN Reason Stop Dose Admin Sodium Chloride 250 mls @ 15 mls/hr 10/16/24 03:13 IV .[id number] PRN Saline Flush Sodium Chloride 250 mls @ 15 mls/hr 10/16/24 03:13 IV .[id number] PRN Additional IVPB Infusion Sodium Chloride 1,000 mls @ 50 mls/hr 10/16/24 04:15 10/16/24 05:27 IV 50 mls/hr .Q20H GINGER Administration Lactated Ringer's 1,000 mls @ 15 mls/hr 10/16/24 11:30 IV .Q48H GINGER Morphine Sulfate 2 mg 10/16/24 04:13 10/16/24 08:26 Morphine 2 Mg/Ml Syringe IV 2 mg Q2H PRN PRN Administration Pain Score 4-10 Ondansetron HCl 4 mg 10/16/24 04:13 10/16/24 05:29 Ondansetron 4 Mg/2 Ml Vial IV 4 mg Q6H PRN PRN Administration NAUSEA/VOMITING Sodium Chloride 10 - 40 ml 10/16/24 03:13 0.9% Saline Lock 10 Ml Syringe IV UD PRN SALINE FLUSH PFSH Medical History Non-smoker Kidney stones Home Medications ?Medication ?Instructions ?Recorded ?Last Taken ?Type NK 10/16/24 Unknown History Allergy/AdvReac Type Severity Reaction Status Date / Time No Known Allergies Allergy Verified 10/15/24 22:21 Surgical History History of arthroplasty of right knee History of tubal ligation Social History Smoking Status: Never smoker Review of Systems (Anesthesia) ROS Narrative System reviewed and no additional complaints, except as documented. 10/16/24 1143 <Electronically signed by Charito crystal CRNA> Date _ Charito Mace CRNA Cosigner Signature: Date CC: ~ Signed [facility] Work Phone: 1(266) 444-402906-16-2025 Consult note [facility] Medical Records Department [address] [place] [address] Anesthesia Postop Eval I 10/16/24 1237 MR#: [id number] Acct: [id number] Name: YOHANNES LANDRY Rep #:[id number] : 1970 54 From: Charito zhou CRNA PCP: Care Physician,No Primary Status :ADM DEBBY Y Race: C Location: [place] [address] 0-1 Anesthesia: Postop Eval I Current Vital Signs Temperature: 99.3 F Pulse Rate: 102 Blood Pressure: 134/85 Respiratory Rate: 16 Pulse Ox: 100 Oxygen Delivery Method: Room Air Assessment Airway patent: Yes Spontaneous unlabored respirations: Yes Mental status: Awake and Calm nausea: No Vomiting: No Anesthesia Complication: No Fluid Hydration Crystalloid volume administer (ml): 500 Total IV fluid infused: 500 Progress Note Anesthesia document: Postop Eval 1 completed: Yes 10/16/24 1237 bonilla OLGUIN> Date _ Charito Mace [employer]CH[employer]IC Cosigner Signature: Date CC: ~ Signed [facility]06-16-2025 Procedure note [facility] Medical Records Department [address] [place] [address] Operative Report 10/16/24 1212 MR#: [id number] Acct: [id number] Name: YOHANNES LANDRY Rep #:[id number] : 1970 54 From: Peng Neville MD PCP: Care Physician,No Primary Status :ADM DEBBY Location: [place] [address] Operative Report (Standard) Operative Information Date of Procedure: 10/16/24 Pre-Operative Diagnosis: Bilateral ureteral obstruction Post-Operative Diagnosis: The same Surgery/Procedure Performed: Cystoscopy bilateral stent placement unix systems administrator: No Type of Anesthesia: General RN Documented Start/Stop Times: Operation Date: 10/16/24 12:00 Case Time Into Pre-Op 10/16/24 11:02 Anesthesia Start 10/16/24 12:07 Into Room 10/16/24 12:07 Out of Pre-Op 10/16/24 12:07 Procedure Start Time: 12:12 Procedure Stop Time: 12:23 Select all DRAINS/GRAFTS/IMPLANTS that apply: Drains Drain details: 6 x 24 stents bilaterally Estimated Blood Loss: None Specimen collected: No Description of surgery: Patient was taken back to the operating room after induction of general anesthesia, the patient wasplaced in dorsolithotomy position. The urethra and genitals were prepped and draped in usual sterile fashion. Using a 21 [place] Irish rigid cystourethroscope the entire length of the urethra was normal then went into the bladder. Identified the trigone the left and right ureteral orifice. I then cannulated the right ureteral orifice and advanced a wire up into the kidney. I then backloaded a 5 [place] Irish open ended catheter over the wire and injected contrast to delineate the anatomy. After the retrograde was performed I then used fluoroscopic images and guidance to advanced a wire up into the kidney and over the 0.038 glidewire I advanced a 6 Northern Irish by 26 cm double pigtail stent. I then pulled the 0.038 Glidewire off and the stent coiled in the kidney bladder good position. The same procedure was done on the left side. The bladder was then drained. We confirmed the position of the stent by fluoroscopy. Patient anesthetic was reversed and was taken back to the PACU in good condition. She was told to follow up with a urologist in her network to treat stones in the future Surgical Findings: Stones blocking both ureter stents in place on both sides Complications Complications: No Admit VTE Documentation VTE Present on Admission: No VTE Mechan Device Prophylaxis: SCD's VTE Pharm Prophylaxis ordered?: No 10/16/24 1223 Cosigner Signature (if applicable): CC: Dr. Peng Neville MD; No Primary Care Physician~ Signed [facility]06-16-2025 Discharge summary [facility] Medical Records Department [address] [facility] [place] [address] Instructions for Home/Discharge Instructions 10/16/24 0722 MR#: [id number] Acct: [id number] Name: YOHANNES LANDRY Rep #:[id number] : 1970 54 From: Peng Neville MD PCP: Care Physician,No Primary Status :ADM DEBBY Discharge Instructions Diet Discharge Diet: No restrictions DC O2, CPAP, BIPAP needs Home O2 Discharge instructions: No Dressing / Incision Discharge Activity: Return to Normal Activity and May Not Drive (while taking narcotic pain medications.) Dressing / Incision Call your doctor if you observe: Fever of 101 or Higher Follow Up Care Please Follow Up With: Peng Neville MD When: Call [phone] for an appointment Test Results: Test results from this visit will be discussed in further detail at your follow- up appointment, if applicable. Discharge Plan Admission Admit Date/Time: 10/16/24 04:13 Attending Provider: Peng Neville Primary Care Provider: Care Physician,Cyndie Primary Discharge Orders/Prescriptions Prescriptions: No Action NK Referrals / Follow Up: Janette Physician,No Primary [Primary Care Provider] - 10/16/24 0722Peng Neville MD CC: No Primary Care Physician ~ Signed [facility]06-16-2025 Consult note [facility] Medical Records Department [address] [place] [address] Pre-Anesthesia Evaluation 10/16/24 1140 MR#: [id number] Acct: [id number] Name: YOHANNES LANDRY Rep #:[id number] : 1970 54 From: Charito zhou CRNA PCP: Care Physician,No Primary Status :ADM DEBBY Y Race: C Location: [place] [address] 0-1 ASA Classification* ASA Classification ASA Classification: 2 Assessment & Plan Anesthesia* Anesthesia Assessment Anesthesia Assessment: Discussed sedation and/or anesthesia options, risks, benefits, and alternatives with patient/parents/legal guardian/POA. Questions invited. The patient/parents/legal guardian/POA seems to understand and agrees to proceedwith anesthesia plan. Reviewed the physical assessment, medical history, allergy history and patient home medications list prior to surgery/procedure/anesthetic and documented any changes. Performed airway and anesthesia risk assessments. Anesthesia Type Anesthesia Type: MAC History Source History Obtained from:: Patient and Chart Anesthesia Focused Assessment* Temperature: 98.7 F Pulse Rate: 98 Blood Pressure: 123/79 Respiratory Rate: 16 Pulse Ox: 94 Oxygen Delivery Method: Room Air Airway Assessment Mouth opens: >3 cm Mallampati Score: I Teeth Condition: Intact Neck Range of motion (ROM): Full ROM Labs Anesthesia Preop lab: CBC WBC 13.9 K/mm3 (4.4-11.0) H 10/15/24 22:38 5 RBC 4.18 M/mm3 (4.2-5.4) L 10/15/24 22:38 10/15/24 Hgb 11.3 g/dL (12.0-15.0) L 10/15/24 22:38 5 Hct 36.4 % (37-47) L 10/15/24 22:38 10/15/24 Plt Count 270 K/mm3 (150-450) 10/15/24 22:38 10/15/24 CHEMISTRY Potassium 3.7 mmol/L (3.3-5.1) 10/15/24 22:38 10/15/24 Sodium 140 mmol/L (133-145) 10/15/24 22:38 10/15/24 BUN 21 mg/dL (4-19) H 10/15/24 22:38 10/15/24 Creatinine 1.63 mg/dL (0.70-1.20) H 10/15/24 22:38 Glucose 98 mg/dL (70-99) 10/15/24 22:38 10/15/24 POC Glucose 121 mg/dL (70-110) H 06/29/13 20:04 06/29/13 COAG Urine Test Negative Negative 12/17/21 22:45 12/17/21 Pre-Assessment Diagnosis/Proposed Procedure Planned Operative Procedure(s): cystoscopy, bilateral stent insertion Anesthesia History Anesthesia History - pain coordinator: Anesthesia History - pain coordinator Hx Hospitalization Any Problems With Anesthesia Yes: vomiting coming out of 10/16/24 05:31 anasthesia Cholinesterase deficiency No 10/16/24 05:31 You/Your Family Experience No 10/16/24 05:31 fever (hyperthermia) with Relationship Recent Exposure to Contagious No 10/16/24 05:31 Disease Does patient have nerve No 10/16/24 05:31 stimulator Patient instructed to have device shut off --Does patient have Pacemaker No 10/16/24 05:30 or ICD? When Was Last Pacemaker Check QUESTION #4 FULL TEXT: You/Your Family Experience fever (hyperthermia) with Anesthesia Last Oral Intake Last Oral intake: Last Oral Intake NPO since 21:00 10/16/24 05:30 Meds taken in AM with sips of water? Meds patient instructed to take am of surgery PONV PONV - pain coordinator: PONV - pain coordinator Female HX of Motion Sickness HX of N/V After Surgery Non-Smoker Duration of Surgery greater than 60 minutes Number of Risk Factors PONV Score Height & Weight Height & Weight: Anesthesia: Height & Weight Height 5 ft 2 in 10/16/24 05:30 Weight: 68.9 kg 10/16/24 05:30 Body Mass Index (BMI) 27.8 10/16/24 05:30 Respiratory Assessment Respiratory Assessment - pain coordinator: Respiratory Tract Infection Hx - pain coordinator Hx Respiratory Tract Infection No 10/16/24 05:31 STOP Sleep Apnea STOP Sleep Apnea - pain coordinator: STOP Sleep Apnea - pain coordinator Hx Hypertension No 10/16/24 03:28 Hx Sleep Apnea No 10/16/24 03:28 CPAP BIPAP Do you snore loudly (louder No 10/16/24 03:28 than talking or can be heard Do you often feel tired/ No 10/16/24 03:28 fatigued/ sleepy during daytime? Has anyone observed you stop No 10/16/24 03:28 breathing during sleep? STOP Results Negative 10/16/24 03:28 QUESTION #5 FULL TEXT : Do you snore loudly (louder than talking or can be heard through closeddoors)? Tobacco Use History Tobacco Use History - pain coordinator: Tobacco Use History - pain coordinator Tobacco Use Smoking Status Never smoker 10/16/24 03:28 Hx Tobacco Use No 10/16/24 03:28 Years Smoking Packs Smoked per Day Smoking Cessation Date was within the last 15 years Hx Smoking Cessation Date Hx Smoking Cessation Counseling Hematologic Medial History Hematologic Hx - pain coordinator: Hematologic Medical Hx - rod placer Hx of Blood Transfusion No 10/16/24 03:28 Hx of Transfusion in last 3 No 10/16/24 03:28 Months Date of Last Transfusion (if within last 3 months) Ever experience any problems No 10/16/24 03:28 with transfusion(s)? Specify any problems Hx of Preganancy in last 3 No 10/16/24 03:28 Months Nurse Filling Out Transfusion EAFFOLTER 10/16/24 03:28 & Questions: Date: 10/16/24 10/16/24 03:28 Time: 03:29 10/16/24 03:28 Patient unable to answer at this time (ie. confused, unrespo /Reproduction History /Reproductive History - pain coordinator: /Reproductive Hx- pain coordinator Hx Now No 10/16/24 05:31 Gestational Age (in weeks): EDC: Hx Hx Para Hx Section SAB No 10/16/24 05:31 Active Medications Active Medications: Current Medications Generic Name Dose Route Start Last Admin Trade Name Freq PRN Reason Stop Dose Admin Sodium Chloride 250 mls @ 15 mls/hr 10/16/24 03:13 IV .[id number] PRN Saline Flush Sodium Chloride 250 mls @ 15 mls/hr 10/16/24 03:13 IV .[id number] PRN Additional IVPB Infusion Sodium Chloride 1,000 mls @ 50 mls/hr 10/16/24 04:15 10/16/24 05:27 IV 50 mls/hr .Q20H GINGER Administration Lactated Ringer's 1,000 mls @ 15 mls/hr 10/16/24 11:30 IV .Q48H GINGER Morphine Sulfate 2 mg 10/16/24 04:13 10/16/24 08:26 Morphine 2 Mg/Ml Syringe IV 2 mg Q2H PRN PRN Administration Pain Score 4-10 Ondansetron HCl 4 mg 10/16/24 04:13 10/16/24 05:29 Ondansetron 4 Mg/2 Ml Vial IV 4 mg Q6H PRN PRN Administration NAUSEA/VOMITING Sodium Chloride 10 - 40 ml 10/16/24 03:13 0.9% Saline Lock 10 Ml Syringe IV UD PRN SALINE FLUSH PFSH Medical History Non-smoker Kidney stones Home Medications ?Medication ?Instructions ?Recorded ?Last Taken ?Type NK 10/16/24 Unknown History Allergy/AdvReac Type Severity Reaction Status Date / Time No Known Allergies Allergy Verified 10/15/24 22:21 Surgical History History of arthroplasty of right knee History of tubal ligation Social History Smoking Status: Never smoker Review of Systems (Anesthesia) ROS Narrative System reviewed and no additional complaints, except as documented. 10/16/24 1143 bonilla OLGUIN> Date _ Charito Mace CRNA Cosigner Signature: Date CC: ~ Signed [facility]06-16-2025 History and physical note Author Peng Neville [facility] Note Date/Time October 16, 2024 7:22 am [facility] Medical Records Department [address] [place] [address] History & Physical Exam 10/16/24 0721 MR#: [id number] Acct: [id number] Name: YOHANNES LANDRY Rep #:[id number] : 1970 54 From: Peng Neville MD PCP: Care Physician,No Primary Status :ADM DEBBY Location: [place] [address] HPI - General General Date of Admission: 10/16/24 Date of Service: 10/16/24 Chief Complaint: bilateral ureteral obstruction HPI Narrative YOHANNES LANDRY, is a 54 F who presents with acutee renal insufficiency and bilateral obstructing kidney stones plan to take the patient the surgery today for cystoscopy bilateral stent pllacement to unblock her kidneys clear infection. And for pain conttrol. [facility] Medical History Non-smoker Kidney stones Home Medications ?Medication ?Instructions ?Recorded ?Last Taken ?Type NK 10/16/24 Unknown History Allergy/AdvReac Type Severity Reaction Status Date / Time No Known Allergies Allergy Verified 10/15/24 22:21 Surgical History History of arthroplasty of right knee History of tubal ligation Social History Smoking Status: Never smoker ROS Constitutional Constitutional: Denies chills, fever(s) or malaise Eyes Eyes: Denies blurry vision or change in vision ENT HEENT: Reports none Cardiovascular Cardiovascular: Denies chest pain or palpitations Respiratory/Chest Respiratory/Chest: Denies cough or shortness of breath with exertion Gastrointestinal Gastrointestinal: Denies abdominal pain, constipation or diarrhea Musculoskeletal Musculoskeletal: Denies back pain, joint stiffness or joint swelling Integumentary Integumentary: Denies dry skin, jaundice, lesions or rash Neurologic Neurologic: Denies confusion, syncope or weakness Psychiatric Psychiatric: Reports none; Denies anxiety or depression Endocrine Endocrinology: Denies excessive sweating, fatigue or flushing Hematologic/Lymphatic Hematologic/Lymphatic: Denies anemia, easy bleeding or easy bruising Vital Signs Vital Signs Vital Signs: 10/15/24 22:21 10/15/24 22:23 10/16/24 [...] Air Room Air 10/16/24 01:00 10/16/24 02:03 10/16/24 02:45 Temperature 98.0 F 98.0 F 97.1 F L Temperature Source Oral Oral Pulse Rate 86 86 78 Respiratory Rate 16 16 16 Blood Pressure 121/69 H 125/75 H 124/69 H Blood Pressure Mean 86 91 87 Pulse Ox 100 100 99 Oxygen Delivery Method Room Air Room Air 10/16/24 03:17 Temperature 97.7 F L Temperature Source Oral Pulse Rate 91 Respiratory Rate 16 Blood Pressure 129/80 H Blood Pressure Mean 96 Pulse Ox 100 Oxygen Delivery Method Room Air Weight Weight: 68.9 kg Body Mass Index (BMI) 27.8 Physical Exam Const alert and oriented x3 General Appearance: cooperative HEENT normocephalic and head/scalp atraumatic Eyes PERRL and EOMs intact bilaterally Neck supple, no JVD and no carotid bruits Resp normal respiratory effort, normal air movement and clear to auscultation bilaterally Cardio regular rate and no murmurs GI normal to inspection, nondistended, normoactive bowel sounds and soft to palpation Extremity normal capillary refill General Extremity: no tenderness to palpation of joints or extremities; Negativefor edema Skin no rashes or lesions noted and no wounds General Skin Exam: no breakdown Neuro CN's II-XII intact bilaterally Psych affect normal Appearance: appropriate Results Lab / Micro Data 10/15/24 22:38 10/15/24 22:38 Labs: Laboratory Results - last 24 hr 10/15/24 22:38: WBC 13.9 H, RBC 4.18 L, Hgb 11.3 L, Hct 36.4 L, MCV 87.1, MCH 27.0, MCHC 31.0 L, RDW Std Deviation 48.9 H, RDW Coeff of Julian 15.4 H, Plt Count 270, MPV 11.4, Immature Gran % (Auto) 0.600, Neut % (Auto) 73.5 H, Lymph % (Auto) 17.2 L, [place] % (Auto) 5.2, Eos % (Auto) 3.1, Baso % (Auto) 0.4, Absolute Neuts (auto) 10.2 H, Absolute Lymphs (auto) 2.40, Nucleated RBC % 0, Sodium 140,Potassium 3.7, Chloride 103, Carbon Dioxide 26.4, Anion Gap 11, BUN 21 H, Creatinine 1.63 H, Estim Creat Clear Calc 36.72 L, Est GFR (MDRD) Non-Af 38 L, BUN/Creatinine Ratio 12.7, Glucose 98, Calcium 11.4 H, Serum , Qual NEGATIVE, Urine Color Yellow, Urine Clarity Cloudy, Urine pH 6.5, Ur Specific Galt 1.015, Urine Protein 100 H, Urine Glucose (UA) Normal, Urine Ketones Negative, Urine Occult Blood 25 H, Urine Nitrite Negative, Urine Bilirubin Negative, Urine Urobilinogen Normal, Ur Leukocyte Esterase 500 H, Urine RBC 0 SEEN, Urine WBC >100 SEEN, Ur Squamous Epith Cells 5-10 SEEN, Urine Bacteria 4+,Urine Mucus 0 SEEN Imaging Radiology Impression Abdomen/Pelvis CT 10/15/24 00:10 IMPRESSION: Few about three right lower ureteric calculi, the largest 11 mm with consequent marked proximal right hydroureteronephrosis. Left lower ureteric 10 mm calculus with adjacent 1 mm calculus inducing moderateto marked proximal right hydroureteronephrosis. Right renal lower calyceal 13 mm non obstructing calculus with lower calyceal dependent/layering faintly dense small calculi. Reading Location: [place] [address] Assessment & Plan Assessment/Plan (1) UTI (urinary tract infection): (2) Hydronephrosis: PLAN: admit for pain control plan for cystoscopy bilateral stent placement. (3) Bilateral flank pain: (4) Kidney stones: 10/16/24 0722 <Electronically signed by Peng Neville MD> Cosigner Signature (if applicable): CC: Dr. Peng Neville MD; No Primary Care Physician~ Signed [facility] Work Phone: [phone]) 540-791006-16-2025 History and physical note [facility] Medical Records Department [address] [place] [address] History & Physical Exam 10/16/24 0721 MR#: [id number] Acct: [id number] Name: YOHANNES LANDRY Rep #:[id number] : 1970 54 From: Peng Neville MD PCP: Care Physician,No Primary Status :ADM DEBBY Location: [place] [address] HPI - General General Date of Admission: 10/16/24 Date of Service: 10/16/24 Chief Complaint: bilateral ureteral obstruction HPI Narrative YOHANNES LANDRY, is a 54 F who presents with acutee renal insufficiency and bilateral obstructing kidney stones plan to take the patient the surgery today for cystoscopy bilateral stent pllacement to unblock her kidneys clear infection. And for pain conttrol. [facility] Medical History Non-smoker Kidney stones Home Medications ?Medication ?Instructions ?Recorded ?Last Taken ?Type NK 10/16/24 Unknown History Allergy/AdvReac Type Severity Reaction Status Date / Time No Known Allergies Allergy Verified 10/15/24 22:21 Surgical History History of arthroplasty of right knee History of tubal ligation Social History Smoking Status: Never smoker ROS Constitutional Constitutional: Denies chills, fever(s) or malaise Eyes Eyes: Denies blurry vision or change in vision ENT HEENT: Reports none Cardiovascular Cardiovascular: Denies chest pain or palpitations Respiratory/Chest Respiratory/Chest: Denies cough or shortness of breath with exertion Gastrointestinal Gastrointestinal: Denies abdominal pain, constipation or diarrhea Musculoskeletal Musculoskeletal: Denies back pain, joint stiffness or joint swelling Integumentary Integumentary: Denies dry skin, jaundice, lesions or rash Neurologic Neurologic: Denies confusion, syncope or weakness Psychiatric Psychiatric: Reports none; Denies anxiety or depression Endocrine Endocrinology: Denies excessive sweating, fatigue or flushing Hematologic/Lymphatic Hematologic/Lymphatic: Denies anemia, easy bleeding or easy bruising Vital Signs Vital Signs Vital Signs: 10/15/24 22:21 10/15/24 22:23 10/16/24 [...] Air Room Air 10/16/24 01:00 10/16/24 02:03 10/16/24 02:45 Temperature 98.0 F 98.0 F 97.1 F L Temperature Source Oral Oral Pulse Rate 86 86 78 Respiratory Rate 16 16 16 Blood Pressure 121/69 H 125/75 H 124/69 H Blood Pressure Mean 86 91 87 Pulse Ox 100 100 99 Oxygen Delivery Method Room Air Room Air 10/16/24 03:17 Temperature 97.7 F L Temperature Source Oral Pulse Rate 91 Respiratory Rate 16 Blood Pressure 129/80 H Blood Pressure Mean 96 Pulse Ox 100 Oxygen Delivery Method Room Air Weight Weight: 68.9 kg Body Mass Index (BMI) 27.8 Physical Exam Const alert and oriented x3 General Appearance: cooperative HEENT normocephalic and head/scalp atraumatic Eyes PERRL and EOMs intact bilaterally Neck supple, no JVD and no carotid bruits Resp normal respiratory effort, normal air movement and clear to auscultation bilaterally Cardio regular rate and no murmurs GI normal to inspection, nondistended, normoactive bowel sounds and soft to palpation Extremity normal capillary refill General Extremity: no tenderness to palpation of joints or extremities; Negativefor edema Skin no rashes or lesions noted and no wounds General Skin Exam: no breakdown Neuro CN's II-XII intact bilaterally Psych affect normal Appearance: appropriate Results Lab / Micro Data 10/15/24 22:38 10/15/24 22:38 Labs: Laboratory Results - last 24 hr 10/15/24 22:38: WBC 13.9 H, RBC 4.18 L, Hgb 11.3 L, Hct 36.4 L, MCV 87.1, MCH 27.0, MCHC 31.0 L, RDW Std Deviation 48.9 H, RDW Coeff of Julian 15.4 H, Plt Count 270, MPV 11.4, Immature Gran % (Auto) 0.600, Neut % (Auto) 73.5 H, Lymph % (Auto) 17.2 L, Bristol % (Auto) 5.2, Eos % (Auto) 3.1, Baso % (Auto) 0.4, Absolute Neuts (auto) 10.2 H, Absolute Lymphs (auto) 2.40, Nucleated RBC % 0, Sodium 140,Potassium 3.7, Chloride 103, Carbon Dioxide 26.4, Anion Gap 11, BUN 21 H, Creatinine 1.63 H, Estim Creat Clear Calc 36.72 L, Est GFR (MDRD) Non-Af 38 L, BUN/Creatinine Ratio 12.7, Glucose 98, Calcium 11.4 H, Serum , Qual NEGATIVE, Urine Color Yellow, Urine Clarity Cloudy, Urine pH 6.5, Ur Specific Galt 1.015, Urine Protein 100 H, Urine Glucose (UA) Normal, Urine Ketones Negative, Urine Occult Blood 25 H, Urine Nitrite Negative, Urine Bilirubin Negative, Urine Urobilinogen Normal, Ur Leukocyte Esterase 500 H, Urine RBC 0 SEEN, Urine WBC >100 SEEN, Ur Squamous Epith Cells 5-10 SEEN, Urine Bacteria 4+,Urine Mucus 0 SEEN Imaging Radiology Impression Abdomen/Pelvis CT 10/15/24 00:10 IMPRESSION: Few about three right lower ureteric calculi, the largest 11 mm with consequent marked proximal right hydroureteronephrosis. Left lower ureteric 10 mm calculus with adjacent 1 mm calculus inducing moderateto marked proximal right hydroureteronephrosis. Right renal lower calyceal 13 mm non obstructing calculus with lower calyceal dependent/layering faintly dense small calculi. Reading Location: [place] [address] Assessment & Plan Assessment/Plan (1) UTI (urinary tract infection): (2) Hydronephrosis: PLAN: admit for pain control plan for cystoscopy bilateral stent placement. (3) Bilateral flank pain: (4) Kidney stones: 10/16/24 0722 Cosigner Signature (if applicable): CC: Dr. Peng Neville MD; No Primary Care Physician~ Signed [facility]06-16-2025 [facility] Medical Records Department [address] [place] [address] History Physical Exam 10/16/24 0721 MR#: [id number] Acct: [id number] Name: YOHANNES LANDRY Rep #: [id number] : 1970 54 From: Peng Neville MD PCP: Care Physician,No Primary Status:ADM DEBBY Location: [place] [address] HPI - General General Date of Admission: 10/16/24 Date of Service: 10/16/24 Chief Complaint: bilateral ureteral obstruction HPI Narrative YOHANNES LANDRY, is a 54 F who presents with acutee renal insufficiency and bilateral obstructing kidney stones plan to take the patient the surgery today for cystoscopy bilateral stent pllacement to unblock her kidneys clear infection. And for pain conttrol. [facility] Medical History Non-smoker Kidney stones Home Medications ???Medication ???Instructions ???Recorded ???Last Taken ???Type NK 10/16/24 Unknown History Allergy/AdvReac Type Severity Reaction Status Date / Time No Known Allergies Allergy Verified 10/15/24 22:21 Surgical History History of arthroplasty of right knee History of tubal ligation Social History Smoking Status: Never smoker ROS Constitutional Constitutional: Denies chills, fever(s) or malaise Eyes Eyes: Denies blurry vision or change in vision ENT HEENT: Reports none Cardiovascular Cardiovascular: Denies chest pain or palpitations Respiratory/Chest Respiratory/Chest: Denies cough or shortness of breath with exertion Gastrointestinal Gastrointestinal: Denies abdominal pain, constipation or diarrhea Musculoskeletal Musculoskeletal: Denies back pain, joint stiffness or joint swelling Integumentary Integumentary: Denies dry skin, jaundice, lesions or rash Neurologic Neurologic: Denies confusion, syncope or weakness Psychiatric Psychiatric: Reports none; Denies anxiety or depression Endocrine Endocrinology: Denies excessive sweating, fatigue or flushing Hematologic/Lymphatic Hematologic/Lymphatic: Denies anemia, easy bleeding or easy bruising Vital Signs Vital Signs Vital Signs: 10/15/24 22:21 10/15/24 22:23 10/16/24 [...] Air Room Air 10/16/24 01:00 10/16/24 02:03 10/16/24 02:45 Temperature 98.0 F 98.0 F 97.1 F L Temperature Source Oral Oral Pulse Rate 86 86 78 Respiratory Rate 16 16 16 Blood Pressure 121/69 H 125/75 H 124/69 H Blood Pressure Mean 86 91 87 Pulse Ox 100 100 99 Oxygen Delivery Method Room Air Room Air 10/16/24 03:17 Temperature 97.7 F L Temperature Source Oral Pulse Rate 91 Respiratory Rate 16 Blood Pressure 129/80 H Blood Pressure Mean 96 Pulse Ox 100 Oxygen Delivery Method Room Air Weight Weight: 68.9 kg Body Mass Index (BMI) 27.8 Physical Exam Const alert and oriented x3 General Appearance: cooperative HEENT normocephalic and head/scalp atraumatic Eyes PERRL and EOMs intact bilaterally Neck supple, no JVD and no carotid bruits Resp normal respiratory effort, normal air movement and clear to auscultation bilaterally Cardio regular rate and no murmurs GI normal to inspection, nondistended, normoactive bowel sounds and soft to palpation Extremity normal capillary refill General Extremity: no tenderness to palpation of joints or extremities; Negative for edema Skin no rashes or lesions noted and no wounds General Skin Exam: no breakdown Neuro CN's II-XII intact bilaterally Psych affect normal Appearance: appropriate Results Lab / Micro Data 10/15/24 22:38 10/15/24 22:38 Labs: Laboratory Results - last 24 hr 10/15/24 22:38: WBC 13.9 H, RBC 4.18 L, Hgb 11.3 L, Hct 36.4 L, MCV 87.1, MCH 27.0, MCHC 31.0 L, RDW Std Deviation 48.9 H, RDW Coeff of Julian 15.4 H, Plt Count 270, MPV 11.4, Immature Gran % (Auto) 0.600, Neut % (Auto) 73.5 H, Lymph % (Auto) 17.2 L, Bristol % (Auto) 5.2, Eos % (Auto) 3.1, Baso % (Auto) 0.4, Absolute Neuts (auto) 10.2 H, Absolute Lymphs (auto) 2.40, Nucleated RBC % 0, Sodium 140, Potassium 3.7, Chloride 103, Carbon Dioxide 26.4, Anion Gap 11, BUN 21 H, Creatinine 1.63 H, E stim Creat Clear Calc 36.72 L, Est GFR (MDRD) Non-Af 38 L, BUN/Creatinine Ratio 12.7, Glucose 98, C alcium 11.4 H, Serum , Qual NEGATIVE, Urine Color Yellow, Urine Clarity Cloudy, Urine pH 6.5, Ur Specific Galt 1.015, Urine Protein 100 H, Urine Glucose (UA) Normal, Urine Ketones (more content not included)...[facility]06-16-2025 Evaluation note* Diagnosis Onset Date Resolution Status Admit Date Bilateral flank pain acute October 16, 2024 4:13am Hydronephrosis acute October 16, 2024 4:13am Kidney stones acute October 16, 2024 4:13am UTI (urinary tract infection) acute October 16, 2024 4:13am [facility] Work Phone: [phone]) 916-659706-16-2025 Discharge summary Author Ian Brown [facility] Note Date/Time October 16, 2024 2:21 am [facility] Medical Records Department [address] [place] [address] Emergency Department Summary 10/15/24 MR#: [id number] Acct: [id number] Name: YOHANNES LANDRY Rep #:[id number] : [...] 11. BUN and creatinine 21 and 1.63. [id number]. Serum test negative. UA shows no red [...] 73.5 H Lymph % (Auto) 17.2 L Bristol % (Auto) 5.2 Eos % (Auto) 3.1 [...] Clarity Cloudy Urine pH 6.5 Ur Specific Galt 1.015 Urine Protein 100 H Urine Glucose [...] dependent/layering faintly dense small calculi. Reading Location: [place] [address] Discharge Plan Triage Chief Complaint: Flank Pain ED Provider: Ian Brown Dx/Rx/DC Orders Clinical Impression: Bilateral flank pain, [...] Primary [Primary Care Provider] - Print Language: Bermudian Disposition Disposition: Acute Care Hospital [facility] What to do if you have Problems For any increased pain, shortness of breath, bleeding, nausea or vomiting, chestpain, or any unexpected problems, contact your Primary Care Provider. Call [facility] ([phone]) or report to the closest Emergency Room. Call 911 if necessary. 10/16/24 0221 <Electronically signed by Ian Brown MD> Cosigner Signature (if applicable): CC: No Primary Care Physician ~ Signed [facility] Work Phone: [phone]) 610-747906-16-2025 Discharge summary [facility] Medical Records Department [address] [place] [address] Emergency Department Summary 10/15/24 MR#: [id number] Acct: [id number] Name: YOHANNES LANDRY Rep #:[id number] : [...] Prior similar symptoms: Yes Recent Illness/Hospitalization: No [facility] Medical History Non-smoker Kidney stones Home Medications [...] signs. No reproducible pain. Right upper right lowerquadrant unremarkable. No hernia or mass. No obstruction. [...] history of prior bilateral kidneystones. CAT scan ofthe labs will be obtained. She will be treated with morphine, Zofran and Toradol for pain. Repeat exam patient is resting more comfortably at 2:15 AM. We went over her test results includingher CAT scans. Given the size of her [...] 11. BUN and creatinine 21 and 1.63. [id number]. Serum test negative. UA shows no red [...] 73.5 H Lymph % (Auto) 17.2 L Bristol % (Auto) 5.2 Eos % (Auto) 3.1 [...] Clarity Cloudy Urine pH 6.5 Ur Specific Galt 1.015 Urine Protein 100 H Urine Glucose [...] dependent/layering faintly dense small calculi. Reading Location: [place] [address] Discharge Plan Triage Chief Complaint: Flank Pain ED Provider: Ian Brown Dx/Rx/DC Orders Clinical Impression: Bilateral flank pain, [...] Primary [Primary Care Provider] - Print Language: Bermudian Disposition Disposition: Acute Care [facility] What to do if you have Problems For any increased pain, shortness of breath, bleeding, nausea or vomiting, chestpain, or any unexpected problems, contact your Primary Care Provider. Call [facility] ([phone]) or report tothe closest Emergency Room. Call 911 if necessary. 10/16/24 0221 Cosigner Signature (if applicable): CC: No Primary Care Physician ~ Signed [facility]06-16-2025 Radiology Diagnostic study note [facility] Imaging Services [address] [place], [place] [id number] Abdomen/Pelvis without Cont MR#: [id number] Acct: [id number] Name: YOHANNES LANDRY Rep #: [id number] : 1970 F 54 From: Paulina Arias MD PCP: Care Physician,No Primary Status: REG ER Study:Abdomen/Pelvis without Cont Date of Exa m: 10/15/24 Exam# [id number] Ordering Dr: Annemarie Brown MD PROCEDURE: ABDOMEN/PELVIS [...] dependent/layering faintly dense small calculi. [facility] CC: Dr. Ian Brown MD; No Primary Care Physician ~ Secondary Art Teacher: Signed [facility]06-15-2025 Discharge summary Author Ian Brown [facility] Note Date/Time October 16, 2024 2:21 am [facility] Medical Records Department [address] [place] [address] Emergency Department Summary 10/15/24 MR#: [id number] Acct: [id number] Name: YOHANNES LANDRY Rep #:[id number] : [...] similar symptoms: Yes Recent Illness/Hospitalization: No [facility] Medical History Non-smoker Kidney stones Home Medications [...] 11. BUN and creatinine 21 and 1.63. [id number]. Serum test negative. UA shows no red [...] 73.5 H Lymph % (Auto) 17.2 L Bristol % (Auto) 5.2 Eos % (Auto) 3.1 [...] Clarity Cloudy Urine pH 6.5 Ur Specific Galt 1.015 Urine Protein 100 H Urine Glucose [...] dependent/layering faintly dense small calculi. Reading Location: [place] [address] Discharge Plan Triage Chief Complaint: Flank Pain ED Provider: Ian Brown Dx/Rx/DC Orders Clinical Impression: Bilateral flank pain, [...] Primary [Primary Care Provider] - Print Language: Bermudian Disposition Disposition: Acute Care [facility] What to do if you have Problems For any increased pain, shortness of breath, bleeding, nausea or vomiting, chestpain, or any unexpected problems, contact your Primary Care Provider. Call [facility] ([phone]) or report to the closest Emergency Room. Call 911 if necessary. 10/16/24 0221 <Electronically signed by Ian Brown MD> Cosigner Signature (if applicable): CC: No Primary Care Physician ~ Signed [facility] Work Phone: Consult note Author Dorothea Rogers [facility] Note Date/Time October 16, 2024 2:04 pm [facility] Medical Records Department [address] [place] [address] Anesthesia Postop Eval II 10/16/24 1403 MR#: [id number] Acct: [id number] Name: YOHANNES LANDRY Rep #:[id number] : 1970 54 From: Dorothea Rogers CRNA PCP: Care Physician,No Primary Status :ADM DEBBY Y Race: C Location: [place] [address] 0-1 Anesthesia Postop Eval I Sum Postop Eval Completion status Anesthesia document: Postop Eval 1 completed: Yes Anesthesia Postop Eval I Summary Anesthesia Postop Eval I Summary: Anesthesia Postop Eval I: Assessment Summary Airway patent Yes 10/16/24 12:37 [employer]RO[email or web address] Spontaneous unlabored Yes 10/16/24 12:37 [employer]ILRO[employer] [email or web address] respirations Mental status Awake,Calm 10/16/24 12:37 [employer]ILRO[employer] [email or web address] nausea No 10/16/24 12:37 [employer]ILROAD [employer] [email or web address] Vomiting No 10/16/24 12:37 [employer]ILROAD TR[employer] [email or web address] Anesthesia Postop Eval I: Fluid Summary Crystalloid volume administer 500 10/16/24 12:37 RAILROAD TR[employer] 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 (ml) Colloids volume administered ( ml) Blood Product volume administered (ml) Total IV fluid infused 500 10/16/24 12:37 RAILROAD TR[employer] [email or web address] Anesthesia Postop Eval I: Summary Notes Anesthesia Complication No 10/16/24 12:37 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 Anesthesia Complication Comment: Post-operative progress note Anesthesia: Postop Eval II Evaluation Mental status: Awake Pain Level: 1 nausea: No Vomiting: No 10/16/24 1404 <Electronically signed by Dorothea rivera CRNA> Date _ Dorothea Sirca RAILRO[employer] TR[employer] MECHANIC Cosigner Signature: Date CC: ~ Signed [facility] Work Phone: Evaluation + Plan note No data available for this section [facility] Evaluation noteNo assessment information available [facility] Work Phone: Hospital Discharge instructions No data available for this section [facility] Progress note No data available for this section [facility] Reason for referral (narrative)No reason for referral information availableWC[facility] Work Phone: Summary Purpose Family History No Family History Records FoundNo Family History Records FoundNo Family History Records Found No data available for this section Advance Directives Advance Directive Response Recorded Date/ Time Advance Directives No August 12 12:19pm Living Will No August 30, 2021 9:36pm Power of Construction Project Engineer No August 30 9:36pm Advance Directive Response Recorded Date/ Time Advance Directives No August 12 12:19pm Living Will No October 11, 2021 12:42am Power of Construction Project Engineer No October 11 12:42am Advance Directive Response Recorded Date/ Time Advance Directives No August 12 12:19pm Living Will No December 17 10:33pm Power of Construction Project Engineer No December 17 10:33pm Advance Directive Response Recorded Date/ Time Do you have a Healthcare Power of Construction Project Engineer? No October 15, 2024 10:30pm Advance Directives No August 12 12:19pm Advance Directive Response Recorded Date/ Time Do you have a Healthcare Power of Construction Project Engineer? No October 16, 2024 3:28am Advance Directives No August 12 022 12:19pm Chief Complaint and Reason for Visit Chief Complaint upper extremity PE DRUG SCREEN/GOJO URINARY COMPLAINTS Chief Complaint upper extremity PE DRUG SCREEN/GOJO URINARY COMPLAINTS General illness Chief Complaint URINARY COMPLAINTS General illness FLANK PAIN Chief Complaint Admit Date FLANK PAIN October 16, 2024 2:37 am Chief Complaint Admit Date KIDNEY STONES, HYDRONEPHROSIS, UTI October 16, 2024 4:13am Reason for Visit Admit Date Bilateral flank pain October 16, 2024 4:1 3am Hydronephrosis October 16, 2024 4:13 am Kidney stones October 16, 2024 4:13 am UTI (urinary tract infection) October 16, 2024 4:13am Additional Source Comments INFORMATION SOURCE (unrecogn ized section and content) DATE CREATED AUTHOR 08/23/2019 [facility] DATE CREATED AUTHOR AUTHOR'S ORGANIZ ATION 10/26/2024 [facility] DATE CREATED AUTHOR AUTHOR'S ORGANIZ ATION 03/15/2025 [facility] Goals (unrecognized section and content) Goals may be documented in a n alternate sectionGoals may be documented in an alternate sectionGoals may be documented in an alternate sectionGoals may be documented in an alternate section No data available for this section Care Teams (unrecognized sec tion and content) Care Team Personnel Name: PHYSICIAN, NONE Position: AH Physician Member Role: Primary Care Physician Care Team Related Persons Name: LASHAUN FLOREZ Team Status: Active Member Role Status Dates No Primary Care Physician Primary Care Provider Active Team Status: Inactive Member Role Status Dates No Primary Care Physician Primary Care Provider Active Start: October 16, 2024 End: October 16, 2024 Dr. Ian Brown MD Emergency Provider Active S tart: October 16, 2024 End: October 16, 2024 Dr. Peng Neville MD Admit Provider Active Start: October 16, 2024 End: October 16, 2024 Dr. Peng Neville MD Attending Provider Active Start: October 16, 2024 End: October 16, 2024 Team Status: Active Member Role Status Dates [...] BE BASED ON THE PRIMARY CLINICAL RECORDS. [facility] [employer] [facility]. provides no warranty or guarantee of the accuracy or completeness of information in this document.
[2025-03-16 18:00] VITALS: BP 98/65; PULSE 91; RESP 20; O2SAT 99
--- OUTSIDE RECORDS SUMMARY | 2025-03-16 18:12 | XMS RPT_ITS | CCD ---
Author Organization [facility] Care Team Providers Care Mold Unloader Name Role Phone Care Physician, No Primary [...] TIMES A DAY October 16, 2024 12:00am [place] (Nk) (1 source) Start: 10-16-2024 [place] (Nk) Active October 16, 2024 12:00am oxyCODONE [...] 12 Lead EKGon 10-16-2024 12 Lead EKG [facility] Cardiovascular Services [address] [place] [address] 12 Lead EKG 10/16/24 0657 MR#: [id number] Acct: [id number] Name: YOHANNES LANDRY Rep #: [id number] : 1970 54 From: Jett Reina MD Attending Dr: Dr. Peng Neville MD Status: DIS DEBBY Ordering Dr: Peng Neville MD Date: 10/16/24 Location: [facility] Sex: F C Admitted: 10/16/24 Test Reason [...] bpm Confirmed by ADELE VITALE, JETT ([id number]), supervising editor news reel FRANNY FERREIRA ([id number]) on 10/17/2024 8:25:11 AM Referred By: Confirmed By: JETT REINA MD 10/17/24 0825 Date Jett Reina MD CC: Dr. Peng Neville MD; No Primary Care Physician Signed Normal [facility] Basic Metabolic Profile (BMP )on 10-16-2024 BUN/CRE 12.7 RATIO Normal - [facility] Comment on above: Performed By: #### L 700.6800, L500.2500, L100.0100 #### [facility] Laboratory [address] [place], [address] Calcium [Mass/Vol] 11.4 mg/dL High 7.6-11.0 [facility] Comment on above: Performed By: #### L 700.6800, L500.2500, L100.0100 #### [facility] [address] [place], [address] Chloride [Moles/Vol] 103 mmol/L Normal 98-108 [facility] Comment on above: Performed By: #### L 700.6800, L500.2500, L100.0100 #### [facility] [address] [place], [address] CO2 [Moles/Vol] 26.4 mmol/L Normal 21.0-32.0 [facility] Comment on above: Performed By: #### L 700.6800, L500.2500, L100.0100 #### [facility] [address] [place], [address] Creatinine [Mass/Vol] 1.63 mg/dL High 0.70-1.20 [facility] Comment on above: Performed By: #### L 700.6800, L500.2500, L100.0100 #### [facility] [address] [place], [address] ECRCL 36.72 ml/min Low 50-250 [facility] Comment on above: Performed By: #### L 700.6800, L500.2500, L100.0100 #### [facility] [address] [place], [address] GAP 11 Normal 5-15 [facility] Comment on above: Performed By: #### L 700.6800, L500.2500, L100.0100 #### [facility] [address] [place], [address] GFR/1.73 sq M.predicted among non-blacks MDRD (S/P/Bld) [Vol rate/Area] 38 mL/min/{1.73_m2} Low >60 [facility] Comment on above: Result Comment: mL/m in/1.73m2 CKD-EPI Creatinine Equation (2020) Performed By: #### L 700.6800, L500.2500, L100.0100 #### [facility] [address] [place], [address] Glucose [Mass/Vol] 98 mg/dL Normal 70-99 [facility] Comment on above: Performed By: #### L 700.6800, L500.2500, L100.0100 #### [facility] [address] [place], [address] Potassium [Moles/Vol] 3.7 mmol/L Normal 3.3-5.1 [facility] Comment on above: Performed By: #### L 700.6800, L500.2500, L100.0100 #### [facility] [address] [place], [address] Sodium [Moles/Vol] 140 mmol/L Normal 133-145 [facility] Comment on above: Performed By: #### L 700.6800, L500.2500, L100.0100 #### [facility] [address] [place], [address] Urea nitrogen [Mass/Vol] 21 mg/dL High 4-19 [facility] Comment on above: Performed By: #### L 700.6800, L500.2500, L100.0100 #### [facility] [address] [place], [address] CBC W/Diff, Automatedon 06-1 Absolute Lymph 2.40 X10 3/uL Normal 0.83-4.51 [facility] Comment on above: Performed By: #### L 700.6800, L500.2500, L100.0100 #### [facility] [address] [place], [address] Absolute Neut 10.2 X10 3/uL High 2.0-7.7 [facility] Comment on above: Performed By: #### L 700.6800, L500.2500, L100.0100 #### [facility] [address] [place], [address] Basophils/100 WBC (Bld) 0.4 % Normal 0-1 [facility] Comment on above: Performed By: #### L 700.6800, L500.2500, L100.0100 #### [facility] [address] [place], [address] Eosinophils/100 WBC (Bld) 3.1 % Normal 0-5 [facility] Comment on above: Performed By: #### L 700.6800, L500.2500, L100.0100 #### [facility] [address] [place], [address] Erythrocyte distribution width (RBC) [Ratio] 15.4 % High 11.6-14.6 [facility] Comment on above: Performed By: #### L 700.6800, L500.2500, L100.0100 #### [facility] [address] [place], [address] Hematocrit (Bld) [Volume fraction] 36.4 % Low 37-47 [facility] Comment on above: Performed By: #### L 700.6800, L500.2500, L100.0100 #### [facility] [address] [place], [address] Hemoglobin (Bld) [Mass/Vol] 11.3 g/dL Low 12.0-15.0 [facility] Comment on above: Performed By: #### L 700.6800, L500.2500, L100.0100 #### [facility] [address] [place], [address] IG% 0.600 Normal 0.0-0.9 [facility] Comment on above: Result Comment: IG% - Immature Granulocytes (promyelocytes, myelocytes and metamyelocytes) > 1% indicates that a LEFT SHIFT is Present. Performed By: #### L 700.6800, L500.2500, L100.0100 #### [facility] [address] [place], [address] Lymphocytes/100 WBC (Bld) 17.2 % Low 19-41 [facility] Comment on above: Performed By: #### L 700.6800, L500.2500, L100.0100 #### [facility] [address] [place], [address] MCH (RBC) [Entitic mass] 27.0 pg Normal 27.0-32.0 [facility] Comment on above: Performed By: #### L 700.6800, L500.2500, L100.0100 #### [facility] [address] [place], [address] MCHC (RBC) [Mass/Vol] 31.0 g/dL Low 32-36 [facility] Comment on above: Performed By: #### L 700.6800, L500.2500, L100.0100 #### [facility] [address] [place], [address] MCV (RBC) [Entitic vol] 87.1 fL Normal 81-99 [facility] Comment on above: Performed By: #### L 700.6800, L500.2500, L100.0100 #### [facility] [address] [place], [address] Monocytes/100 WBC (Bld) 5.2 % Normal 0-10 [facility] Comment on above: Performed By: #### L 700.6800, L500.2500, L100.0100 #### [facility] [address] [place], [address] Neutrophils/100 WBC (Bld) 73.5 % High 47-70 [facility] Comment on above: Performed By: #### L 700.6800, L500.2500, L100.0100 #### [facility] [address] [place], [address] Nucleated RBC (Bld) [#/Vol] 0 10*3/uL Normal 0-5 [facility] Comment on above: Performed By: #### L 700.6800, L500.2500, L100.0100 #### [facility] [address] [place], [address] Platelet mean volume (Bld) [Entitic vol] 11.4 fL Normal 6.2-12.0 [facility] Comment on above: Performed By: #### L 700.6800, L500.2500, L100.0100 #### [facility] [address] [place], [address] Platelets (Bld) [#/Vol] 270 10*3/uL Normal 150-450 [facility] Comment on above: Performed By: #### L 700.6800, L500.2500, L100.0100 #### [facility] [address] [place], [address] RBC (Bld) [#/Vol] 4.18 10*6/uL Low 4.2-5.4 [facility] Comment on above: Performed By: #### L 700.6800, L500.2500, L100.0100 #### [facility] [address] [place], [address] RDW SD 48.9 fl High 35.1-43.9 [facility] Comment on above: Performed By: #### L 700.6800, L500.2500, L100.0100 #### [facility] [address] [place], [address] WBC (Bld) [#/Vol] 13.9 10*3/uL High 4.4-11.0 [facility] Comment on above: Performed By: #### L 700.6800, L500.2500, L100.0100 #### [facility] [address] [place], [address] Discharge Instructionon 10-01 Discharge Instruction [facility] Medical Records Department [address] [place] [address] Instructions for Home/Discharge Instructions 10/16/24 0722 MR#: [id number] Acct: [id number] Name: OYHANNES LANDRY Rep #: [id number] : 1970 54 From: Peng Neville MD [...] Up With: Peng Neville MD When: Call [phone] for an appointment Test Results: Test results [...] CC: No Primary Care Physician Signed Normal [facility] MR/POSTOP.ANEon 10-16-2024 MR/POSTOP.ANE [facility] Medical Records Department [address] [place] [place] [address] Anesthesia Postop Eval I 10/16/24 1237 MR#: [id number] Acct: [id number] Name: YOHANNES LANDRY Rep #: [id number] : 1970 54 From: Charito Mace CRNA PCP: Care Physician,No Primary Status:ADM DEBBY Y Race: C Location: [place] [address] Anesthesia: Postop Eval I Current Vital Signs [...] completed: Yes 10/16/24 1237 Date Charito Mace ASSOCIATE BRAND MANAGER Cosigner Signature: Date CC: Signed Normal [facility] MR/[id number] 10-16-2024 [facility] Medical Records Department [address] [place] [address] Anesthesia Postop Eval II 10/16/24 1403 MR#: [id number] Acct: [id number] Name: YOHANNES LANDRY Rep #: [id number] : 1970 54 From: Dorothea Rogers ASSOCIATE BRAND MANAGER PCP: Care Physician,No Primary Status:ADM DEBBY Y Race: C Location: [place] [address] Anesthesia Postop Eval I Sum Postop Eval Completion status Anesthesia document: Postop Eval 1 completed: Yes Anesthesia Postop Eval I Summary Anesthesia Postop Eval I Summary: Anesthesia Postop Eval I: Assessment Summary Airway patent Yes 10/16/24 12:37 ASSOCIATE BRAND MANAGER.IRASEMAOBGénesis Spontaneous unlabored Yes 10/16/24 12:37 ASSOCIATE BRAND MANAGER.IRASEMAOBGénesis respirations Mental status Awake,Calm 10/16/24 12:37 ASSOCIATE BRAND MANAGER.IRASEMAOBY nausea No 10/16/24 12:37 ASSOCIATE BRAND MANAGER.SKOBY Vomiting No 10/16/24 12:37 ASSOCIATE BRAND MANAGER.IRASEMAOBY Anesthesia Postop Eval I: Fluid Summary Crystalloid volume administer 500 10/16/24 12:37 ASSOCIATE BRAND MANAGER.IRASEMAOBY (ml) Colloids volume administered ( ml) Blood Product volume administered (ml) Total IV fluid infused 500 10/16/24 12:37 ASSOCIATE BRAND MANAGER.DANITA Anesthesia Postop Eval I: Summary Notes Anesthesia Complication No 10/16/24 12:37 ASSOCIATE BRAND MANAGER.SKOBY Anesthesia Complication Comment: Post-operative progress note Anesthesia: Postop Eval II Evaluation Mental status: Awake Pain Level: 1 nausea: No Vomiting: No 10/16/24 1404 Date Dorotheaarlen Rogers ASSOCIATE BRAND MANAGER Cosigner Signature: Date CC: Signed Normal [facility] Operative Reporton 5 Operative Report [facility] Medical Records Department [address] [place] [address] Operative Report 10/16/24 1212 MR#: [id number] Acct: [id number] Name: YOHANNES LANDRY Rep #: [id number] : 1970 54 From: Peng Neville MD PCP: Care Physician,No Primary Status:ADM DEBBY Location: [place] [address] Operative Report (Standard) Operative Information Date of Procedure: 10/16/24 Pre-Operative Diagnosis: Bilateral ureteral obstruction Post-Operative Diagnosis: The same Surgery/Procedure Performed: Cystoscopy bilateral stent placement candy vendor: No Type of Anesthesia: General RN Documented [...] in usual sterile fashion. Using a 21 [place]i rigid cystourethroscope the entire length of the urethra was normal then went into the bladder. Identified the trigone the left and right ureteral orifice. I then cannulated the right ureteral orifice and advanced a wire up into the kidney. I then backloaded a 5 [place]i open ended catheter over the wire and injected contrast to delineate the anatomy. After the retrograde was performed I then used fluoroscopic images and guidance to advanced a wire up into the kidney and over the 0.038 glidewire I advanced a 6 [place]i by 26 cm double pigtail stent. I [...] MD; No Primary Care Physician Signed Normal [facility] ,Serum,hCG Quali.on 10-16-2024 HCG, SERUM QUAL Negative Normal [facility] Comment on above: Performed By: #### L 700.6800, L500.2500, L100.0100 #### [facility] Laboratory [address] [facility] [place], [address] Urinalysis, Completeon 10-16 BACTERIA 4+ /hpf Normal None Seen [facility] Comment on above: Order Comment: CLEAN CATCH Performed By: #### L 400.0001 #### [facility] [address] [place], [place], [address] EPI,SQUAMOUS 5-10 SEEN Normal 5-10 [facility] Comment on above: Order Comment: CLEAN CATCH Performed By: #### L 400.0001 #### [facility] [address] [place], [address] WBC >100 SEEN Normal 0-5 [facility] Comment on above: Order Comment: CLEAN CATCH Performed By: #### L 400.0001 #### [facility] [address] [place], [address] Abdomen/Pelvis without Conto n 10-15-2024 Abdomen/Pelvis without Cont [facility] Imaging Services [address] [place] [address] Abdomen/Pelvis without Cont MR#: [id number] Acct: [id number] Name: YOHANNES LANDRY Rep #: [id number] : 1970 F 54 From: Itz benjamin MD PCP: Care Physician,No Primary Status: REG ER Study: Abdomen/Pelvis without Cont Date of Exam: 10/01 09/24 Exam# [id number] Ordering Dr: Ian Brown MD PROCEDURE: ABDOMEN/PELVIS [...] dependent/layering faintly dense small calculi. Reading Location: [place] [address] CC: Dr. Ian Brown MD; No Primary Care Physician Environmental Marketing Representative: Signed Normal [facility] Absolute lymphocyte countOrd ered By: Ian Brown on 10-15-2024 Lymphocytes Auto (Unsp spec) [#/Vol] 2.40 10*3/uL 0.83-4.51 [facility] Absolute neutrophil countOrd ered By: Ian Brown on 10-15-2024 Neutrophils (Bld) [#/Vol] 10.2 10*3/uL High 2.0-7.7 [facility] Anion gap in Serum or Plasma Ordered By: Ian Brown on 10-15-2024 Anion gap [Moles/Vol] 11 mmol/L 5-15 [facility] Automated lymphocyte count a s percentage of total leukocytesOrdered By: Ian Brown on 10-15-2024 Lymphocytes/100 WBC Auto (Unsp spec) 17.2 % Low 19-41 [facility] BUN/creatinine ratioOrdered By: Ian Brown on 10-15-2024 Urea nitrogen/Creatinine [Mass ratio] 12.7 mg/mg 10-20 [facility] Basophil percentageOrdered B y: Ian Brown on 10-15-2024 Basophils/100 WBC (Bld) 0.4 % 0-1 [facility] Bilirubin Test strip Ql (U)O rdered By: Ian Brown on 10-15-2024 Bilirubin Ql (U) Negative Negative [facility] Carbon dioxide, total [Moles /volume] in Central venous bloodOrdered By: Ian Brown on 10-15-2024 CO2 [Moles/Vol] 26.4 mmol/L 21.0-32.0 [facility] Chloride assayOrdered By: Edward Brown on 10-15-2024 Chloride [Moles/Vol] 103 mmol/L 98-108 [facility] Emergency Department Summary on 10-15-2024 Emergency Department Summary [facility] Medical Records Department [address] [place] [address] Emergency Department Summary 10/15/24 MR#: [id number] Acct: [id number] Name: YOHANNES LANDRY Rep #: [id number] : 1970 54 From: Ian Brown MD [...] atraumatic M (more content not included)... Normal [facility] Eosinophil percentageOrdered By: Ian Brown on 10-15-2024 Eosinophils/100 WBC (Bld) 3.1 % 0-5 [facility] Erythrocyte distribution wid th ratioOrdered By: Ian Brown on 10-15-2024 Erythrocyte distribution width (RBC) [Ratio] 15.4 % High 11.6-14.6 [facility] Erythrocyte distribution wid th standard deviationOrdered By: Ian Brown on 10-15-2024 Erythrocyte distribution width (RBC) [Ratio] 48.9 fl High 35.1-43.9 [facility] Glomerular filtration rate ( GFR) estimation/1.73 sq m using serum, plasma, or whole bOrdered By: Ian Brown on 10-15-2024 GFR/1.73 sq M.predicted among non-blacks MDRD (S/P/Bld) [Vol rate/Area] 38 mL/min/{1.73_m2} Low >60 [facility] Comment on above: mL/min/1.73m2 CKD-EP I Creatinine Equation (2020) Hematocrit Auto (Bld) [Volum e fraction]Ordered By: Ian Brown on 10-15-2024 Hematocrit (Bld) [Volume fraction] 36.4 % Low 37-47 [facility] Hemoglobin measurementOrdere d By: Ian Brown on 10-15-2024 Hemoglobin (Bld) [Mass/Vol] 11.3 g/dL Low 12.0-15.0 [facility] Immature granulocytes/100 WB C Auto (Bld)Ordered By: Ian Brown on 10-15-2024 Immature granulocytes/100 WBC (Bld) 0.600 % 0.0-0.9 [facility] Comment on above: IG% - Immature Granu locytes (promyelocytes, myelocytes and metamyelocytes) > 1% indicates that a LEFT SHIFT is Present. Ketones Test strip Ql (U)Ord ered By: Ian Brown on 10-15-2024 Ketones Ql (U) Negative Negative [facility] MCV (mean corpuscular volume ) determinationOrdered By: Ian Brown on 10-15-2024 MCV (RBC) [Entitic vol] 87.1 fL 81-99 [facility] Mean corpuscular hemoglobin (MCH) determinationOrdered By: Ian Brown on 10-15-2024 MCH (RBC) [Entitic mass] 27.0 pg 27.0-32.0 [facility] Mean corpuscular hemoglobin concentration (MCHC) determinationOrdered By: Ian Brown on 10-15-2024 MCHC (RBC) [Mass/Vol] 31.0 g/dL Low 32-36 [facility] Mean platelet volume determi nationOrdered By: Ian Brown on 10-15-2024 Platelet mean volume (Bld) [Entitic vol] 11.4 fL 6.2-12.0 [facility] Microscopic analysis of urin e for red blood cells (RBC)Ordered By: Ian Brown on 10-15-2024 Microscopic analysis of urine for red blood cells (RBC) 0 SEEN /hpf 0-5 [facility] Monocyte percentageOrdered B y: Ian Brown on 10-15-2024 Monocytes/100 WBC (Bld) 5.2 % 0-10 [facility] Mucus LM Ql (Urine sed)Order ed By: Ian Brown on 10-15-2024 Mucus Ql (Urine sed) 0 SEEN /hpf [facility] Neutrophil percentageOrdered By: Ian Brown on 10-15-2024 Neutrophils/100 WBC (Bld) 73.5 % High 47-70 [facility] Nitrite Test strip Ql (U)Ord ered By: Ian Brown on 10-15-2024 Nitrite Ql (U) Negative Negative [facility] Nucleated red blood cell per centageOrdered By: Ian Brown on 10-15-2024 Nucleated RBC/100 WBC (Bld) [Ratio] 0 % 0-5 [facility] Platelet countOrdered By: Edward Brown on 10-15-2024 Platelets (Bld) [#/Vol] 270 10*3/uL 150-450 [facility] Potassium measurement (mass/ volume)Ordered By: Ian Brown on 10-15-2024 Potassium (Unsp spec) [Mass/Vol] 3.7 mmol/L 3.3-5.1 [facility] Protein Test strip Ql (U)Ord ered By: Ian Brown on 10-15-2024 Protein Ql (U) 100 mg/dl High Negative [facility] RBC Auto (Bld) [#/Vol]Ordere d By: Ian Brown on 10-15-2024 RBC (Bld) [#/Vol] 4.18 10*6/uL Low 4.2-5.4 [facility] Serum beta-hCG test, qualita tiveOrdered By: Ian Brown on 10-15-2024 Beta HCG ( test) Ql Negative [facility] Serum creatinine measurement (mass/volume)Ordered By: Ian Brown on 10-15-2024 Creatinine [Mass/Vol] 1.63 mg/dL High 0.70-1.20 [facility] Serum glucose measurement (m ass/volume)Ordered By: Ian Brown on 10-15-2024 Glucose [Mass/Vol] 98 mg/dL 70-99 [facility] Serum or plasma calcium brennan urement (mass/volume)Ordered By: Ian Brown on 10-15-2024 Calcium [Mass/Vol] 11.4 mg/dL High 7.6-11.0 [facility] Serum or plasma urea nitroge n measurement (mass/volume)Ordered By: Ian Brown on 10-15-2024 Urea nitrogen [Mass/Vol] 21 mg/dL High 4-19 [facility] Sodium levelOrdered By: Ian Brown on 10-15-2024 Sodium [Moles/Vol] 140 mmol/L 133-145 [facility] Squamous epithelial cells de tection in urine sediment by light microscopyOrdered By: Ian Brown on 10-15-2024 Epithelial cells.squamous LM Ql (Urine sed) 5-10 SEEN /hpf 5-10 [facility] Urinalysis, Completeon 10-15 BILIRUBIN URINE Negative Normal Negative [facility] Comment on above: Order Comment: CLEAN CATCH Performed By: #### L 400.0001 #### [facility] Laboratory [address] [place], [address] Clarity (U) Cloudy Normal Clear [facility] Comment on above: Order Comment: CLEAN CATCH Performed By: #### L 400.0001 #### [facility] [address] [place], [address] Color (U) Yellow Normal Yellow [facility] Comment on above: Order Comment: CLEAN CATCH Performed By: #### L 400.0001 #### [facility] [address] [place], [address] GLUCOSE, UR Normal Normal Normal [facility] Comment on above: Order Comment: CLEAN CATCH Performed By: #### L 400.0001 #### [facility] [address] [place], [address] KETONE UR Negative Normal Negative [facility] Comment on above: Order Comment: CLEAN CATCH Performed By: #### L 400.0001 #### [facility] [address] [place], [address] LEUK ESTERASE 500 /ul Abnormal Negative [facility] Comment on above: Order Comment: CLEAN CATCH Performed By: #### L 400.0001 #### [facility] [address] [place], [address] Nitrite Ql (U) Negative Normal Negative [facility] Comment on above: Order Comment: CLEAN CATCH Performed By: #### L 400.0001 #### [facility] [address] [place], [address] OCCULT BLOOD-UR 25 /ul Abnormal Negative [facility] Comment on above: Order Comment: CLEAN CATCH Performed By: #### L 400.0001 #### [facility] [address] [place], [address] pH UR 6.5 Normal 5.0 - 8.0 [facility] Comment on above: Order Comment: CLEAN CATCH Performed By: #### L 400.0001 #### [facility] [address] [place], [address] PROT DIPSTX 100 mg/dl Abnormal Negative [facility] Comment on above: Order Comment: CLEAN CATCH Performed By: #### L 400.0001 #### [facility] [address] [place], [address] SP.GR. DIPSTX 1.015 Normal 1.002-1.030 [facility] Comment on above: Order Comment: CLEAN CATCH Performed By: #### L 400.0001 #### [facility] [address] [place], [address] UROBILI Normal Normal Normal [facility] Comment on above: Order Comment: CLEAN CATCH Performed By: #### L 400.0001 #### [facility] [address] [place], [address] Mucus Ql (Urine sed) 0 SEEN Normal [facility] Comment on above: Order Comment: CLEAN CATCH Performed By: #### L 400.0001 #### [facility] [address] [place], [address] RBC 0 SEEN Normal 0-5 [facility] Comment on above: Order Comment: CLEAN CATCH Performed By: #### L 400.0001 #### [facility] [address] [place], [address] Urine clarityOrdered By: Peter Brown on 10-15-2024 Clarity (U) Cloudy Clear [facility] Urine color determinationOrd ered By: Ian Brown on 10-15-2024 Color (U) Yellow Yellow [facility] Urine glucose detectionOrder ed By: Ian Brown on 10-15-2024 Glucose Ql (U) Normal mg/dl Normal [facility] Urine leukocyte esterase det ection by dipstickOrdered By: Ian Brown on 10-15-2024 Leukocyte esterase Test strip Ql (U) 500 /ul High Negative [facility] Urine pHOrdered By: Ian Chadwick ghvibha on 10-15-2024 pH (U) 6.5 [pH] 5.0 - 8.0 [facility] Urine sediment bacteria coun t by microscopy (number/high power field)Ordered By: Ian Brown on 10-15-2024 Bacteria LM.HPF (Urine sed) [#/Area] 4 /[HPF] None Seen [facility] Urine specific gravity measu rementOrdered By: Ian Brown on 10-15-2024 Specific gravity (U) [Rel density] 1.015 1.002-1.030 [facility] Urine urobilinogen measureme ntOrdered By: Ian Brown on 10-15-2024 Urobilinogen Ql (U) Normal mg/dl Normal [facility] White blood cell (WBC) count Ordered By: Ian Brown on 10-15-2024 WBC (Bld) [#/Vol] 13.9 10*3/uL High 4.4-11.0 [facility] White blood cell countOrdere d By: Ian Brown on 10-15-2024 White blood cell count >100 SEEN /hpf 0-5 [facility] Absolute lymphocyte counton 12-17-2021 Lymphocytes Auto (Unsp spec) [#/Vol] 1.79 10*3/uL 0.83-4.51 [facility] Work Phone: Basophil percentageon 2021 Basophils/100 WBC (Bld) 0.3 % 0-1 [facility] Work Phone: Chloride [Moles/Vol] 109 mmol/L 98-107 [facility] Work Phone: Eosinophils/100 WBC (Bld) 4.7 % 0-5 [facility] Work Phone: Glucose [Mass/Vol] 106 mg/dL 74-106 [facility] Work Phone: Comment on above: Fasting Glucose resu lt from 100 to 125 mg/dL suggests IMPAIRED HOMEOSTASIS per A.D.A. criteria. Neutrophils (Bld) [#/Vol] 6.4 10*3/uL 2.0-7.7 [facility] Work Phone: Neutrophils/100 WBC (Bld) 67.3 % 47-70 [facility] Work Phone: Potassium [Moles/Vol] 3.8 mmol/L 3.5-5.1 [facility] Work [facility]: Sodium [Moles/Vol] 141 mmol/L 136-145 [facility] Work Phone: WBC (Bld) [#/Vol] 9.6 10*3/uL 4.4-11.0 [facility] Work Phone: Basophil percentage >100 SEEN /hpf 0-5 [facility] Work Phone: Bilirubin Test strip Ql (U)o n 12-17-2021 Bilirubin Ql (U) Negative Negative [facility] Work Phone: Blood erythrocytes count (nu mber/volume)on 12-17-2021 RBC (Bld) [#/Vol] 3.92 10*6/uL 4.2-5.4 [facility] Work Phone: Blood hemoglobin measurement (mass/volume)on 12-17-2021 Hemoglobin (Bld) [Mass/Vol] 10.7 g/dL 12.0-15.0 [facility] Work Phone: Blood lymphocytes/100 leukoc yteson 12-17-2021 Lymphocytes/100 WBC (Bld) 18.7 % 19-41 [facility] Work Phone: Blood monocytes/100 leukocyt eson 12-17-2021 Monocytes/100 WBC (Bld) 7.3 % 0-10 [facility] Work Phone: Blood platelet mean volumeon 12-17-2021 Platelet mean volume (Bld) [Entitic vol] 10.6 fL 6.2-12.0 [facility] Work Phone: [phone] Determination of erythrocyte mean corpuscular volume (MCV)on 12-17-2021 MCV (RBC) [Entitic vol] 85.7 fL 81-99 [facility] Work Phone: [phone] Hematocrit Auto (Bld) [Volum e fraction]on 12-17-2021 Hematocrit (Bld) [Volume fraction] 33.6 % 37-47 [facility] Work Phone: [phone] Ketones Test strip Ql (U)on 12-17-2021 Ketones Ql (U) Negative Negative [facility] Work Phone: [phone] Laboratory - Chemistry and C hemistry - challengeon 12-17-2021 CO2 [Moles/Vol] 26.0 mmol/L 21.0-32.0 [facility] Work Phone: [phone] Urea nitrogen/Creatinine [Mass ratio] 14.6 mg/mg 10-20 [facility] Work Phone: [phone] HCG ( test) Ql (U) Negative [facility] Work Phone: [phone] Comment on above: Very dilute urine sp ecimens, as indicated by a low specificgravity, may not contain contact representative levels of hCG. If is still suspected, a first morning urinespecimen should be collected 48 hours later and tested. Laboratory - Hematology and Cell countson 12-17-2021 Erythrocyte distribution width (RBC) [Entitic vol] 49.2 fL 35.1-43.9 [facility] Work Phone: [phone] Erythrocyte distribution width (RBC) [Ratio] 15.6 % 11.6-14.6 [facility] Work Phone: [phone] Immature granulocytes/100 WBC (Bld) 1.700 % 0.0-0.9 [facility] Work Phone: [phone] Comment on above: IG% - Immature Granu locytes (promyelocytes, myelocytes and metamyelocytes) > 1% indicates that a LEFT SHIFT is Present. MCH (RBC) [Entitic mass] 27.3 pg 27.0-32.0 [facility] Work Phone: Nucleated RBC/100 WBC (Bld) [Ratio] 0 % 0-5 [facility] Work Phone: [phone] MCHC Auto (RBC) [Mass/Vol]on 12-17-2021 MCHC (RBC) [Mass/Vol] 31.8 g/dL 32-36 [facility] Work Phone: Mucus LM Ql (Urine sed)on Mucus Ql (Urine sed) 0 SEEN /hpf [facility] Work Phone: [phone] Nitrite Test strip Ql (U)on 12-17-2021 Nitrite Ql (U) Negative Negative [facility] Work Phone: No Panel Informationon 12-17 Estimated Creatinine Clearance Calc 41.40 ml/min [facility] Work Phone: [phone] Estimated GFR (MDRD) Amer 56 mL/min >60 [facility] Work Phone: Comment on above: GFR Calc Estimated GFR (MDRD) Non-Af Amer 46 mL/min >60 [facility] Work Phone: Comment on above: Non- GFR Calc Platelets bldon 12-17-2021 Platelets (Bld) [#/Vol] 230 10*3/uL 150-450 [facility] Work Phone: [phone] Protein Test strip Ql (U)on 12-17-2021 Protein Ql (U) 30 mg/dl Negative [facility] Work Phone: [phone] Serum or plasma calcium brennan urement (mass/volume)on 12-17-2021 Calcium [Mass/Vol] 10.9 mg/dL 8.5-10.1 [facility] Work Phone: [phone] Serum or plasma creatinine m easurement (mass/volume)on 12-17-2021 Creatinine [Mass/Vol] 1.30 mg/dL 0.55-1.02 [facility] Work Phone: [phone] Comment on above: The validity of the calculated GFR & GFRAA in patients over 70 years has not been determined. Clinical correlation is essential. Serum or plasma urea nitroge n measurement (mass/volume)on 12-17-2021 Urea nitrogen [Mass/Vol] 19 mg/dL 7-18 [facility] Work Phone: [phone] Squamous epithelial cells de tection in urine sediment by light microscopyon 12-17-2021 Epithelial cells.squamous LM Ql (Urine sed) 10-25 SEEN /hpf 5-10 [facility] Work Phone: [phone] Thin prep Papanicolaou smear with manual screeningon 12-17-2021 Thin prep Papanicolaou smear with manual screening 6 5-15 [facility] Work Phone: [phone] Urine blood detectionon 12-01 RBC Ql (U) 250 /ul Negative [facility] Work Phone: [phone] RBC Ql (U) 25-50 SEEN /hpf 0-5 [facility] Work Phone: Urine clarityon 12-17-2021 Clarity (U) Sl. Cloudy Clear [facility] Work Phone: [phone] Urine color determinationon 12-17-2021 Color (U) Yellow Yellow [facility] Work Phone: [phone] Urine glucose detectionon Glucose Ql (U) Normal mg/dl Normal [facility] Work Phone: [phone] Urine leukocyte esterase det ection by dipstickon 12-17-2021 Leukocyte esterase Test strip Ql (U) 500 /ul Negative [facility] Work Phone: [phone] Urine pHon 12-17-2021 pH (U) 6.0 [pH] 5.0 - 8.0 [facility] Work Phone: [phone] Urine sediment bacteria coun t by microscopy (number/high power field)on 12-17-2021 Bacteria LM.HPF (Urine sed) [#/Area] 4 /[HPF] None Seen [facility] Work Phone: Urine specific gravity measu rementon 12-17-2021 Specific gravity (U) [Rel density] 1.015 1.002-1.030 [facility] Work Phone: Urobilinogen Auto test strip Ql (U)on 12-17-2021 Urobilinogen Ql (U) Normal mg/dl Normal [facility] Work Phone: Absolute lymphocyte counton 10-11-2021 Lymphocytes Auto (Unsp spec) [#/Vol] 1.25 10*3/uL 0.83-4.51 [facility] Work Phone: Basophil percentageon 2021 Basophils/100 WBC (Bld) 0.2 % 0-1 [facility] Work Phone: Chloride [Moles/Vol] 107 mmol/L 98-107 [facility] Work Phone: Eosinophils/100 WBC (Bld) 0.5 % 0-5 [facility] Work Phone: Glucose [Mass/Vol] 115 mg/dL 74-106 [facility] Work Phone: Comment on above: Fasting Glucose resu lt from 100 to 125 mg/dL suggests IMPAIRED HOMEOSTASIS per A.D.A. criteria. Neutrophils (Bld) [#/Vol] 14.1 10*3/uL 2.0-7.7 [facility] Work Phone: Neutrophils/100 WBC (Bld) 86.1 % 47-70 [facility] Work Phone: Potassium [Moles/Vol] 3.9 mmol/L 3.5-5.1 [facility] Work Phone: Sodium [Moles/Vol] 136 mmol/L 136-145 [facility] Work Phone: WBC (Bld) [#/Vol] 16.4 10*3/uL 4.4-11.0 [facility] Work Phone: Blood erythrocytes count (nu mber/volume)on 10-11-2021 RBC (Bld) [#/Vol] 4.31 10*6/uL 4.2-5.4 [facility] Work Phone: Blood hemoglobin measurement (mass/volume)on 10-11-2021 Hemoglobin (Bld) [Mass/Vol] 11.4 g/dL 12.0-15.0 [facility] Work Phone: Blood lymphocytes/100 leukoc yteson 10-11-2021 Lymphocytes/100 WBC (Bld) 7.6 % 19-41 [facility] Work Phone: [phone] Blood monocytes/100 leukocyt eson 10-11-2021 Monocytes/100 WBC (Bld) 5.1 % 0-10 [facility] Work Phone: [phone] Blood platelet mean volumeon 10-11-2021 Platelet mean volume (Bld) [Entitic vol] 10.8 fL 6.2-12.0 [facility] Work Phone: [phone] Determination of erythrocyte mean corpuscular volume (MCV)on 10-11-2021 MCV (RBC) [Entitic vol] 84.5 fL 81-99 [facility] Work Phone: [phone] Hematocrit Auto (Bld) [Volum e fraction]on 10-11-2021 Hematocrit (Bld) [Volume fraction] 36.4 % 37-47 [facility] Work Phone: [phone] Laboratory - Chemistry and C hemistry - challengeon 10-11-2021 CO2 [Moles/Vol] 27.0 mmol/L 21.0-32.0 [facility] Work Phone: [phone] Urea nitrogen/Creatinine [Mass ratio] 16.9 mg/mg 10-20 [facility] Work Phone: [phone] Laboratory - Hematology and Cell countson 10-11-2021 Erythrocyte distribution width (RBC) [Entitic vol] 48.7 fL 35.1-43.9 [facility] Work Phone: [phone] Erythrocyte distribution width (RBC) [Ratio] 15.7 % 11.6-14.6 [facility] Work Phone: [phone] Immature granulocytes/100 WBC (Bld) 0.500 % 0.0-0.9 [facility] Work Phone: Comment on above: IG% - Immature Granu locytes (promyelocytes, myelocytes and metamyelocytes) > 1% indicates that a LEFT SHIFT is Present. MCH (RBC) [Entitic mass] 26.5 pg 27.0-32.0 [facility] Work Phone: Nucleated RBC/100 WBC (Bld) [Ratio] 0 % 0-5 [facility] Work Phone: [phone] MCHC Auto (RBC) [Mass/Vol]on 10-11-2021 MCHC (RBC) [Mass/Vol] 31.3 g/dL 32-36 [facility] Work Phone: No Panel Informationon 10-11 Estimated Creatinine Clearance Calc 64.85 ml/min [facility] Work Phone: Estimated GFR (MDRD) Amer 94 mL/min >60 [facility] Work Phone: Comment on above: GFR Calc Estimated GFR (MDRD) Non-Af Amer 78 mL/min >60 [facility] Work Phone: Comment on above: Non- GFR Calc SARS-CoV-2 & FLU Antigen (Rapid) [facility] Work Phone: Platelets bldon 10-11-2021 Platelets (Bld) [#/Vol] 182 10*3/uL 150-450 [facility] Work Phone: [phone] Serum or plasma calcium brennan urement (mass/volume)on 10-11-2021 Calcium [Mass/Vol] 10.5 mg/dL 8.5-10.1 [facility] Work Phone: [phone] Serum or plasma creatinine m easurement (mass/volume)on 10-11-2021 Creatinine [Mass/Vol] 0.83 mg/dL 0.55-1.02 [facility] Work Phone: Comment on above: The validity of the calculated GFR & GFRAA in patients over 70 years has not been determined. Clinical correlation is essential. Serum or plasma urea nitroge n measurement (mass/volume)on 10-11-2021 Urea nitrogen [Mass/Vol] 14 mg/dL 7-18 [facility] Work Phone: Thin prep Papanicolaou smear with manual screeningon 10-11-2021 Thin prep Papanicolaou smear with manual screening 2 5-15 [facility] Work Phone: CNOVon 08-23-2019 CNOV Office Visit (UCWSTR ) YOHANNES LANDRY ([id number]) 1970 F Date Time Provider Department 08/23/19 5:30 PM MISSY CABRAL ([facility]) [facility] During your visit today, we recorded the [...] scabbing of face. Patient states use of [id number] itch medication and cream with slight symptom [...] of care. This note was generated using [employer] software. It may contain errors in wording, punctuation, or spelling. Missy Cabral APRN.PRASANTH Cabral APRN.PRASANTH 08/23/2019 5:43 PM Signed [facility] [address] [place], [place] [address] Emergency Department Diagnosis: Assessment CELLULITIS: Your exam [...] 12/09/2005 Other instructions from your clinician: [facility] [address] [place] [address] Emergency Department Diagnosis: Assessment CELLULITIS: Your exam [...] by ALEX ARNDT.MISSY RADER on 08/23/19 Normal [facility] PROGRESSon 08-23-2019 PROGRESS HNO ID: [id number] Author: Missy Cabral Service: ? Author Type: [...] scabbing of face. Patient states use of tcoi-opf-stnyfgr itch medication and cream with slight symptom [...] of care. This note was generated using [employer] software. It may contain errors in wording, punctuation, or spelling. Missy Cabral APRN.PRASANTH Normal [facility] CNOVon 02-28-2019 CNOV Office Visit (WSTR ) YOHANNES LANDRY ([id number]) 1970 F Date Time Provider Department [facility]/28[facility]19 [facility] [facility] visit today, we recorded the following information about you: Temperature Pulse Respiration Blood pressure 97.5 degrees 86/minute 18/minute 128/80 Weight 83.5 kg Ashly Villalobos APRN.PRASANTH 02/28/2019 8:08 PM Signed Subjective The history is provided by the patient. No language tutor was used. JAMES Valenciaatul Landry is a [...] file Gets together: Not on file Attends spiritism service: Not on file Active member of [...] and edited as necessary, the [facility] Review of Systems Constitutional: Negative for [...] Status:Closed by ASHLY VILLALOBOS CNP on 02/28/19 [facility] PROGRESSon 02-28-2019 PROGRESS HNO ID: [id number] Author: Ashly Villalobos Service: ? Author Type: Nurse Practitioner Type: Progress Notes Filed: 02/28/2019 8:08 PM Note Text: Subjective The history is provided by the patient. No language tutor was used. HPI Yohannes Landry is a [...] file Gets together: Not on file Attends spiritism service: Not on file Active member of [...] and edited as necessary, the [facility] Review of Systems Constitutional: Negative for [...] detail warranting prompt ER evaluation. Ashly Villalobos, HAIR[employer] Normal [facility] No Panel Information SARS-CoV-2 & FLU Antigen (Rapid) [facility] Work Phone: Vital Signs Date Time Vital Sign Value Performing Clinician Mitesh sun 03-13-2025 17:07-0500 Blood Pressure Location PHILIP MORTENSEN MD [facility] 03-13-2025 17:07-0500 Blood Pressure Method PHILIP MORTENSEN MD [facility] 03-13-2025 17:07-0500 Body temperature 98.6 [degF] PHILIP MORTENSEN MD [facility] 03-13-2025 17:07-0500 Body weight 65 kg PHILIP MORTENSEN MD [facility] 03-13-2025 17:07-0500 Diastolic Blood Pressure Non-Invasive 59 mm[Hg] PHILIP MORTENSEN MD [facility] 03-13-2025 17:07-0500 Heart rate 111 /min PHILIP MORTENSEN MD [facility] 03-13-2025 17:07-0500 Respiratory rate 18 /min PHILIP MORTENSEN MD [facility] 03-13-2025 17:07-0500 Systolic Blood Pressure Non-Invasive 124 mm[Hg] PHILIP MORTENSEN MD [facility] 10-16-2024 14:31-0400 Body temperature 98.2 [degF] No Primary Care Physician [facility] 10-16-2024 14:31-0400 Diastolic blood pressure 82 mm[Hg] No Primary Care Physician [facility] 10-16-2024 14:31-0400 Heart rate 95 /min No Primary Care Physician [facility] 10-16-2024 14:31-0400 Respiratory rate 16 /min No Primary Care Physician [facility] 10-16-2024 14:31-0400 SaO2% (BldA) [Mass fraction] 95 % No Primary Care Physician [facility] 10-16-2024 14:31-0400 Systolic blood pressure 133 mm[Hg] No Primary Care Physician [facility] 10-16-2024 05:30-0400 Body height 157.48 cm No Primary Care Physician [facility] 10-16-2024 05:30-0400 Body mass index (BMI) [Ratio] 27.8 kg/m2 No Primary Care Physician [facility] 10-16-2024 05:30-0400 Body weight 68.9 kg No Primary Care Physician [facility] 10-16-2024 02:45-0400 Body temperature 97.1 [degF] No Primary Care Physician [facility] 10-16-2024 02:45-0400 Diastolic blood pressure 69 mm[Hg] No Primary Care Physician [facility] 10-16-2024 02:45-0400 Heart rate 78 /min No Primary Care Physician [facility] 10-16-2024 02:45-0400 Respiratory rate 16 /min No Primary Care Physician [facility] 10-16-2024 02:45-0400 SaO2% (BldA) [Mass fraction] 99 % No Primary Care Physician [facility] 10-16-2024 02:45-0400 Systolic blood pressure 124 mm[Hg] No Primary Care Physician [facility] 10-15-2024 22:21-0400 Body height 157.48 cm No Primary Care Physician [facility] 10-15-2024 22:21-0400 Body mass index (BMI) [Ratio] 27.8 kg/m2 No Primary Care Physician [facility] 10-15-2024 22:21-0400 Body weight 68.9 kg No Primary Care Physician [facility] 12-18-2021 00:27-0400 Diastolic blood pressure 89 mm[Hg] [facility] Work Phone: 12-18-2021 00:27-0400 Heart rate 98 /min [facility] Work Phone: 12-18-2021 00:27-0400 Respiratory rate 16 /min [facility] Work Phone: 12-18-2021 00:27-0400 SaO2% (BldA) [Mass fraction] 98 % [facility] Work Phone: 12-18-2021 00:27-0400 Systolic blood pressure 144 mm[Hg] [facility] Work Phone: 12-17-2021 22:21-0400 Body height 157.48 cm [facility] Work Phone: 12-17-2021 22:21-0400 Body mass index (BMI) [Ratio] 27.4 kg/m2 [facility] Work Phone: 12-17-2021 22:21-0400 Body temperature 99.3 [degF] [facility] Work Phone: 12-17-2021 22:21-0400 Body weight 68.03 kg [facility] Work Phone: 10-11-2021 02:58-0400 Body temperature 98.4 [degF] No Primary Care Physician [facility] Work Phone: 10-11-2021 02:58-0400 Diastolic blood pressure 73 mm[Hg] No Primary Care Physician [facility] Work Phone: 10-11-2021 02:58-0400 Heart rate 107 /min No Primary Care Physician [facility] Work Phone: 10-11-2021 02:58-0400 Respiratory rate 15 /min No Primary Care Physician [facility] Work Phone: 10-11-2021 02:58-0400 SaO2% (BldA) [Mass fraction] 97 % No Primary Care Physician [facility] Work Phone: 10-11-2021 02:58-0400 Systolic blood pressure 133 mm[Hg] No Primary Care Physician [facility] Work Phone: 10-11-2021 00:39-0400 Body height 157.48 cm No Primary Care Physician [facility] Work Phone: 10-11-2021 00:39-0400 Body mass index (BMI) [Ratio] 29.5 kg/m2 No Primary Care Physician [facility] Work Phone: 10-11-2021 00:39-0400 Body weight 73.1 kg No Primary Care Physician [facility] Work Phone: 08-30-2021 23:24-0400 Heart rate 84 /min No Primary Care Physician [facility] Work Phone: 08-30-2021 23:24-0400 Respiratory rate 15 /min No Primary Care Physician [facility] Work Phone: 08-30-2021 23:24-0400 SaO2% (BldA) [Mass fraction] 99 % No Primary Care Physician [facility] Work Phone: 08-30-2021 21:18-0400 Body height 157.48 cm No Primary Care Physician [facility] Work Phone: 08-30-2021 21:18-0400 Body mass index (BMI) [Ratio] 28.3 kg/m2 No Primary Care Physician [facility] Work Phone: 08-30-2021 21:18-0400 Body temperature 99.1 [degF] No Primary Care Physician [facility] Work Phone: 08-30-2021 21:18-0400 Body weight 70.3 kg No Primary Care Physician [facility] Work Phone: 08-30-2021 21:18-0400 Diastolic blood pressure 70 mm[Hg] No Primary Care Physician [facility] Work Phone: 08-30-2021 21:18-0400 Systolic blood pressure 135 mm[Hg] No Primary Care Physician [facility] Work Phone: 07-02-2021 16:59-0500 Body mass index (BMI) [Ratio] 29.5 kg/m2 No Primary Care Physician [facility] Work Phone: 07-02-2021 16:59-0500 Body temperature 97.5 [degF] No Primary Care Physician [facility] Work Phone: 07-02-2021 16:59-0500 Body weight 73.1 kg No Primary Care Physician [facility] Work Phone: 07-02-2021 16:59-0500 Diastolic blood pressure 68 mm[Hg] No Primary Care Physician [facility] Work Phone: 07-02-2021 16:59-0500 Heart rate 99 /min No Primary Care Physician [facility] Work Phone: 07-02-2021 16:59-0500 Respiratory rate 16 /min No Primary Care Physician [facility] Work Phone: 07-02-2021 16:59-0500 SaO2% (BldA) [Mass fraction] 97 % No Primary Care Physician [facility] Work Phone: 07-02-2021 16:59-0500 Systolic blood pressure 117 mm[Hg] No Primary Care Physician [facility] Work Phone: Encounters Encounter Date Encounter Type Care Provider Facility Start: 03-13-2025 End: 03-13-2025 Emergency department patient visit NONE PHYSICIAN Facility:[facility] Start: 10-16-2024 End: 10-16-2024 ambulatory [facility] Facility:[facility] Start: 10-16-2024 End: 10-16-2024 ambulatory No Primary Care Physician Facility:[facility] Start: 10-16-2024 End: 10-16-2024 Evaluation and management of inpatient Dr. Peng Neville MD -[facility] Work Phone: Start: 10-16-2024 End: 10-16-2024 observation encounter No Primary Care Physician [facility] Work Phone: Start: 10-16-2024 Evaluation and management of inpatient Dr. Peng Neville MD -[facility] Work Phone: Start: 12-17-2021 End: 12-18-2021 Emergency department patient visit [facility]Emergency Department Start: 10-11-2021 End: 10-11-2021 Emergency department patient visit No Primary Care Physician [facility]gency [facility] Start: 08-30-2021 End: 08-30-2021 Emergency department patient visit No Primary Care Physician [facility] Start: 08-12-2021 End: 08-12-2021 Patient encounter procedure No Primary Care Physician [facility] Start: 07-02-2021 End: 07-02-2021 Emergency department patient visit No Primary Care Physician [facility] Procedures Date Procedure Procedure Detail Performing [...] Activity Detail Author Start: 10-16-2024 Patient discharge [facility] Start: 10-16-2024 Application of inter mittent pneumatic compression device [facility] Start: 10-16-2024 Admission procedure [facility] Start: 10-16-2024 Following clinical p athway protocol [facility] Start: 10-16-2024 [facility] Start: 10-16-2024 Hospital admission, emergency, from emergency room, medical nature [facility] Start: 10-16-2024 Patient referral to dietitian [facility] Start: 12-18-2021 [facility] Work Phone: Start: 10-11-2021 [facility] Work Phone: Bacteria identified in Urine by Culture Urine Culture [facility] Work Phone: Patient Education [facility] Work Phone: Patient referral [facility] Work Phone: Urine culture [facility] Payers Date Payer Category Payer Medicaid [id number] 2024 Private Health Insurance [id number] 2024 Self-pay [id number] 1970 Unknown [id number] Medicaid [id number] Private Health Insurance [id number] Unknown [id number] Unknown [id number] Social History Date Type Detail Facility [facility] Work Phone: Start: 08-30-2021 End: 12-17-2021 Tobacco smoking status NHIS Unknown if ever smoked [facility] Work Phone: Start: 1970 Sex Assigned At Female [facility] Start: 10-15-2024 End: 10-16-2024 Tobacco smoking status NHIS Never smoked tobacco (finding) [facility] Tobacco smoking status [facility] Start: 03-13-2025 Sex Female (finding) [facility] NEGATED: Highlighted row Not [facility] Goals Date Patient Goal Desired Activity /State Functional Status Date Assessment Result Facility 10-16-2024 Functional status Ambulates [facility] Work Phone: 10-16-2024 Functional status Assistive Devices None [facility] Work Phone: Mental Status Date Assessment Result Facility 10-16-2024 Cognitive function Voice/Name [facility] Work Phone: Clinical Notes 10-15-2024 to 10-16-2024 Note Date & Type Note Facility 10-16-2024 Consult note Note Date/Time October 16, 2024 12:37[facility] Medical Records Department [address] [place] [address] Anesthesia Postop Eval I 10/16/24 1237 MR#: [id number] Acct: [id number] Name: YOHANNES LANDRY Rep #:[id number] : 1970 54 From: Charito zhou CRNA PCP: Care Physician,No Primary Status :ADM DEBBY Y Race: C Location: [place] [address] Anesthesia: Postop Eval I Current Vital Signs [...] CRNA Cosigner Signature: Date CC: ~ Signed [facility] Work Phone: 1(534) 124-703306-16-2025 Discharge summary Author Peng Neville [facility] Note Date/Time October 16, 2024 12:1 1pm [facility] Medical Records Department [address] [place] [address] Instructions for Home/Discharge Instructions 10/16/24 0722 MR#: [id number] Acct: [id number] Name: YOHANNES LANDRY Rep #:[id number] : [...] Up With: Peng Neville MD When: Call [phone] for an appointment Test Results: Test results from this visit will be discussed in further detail at your follow- up appointment, if applicable. Discharge Plan Admission Admit Date/Time: 10/16/24 04:13 Attending Provider: Peng Neville Primary Care Provider: Care Physician,Cyndie Primary Discharge Orders/Prescriptions Prescriptions: No Action NK Referrals / Follow Up: Care Physician,No Primary [Primary Care Provider] - 10/16/24 0722<Electronically signed by Peng Neville MD>Peng Neville MD CC: No Primary Care Physician ~ Signed [facility] Work Phone: 1(183) 233-791706-16-2025 Consult note [facility] Medical Records Department [address] [place] [address] Anesthesia Postop Eval II 10/16/24 1403 MR#: [id number] Acct: [id number] Name: YOHANNES LANDRY Rep #:[id number] : 1970 54 From: Dorothea Rogers CRNA PCP: Care Physician,No Primary Status :ADM DEBBY Y Race: C Location: [place] [address] 0-1 Anesthesia Postop Eval I Sum Postop Eval Completion status Anesthesia document: Postop Eval 1 completed: Yes Anesthesia Postop Eval I Summary Anesthesia Postop Eval I Summary: Anesthesia Postop Eval I: Assessment Summary Airway patent Yes 10/16/24 12:37 ASSOCIATE BRAND MANAGER.SKOBY Spontaneous unlabored Yes 10/16/24 12:37 ASSOCIATE BRAND MANAGER.SKOBY respirations Mental status Awake,Calm 10/16/24 12:37 ASSOCIATE BRAND MANAGER.SKOBY nausea No 10/16/24 12:37 ASSOCIATE BRAND MANAGER.SKOBY Vomiting No 10/16/24 12:37 ASSOCIATE BRAND MANAGER.SKOBY Anesthesia Postop Eval I: Fluid Summary Crystalloid volume administer 500 10/16/24 12:37 ASSOCIATE BRAND MANAGER.SKOBY (ml) Colloids volume administered ( ml) Blood Product volume administered (ml) Total IV fluid infused 500 10/16/24 12:37 ASSOCIATE BRAND MANAGER.DANITA Anesthesia Postop Eval I: Summary Notes Anesthesia Complication No 10/16/24 12:37 ASSOCIATE BRAND MANAGER.SKOBGénesis Anesthesia Complication Comment: Post-operative progress note Anesthesia: Postop Eval II Evaluation Mental status: Awake Pain Level: 1 nausea: No Vomiting: No 10/16/24 1404 a ASSOCIATE BRAND MANAGER> Date _ Dorotheaarlen Rogers ASSOCIATE BRAND MANAGER Cosigner Signature: Date CC: ~ Signed [facility]06-16-2025 Consult note Author Charito Mace [facility] Note Date/Time October 16, 2024 11:4 3am [facility] Medical Records Department [address] [place] [address] Pre-Anesthesia Evaluation 10/16/24 1140 MR#: [id number] Acct: [id number] Name: YOHANNES LANDRY Rep #:[id number] : 1970 54 From: Charito zhou CRNA PCP: Care Physician,No Primary Status :ADM DEBBY Y Race: C Location: [place] [address] 0-1 ASA Classification* ASA Classification ASA Classification: [...] stent insertion Anesthesia History Anesthesia History - senior data architect: Anesthesia History - senior data architect Hx Hospitalization Any Problems With Anesthesia Yes: [...] take am of surgery PONV PONV - senior data architect: PONV - senior data architect Female HX of Motion Sickness HX of N/V After Surgery Non-Smoker Duration of Surgery greater than 60 minutes Number of Risk Factors PONV Score Height & Weight Height & Weight: Anesthesia: Height & Weight Height 5 ft 2 in 10/16/24 05:30 Weight: 68.9 kg 10/16/24 05:30 Body Mass Index (BMI) 27.8 10/16/24 05:30 Respiratory Assessment Respiratory Assessment - senior data architect: Respiratory Tract Infection Hx - senior data architect Hx Respiratory Tract Infection No 10/16/24 05:31 STOP Sleep Apnea STOP Sleep Apnea - senior data architect: STOP Sleep Apnea - senior data architect Hx Hypertension No 10/16/24 03:28 Hx Sleep [...] Tobacco Use History Tobacco Use History - senior data architect: Tobacco Use History - senior data architect Tobacco Use Smoking Status Never smoker 10/16/24 03:28 Hx Tobacco Use No 10/16/24 03:28 Years Smoking Packs Smoked per Day Smoking Cessation Date was within the last 15 years Hx Smoking Cessation Date Hx Smoking Cessation Counseling Hematologic Medial History Hematologic Hx - senior data architect: 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 Hx of Blood Transfusion No 10/16/24 03:28 [...] confused, unrespo /Reproduction History /Reproductive History - senior data architect: /Reproductive Hx- senior data architect Hx Now No 10/16/24 05:31 Gestational Age (in weeks): EDC: Hx Hx Para Hx Section SAB No 10/16/24 05:31 Active Medications Active Medications: Current Medications Generic Name Dose Route Start Last Admin Trade Name Freq PRN Reason Stop Dose Admin Sodium Chloride 250 mls @ 15 mls/hr 10/16/24 03:13 IV .[id number] PRN Saline Flush Sodium Chloride 250 mls @ 15 mls/hr 10/16/24 03:13 IV .[id number] PRN Additional IVPB Infusion Sodium Chloride 1,000 [...] CRNA Cosigner Signature: Date CC: ~ Signed [facility] Work Phone: 1(868) 884-865006-16-2025 Consult note [facility] Medical Records Department [address] [place] [address] Anesthesia Postop Eval I 10/16/24 1237 MR#: [id number] Acct: [id number] Name: YOHANNES LANDRY Rep #:[id number] : 1970 54 From: Charito zhou CRNA PCP: Care Physician,No Primary Status :ADM DEBBY Y Race: C Location: [place] [address] 0-1 Anesthesia: Postop Eval I Current Vital [...] 1237 bonilla OLGUIN> Date _ Charito Mace ASSOCIATE BRAND MANAGER Cosigner Signature: Date CC: ~ Signed [facility]06-16-2025 Procedure note [facility] Medical Records Department [address] [place] [address] Operative Report 10/16/24 1212 MR#: [id number] Acct: [id number] Name: YOHANNES LANDRY Rep #:[id number] : 1970 54 From: Peng Neville MD PCP: Care Physician,No Primary Status :ADM DEBBY Location: [place] [address] Operative Report (Standard) Operative Information Date of Procedure: 10/16/24 Pre-Operative Diagnosis: Bilateral ureteral obstruction Post-Operative Diagnosis: The same Surgery/Procedure Performed: Cystoscopy bilateral stent placement candy vendor: No Type of Anesthesia: General RN Documented [...] in usual sterile fashion. Using a 21 Kuwaiti rigid cystourethroscope the entire length of the urethra was normal then went into the bladder. Identified the trigone the left and right ureteral orifice. I then cannulated the right ureteral orifice and advanced a wire up into the kidney. I then backloaded a 5 Kuwaiti open ended catheter over the wire and injected contrast to delineate the anatomy. After the retrograde was performed I then used fluoroscopic images and guidance to advanced a wire up into the kidney and over the 0.038 glidewire I advanced a 6 [place]i by 26 cm double pigtail stent. I [...] Neville MD; No Primary Care Physician~ Signed [facility]06-16-2025 Discharge summary [facility] Medical Records Department [address] [facility] [place] [address] Instructions for Home/Discharge Instructions 10/16/24 0722 MR#: [id number] Acct: [id number] Name: YOHANNES LANDRY Rep #:[id number] : [...] Up With: Peng Neville MD When: Call [phone] for an appointment Test Results: Test results [...] CC: No Primary Care Physician ~ Signed [facility]06-16-2025 Consult note [facility] Medical Records Department [address] [place] [address] Pre-Anesthesia Evaluation 10/16/24 1140 MR#: [id number] Acct: [id number] Name: YOHANNES LANDRY Rep #:[id number] : 1970 54 From: Charito zhou CRNA PCP: Care Physician,No Primary Status :ADM DEBBY Y Race: C Location: [place] [address] 0-1 ASA Classification* ASA Classification ASA Classification: [...] stent insertion Anesthesia History Anesthesia History - senior data architect: Anesthesia History - senior data architect Hx Hospitalization Any Problems With Anesthesia Yes: [...] take am of surgery PONV PONV - senior data architect: PONV - senior data architect Female HX of Motion Sickness HX of N/V After Surgery Non-Smoker Duration of Surgery greater than 60 minutes Number of Risk Factors PONV Score Height & Weight Height & Weight: Anesthesia: Height & Weight Height 5 ft 2 in 10/16/24 05:30 Weight: 68.9 kg 10/16/24 05:30 Body Mass Index (BMI) 27.8 10/16/24 05:30 Respiratory Assessment Respiratory Assessment - senior data architect: Respiratory Tract Infection Hx - senior data architect Hx Respiratory Tract Infection No 10/16/24 05:31 STOP Sleep Apnea STOP Sleep Apnea - senior data architect: STOP Sleep Apnea - senior data architect Hx Hypertension No 10/16/24 03:28 Hx Sleep [...] Tobacco Use History Tobacco Use History - senior data architect: Tobacco Use History - senior data architect Tobacco Use Smoking Status Never smoker 10/16/24 03:28 Hx Tobacco Use No 10/16/24 03:28 Years Smoking Packs Smoked per Day Smoking Cessation Date was within the last 15 years Hx Smoking Cessation Date Hx Smoking Cessation Counseling Hematologic Medial History Hematologic Hx - senior data architect: 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 Hx of Blood Transfusion No 10/16/24 03:28 [...] confused, unrespo /Reproduction History /Reproductive History - senior data architect: /Reproductive Hx- senior data architect Hx Now No 10/16/24 05:31 Gestational Age (in weeks): EDC: Hx Hx Para Hx Section SAB No 10/16/24 05:31 Active Medications Active Medications: Current Medications Generic Name Dose Route Start Last Admin Trade Name Freq PRN Reason Stop Dose Admin Sodium Chloride 250 mls @ 15 mls/hr 10/16/24 03:13 IV .[id number] PRN Saline Flush Sodium Chloride 250 mls @ 15 mls/hr 10/16/24 03:13 IV .[id number] PRN Additional IVPB Infusion Sodium Chloride 1,000 [...] CRNA Cosigner Signature: Date CC: ~ Signed [facility]06-16-2025 History and physical note Author Peng Neville [facility] Note Date/Time October 16, 2024 7:22 am [facility] Medical Records Department [address] [place] [address] History & Physical Exam 10/16/24 0721 MR#: [id number] Acct: [id number] Name: YOHANNES LANDRY Rep #:[id number] : 1970 54 From: Peng Neville MD PCP: Care Physician,No Primary Status :ADM DEBBY Location: [place] [address] HPI - General General Date of Admission: 10/16/24 Date of Service: 10/16/24 Chief Complaint: bilateral ureteral obstruction HPI Narrative YOHANNES LANDRY, is a 54 F who presents with acutee renal insufficiency and bilateral obstructing kidney stones plan to take the patient the surgery today for cystoscopy bilateral stent pllacement to unblock her kidneys clear infection. And for pain conttrol. [facility] Medical History Non-smoker Kidney stones Home Medications [...] 73.5 H, Lymph % (Auto) 17.2 L, [place] % (Auto) 5.2, Eos % (Auto) 3.1, [...] Clarity Cloudy, Urine pH 6.5, Ur Specific [place] 1.015, Urine Protein 100 H, Urine Glucose [...] dependent/layering faintly dense small calculi. Reading Location: [place] [address] Assessment & Plan Assessment/Plan (1) UTI (urinary tract infection): (2) Hydronephrosis: PLAN: admit for pain control plan for cystoscopy bilateral stent placement. (3) Bilateral flank pain: (4) Kidney stones: 10/16/24 0722 <Electronically signed by Peng Neville MD> Cosigner Signature (if applicable): CC: Dr. Peng Neville MD; No Primary Care Physician~ Signed [facility] Work Phone: 1(585) 246-279906-16-2025 History and physical note [facility] Medical Records Department [address] [place] [address] History & Physical Exam 10/16/24 0721 MR#: [id number] Acct: [id number] Name: YOHANNES LANDRY Rep #:[id number] : 1970 54 From: Peng Neville MD PCP: Care Physician,No Primary Status :ADM DEBBY Location: [place] [address] HPI - General General Date of Admission: 10/16/24 Date of Service: 10/16/24 Chief Complaint: bilateral ureteral obstruction HPI Narrative YOHANNES LANDRY, is a 54 F who presents with acutee renal insufficiency and bilateral obstructing kidney stones plan to take the patient the surgery today for cystoscopy bilateral stent pllacement to unblock her kidneys clear infection. And for pain conttrol. [facility] Medical History Non-smoker Kidney stones Home Medications [...] 73.5 H, Lymph % (Auto) 17.2 L, [place] % (Auto) 5.2, Eos % (Auto) 3.1, [...] Clarity Cloudy, Urine pH 6.5, Ur Specific [place] 1.015, Urine Protein 100 H, Urine Glucose [...] dependent/layering faintly dense small calculi. Reading Location: [place] [address] Assessment & Plan Assessment/Plan (1) UTI (urinary tract infection): (2) Hydronephrosis: PLAN: admit for pain control plan for cystoscopy bilateral stent placement. (3) Bilateral flank pain: (4) Kidney stones: 10/16/24 0722 Cosigner Signature (if applicable): CC: Dr. Peng Neville MD; No Primary Care Physician~ Signed [facility]06-16-2025 [facility] Medical Records Department [address] [place] [address] History Physical Exam 10/16/24 0721 MR#: [id number] Acct: [id number] Name: YOHANNES LANDRY Rep #: [id number] : 1970 54 From: Peng Neville MD PCP: Care Physician,No Primary Status:ADM DEBBY Location: [place] [address] HPI - General General Date of Admission: 10/16/24 Date of Service: 10/16/24 Chief Complaint: bilateral ureteral obstruction HPI Narrative YOHANNES LANDRY, is a 54 F who presents with acutee renal insufficiency and bilateral obstructing kidney stones plan to take the patient the surgery today for cystoscopy bilateral stent pllacement to unblock her kidneys clear infection. And for pain conttrol. [facility] Medical History Non-smoker Kidney stones Home Medications [...] 73.5 H, Lymph % (Auto) 17.2 L, [place] % (Auto) 5.2, Eos % (Auto) 3.1, [...] Clarity Cloudy, Urine pH 6.5, Ur Specific [place] 1.015, Urine Protein 100 H, Urine Glucose (UA) Normal, Urine Ketones (more content not included)...[facility]06-16-2025 Evaluation note* Diagnosis Onset Date Resolution Status Admit Date Bilateral flank pain acute October 16, 2024 4:13am Hydronephrosis acute October 16, 2024 4:13am Kidney stones acute October 16, 2024 4:13am UTI (urinary tract infection) acute October 16, 2024 4:13am [facility] Work Phone: 1(244) 614-254206-16-2025 Discharge summary Author Ian Brown [facility] Note Date/Time October 16, 2024 2:21 am [facility] Medical Records Department [address] [place] [address] Emergency Department Summary 10/15/24 MR#: [id number] Acct: [id number] Name: YOHANNES LANDRY Rep #:[id number] : [...] 11. BUN and creatinine 21 and 1.63. [place]ihake73. Serum test negative. UA shows no red cells. Greater than 100 white cells. 5 epithelial cells. 4+ bacteria. No nitrites. Labs: Laboratory Results - last 24 hr 10/15/24 22:38 WBC 13.9 H RBC 4.18 L Hgb 11.3 L Hct 36.4 L MCV 87.1 MCH 27.0 MCHC 31.0 L RDW Std Deviation 48.9 H RDW Coeff of Jluian 15.4 H Plt Count 270 MPV 11.4 Immature Gran % (Auto) 0.600 Neut % (Auto) 73.5 H Lymph % (Auto) 17.2 L [place] % (Auto) 5.2 Eos % (Auto) 3.1 [...] Clarity Cloudy Urine pH 6.5 Ur Specific [place] 1.015 Urine Protein 100 H Urine Glucose [...] dependent/layering faintly dense small calculi. Reading Location: [place] [address] Discharge Plan Triage Chief Complaint: Flank Pain [...] Primary [Primary Care Provider] - Print Language: Dutch Disposition Disposition: Acute Care Hospital [facility] What to do if you have Problems For any increased pain, shortness of breath, bleeding, nausea or vomiting, chestpain, or any unexpected problems, contact your Primary Care Provider. Call [facility] ([phone]) or report to the closest Emergency Room. Call 911 if necessary. 10/16/24 0221 <Electronically signed by Ian Brown MD> Cosigner Signature (if applicable): CC: No Primary Care Physician ~ Signed [facility] Work Phone: 1(984) 650-350306-16-2025 Discharge summary [facility] Medical Records Department [address] [place] [address] Emergency Department Summary 10/15/24 MR#: [id number] Acct: [id number] Name: YOHANNES LANDRY Rep #:[id number] : [...] Prior similar symptoms: Yes Recent Illness/Hospitalization: No [facility] Medical History Non-smoker Kidney stones Home [...] 11. BUN and creatinine 21 and 1.63. Azydssq99. Serum test negative. UA shows no red [...] 73.5 H Lymph % (Auto) 17.2 L [place] % (Auto) 5.2 Eos % (Auto) 3.1 [...] Clarity Cloudy Urine pH 6.5 Ur Specific [place] 1.015 Urine Protein 100 H Urine Glucose [...] dependent/layering faintly dense small calculi. Reading Location: [place] [address] Discharge Plan Triage Chief Complaint: Flank Pain [...] Primary [Primary Care Provider] - Print Language: Dutch Disposition Disposition: Acute Care Hospital [facility] What to do if you have Problems For any increased pain, shortness of breath, bleeding, nausea or vomiting, chestpain, or any unexpected problems, contact your Primary Care Provider. Call [facility] ([phone]) or report tothe closest Emergency Room. Call 911 if necessary. 10/16/24 0221 Cosigner Signature (if applicable): CC: No Primary Care Physician ~ Signed [facility]06-16-2025 Radiology Diagnostic study note [facility] Imaging Services [address] [place], [place] [id number] Abdomen/Pelvis without Cont MR#: [id number] Acct: [id number] Name: YOHANNES LANDRY Rep #: [id number] : 1970 F 54 From: Paulina Arias MD PCP: Care Physician,No Primary Status: REG ER Study:Abdomen/Pelvis without Cont Date of Exa m: 10/15/24 Exam# [id number] Ordering Dr: Annemarie Brown MD PROCEDURE: ABDOMEN/PELVIS [...] dependent/layering faintly dense small calculi. Reading [facility] CC: Dr. Ian Brown MD; No Primary Care Physician ~ Environmental Marketing Representative: Signed [facility]06-15-2025 Discharge summary Author Ian Brown [facility] Note Date/Time October 16, 2024 2:21 am [facility] Medical Records Department [address] [place] [address] Emergency Department Summary 10/15/24 MR#: [id number] Acct: [id number] Name: YOHANNES LANDRY Rep #:[id number] : [...] similar symptoms: Yes Recent Illness/Hospitalization: No PFSH [facility] Medical History Non-smoker Kidney stones Home Medications [...] 11. BUN and creatinine 21 and 1.63. Xvcwdij52. Serum test negative. UA shows no red [...] 73.5 H Lymph % (Auto) 17.2 L [place] % (Auto) 5.2 Eos % (Auto) 3.1 [...] Clarity Cloudy Urine pH 6.5 Ur Specific [place] 1.015 Urine Protein 100 H Urine Glucose [...] dependent/layering faintly dense small calculi. Reading Location: [place] [address] Discharge Plan Triage Chief Complaint: Flank Pain [...] Primary [Primary Care Provider] - Print Language: Dutch Disposition Disposition: Acute Care Hospital [facility] What to do if you have Problems For any increased pain, shortness of breath, bleeding, nausea or vomiting, chestpain, or any unexpected problems, contact your Primary Care Provider. Call [facility] Registry ([phone]) or report to the closest Emergency Room. Call 911 if necessary. 10/16/24 0221 <Electronically signed by Ian Brown MD> Cosigner Signature (if applicable): CC: No Primary Care Physician ~ Signed [facility] Work Phone: Consult note Author Dorothea Rogers [facility] Note Date/Time October 16, 2024 2:04 pm [facility] Medical Records Department [address] [place] [address] Anesthesia Postop Eval II 10/16/24 1403 MR#: [id number] Acct: [id number] Name: YOHANNES LANDRY Rep #:[id number] 30 : 1970 54 From: Dorothea Rogers CRNA PCP: Care Physician,No Primary Status :ADM DEBBY Y Race: C Location: [place] [address] 0-1 Anesthesia Postop Eval I Sum Postop Eval Completion status Anesthesia document: Postop Eval 1 completed: Yes Anesthesia Postop Eval I Summary Anesthesia Postop Eval I Summary: Anesthesia Postop Eval I: Assessment Summary Airway patent Yes 10/16/24 12:37 ASSOCIATE BRAND [email or web address] Spontaneous unlabored Yes 10/16/24 12:37 ASSOCIATE BRAND MANAGER.[email or web address] respirations Mental status Awake,Calm 10/16/24 12:37 ASSOCIATE BRAND MANAGER.[email or web address] nausea No 10/16/24 12:37 ASSOCIATE BRAND MANAGER.[email or web address] Vomiting No 10/16/24 12:37 ASSOCIATE BRAND MANAGER.[email or web address] Anesthesia Postop Eval I: Fluid Summary Crystalloid volume administer 500 10/16/24 12:37 ASSOCIATE BRAND MANAGER.[email or web address] (ml) Colloids volume administered ( ml) Blood Product volume administered (ml) Total IV fluid infused 500 10/16/24 12:37 ASSOCIATE BRAND MANAGER.[email or web address] Anesthesia Postop Eval I: Summary Notes Anesthesia Complication No 10/16/24 12:37 ASSOCIATE BRAND MANAGER.[email or web address] Anesthesia Complication Comment: Post-operative progress note Anesthesia: Postop Eval II Evaluation Mental status: Awake Pain Level: 1 nausea: No Vomiting: No 10/16/24 1404 <Electronically signed by Dorothea rivera CRNA> Date _ Dorothea Sirca ASSOCIATE BRAND MANAGER Cosigner Signature: Date CC: ~ Signed [facility] Work Phone: Evaluation + Plan note No data available for this section [facility] Evaluation noteNo assessment information available [facility] Work Phone: Hospital Discharge instructions No data available for this section [facility] Progress note No data available for this section [facility] Reason for referral (narrative)No reason for referral information availableWS[facility] Work Phone: Summary Purpose Family History No Family History Records FoundNo Family History Records FoundNo Family History Records Found No data available for this section Advance Directives Advance Directive Response Recorded Date/ Time Advance Directives No August 12 12:19pm Living Will No August 30, 2021 9:36pm Power of Chiller Operator No August 30 9:36pm Advance Directive Response Recorded Date/ Time Advance Directives No August 12 12:19pm Living Will No October 11, 2021 12:42am Power of Chiller Operator No October 11 12:42am Advance Directive Response Recorded Date/ Time Advance Directives No August 12 12:19pm Living Will No December 17 10:33pm Power of Chiller Operator No December 17 10:33pm Advance Directive Response Recorded Date/ Time Do you have a Healthcare Power of Chiller Operator? No October 15, 2024 10:30pm Advance Directives No August 12 12:19pm Advance Directive Response Recorded Date/ Time Do you have a Healthcare Power of Chiller Operator? No October 16, 2024 3:28am Advance Directives [...] section and content) DATE CREATED AUTHOR 08/23/2019 [facility] DATE CREATED AUTHOR AUTHOR'S ORGANIZ ATION 10/26/2024 [facility] DATE CREATED AUTHOR AUTHOR'S ORGANIZ ATION 03/15/2025 [facility] Goals (unrecognized section and content) Goals may [...] BE BASED ON THE PRIMARY CLINICAL RECORDS. [facility] [employer] [facility]. provides no warranty or guarantee of the accuracy or completeness of information in this document.
--- NOTE | 2025-03-16 18:20 | HP.PCM.HOS_ITS ---
HPI - General General Date of Admission: 03/16/25 Date of Service: 03/16/25 Chief Complaint: Requesting services for opiate detox HPI Narrative YOHANNES ELIES, is a 54 F who presents to the emergency room at [facility] requesting services for opiate detox. Patient snorts heroin, she denies any other illicit drug usage, she denies any injectable drugs. Patient does not drink alcohol. Her last usage of heroin was this afternoon. Labs obtained in the emergency room included a CBC which was remarkable for hemoglobin of 11.3, chemistry profile was remarkable for creatinine of 1.79, a BUN of 23, calcium of 11.9, tox screen was positive for opiates, and benzodiazepines. Patient's ethyl alcohol level was below 10.1. Patient will be admitted to [place] [address], orders were entered using the addiction order set and opiate detox order set, patient will be seen by addiction social media intern. [facility] Medical History Non-smoker Kidney stones Home Medications Medication Instructions Recorded Last Taken Type NK 03/16/25 Unknown History Allergy/AdvReac Type Severity Reaction Status Date / Time No Known Allergies Allergy Verified 03/16/25 15:39 Surgical History History of arthroplasty of right knee History of tubal ligation Social History Smoking Status: Never smoker ROS Constitutional Constitutional: Denies anorexia, change in weight, chills, fatigue, fever(s), malaise, night sweats or weakness Eyes Eyes: Denies blurry vision, change in vision, discharge from eye(s) or eye pain Cardiovascular Cardiovascular: Denies chest pain, claudication, edema or palpitations Respiratory/Chest Respiratory/Chest: Denies cough, hemoptysis, shortness of breath at rest or shortness of breath with exertion Gastrointestinal Gastrointestinal: Denies abdominal pain, constipation, diarrhea, hematemesis, hematochezia, melena, nausea or vomiting Genitourinary Genitourinary: Denies dysuria, hematuria, urinary frequency, urinary hesitancy, urinary incontinence or urinary urgency Musculoskeletal Musculoskeletal: Denies back pain, joint pain, joint stiffness, joint swelling, myalgias or neck pain Neurologic Neurologic: Denies abnormal gait, abnormal speech, dizziness, focal weakness, headache(s), loss of vision, numbness, other visual disturbances, paresthesias, syncope or tingling Psychiatric Psychiatric: Denies anxiety, cognitive impairment, depression, irritability, mood swings or suicidal ideation Endocrine Endocrinology: Denies change in body appearance, cold intolerance, excessive sweating, heat intolerance, polydipsia or polyuria Hematologic/Lymphatic Hematologic/Lymphatic: Denies none, anemia, easy bleeding, easy bruising or lymphadenopathy Allergic/Immunologic Allergic/Immunologic: Denies rhinitis, urticaria, eczemia or asthma Vital Signs Vital Signs Vital Signs: 03/16/25 15:30 03/16/25 16:30 03/16/25 17:00 Temperature 97.5 F L Temperature Source Temporal Pulse Rate 87 104 H 101 H Respiratory Rate 16 20 H 16 Blood Pressure 80/62 L 99/63 93/52 L Blood Pressure Mean 68 75 65 Pulse Ox 98 99 98 Oxygen Delivery Method Room Air Room Air Room Air 03/16/25 17:30 03/16/25 18:00 Temperature 97 F L Temperature Source Pulse Rate 101 H 91 Respiratory Rate 14 20 H Blood Pressure 96/51 L 98/65 Blood Pressure Mean 66 76 Pulse Ox 98 99 Oxygen Delivery Method Room Air Weight Weight: 62.777 kg Body Mass Index (BMI) 25.3 Physical Exam Const alert, oriented x3 and no apparent distress Constitutional Narrative: Patient appears older than her stated age General Appearance: cooperative, well kempt and well developed Orientation / Consciousness: awake, oriented to person, oriented to place and oriented to time HEENT normocephalic, head/scalp atraumatic, hearing grossly normal bilaterally and moist oral mucous membranes Eyes PERRL, EOMs intact bilaterally and conjunctivae normal Neck supple, no JVD, thyroid normal and no carotid bruits General: trachea midline Resp normal respiratory effort, no retractions, no use of accessory muscles and clear to auscultation bilaterally Auscultation: Negative for rales, rhonchi or wheezes Cardio regular rate, regular rhythm, S1 normal heart sound, S2 normal heart sound, no murmurs, no rub and no gallops GI normal to inspection, nondistended, normoactive bowel sounds, soft to palpation, non-tender and non-distended Extremity no clubbing, cyanosis or edema Skin no rashes or lesions noted General Skin Exam: no breakdown Neuro oriented x3, CN's II-XII intact bilaterally, no focal motor deficits and no sensory deficits noted Sensorium / Orientation: awake and alert Speech: speech normal Psych affect normal Results Lab / Micro Data 03/16/25 16:33 03/16/25 16:33 Labs: Laboratory Results - last 24 hr 03/16/25 16:20: Urine Opiates Screen PRESUMPTIVE POSITIVE, U Buprenorphine Qual NEGATIVE, Ur Oxycodone Screen NEGATIVE, Urine Methadone Screen NEGATIVE, Urine Fentanyl Screen PRESUMPTIVE POSITIVE, Ur Barbiturates Screen NEGATIVE, Ur Phencyclidine Scrn NEGATIVE, Ur Amphetamines Screen NEGATIVE, U Benzodiazepines Scrn PRESUMPTIVE POSITIVE, Urine Cocaine Screen NEGATIVE, U Cannabinoids Screen NEGATIVE 03/16/25 16:33: WBC 7.7, RBC 4.74, Hgb 11.3 L, Hct 37.9, MCV 80.0 L, MCH 23.8 L, MCHC 29.8 L, RDW Std Deviation 49.0 H, RDW Coeff of Julian 17.2 H, Plt Count 241, MPV 11.4, Immature Gran % (Auto) 0.400, Neut % (Auto) 65.1, Lymph % (Auto) 25.6, [place] % (Auto) 7.5, Eos % (Auto) 1.0, Baso % (Auto) 0.4, Absolute Neuts (auto) 5.0, Absolute Lymphs (auto) 1.96, Nucleated RBC % 0, Sodium 137, Potassium 3.9, Chloride 105, Carbon Dioxide 21.0, Anion Gap 11, BUN 23 H, Creatinine 1.79 H, E stim Creat Clear Calc 32.02 L, Est GFR (MDRD) Non-Af 34 L, BUN/Creatinine Ratio 12.8, Glucose 124 H, Calcium 11.9 H, Total Bilirubin 0.26, AST 19, ALT 12, Alkaline Phosphatase 101, Total Protein 7.6, Albumin 3.9, Globulin 3.7, Albumin/Globulin Ratio 1.1, Serum , Qual NEGATIVE, Ethyl Alcohol < 10.1 Assessment & Plan Assessment/Plan (1) Desire for detoxification: PLAN: Plan 1. Opiate substance use disorder-patient will be admitted to [facility], she will be placed on Subutex, she will be seen by addiction social media intern #2 chronic kidney disease stage IIIb-etiology of her chronic kidney disease is unknown at this time #3 positive tox screen for benzodiazepines-etiology unclear at this point, it could be related to her heroin usage as a contaminant. Total clinical time spent by myself addressing the patient's medical issues, reviewing all of her data, and collaborating with patient's care team: 55 minutes Charges/Coding Visit Charges Inpatient E&M: 35563 Init Hosp L2
[2025-03-16 20:02] VITALS: BMI 24.9
[2025-03-16 20:07] VITALS: BP 94/54; PULSE 91; RESP 16; TEMP 37.3; O2SAT 95
[2025-03-16] MEDS: hydrOXYzine PAM 25 MG Capsule 50 MG PO (20:15)
--- NOTE | 2025-03-16 22:15 | PCM.HOSP.N ---
Hospitalist Note UA reviewed:100 protein, 25 occult blood, neg nitrite, 500 leukocyte esterase, >100 WBC, 4+ bacteria. Urine cx ordered, last cx done in 2021 with colony count below infection level. Hx of hydronephrosis and pyelonephritis at the same time. Last lithotripsy this October, she reports non-obstructing stones currently but has c/o frequency, dysuria. CrCl 32, unable to give Pyridium. Ordered nitrofurantoin 100mg PO BID x5days.
[2025-03-17 00:30] VITALS: BP 95/49; PULSE 90; RESP 16; TEMP 37.1; O2SAT 96
[2025-03-17 08:11] VITALS: BP 138/82; PULSE 101; RESP 18; TEMP 36.6; O2SAT 97
--- NOTE | 2025-03-17 11:51 | PN_ITS ---
Subjective Subjective Patient seen and examined. She complains of nausea, vomiting, abdominal cramps and diarrhea, all likely due to withdrawal. Review of systems is otherwise negative. Objective Data Objective Data Vital Signs: Vital Signs Temp Pulse Resp BP Pulse Ox O2 Del Method 97.9 F 101 H 18 138/82 H 97 Room Air 03/17/25 08:11 03/17/25 08:11 03/17/25 08:11 03/17/25 08:11 03/17/25 08:11 03/17/25 08:11 Oxygen Delivery Method Room Air Weight: 136 lb 3.931 oz Body Mass Index (BMI) 24.9 Lab / Micro Data 03/16/25 16:33 03/16/25 16:33 Labs: Laboratory Results - last 24 hr 03/16/25 16:20: Urine Opiates Screen PRESUMPTIVE POSITIVE, U Buprenorphine Qual NEGATIVE, Ur Oxycodone Screen NEGATIVE, Urine Methadone Screen NEGATIVE, Urine Fentanyl Screen PRESUMPTIVE POSITIVE, Ur Barbiturates Screen NEGATIVE, Ur Phencyclidine Scrn NEGATIVE, Ur Amphetamines Screen NEGATIVE, U Benzodiazepines Scrn PRESUMPTIVE POSITIVE, Urine Cocaine Screen NEGATIVE, U Cannabinoids Screen NEGATIVE 03/16/25 16:33: WBC 7.7, RBC 4.74, Hgb 11.3 L, Hct 37.9, MCV 80.0 L, MCH 23.8 L, MCHC 29.8 L, RDW Std Deviation 49.0 H, RDW Coeff of Julian 17.2 H, Plt Count 241, MPV 11.4, Immature Gran % (Auto) 0.400, Neut % (Auto) 65.1, Lymph % (Auto) 25.6, [place] % (Auto) 7.5, Eos % (Auto) 1.0, Baso % (Auto) 0.4, Absolute Neuts (auto) 5.0, Absolute Lymphs (auto) 1.96, Nucleated RBC % 0, Sodium 137, Potassium 3.9, Chloride 105, Carbon Dioxide 21.0, Anion Gap 11, BUN 23 H, Creatinine 1.79 H, E stim Creat Clear Calc 32.02 L, Est GFR (MDRD) Non-Af 34 L, BUN/Creatinine Ratio 12.8, Glucose 124 H, Calcium 11.9 H, Total Bilirubin 0.26, AST 19, ALT 12, Alkaline Phosphatase 101, Total Protein 7.6, Albumin 3.9, Globulin 3.7, Albumin/Globulin Ratio 1.1, Serum , Qual NEGATIVE, Ethyl Alcohol < 10.1 Physical Exam Const alert and oriented x3 Constitutional Narrative: looks uncomfortable and restless General Appearance: cooperative HEENT normocephalic, head/scalp atraumatic, moist oral mucous membranes and oropharynx normal Eyes EOMs intact bilaterally Neck supple and no JVD Lymph Lymphatic: no lymphedema noted Resp Resp Narrative: mildly diminished breath sounds bibasally, no wheezes or crackles. Cardio regular rhythm, S1 normal heart sound, S2 normal heart sound and no murmurs Cardio Narrative: tachycardia GI normal to inspection, nondistended, normoactive bowel sounds, soft to palpation, non-tender and non-distended Extremity normal capillary refill, no clubbing, cyanosis or edema and no calf tenderness General Extremity: no tenderness to palpation of joints or extremities Skin General Skin Exam: no breakdown Neuro no focal motor deficits and no sensory deficits noted Motor Exam: general weakness Psych Attitude: agitated Activity / Motor Behavior: restless Assessment & Plan Assessment/Plan (1) Desire for detoxification: PLAN: Plan #Acute opioid withdrawal * on opioid withdrawal protocol with buprenorphine * on adjunctive meds for symptomatic relief. * Monitor CIWA score * #CKD III BL Charges/Coding Visit Charges Inpatient E&M: 72304 Subs Hosp L2
[2025-03-17 15:10] VITALS: BP 130/78; PULSE 86; RESP 17; TEMP 36.9; O2SAT 95
[2025-03-17] MEDS: hydrOXYzine PAM 25 MG Capsule 50 MG PO (15:44)
--- NOTE | 2025-03-17 16:00 | ADDICTION ---
Pt was met with to complete RAMP assessment, AUDIT, DUDIT, ASAM, MSE, & DC Plan. Pt was engaged in psychoeducation on the neurobiology of addiction and her extensive relapse risk. Pt was provided resources and information on all tx options. Pt declined any interest in residential or inpatient tx at this time d/t family and household obligations, but she states that she is open to [facility] and trauma therapy d/t extensive untreated complex trauma, dysthymia, and suspected PTSD. Pt states that her son will pick her up from [facility] and transport her home.
[2025-03-17 20:19] VITALS: BP 102/61; PULSE 76; RESP 16; TEMP 36.8; O2SAT 98
[2025-03-17 20:20] VITALS: BP 102/61; PULSE 76; RESP 16; TEMP 36.8; O2SAT 98
[2025-03-17 20:26] VITALS: O2SAT 98
[2025-03-18 03:15] VITALS: BP 110/74; PULSE 65; RESP 16; TEMP 36.7; O2SAT 99
[2025-03-18 08:15] VITALS: BP 109/83; PULSE 58; RESP 16; TEMP 36.6; O2SAT 100
--- NOTE | 2025-03-18 09:21 | NURSING ---
Pt reported to this RN that "something was telling her that she needed to go home". This Rn explained to pt that she would have to leave AMA, since she was not to be discharged until 03/19. Pt agreeable. AMA forms signed, totes unlocked. Dr Asher notified
--- NOTE | 2025-03-18 15:09 | DS.PCM_ITS ---
Providers Date of Admission: 03/16/25 Date of Discharge: 03/18/25 Primary Care Physician: No Primary Care Phys Reason For Visit: OPIATE WITHDRAWL Diagnosis Discharge Diagnosis (1) Desire for detoxification: Status: Acute Plan #Acute opioid withdrawal * on opioid withdrawal protocol with buprenorphine * on adjunctive meds for symptomatic relief. * Monitor CIWA score * #CKD III BL Medications at Discharge Home Medications NK 03/16/25 Hospital Course Operations None Procedures None Summary of Care Provided Minutes Spent on Discharge: 37 Hospital Course: Patient is a 54-year-old female with past medical history as outlined was admitted to the ED on 03/16/2025 for acute opioid withdrawal. She admitted to snorting heroin but denies any other drug use. Her last use of heroin was on the afternoon of admission. Labs were unremarkable. Creatinine was 1.79. Calcium is also elevated at 11.9. Urine tox was positive for opiates and benzodiazepines and serum alcohol level was less than 7.1. She was admitted and managed for acute opioid withdrawal. She was started on opioid withdrawal protocol with buprenorphine. She still did complain of withdrawal symptoms during the course of admission. Patient was seen on the morning of 03/18/2025 with her nurse by her bedside. She complained of feeling anxious because she kept on thinking about what was going on at home and also admitted to some withdrawal symptoms. She was agreeable to stay until day 3 of the withdrawal protocol which would have been 03/19/2025. However in the early afternoon patient decided to sign out AGAINST MEDICAL ADVICE. Patient therefore signed out AGAINST MEDICAL ADVICE on 03/18/2025. Patient was seen and examined on the day of discharge. Physical Exam Const alert and oriented x3 Constitutional Narrative: anxious looking General Appearance: cooperative and comfortable Orientation / Consciousness: awake HEENT normocephalic, head/scalp atraumatic, hearing grossly normal bilaterally and moist oral mucous membranes Mouth: oral and palatal mucosa normal Eyes EOMs intact bilaterally and conjunctivae normal Neck supple, no JVD, thyroid normal and no carotid bruits General: trachea midline Lymph Lymphatic: no lymphedema noted Resp normal respiratory effort, no retractions, no use of accessory muscles and clear to auscultation bilaterally Auscultation: Negative for rales, rhonchi or wheezes Cardio regular rate, regular rhythm, S1 normal heart sound, S2 normal heart sound and no murmurs GI normal to inspection, nondistended, normoactive bowel sounds, soft to palpation, non-tender and non-distended Extremity normal to inspection, full ROM, normal capillary refill, no clubbing, cyanosis or edema and no calf tenderness General Extremity: no tenderness to palpation of joints or extremities Skin no rashes or lesions noted General Skin Exam: no breakdown Neuro oriented x3, CN's II-XII intact bilaterally, no focal motor deficits and no sensory deficits noted Sensorium / Orientation: awake and alert Speech: speech normal Psych Activity / Motor Behavior: restless Mood & Affect: anxious Weight / BMI Weight Weight: 136 lb 3.931 oz Body Mass Index (BMI) 24.9 ABG / Lab / Microbiology Data 03/16/25 16:33 03/16/25 16:33 D/C Instructions Discharge Activity: Return to Normal Activity Weight Bearing Status: Weight bearing as tolerated Call your doctor if you observe: Fever of 101 or Higher, Shortness of breath, Dizziness, Swelling in the ankles and Chest pain DC O2, CPAP, BIPAP Needs Home O2 Discharge instructions: No DC home with Oxygen: No Meaningful Use Info Meaningful Use Meaningful Use Diagnoses (Choose all that apply): None applicable Discharge Plan Admission Admit Date/Time: 03/16/25 17:39 Primary Reason for Your Visit: acute opioid withdrawal Attending Provider: Johana Asher Primary Care Provider: Care Physician,No Primary Consulting Providers: Devonte Gamble Discharge Orders/Prescriptions Prescriptions: No Action NK Referrals / Follow Up: Care Physician,No Primary [Primary Care Provider, Medical] Disposition Disposition (needs filled in before D/C Order can be placed): Against Medical Advice Charges/Coding Visit Charges Inpatient E&M: 96160 Disch Hosp >30min
== END 2025-03-18 09:38 | disposition left against medical advice (07) | DRG 770 ==
LOC: ED 17:29 → MS3 18:08
PROVIDERS: Admitting Provider Internal Medicine; Emergency Provider Emergency Medicine; Visit Provider Student in an Organized Health Care Education/Training Program
DX: F11.93 Opioid use, unspecified with withdrawal (principal); N18.32 Chronic kidney disease, stage 3b; Z53.29 Procedure and treatment not carried out because of patient's decision for other reasons
CPT/HCPCS: 80053; 80307; 82077; 84703; 85025; 87086; 87088; 99283